=== PATIENT | female | born 1980 | race Caucasian/White ===

== ENCOUNTER 2021-10-24 19:08 | Inpatient (IN) ==
--- NOTE | 2021-10-24 19:20 | Emergency Department Note ---
History of Present Illness General Chief complaint: Respiratory Distress Stated complaint: Stroke Time Seen by Provider: 10/24/21 19:08 Source: patient and EMS Mode of arrival: EMS History of Present Illness Provider complaint: Shortness of breath Onset (ago): day(s) Location: chest Pain Consistency: + constant Quality: + other (Short of breath) Relieved By: + none Exacerbated By: + none Associated symptoms: + cough and + shortness of breath; no chest pain, no fever/chills, no headaches or no nausea/vomiting This is a 41-year-old female brought in by EMS for evaluation of shortness of breath and cough. Patient has been short of breath for about 2 days. She denies any alleviating factors. She has had associated coughing with it for 10 days. She states she was exposed to COVID-19 13 days ago. She is vaccinated. She has had a nonproductive cough. She denies any fever. She has loss of taste but not smell. She denies any vomiting or diarrhea or abdominal pain. She has had no urinary symptoms. She denies any leg swelling or pain or any history of DVT or PE. She denies any chest discomfort or pain. 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 She cannot move her left arm but she is normally able to walk. She does not note any new numbness or weakness although she has not tried to stand up today. She states she has had some slurring of her speech which started yesterday. I did obtain further history from the patient's . She apparently had a Covid exposure at her son's psychologist office. She is unvaccinated for COVID- 19. She has been lethargic and confused since 11:00 this morning. She did not recognize her . She try to get up and fell. Nobody witnessed the fall but they found her on the floor. Home Medications Medication Instructions Recorded Confirmed Type amlodipine 10 mg tablet 10 mg PO DAILY 10/24/21 10/24/21 History baclofen 20 mg tablet 20 mg PO BID 10/24/21 10/24/21 History bupropion HCl 150 mg 24 hr tablet, 150 mg PO DAILY 10/24/21 10/24/21 History extended release bupropion HCl 150 mg 24 hr tablet, 300 mg PO DAILY 10/24/21 10/24/21 History extended release docusate sodium 100 mg capsule 100 mg PO TID 10/24/21 10/24/21 History (Colace) doxepin 75 mg capsule 300 mg PO DAILY 10/24/21 10/24/21 History hydrochlorothiazide 25 mg tablet 25 mg PO DAILY 10/24/21 10/24/21 History hydroxyzine HCl 50 mg tablet 50 mg PO BID 10/24/21 10/24/21 History losartan 50 mg tablet 50 mg PO DAILY 10/24/21 10/24/21 History meclizine 25 mg tablet 25 mg PO TID PRN 10/24/21 10/24/21 History multivitamin 1 tab PO DAILY 10/24/21 10/24/21 History oxybutynin chloride 15 mg 15 mg PO DAILY 10/24/21 10/24/21 History tablet,extended release 24 hr potassium chloride 10 mEq 10 meq PO DAILY 10/24/21 10/24/21 History tablet,extended release potassium chloride 20 mEq 80 meq PO DAILY 10/24/21 10/24/21 History tablet,extended release(part/cryst) (Klor-Con M) risperidone 0.5 mg tablet 0.5 mg PO QAM 10/24/21 10/24/21 History risperidone 3 mg tablet 3 mg PO HS 10/24/21 10/24/21 History spironolactone 50 mg tablet 50 mg PO DAILY 10/24/21 10/24/21 History Allergies Allergy/AdvReac Type Severity Reaction Status Date / Time No Known Allergies Allergy Unverified 10/24/21 21:07 Past Med/Surg History Medical History CVA, old, hemiparesis Social History Preferred Language: Croatian marital status: Current Living Situation: Family Feels Safe at Home: Yes Review of Systems See HPI for pertinent positives & negatives. and A total of 10 systems reviewed and were otherwise negative Physical Exam Vital Signs Vital Signs - 24 hr 10/24/21 19:09 10/24/21 19:15 10/24/21 19:26 Temperature 36.7 C Temperature Source Oral Pulse Rate 120 H 114 H Pulse Rate [Apical] Pulse Rate from SpO2 Sensor 114 H Respiratory Rate 26 H 22 Respiratory Effort / Characteristics Short of Breath SOB on Exertion Respiratory Depth Deep Respiratory Pattern Tachypnea Blood Pressure 136/89 Blood Pressure [Right Arm] Blood Pressure Mean 104 Blood Pressure Mean [Right Arm] Pulse Oximetry 83 L 85 L 97 Oxygen Delivery Method Non-rebreather Non-rebreather BiPAP Oxygen Flow Rate 15 18 Fraction of Inspired Oxygen Sepsis Recent Fever Within 48 Hours No Sepsis New/Unexplained Change in Mental Status Yes Sepsis Action Taken by Nursing No Action Required 10/24/21 19:30 10/24/21 19:45 10/24/21 20:00 Temperature Temperature Source Pulse Rate 111 H 109 H 111 H Pulse Rate [Apical] Pulse Rate from SpO2 Sensor 111 H 109 H 111 H Respiratory Rate 23 21 27 H Respiratory Effort / Characteristics Respiratory Depth Respiratory Pattern Blood Pressure 143/86 H 168/98 H Blood Pressure [Right Arm] Blood Pressure Mean 105 121 Blood Pressure Mean [Right Arm] Pulse Oximetry 92 98 91 Oxygen Delivery Method Nasal Cannula High Flow Nasal Cannula High Flow Nasal Cannula Oxygen Flow Rate Fraction of Inspired Oxygen Sepsis Recent Fever Within 48 Hours Sepsis New/Unexplained Change in Mental Status Sepsis Action Taken by Nursing 10/24/21 20:09 10/24/21 20:16 10/24/21 20:20 Temperature Temperature Source Pulse Rate Pulse Rate [Apical] 109 H Pulse Rate from SpO2 Sensor Respiratory Rate 31 H Respiratory Effort / Characteristics Spontaneous Respiratory Depth Respiratory Pattern Blood Pressure Blood Pressure [Right Arm] 181/100 H Blood Pressure Mean Blood Pressure Mean [Right Arm] 127 Pulse Oximetry 89 L 89 L 98 Oxygen Delivery Method High Flow Nasal Cannula Oxygen Flow Rate Fraction of Inspired Oxygen 100 Sepsis Recent Fever Within 48 Hours Sepsis New/Unexplained Change in Mental Status Sepsis Action Taken by Nursing 10/24/21 20:33 10/24/21 20:45 10/24/21 21:00 Temperature Temperature Source Pulse Rate 107 H 113 H 104 H Pulse Rate [Apical] Pulse Rate from SpO2 Sensor 113 H 104 H Respiratory Rate 22 30 H 34 H Respiratory Effort / Characteristics Respiratory Depth Respiratory Pattern Blood Pressure 140/87 130/80 Blood Pressure [Right Arm] Blood Pressure Mean 104 96 Blood Pressure Mean [Right Arm] Pulse Oximetry 96 97 97 Oxygen Delivery Method BiPAP BiPAP BiPAP Oxygen Flow Rate Fraction of Inspired Oxygen Sepsis Recent Fever Within 48 Hours Sepsis New/Unexplained Change in Mental Status Sepsis Action Taken by Nursing 10/24/21 21:15 10/24/21 21:30 10/24/21 21:45 Temperature Temperature Source Pulse Rate 104 H 104 H 101 H Pulse Rate [Apical] Pulse Rate from SpO2 Sensor 104 H 104 H 101 H Respiratory Rate 31 H 28 H 25 H Respiratory Effort / Characteristics Respiratory Depth Respiratory Pattern Blood Pressure 142/86 H 133/85 Blood Pressure [Right Arm] Blood Pressure Mean 104 101 Blood Pressure Mean [Right Arm] Pulse Oximetry 99 99 98 Oxygen Delivery Method BiPAP BiPAP BiPAP Oxygen Flow Rate Fraction of Inspired Oxygen Sepsis Recent Fever Within 48 Hours Sepsis New/Unexplained Change in Mental Status Sepsis Action Taken by Nursing 10/24/21 22:00 10/24/21 22:15 10/24/21 22:30 Temperature Temperature Source Pulse Rate 103 H 102 H 103 H Pulse Rate [Apical] Pulse Rate from SpO2 Sensor 103 H Respiratory Rate 30 H 24 23 Respiratory Effort / Characteristics Respiratory Depth Respiratory Pattern Blood Pressure Blood Pressure [Right Arm] Blood Pressure Mean Blood Pressure Mean [Right Arm] Pulse Oximetry 99 98 96 Oxygen Delivery Method BiPAP BiPAP BiPAP Oxygen Flow Rate Fraction of Inspired Oxygen Sepsis Recent Fever Within 48 Hours Sepsis New/Unexplained Change in Mental Status Sepsis Action Taken by Nursing 10/24/21 22:45 10/24/21 23:06 10/24/21 23:07 Temperature Temperature Source Pulse Rate 100 H 104 H Pulse Rate [Apical] 104 H Pulse Rate from SpO2 Sensor Respiratory Rate 23 24 24 Respiratory Effort / Characteristics Short of Breath Respiratory Depth Respiratory Pattern Blood Pressure 131/91 Blood Pressure [Right Arm] Blood Pressure Mean 104 Blood Pressure Mean [Right Arm] Pulse Oximetry 97 97 97 Oxygen Delivery Method BiPAP BiPAP Oxygen Flow Rate Fraction of Inspired Oxygen 100 100 Sepsis Recent Fever Within 48 Hours Sepsis New/Unexplained Change in Mental Status Sepsis Action Taken by Nursing Constitutional: Vital signs reviewed. Eyes: Pupils are equal round reactive to light. Conjunctiva are noninjected. ENT: Pharynx is clear without erythema or exudate. Mucous membranes are moist. Neck supple without meningeal signs. Respiratory: Scattered rhonchi bilaterally. Breath sounds are equal bilaterally. Cardiovascular: Tachycardic. Regular rhythm. GI: Soft, nondistended and nontender. Bowel sounds are present. Musculoskeletal: No peripheral edema. No lower extremity tenderness. Integumentary: No cyanosis. or jaundice. Neurologic: The patient is somnolent. Cranial nerves II-XII are intact. Motor is 5 out of 5 right upper and lower extremities. Left upper extremity she has some movement of the hand but is unable to raise the arm. The left lower extremity she has 5-5 distal strength but having difficulty with lifting the leg off the bed. Sensation is intact to light touch all extremities. Psychiatric: Unable to assess. Course Administered Medications Potassium Chloride (K Jacoby / Wtr) 10 meq in 100 mls @ 100 mls/hr IV Q1H TRAVIS Stop: 10/25/21 03:17 Last Admin: 10/24/21 22:42 Dose: 100 mls/hr Documented by: [id number] Discontinued Medications Dexamethasone Sodium Phosphate (DexamethasonePf 10 Mg/Ml Vial) 6 mg IV NOW ONE Stop: 10/24/21 20:52 Last Admin: 10/24/21 21:06 Dose: 6 mg Documented by: [id number] Potassium Chloride (K Jacoby / Wtr) 10 meq in 100 mls @ 100 mls/hr IV ONE ONE Stop: 10/24/21 22:14 Last Infusion: 10/24/21 22:28 Dose: 0 mls/hr Documented by: [id number] Admin: 10/24/21 21:25 Dose: 100 mls/hr Documented by: [id number] Ipratropium [place] (Ipratropium [place] Neb Soln 0.02% 2.5 Ml Vial) 0.5 mg INH NOW STA Stop: 10/24/21 22:23 Last Admin: 10/24/21 23:05 Dose: 0.5 mg Documented by: [id number] Levalbuterol HCl (Levalbuterol 1.25mg/0.5ml Neb) 1.25 mg INH NOW STA Stop: 10/24/21 22:23 Last Admin: 10/24/21 23:05 Dose: 1.25 mg Documented by: [id number] Critical Care Time Critical Care Time: Yes Total Critical Care Time: 45 I have personally spent approximately 45 minutes of critical care time in the direct management of this patient. This includes bedside care, interpretation of diagnostic studies, and testing, discussion with consultants, patient, and family members, and other required patient management activities. These minutes are in excess of all separately billable procedures. Medical Decision Making Differential Diagnosis Hypoxia, ARDS, COVID-19, pneumonia, respiratory failure, hypercapnia, CVA Medical Records Attestation: I reviewed the patient's medical records. I did perform a limited focused review of portions of the patient's old chart on the electronic medical record. The patient has had no recent pertinent visits to this hospital. Home Medications Current Medication List: was personally reviewed by me Laboratory Data Attestation: I reviewed the patient's lab results. Result diagrams: 10/24/21 19:59 10/24/21 19:59 Lab Results 10/24/21 10/24/21 10/24/21 Range/Units 19:25 19:25 19:33 WBC (4.8-10.8) K/uL RBC (4.2-5.4) M/uL Hgb (12.0-16.0) g/dL POC Hgb 11.9 L (12.0-16.0) g/dl Hct (37-47) % POC Hct 35 L (37-47) % MCV (80-100) fL MCH (25-34) pg MCHC (32-36) g/dL RDW Std Deviation (36.4-46.3) fL RDW Coeff of Diana (11.5-14.5) % Plt Count (130-400) K/uL MPV (7.4-10.4) fL Immature Gran % (Auto) % Neut % (Auto) % Lymph % (Auto) % Sterling % (Auto) % Eos % (Auto) % Baso % (Auto) % Neut # (Auto) (1.4-6.5) K/uL Lymph # (Auto) (1.2-3.4) K/uL Sterling # (Auto) (0.11-0.59) K/uL Eos # (Auto) (0-0.5) K/uL Baso # (Auto) (0-0.2) K/uL Immature Gran # (Auto) (0.00-0.02) K/uL Absolute Nucleated RBC (0-0) K/uL Nucleated RBC % (auto) % POC pH 7.49 H (7.35-7.45) POC pCO2 39 (35-46) mmHg POC pO2 50 L (80-95) mmHg POC HCO3 30 H (19-24) laurie/L POC Total CO2 31 (24-31) mmol/L POC Base Excess 6.0 H (-9-1.8) laurie/L POC ABG O2 Sat 88.0 L (90-95) % POC Sodium 140 (135-144) mmol/L Sodium (136-145) mmol/L POC Potassium 2.6 L (3.3-5.0) mmol/L Potassium (3.5-5.1) mmol/L POC Chloride (101-112) mmol/L Chloride (98-107) mmol/L Carbon Dioxide (21-32) mmol/L Anion Gap (3-11) POC Anion Gap (16-25) mmol/L POC BUN (7-18) mg/dl BUN (7-18) mg/dl Creatinine (0.6-1.2) mg/dl POC Creatinine (0.6-1.3) mg/dl Est Cr Clr Drug Dosing ml/min Est GFR ( Amer) ml/min Est GFR (Non-Af Amer) ml/min BUN/Creatinine Ratio (10-20) Glucose (70-99) mg/dl POC Glucose (other) (70-99) mg/dl Lactate (0.4-2.0) mmol/L Calcium (8.5-10.1) mg/dl POC Ioniz Calcium Olga (1.12-1.32) mmol/l Magnesium (1.8-2.4) mg/dl Total Bilirubin (0.2-1) mg/dl AST (15-37) U/L ALT (12-78) U/L Alkaline Phosphatase (45-117) U/L Troponin I (0-0.045) ng/ml C-Reactive Protein (0-0.29) mg/dl Total Protein (6.4-8.2) gm/dl Albumin (3.4-5.0) gm/dl Globulin (2.5-4.0) gm/dl Albumin/Globulin Ratio (0.9-2) Urine Color Urine Appearance (Clear) Urine pH (4.5-7.5) Ur Specific [place] (1.000-1.030) Urine Protein (Negative) Urine Glucose (UA) (Negative) Urine Ketones (Negative) Urine Blood (Negative) Urine Nitrite (Negative) Urine Bilirubin (Negative) Urine Urobilinogen (Negative) Ur Leukocyte Esterase (Negative) Urine WBC (Auto) (0-5) /hpf Urine RBC (Auto) (0-4) /hpf U Hyaline Cast (Auto) (0-5) /lpf U Epithel Cells (Auto) (0-5) /lpf Urine Bacteria (Auto) (Negative) SARS-CoV-2 (PCR) POSITIVE A* (Negative) Influ A Molecular Assay Negative (Negative) Influ B Molecular Assay Negative (Negative) 10/24/21 10/24/21 10/24/21 Range/Units 19:54 19:59 19:59 WBC 8.63 (4.8-10.8) K/uL RBC 4.52 (4.2-5.4) M/uL Hgb 12.8 (12.0-16.0) g/dL POC Hgb 12.9 (12.0-16.0) g/dl Hct 37.3 (37-47) % POC Hct 38 (37-47) % MCV 82.5 (80-100) fL MCH 28.3 (25-34) pg MCHC 34.3 (32-36) g/dL RDW Std Deviation 45.1 (36.4-46.3) fL RDW Coeff of Diana 14.8 H (11.5-14.5) % Plt Count 324 (130-400) K/uL MPV 9.9 (7.4-10.4) fL Immature Gran % (Auto) 1.3 % Neut % (Auto) 83.4 % Lymph % (Auto) 10.2 % Sterling % (Auto) 4.9 % Eos % (Auto) 0.0 % Baso % (Auto) 0.2 % Neut # (Auto) 7.20 H (1.4-6.5) K/uL Lymph # (Auto) 0.88 L (1.2-3.4) K/uL Sterling # (Auto) 0.42 (0.11-0.59) K/uL Eos # (Auto) 0.00 (0-0.5) K/uL Baso # (Auto) 0.02 (0-0.2) K/uL Immature Gran # (Auto) 0.11 H (0.00-0.02) K/uL Absolute Nucleated RBC 0.07 H (0-0) K/uL Nucleated RBC % (auto) 0.8 % POC pH (7.35-7.45) POC pCO2 (35-46) mmHg POC pO2 (80-95) mmHg POC HCO3 (19-24) laurie/L POC Total CO2 28 (24-31) mmol/L POC Base Excess (-9-1.8) laurie/L POC ABG O2 Sat (90-95) % POC Sodium 142 (135-144) mmol/L Sodium 141 (136-145) mmol/L POC Potassium 2.8 L (3.3-5.0) mmol/L Potassium 2.9 L (3.5-5.1) mmol/L POC Chloride 97 L (101-112) mmol/L Chloride 103 (98-107) mmol/L Carbon Dioxide 28 (21-32) mmol/L Anion Gap 10.0 (3-11) POC Anion Gap 20.0 (16-25) mmol/L POC BUN 13 (7-18) mg/dl BUN 13 (7-18) mg/dl Creatinine 0.83 (0.6-1.2) mg/dl POC Creatinine 0.8 (0.6-1.3) mg/dl Est Cr Clr Drug Dosing 115.8 ml/min Est GFR ( Amer) 100.8 ml/min Est GFR (Non-Af Amer) 87.0 ml/min BUN/Creatinine Ratio 15.9 (10-20) Glucose 139 H (70-99) mg/dl POC Glucose (other) 147 H (70-99) mg/dl Lactate (0.4-2.0) mmol/L Calcium 8.5 (8.5-10.1) mg/dl POC Ioniz Calcium Olga 1.07 L (1.12-1.32) mmol/l Magnesium 2.2 (1.8-2.4) mg/dl Total Bilirubin 0.5 (0.2-1) mg/dl AST 129 H (15-37) U/L ALT 78 (12-78) U/L Alkaline Phosphatase 110 (45-117) U/L Troponin I < 0.015 (0-0.045) ng/ml C-Reactive Protein 24.30 H (0-0.29) mg/dl Total Protein 7.1 (6.4-8.2) gm/dl Albumin 2.5 L (3.4-5.0) gm/dl Globulin 4.6 H (2.5-4.0) gm/dl Albumin/Globulin Ratio 0.5 L (0.9-2) Urine Color Urine Appearance (Clear) Urine pH (4.5-7.5) Ur Specific [place] (1.000-1.030) Urine Protein (Negative) Urine Glucose (UA) (Negative) Urine Ketones (Negative) Urine Blood (Negative) Urine Nitrite (Negative) Urine Bilirubin (Negative) Urine Urobilinogen (Negative) Ur Leukocyte Esterase (Negative) Urine WBC (Auto) (0-5) /hpf Urine RBC (Auto) (0-4) /hpf U Hyaline Cast (Auto) (0-5) /lpf U Epithel Cells (Auto) (0-5) /lpf Urine Bacteria (Auto) (Negative) SARS-CoV-2 (PCR) (Negative) Influ A Molecular Assay (Negative) Influ B Molecular Assay (Negative) 10/24/21 10/24/21 10/24/21 Range/Units 19:59 20:00 21:50 WBC (4.8-10.8) K/uL RBC (4.2-5.4) M/uL Hgb (12.0-16.0) g/dL POC Hgb 11.2 L (12.0-16.0) g/dl Hct (37-47) % POC Hct 33 L (37-47) % MCV (80-100) fL MCH (25-34) pg MCHC (32-36) g/dL RDW Std Deviation (36.4-46.3) fL RDW Coeff of Diana (11.5-14.5) % Plt Count (130-400) K/uL MPV (7.4-10.4) fL Immature Gran % (Auto) % Neut % (Auto) % Lymph % (Auto) % Sterling % (Auto) % Eos % (Auto) % Baso % (Auto) % Neut # (Auto) (1.4-6.5) K/uL Lymph # (Auto) (1.2-3.4) K/uL Sterling # (Auto) (0.11-0.59) K/uL Eos # (Auto) (0-0.5) K/uL Baso # (Auto) (0-0.2) K/uL Immature Gran # (Auto) (0.00-0.02) K/uL Absolute Nucleated RBC (0-0) K/uL Nucleated RBC % (auto) % POC pH 7.48 H (7.35-7.45) POC pCO2 45 (35-46) mmHg POC pO2 62 L (80-95) mmHg POC HCO3 33 H (19-24) laurie/L POC Total CO2 35 H (24-31) mmol/L POC Base Excess 10.0 H (-9-1.8) laurie/L POC ABG O2 Sat 93.0 (90-95) % POC Sodium 142 (135-144) mmol/L Sodium (136-145) mmol/L POC Potassium 3.0 L (3.3-5.0) mmol/L Potassium (3.5-5.1) mmol/L POC Chloride (101-112) mmol/L Chloride (98-107) mmol/L Carbon Dioxide (21-32) mmol/L Anion Gap (3-11) POC Anion Gap (16-25) mmol/L POC BUN (7-18) mg/dl BUN (7-18) mg/dl Creatinine (0.6-1.2) mg/dl POC Creatinine (0.6-1.3) mg/dl Est Cr Clr Drug Dosing ml/min Est GFR ( Amer) ml/min Est GFR (Non-Af Amer) ml/min BUN/Creatinine Ratio (10-20) Glucose (70-99) mg/dl POC Glucose (other) (70-99) mg/dl Lactate 1.6 (0.4-2.0) mmol/L Calcium (8.5-10.1) mg/dl POC Ioniz Calcium Olga (1.12-1.32) mmol/l Magnesium (1.8-2.4) mg/dl Total Bilirubin (0.2-1) mg/dl AST (15-37) U/L ALT (12-78) U/L Alkaline Phosphatase (45-117) U/L Troponin I (0-0.045) ng/ml C-Reactive Protein (0-0.29) mg/dl Total Protein (6.4-8.2) gm/dl Albumin (3.4-5.0) gm/dl Globulin (2.5-4.0) gm/dl Albumin/Globulin Ratio (0.9-2) Urine Color Dark Yellow Urine Appearance Clear (Clear) Urine pH 6.0 (4.5-7.5) Ur Specific [place] 1.020 (1.000-1.030) Urine Protein Trace H (Negative) Urine Glucose (UA) Negative (Negative) Urine Ketones Trace H (Negative) Urine Blood Negative (Negative) Urine Nitrite Negative (Negative) Urine Bilirubin 1+ H (Negative) Urine Urobilinogen Negative (Negative) Ur Leukocyte Esterase Negative (Negative) Urine WBC (Auto) 1-5 (0-5) /hpf Urine RBC (Auto) 0-4 (0-4) /hpf U Hyaline Cast (Auto) 5-10 H (0-5) /lpf U Epithel Cells (Auto) 10-20 H (0-5) /lpf Urine Bacteria (Auto) Negative (Negative) SARS-CoV-2 (PCR) (Negative) Influ A Molecular Assay (Negative) Influ B Molecular Assay (Negative) Imaging Data Radiologist's Impression: Chest X-Ray 10/24/21 19:09 XR chest 1V portable HISTORY: 41 years-old Female Dyspnea acute shortness of breath COMPARISON: None TECHNIQUE: Portable AP view of the chest FINDINGS: Cardiac silhouette is enlarged. Interstitial coarsening is noted with extensive bilateral airspace opacities. No pneumothorax or large pleural effusion. Degenerative changes of the shoulders and spine. IMPRESSION: Extensive bilateral airspace opacities are suggestive of multifocal pneumonia. ACT 112: Negative or not required by law. The above report was generated using voice recognition software. It may contain grammatical, syntax or spelling errors. Electronically signed by: Du Kilpatrick M.D. 10/24/2021 8:[address] 10/24/21 19:18 CT head/brain wo con CLINICAL HISTORY: 41 years-old Female with slurred speech eval for cva. Acute strokelike symptoms TECHNIQUE: Multiple axial CT images of the head were obtained without contrast. A dose lowering technique was utilized adhering to the principles of ALARA. CT DOSE: 1171.27 mGy.cm COMPARISON: None. FINDINGS: No acute intracranial hemorrhage, midline shift, intracranial mass, hydrocephalus, territorial ischemia or abnormal extra-axial collection. The calvarium is intact. Mild mucosal thickening of the paranasal sinuses. Mastoid air cells are clear. IMPRESSION: No acute intracranial abnormality. ACT 112: Negative or not required by law. The above report was generated using voice recognition software. It may contain grammatical, syntax or spelling errors. Electronically signed by: Du Kilpatrick M.D. 10/24/2021 8:36 PM ECG Data Attestation: I personally reviewed and interpreted this ECG as follows: Indication: + SOB/dyspnea Rate (beats per minute): 111 Rhythm: + sinus tachycardia ECG Chase: + Normal ECG ST segments: no ST elevation ECG Findings: no PVCs Comparison ECG Date: no prior available MDM Narrative I did provide prehospital medical command for the patient. I did evaluate the patient as noted above. Her symptoms are concerning for COVID-19 pneumonia and respiratory failure. She was placed in isolation. IV access was established. I did place an order for continuous cardiac monitoring. The monitor showed sinus tachycardia at a rate of 112 bpm. She is hypoxemic and was placed on high flow oxygen with an O2 sat going up into the low 90s. I did order and personally review the patient's 12-lead EKG as described above. She has no acute ischemic changes. I did order and personally reviewed the images of the patient's chest x-ray as described above. She appears to have a multifocal pneumonia. I did order a urine analysis. She does not have an infection. Blood cultures were ordered. I did order and review the patient's blood work as noted in the electronic medical record. CBC demonstrates no leukocytosis but she does have a left shift and some lymphopenia. Platelet count and hemoglobin are within normal limits. Arterial blood gas on a nonrebreather demonstrates a pH of 7.49, PaCO2 of 39 and PaO2 of 50. Chemistries demonstrate a potassium of 2.9. Electrolytes are otherwise unremarkable. Her C-reactive protein is 24. Lactate is 1.6. Blood cultures were obtained. There was some concern for her having a stroke. She has been slurring her speech slightly since yesterday and had significant confusion today. I believe this is likely from hypoxemia. I did order a CT of the head. I did review the images myself as well as the radiology report as described above. There is no evidence of acute CVA. I did reassess the patient multiple times. She improved significantly with high flow oxygen and then was subsequently placed on BiPAP and showed greater improvement. She is no longer lethargic. She is awake and alert. She answers questions appropriately. She does not require intubation at this time. I did order a second ABG. I did treat her with IV Decadron and IV KCl. She will be hospitalized for further care and evaluation. I did discuss case with the hospitalist and geriatric case manager. Repeat ABG shows improvement of PaO2 but she is still hypoxic. Clinically she is improving progressively and mentating and awake and alert. At this time I do not see an emergent indication for intubation. As she has COVID-19 we will try proning her and pulmonary toilet. Impression & Plan Acute respiratory failure with hypoxia, Multifocal pneumonia, Pneumonia due to 2019-nCoV, Acute hypokalemia Discharge Plan Visit Data Chief Complaint: Respiratory Distress Stated Complaint: Stroke ED Provider: Micheal Baer Discharge Problem: Acute respiratory failure with hypoxia, Multifocal pneumonia, Pneumonia due to 2019-nCoV, Acute hypokalemia Patient Disposition: Being Evaluated by Hospitalist Forms Stand Alone Forms: My [facility] Prescriptions Prescriptions: No Action multivitamin Tablet 1 tab PO DAILY RF: 0 losartan 50 mg Tablet 50 mg PO DAILY RF: 0 oxybutynin chloride 15 mg Tablet Extended Release 24 Hr 15 mg PO DAILY RF: 0 doxepin 75 mg Capsule 300 mg PO DAILY RF: 0 potassium chloride 10 mEq Tablet Extended Release 10 meq PO DAILY RF: 0 hydroxyzine HCl 50 mg Tablet 50 mg PO BID RF: 0 risperidone 3 mg Tablet 3 mg PO HS RF: 0 baclofen 20 mg Tablet 20 mg PO BID RF: 0 potassium chloride [Klor-Con M20] 20 mEq Tablet,Er Particles/Crystals 80 meq PO DAILY RF: 0 meclizine 25 mg Tablet 25 mg PO TID PRN (Reason: Dizziness) RF: 0 amlodipine 10 mg Tablet 10 mg PO DAILY RF: 0 docusate sodium [Colace] 100 mg Capsule 100 mg PO TID RF: 0 hydrochlorothiazide 25 mg Tablet 25 mg PO DAILY RF: 0 risperidone 0.5 mg Tablet 0.5 mg PO QAM RF: 0 spironolactone 50 mg Tablet 50 mg PO DAILY RF: 0 bupropion HCl 150 mg Tablet Extended Release 24 Hr 300 mg PO DAILY RF: 0 bupropion HCl 150 mg Tablet Extended Release 24 Hr 150 mg PO DAILY RF: 0 Referrals Referrals: PCP,NO [Physician] -
[2021-10-24 19:50] LABS: iSTAT Arterial Blood Gas HCO3 30 meg/L (19-24); iSTAT Arterial Blood Gas pCO2 39 mmHg (35-46); iSTAT Arterial Blood Gas pH 7.49 (7.35-7.45); iSTAT Arterial Blood Gas pO2 50 mmHg (80-95); iSTAT Carbon Dioxide 31 mmol/L (24-31); iSTAT Hematocrit 35 % (37-47); iSTAT Hemoglobin 11.9 g/dl (12.0-16.0); iSTAT Potassium 2.6 mmol/L (3.3-5.0); iSTAT Sodium 140 mmol/L (135-144)
[2021-10-24 20:07] LABS: iSTAT Creatinine 0.8 mg/dl (0.6-1.3); iSTAT Hemoglobin 12.9 g/dl (12.0-16.0); iSTAT Ionized Calcium 1.07 mmol/l (1.12-1.32); iSTAT Potassium 2.8 mmol/L (3.3-5.0)
[2021-10-24 20:09] LABS: Influenza A virus by PCR Negative (Negative); Influenza B virus by PCR Negative (Negative)
[2021-10-24 20:12] LABS: Basophils # (auto) 0.02 K/uL (0-0.2); Basophils % (auto) 0.2 %; Hematocrit (blood only) 37.3 % (37-47); Hemoglobin 12.8 g/dL (12.0-16.0); Immature Granulocytes # (auto) 0.11 K/uL (0.00-0.02); Immature Granulocytes % (auto) 1.3 %; Lymphocytes # (auto) 0.88 K/uL (1.2-3.4); Lymphocytes % (auto) 10.2 %; Mean Corpuscular Hemoglobin 28.3 pg (25-34); Mean Corpuscular Hgb Conc 34.3 g/dL (32-36); Mean Corpuscular Volume 82.5 fL (80-100); Mean Platelet Volume 9.9 fL (7.4-10.4); Monocytes # (auto) 0.42 K/uL (0.11-0.59); Monocytes % (auto) 4.9 %; Neutrophils % (auto) 83.4 %; Nucleated RBC # (auto) 0.07 K/uL (0-0); Nucleated RBC % (auto) 0.8 %; Platelet Count 324 K/uL (130-400); RDW Coefficient of Variation 14.8 % (11.5-14.5); RDW Standard Deviation 45.1 fL (36.4-46.3); Red Blood Count 4.52 M/uL (4.2-5.4); White Blood Count 8.63 K/uL (4.8-10.8)
--- NOTE | 2021-10-24 20:15 | XRay Report ---
XR chest 1V portable HISTORY: 41 years-old Female Dyspnea acute shortness of breath COMPARISON: None TECHNIQUE: Portable AP view of the chest FINDINGS: Cardiac silhouette is enlarged. Interstitial coarsening is noted with extensive bilateral airspace op acities. No pneumothorax or large pleural effusion. Degenerative changes of the shoulders and spine. IMPRESSION: Extensive bilateral airspace opacities are suggestive of multifocal pneumonia. ACT 112: Negative or not required by law. The above report was generated using voice recognition software. It may contain grammatical, syntax o r spelling errors. Electronically signed by: Du Kilpatrick M.D. 10/24/2021 8:14 PM
[2021-10-24 20:18] LABS: Appearance Urine Clear (Clear); Bacteria Urine Automated Negative (Negative); Bilirubin Urine 1+ (Negative); Blood Urine Negative (Negative); Color Urine Dark Yellow; Glucose Urine UA Negative (Negative); Ketones Urine Trace (Negative); Leukocyte Esterase Urine Negative (Negative); Nitrite Urine Negative (Negative); Protein Urine Trace (Negative); RBC Urine Automated 0-4 /hpf (0-4); Urobilinogen Urine Negative (Negative)
--- NOTE | 2021-10-24 20:37 | CT Scan Report ---
CT head/brain wo con CLINICAL HISTORY: 41 years-old Female with slurred speech eval for cva. Acute strokelike symptoms TECHNIQUE: Multiple axial CT images of the head were obtained without contrast. A dose lowering tech nique was utilized adhering to the principles of ALARA. CT DOSE: 1171.27 mGy.cm COMPARISON: None. FINDINGS: No acute intracranial hemorrhage, midline shift, intracranial mass, hydrocephalus, territorial ischem ia or abnormal extra-axial collection. The calvarium is intact. Mild mucosal thickening of the paranasal sinuses. Mastoid air cells are tacos ar. IMPRESSION: No acute intracranial abnormality. ACT 112: Negative or not required by law. The above report was generated using voice recognition software. It may contain grammatical, syntax o r spelling errors. Electronically signed by: Du Kilpatrick M.D. 10/24/2021 8:36 PM
[2021-10-24 20:41] LABS: Alanine Aminotransferase 78 U/L (12-78); Albumin Level 2.5 gm/dl (3.4-5.0); Aspartate Aminotransferase 129 U/L (15-37); BUN Creatinine Ratio 15.9 (10-20); Blood Urea Nitrogen 13 mg/dl (7-18); Calcium 8.5 mg/dl (8.5-10.1); Carbon Dioxide 28 mmol/L (21-32); Chloride 103 mmol/L (98-107); Creatinine Clr Calc Pharmacy 115.8 ml/min; Est GFR (African American) 100.8 ml/min; Glucose 139 mg/dl (70-99); Potassium 2.9 mmol/L (3.5-5.1); Sodium 141 mmol/L (136-145)
[2021-10-24 20:48] LABS: Albumin Globulin Ratio 0.5 (0.9-2); Alkaline Phosphatase 110 U/L (45-117); Bilirubin,Total 0.5 mg/dl (0.2-1); Globulin 4.6 gm/dl (2.5-4.0); Total Protein 7.1 gm/dl (6.4-8.2); Troponin I < 0.015 ng/ml (0-0.045)
[2021-10-24] MEDS ORDERED: dexAMETHasone**PF** 10 MG/ML VIAL IV ONE (20:51)
[2021-10-24] MEDS ORDERED: POTASSIUM CHLORIDE / WTR 10 MEQ/100 ML PLCT IV ONE (21:15)
[2021-10-24 22:04] LABS: iSTAT Arterial Blood Gas HCO3 33 meg/L (19-24); iSTAT Arterial Blood Gas pCO2 45 mmHg (35-46); iSTAT Arterial Blood Gas pH 7.48 (7.35-7.45); iSTAT Arterial Blood Gas pO2 62 mmHg (80-95); iSTAT Carbon Dioxide 35 mmol/L (24-31); iSTAT Hematocrit 33 % (37-47); iSTAT Hemoglobin 11.2 g/dl (12.0-16.0); iSTAT Sodium 142 mmol/L (135-144)
[2021-10-24] MEDS ORDERED: IPRATROPIUM BROMIDE NEB SOLN 0.02% 2.5 ML VIAL INH STA (22:22)
[2021-10-24] MEDS ORDERED: LEVALBUTEROL 1.25MG/0.5ML NEB INH STA (22:22)
[2021-10-24] MEDS ORDERED: XOPENEX/ATROVENT 1.25mg/0.5MG NEB COMBO NEB STA (22:22)
[2021-10-24 22:26] LABS: Magnesium 2.2 mg/dl (1.8-2.4)
[2021-10-24] MEDS: POTASSIUM CHLORIDE / WTR 10 MEQ/100 ML PLCT IV SCH ×2 (22:42→23:47)
[2021-10-25] MEDS: POTASSIUM CHLORIDE / WTR 10 MEQ/100 ML PLCT IV SCH ×3 (01:10→05:14)
[2021-10-25] MEDS ORDERED: SODIUM CHLORIDE 0.9% 10ML FLUSH IV SCH (01:15)
[2021-10-25] MEDS ORDERED: REMDESIVIR 200 MG in SODIUM CHLORIDE 0.9% 210 ML IV STA (01:21)
--- NOTE | 2021-10-25 01:58 | History & Physical Report ---
Date of Service October 25, 2021 Assessment & Plan (1) Acute respiratory failure with hypoxia: Plan: Secondary to severe COVID-19 pneumonia HTN, slightly elevated Hypokalemia secondary to poor p.o. 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 (Patient was counseled regarding potential adverse effects from Remdesivir therapy.) Pulmonary consult Re: Respiratory failure, severe COVID-19 pneumonia Replace potassium, hold home diuretic for now Check hemoglobin A1c DVT prophylaxis per Lovenox subcu Full code Total critical care time was 40 minutes. Text document was generated using Hooked voice recognition software. It may contain grammatical or spelling errors. Kindly contact undersigned for clarification of any documentation item in question. History of Present Illness Chief Complaint: Shortness of breath, cough Primary Care Provider: Sonny Lagos MD History obtained from patient and records. History somewhat difficult to obtain from patient secondary to BiPAP mask. Medical history significant for HTN, mood disorder, potassium wasting nephropathy as per records, cerebral palsy. 10 days history dry cough symptoms with worsening shortness of breath and flulike symptoms. Patient denies chest pain. Possible COVID-19 contacts. Patient has not received COVID-19 vaccination. Poor appetite. Some lethargy noted at home leading to fall. Patient brought to ER for evaluation. BiPAP initiated for respiratory distress. Decadron given for COVID-19 pneumonia. Medical History as above Surgical History : Achilles tendon surgery Family History : ADD, DM, schizophrenia, mood disorder, autism Personal/Social history : Non-smoker, occasional EtOH intake, disabled Allergies Allergy/AdvReac Type Severity Reaction Status Date / Time No Known Allergies Allergy Unverified 10/24/21 21:07 Home Medications Medication Instructions Recorded Confirmed Type amlodipine 10 mg tablet 10 mg PO DAILY 10/24/21 10/24/21 History baclofen 20 mg tablet 20 mg PO BID 10/24/21 10/24/21 History bupropion HCl 150 mg 24 hr tablet, 150 mg PO DAILY 10/24/21 10/24/21 History extended release bupropion HCl 150 mg 24 hr tablet, 300 mg PO DAILY 10/24/21 10/24/21 History extended release docusate sodium 100 mg capsule 100 mg PO TID 10/24/21 10/24/21 History (Colace) doxepin 75 mg capsule 300 mg PO DAILY 10/24/21 10/24/21 History hydrochlorothiazide 25 mg tablet 25 mg PO DAILY 10/24/21 10/24/21 History hydroxyzine HCl 50 mg tablet 50 mg PO BID 10/24/21 10/24/21 History losartan 50 mg tablet 50 mg PO DAILY 10/24/21 10/24/21 History meclizine 25 mg tablet 25 mg PO TID PRN 10/24/21 10/24/21 History multivitamin 1 tab PO DAILY 10/24/21 10/24/21 History oxybutynin chloride 15 mg 15 mg PO DAILY 10/24/21 10/24/21 History tablet,extended release 24 hr potassium chloride 10 mEq 10 meq PO DAILY 10/24/21 10/24/21 History tablet,extended release potassium chloride 20 mEq 80 meq PO DAILY 10/24/21 10/24/21 History tablet,extended release(part/cryst) (Klor-Con M) risperidone 0.5 mg tablet 0.5 mg PO QAM 10/24/21 10/24/21 History risperidone 3 mg tablet 3 mg PO HS 10/24/21 10/24/21 History spironolactone 50 mg tablet 50 mg PO DAILY 10/24/21 10/24/21 History Past Med/Surg History Medical History CVA, old, hemiparesis Social History Smoking Status: Never smoker Hx Alcohol Use: No Hx Substance Use: No Preferred Language: Hebrew Communication Ability: Effective Health Record Technician Required: No Beliefs That Will Affect Care: None marital status: Current Living Situation: Spouse Feels Safe at Home: Yes Safety Concerns: Feels Safe At This Time Assistive Devices: Glasses Assistive Devices Comment: Upper and Lower Partials Review of Systems Review of Systems: Could not be reliably obtained Physical Exam Physical Exam: GENERAL: uncomfortable, anxious, morbidly obese, minimal respiratory distress SKIN: Normal color, warm HEENT: [place] palpebral conjunctivae, no ptosis, dry buccal mucosa, BiPAP in place NECK : Supple, short neck, no tenderness CHEST : Decreased breath sounds, occasional expiratory wheezes, no tenderness HEART : Tachycardic, no obvious murmurs ABDOMEN: Some distention, nontender EXTREMITIES : Minimal LE swelling, no LE tenderness, no other conspicuous deformities noted NEUROLOGIC : Coherent, no facial asymmetry, episodic involuntary jerking of the left upper extremity, gait and stance not assessed Results & Data Results & Data ([facility]) Vital Signs (Past 12 Hours) Vital Signs Temp Pulse Pulse Resp BP BP Pulse Ox 10/25/21 00:00 105 H 25 H 98 10/24/21 23:45 102 H 21 98 10/24/21 23:30 101 H 33 H 97 10/24/21 23:15 102 H 25 H 96 10/24/21 23:07 104 H 24 97 10/24/21 23:06 104 H 24 97 10/24/21 23:00 101 H 32 H 96 10/24/21 22:45 100 H 23 131/91 97 10/24/21 22:30 103 H 23 96 10/24/21 22:15 102 H 24 98 10/24/21 22:00 103 H 30 H 99 10/24/21 21:45 101 H 25 H 98 10/24/21 21:30 104 H 28 H 133/85 99 10/24/21 21:15 104 H 31 H 142/86 H 99 10/24/21 21:00 104 H 34 H 130/80 97 10/24/21 20:45 113 H 30 H 140/87 97 10/24/21 20:33 107 H 22 96 10/24/21 20:20 31 H 98 10/24/21 20:16 89 L 10/24/21 20:09 109 H 181/100 H 89 L 10/24/21 20:00 111 H 27 H 168/98 H 91 10/24/21 19:45 109 H 21 98 10/24/21 19:30 111 H 23 143/86 H 92 10/24/21 19:26 97 10/24/21 19:15 114 H 22 85 L 10/24/21 19:09 36.7 C 120 H 26 H 136/89 83 L Laboratory Results Laboratory Results WBC 8.63 K/uL (4.8-10.8) 10/24/21 19:59 RBC 4.52 M/uL (4.2-5.4) 10/24/21 19:59 Hgb 12.8 g/dL (12.0-16.0) 10/24/21 19:59 POC Hgb 11.2 g/dl (12.0-16.0) L 10/24/21 21:50 Hct 37.3 % (37-47) 10/24/21 19:59 POC Hct 33 % (37-47) L 10/24/21 21:50 MCV 82.5 fL (80-100) 10/24/21 19:59 MCH 28.3 pg (25-34) 10/24/21 19:59 MCHC 34.3 g/dL (32-36) 10/24/21 19:59 RDW Std Deviation 45.1 fL (36.4-46.3) 10/24/21 19:59 RDW Coeff of Diana 14.8 % (11.5-14.5) H 10/24/21 19:59 Plt Count 324 K/uL (130-400) 10/24/21 19:59 MPV 9.9 fL (7.4-10.4) 10/24/21 19:59 Immature Gran % (Auto) 1.3 % 10/24/21 19:59 Neut % (Auto) 83.4 % 10/24/21 19:59 Lymph % (Auto) 10.2 % 10/24/21 19:59 [place] % (Auto) 4.9 % 10/24/21 19:59 Eos % (Auto) 0.0 % 10/24/21 19:59 Baso % (Auto) 0.2 % 10/24/21 19:59 Neut # (Auto) 7.20 K/uL (1.4-6.5) H 10/24/21 19:59 Lymph # (Auto) 0.88 K/uL (1.2-3.4) L 10/24/21 19:59 [place] # (Auto) 0.42 K/uL (0.11-0.59) 10/24/21 19:59 Eos # (Auto) 0.00 K/uL (0-0.5) 10/24/21 19:59 Baso # (Auto) 0.02 K/uL (0-0.2) 10/24/21 19:59 Immature Gran # (Auto) 0.11 K/uL (0.00-0.02) H 10/24/21 19:59 Absolute Nucleated RBC 0.07 K/uL (0-0) H 10/24/21 19:59 Nucleated RBC % (auto) 0.8 % 10/24/21 19:59 POC pH 7.48 (7.35-7.45) H 10/24/21 21:50 POC pCO2 45 mmHg (35-46) 10/24/21 21:50 POC pO2 62 mmHg (80-95) L 10/24/21 21:50 POC HCO3 33 laurie/L (19-24) H 10/24/21 21:50 POC Total CO2 35 mmol/L (24-31) H 10/24/21 21:50 POC Base Excess 10.0 laurie/L (-9-1.8) H 10/24/21 21:50 POC ABG O2 Sat 93.0 % (90-95) 10/24/21 21:50 POC Sodium 142 mmol/L (135-144) 10/24/21 21:50 Sodium 141 mmol/L (136-145) 10/24/21 19:59 POC Potassium 3.0 mmol/L (3.3-5.0) L 10/24/21 21:50 Potassium 2.9 mmol/L (3.5-5.1) L 10/24/21 19:59 POC Chloride 97 mmol/L (101-112) L 10/24/21 19:54 Chloride 103 mmol/L (98-107) 10/24/21 19:59 Carbon Dioxide 28 mmol/L (21-32) 10/24/21 19:59 POC Total CO2 28 mmol/L (24-31) 10/24/21 19:54 Anion Gap 10.0 (3-11) 10/24/21 19:59 POC Anion Gap 20.0 mmol/L (16-25) 10/24/21 19:54 POC BUN 13 mg/dl (7-18) 10/24/21 19:54 BUN 13 mg/dl (7-18) 10/24/21 19:59 Creatinine 0.83 mg/dl (0.6-1.2) 10/24/21 19:59 POC Creatinine 0.8 mg/dl (0.6-1.3) 10/24/21 19:54 Est Cr Clr Drug Dosing 115.8 ml/min 10/24/21 19:59 Est GFR ( Amer) 100.8 ml/min 10/24/21 19:59 Est GFR (Non-Af Amer) 87.0 ml/min 10/24/21 19:59 BUN/Creatinine Ratio 15.9 (10-20) 10/24/21 19:59 Glucose 139 mg/dl (70-99) H 10/24/21 19:59 POC Glucose (other) 147 mg/dl (70-99) H 10/24/21 19:54 Lactate 1.6 mmol/L (0.4-2.0) 10/24/21 19:59 Calcium 8.5 mg/dl (8.5-10.1) 10/24/21 19:59 POC Ioniz Calcium Olga 1.07 mmol/l (1.12-1.32) L 10/24/21 19:54 Magnesium 2.2 mg/dl (1.8-2.4) 10/24/21 19:59 Total Bilirubin 0.5 mg/dl (0.2-1) 10/24/21 19:59 AST 129 U/L (15-37) H 10/24/21 19:59 ALT 78 U/L (12-78) 10/24/21 19:59 Alkaline Phosphatase 110 U/L (45-117) 10/24/21 19:59 Troponin I < 0.015 ng/ml (0-0.045) 10/24/21 19:59 C-Reactive Protein 24.30 mg/dl (0-0.29) H 10/24/21 19:59 Total Protein 7.1 gm/dl (6.4-8.2) 10/24/21 19:59 Albumin 2.5 gm/dl (3.4-5.0) L 10/24/21 19:59 Globulin 4.6 gm/dl (2.5-4.0) H 10/24/21 19:59 Albumin/Globulin Ratio 0.5 (0.9-2) L 10/24/21 19:59 Urine Color Dark Yellow 10/24/21 20:00 Urine Appearance Clear (Clear) 10/24/21 20:00 Urine pH 6.0 (4.5-7.5) 10/24/21 20:00 Ur Specific [place] 1.020 (1.000-1.030) 10/24/21 20:00 Urine Protein Trace (Negative) H 10/24/21 20:00 Urine Glucose (UA) Negative (Negative) 10/24/21 20:00 Urine Ketones Trace (Negative) H 10/24/21 20:00 Urine Blood Negative (Negative) 10/24/21 20:00 Urine Nitrite Negative (Negative) 10/24/21 20:00 Urine Bilirubin 1+ (Negative) H 10/24/21 20:00 Urine Urobilinogen Negative (Negative) 10/24/21 20:00 Ur Leukocyte Esterase Negative (Negative) 10/24/21 20:00 Urine WBC (Auto) 1-5 /hpf (0-5) 10/24/21 20:00 Urine RBC (Auto) 0-4 /hpf (0-4) 10/24/21 20:00 U Hyaline Cast (Auto) 5-10 /lpf (0-5) H 10/24/21 20:00 U Epithel Cells (Auto) 10-20 /lpf (0-5) H 10/24/21 20:00 Urine Bacteria (Auto) Negative (Negative) 10/24/21 20:00 SARS-CoV-2 (PCR) POSITIVE (Negative) A* 10/24/21 19:25 Influ A Molecular Assay Negative (Negative) 10/24/21 19:25 Influ B Molecular Assay Negative (Negative) 10/24/21 19:25 Impressions Chest X-Ray 10/24/21 19:09 XR chest 1V portable HISTORY: 41 years-old Female Dyspnea acute shortness of breath COMPARISON: None TECHNIQUE: Portable AP view of the chest FINDINGS: Cardiac silhouette is enlarged. Interstitial coarsening is noted with extensive bilateral airspace opacities. No pneumothorax or large pleural effusion. Degenerative changes of the shoulders and spine. IMPRESSION: Extensive bilateral airspace opacities are suggestive of multifocal pneumonia. ACT 112: Negative or not required by law. The above report was generated using voice recognition software. It may contain grammatical, syntax or spelling errors. Electronically signed by: Du Kilpatrick M.D. 10/24/2021 8:[address] 10/24/21 19:18 CT head/brain wo con CLINICAL HISTORY: 41 years-old Female with slurred speech eval for cva. Acute strokelike symptoms TECHNIQUE: Multiple axial CT images of the head were obtained without contrast. A dose lowering technique was utilized adhering to the principles of ALARA. CT DOSE: 1171.27 mGy.cm COMPARISON: None. FINDINGS: No acute intracranial hemorrhage, midline shift, intracranial mass, hydrocephalus, territorial ischemia or abnormal extra-axial collection. The calvarium is intact. Mild mucosal thickening of the paranasal sinuses. Mastoid air cells are clear. IMPRESSION: No acute intracranial abnormality. ACT 112: Negative or not required by law. The above report was generated using voice recognition software. It may contain grammatical, syntax or spelling errors. Electronically signed by: Du Kilpatrick M.D. 10/24/2021 8:36 PM Diagnostic Findings EKG is from interpretation rate 110, sinus tachycardia, normal axis, T wave flattening inferior leads Code Status & VTE Plan VTE Prophylaxis Plan VTE Prophylaxis will be ordered: Yes
[2021-10-25] MEDS ORDERED: XOPENEX/ATROVENT 1.25mg/0.5MG NEB COMBO NEB PRN (04:19)
[2021-10-25] MEDS ORDERED: PROMETHAZINE HCL 12.5 MG in SODIUM CHLORIDE 0.9% 50 ML IV PRN (04:19)
[2021-10-25] MEDS ORDERED: MECLIZINE HCL 25 MG TAB PO PRN (04:19)
[2021-10-25] MEDS ORDERED: POTASSIUM CHLORIDE 40 MEQ in SODIUM CHLORIDE 0.9% 1000ML 1,000 ML IV ONE (05:00)
[2021-10-25 06:38] LABS: Basophils # (auto) 0.01 K/uL (0-0.2); Basophils % (auto) 0.1 %; Hematocrit (blood only) 36.3 % (37-47); Hemoglobin 12.2 g/dL (12.0-16.0); Immature Granulocytes # (auto) 0.06 K/uL (0.00-0.02); Immature Granulocytes % (auto) 0.7 %; Lymphocytes # (auto) 0.66 K/uL (1.2-3.4); Lymphocytes % (auto) 8.1 %; Mean Corpuscular Hgb Conc 33.6 g/dL (32-36); Mean Corpuscular Volume 83.4 fL (80-100); Mean Platelet Volume 9.7 fL (7.4-10.4); Monocytes # (auto) 0.45 K/uL (0.11-0.59); Monocytes % (auto) 5.5 %; Neutrophils # (auto) 6.95 K/uL (1.4-6.5); Neutrophils % (auto) 85.6 %; Nucleated RBC # (auto) 0.09 K/uL (0-0); Nucleated RBC % (auto) 1.1 %; Platelet Count 273 K/uL (130-400); RDW Standard Deviation 46.4 fL (36.4-46.3); Red Blood Count 4.35 M/uL (4.2-5.4); White Blood Count 8.13 K/uL (4.8-10.8)
[2021-10-25 07:16] LABS: Albumin Globulin Ratio 0.5 (0.9-2); Albumin Level 2.3 gm/dl (3.4-5.0); BUN Creatinine Ratio 20.4 (10-20); Bilirubin,Total 0.3 mg/dl (0.2-1); C Reactive Protein 18.7 mg/dl (0-0.29); Calcium 8.1 mg/dl (8.5-10.1); Creatinine Clr Calc Pharmacy 150.5 ml/min; Est GFR (African American) 128.2 ml/min; Est GFR (Non-African American) 110.6 ml/min; Globulin 4.4 gm/dl (2.5-4.0); Potassium 3.4 mmol/L (3.5-5.1); Total Protein 6.7 gm/dl (6.4-8.2)
[2021-10-25] MEDS: SODIUM CHLORIDE 0.9% 10ML FLUSH IV SCH (08:05)
[2021-10-25] MEDS ORDERED: buPROPion XL 150 MG TABCR PO SCH (09:00)
[2021-10-25] MEDS ORDERED: risperiDONE 0.5 MG TABLET PO SCH (09:00)
[2021-10-25] MEDS ORDERED: OXYBUTYNIN CHLORIDE XL 5 MG TABCR PO SCH (09:00)
[2021-10-25] MEDS ORDERED: ENOXAPARIN INJ 40 MG/0.4 ML SYR SQ SCH (09:00)
[2021-10-25] MEDS ORDERED: amLODIPine BESYLATE 5 MG TAB PO SCH (09:00)
[2021-10-25] MEDS ORDERED: buPROPion XL 300 MG TABCR PO SCH (09:00)
[2021-10-25] MEDS ORDERED: LOSARTAN POTASSIUM 50 MG TAB PO SCH (09:00)
--- NOTE | 2021-10-25 09:09 | Pulmonary Consultation ---
Date of Consultation October 25, 2021 Assessment & Plan (1) Multifocal pneumonia: (2) Pneumonia due to 2019-nCoV: (3) Acute respiratory failure with hypoxia: (4) Acute hypokalemia: Impression: 41-year-old unvaccinated female now with severe Covid. She has increased work of breathing despite noninvasive positive pressure ventilation and high flow and I am concerned that she may develop respiratory fatigue and need to be intubated. This was discussed with the patient and her . They are agreeable to proceed if needed but would like to see how she does on current interventions. Recommendations: 1. Hypoxemic respiratory failure secondary to Covid pneumonitis: Continue dexam ethasone. The patient meets criteria for additional immune suppression. Discussed with pharmacy. Will administer Tocilizumab given the high likelihood that the patient may develop respiratory failure needing intubation mechanical ventilation. Patient and spouse understand potential risk of increased infectious complications associated with this medication and agreed to proceed. Patient should prone if possible although given her altered mental status and spasms of the left upper extremity I am not sure that proning is can to be an option for her. We did discuss potential need for intubation mechanical ventilation as well as potential tracheostomy should the patient develop respiratory muscle fatigue and progressive hypoxemia refractory to the above interventions. They are agreeable to proceed but again would like to hold off for now. Given her elevated BNP, trial of diuretics may be beneficial. Procalcitonin is pending. Hold antibiotics for now 2. Covid pneumonitis: Continue dexamethasone at 6 mg daily. The patient is outside the window for remdesivir as her symptoms have been more than 10 days. 3. Management of the patient's other medical issues per primary admitting service. The patient's overall prognosis is guarded. I did advise the patient and that there is a significant possibility the patient would deteriorate to the point of needing intubation mechanical ventilation. We also discussed tracheostomy. They are agreeable to proceed. We will see how she responds. 45 min CC time including discussion with patient, spouse, pharmacist, critical care ROBIN, and bedside nurse History of Present Illness Attending Physician: Rach Álvarez MD History of Present Illness Asked by hospitalist to evaluate this patient with ARDS hypoxemic respiratory failure secondary to Covid pneumonitis. History is obtained from review electronic medical record as well as discussion with patient. Patient is a 41-year-old unvaccinated female who was exposed to Covid 2 weeks ago and has had symptoms for over 10days. She presented to the emergency room yesterday after a syncopal event with altered mental status and was found to be profoundly hypoxemic. Chest x-ray demonstrated diffuse pulmonary infiltrates. Covid testing was positive. She was initiated on dexamethasone and admitted to the hospitalist. She was transitioned to high flow and then to noninvasive positive pressure ventilation over the night. This morning the patient is on BiPAP. She remains tachypneic with increased work of breathing. She is not reporting any chest pain. She is coughing but not producing any phlegm. Allergies Allergy/AdvReac Type Severity Reaction Status Date / Time No Known Allergies Allergy Unverified 10/24/21 21:07 Home Medications Medication Instructions Recorded Confirmed Type amlodipine 10 mg tablet 10 mg PO DAILY 10/24/21 10/24/21 History baclofen 20 mg tablet 20 mg PO BID 10/24/21 10/24/21 History bupropion HCl 150 mg 24 hr tablet, 150 mg PO DAILY 10/24/21 10/24/21 History extended release bupropion HCl 150 mg 24 hr tablet, 300 mg PO DAILY 10/24/21 10/24/21 History extended release docusate sodium 100 mg capsule 100 mg PO TID 10/24/21 10/24/21 History (Colace) doxepin 75 mg capsule 300 mg PO DAILY 10/24/21 10/24/21 History hydrochlorothiazide 25 mg tablet 25 mg PO DAILY 10/24/21 10/24/21 History hydroxyzine HCl 50 mg tablet 50 mg PO BID 10/24/21 10/24/21 History losartan 50 mg tablet 50 mg PO DAILY 10/24/21 10/24/21 History meclizine 25 mg tablet 25 mg PO TID PRN 10/24/21 10/24/21 History multivitamin 1 tab PO DAILY 10/24/21 10/24/21 History oxybutynin chloride 15 mg 15 mg PO DAILY 10/24/21 10/24/21 History tablet,extended release 24 hr potassium chloride 10 mEq 10 meq PO DAILY 10/24/21 10/24/21 History tablet,extended release potassium chloride 20 mEq 80 meq PO DAILY 10/24/21 10/24/21 History tablet,extended release(part/cryst) (Klor-Con M) risperidone 0.5 mg tablet 0.5 mg PO QAM 10/24/21 10/24/21 History risperidone 3 mg tablet 3 mg PO HS 10/24/21 10/24/21 History spironolactone 50 mg tablet 50 mg PO DAILY 10/24/21 10/24/21 History Patient History Medical History CVA, old, hemiparesis Social History Smoking Status: Never smoker Hx Alcohol Use: No Hx Substance Use: No Preferred Language: Chinese Communication Ability: Effective Hosiery Looper Required: No Beliefs That Will Affect Care: None marital status: Current Living Situation: Spouse Feels Safe at Home: Yes Safety Concerns: Feels Safe At This Time Assistive Devices: Glasses Assistive Devices Comment: Upper and Lower Partials Review of Systems Review of Systems: Please refer to admission H&P. No additions or deletions Physical Exam Constitutional: + acute distress, + ill appearing and + obese Neck: trachea midline, no thyromegaly Respiratory: + respiratory distress, + labored breathing and + tachypneic Auscultation: + rales and + wheezes Cardiovascular: RRR, no murmur, no edema Gastrointestinal (Abdomen): normal bowel sounds, soft, nontender, no hepatosplenomegaly Musculoskeletal: Extremities: extremities normal to inspection Skin: no rashes, warm and dry Neurologic: Slightly confused with spastic movements of the left upper extremity. There are contractures in the left hand consistent with her prior stroke Lymphatic: no cervical lymphadenopathy Results & Data Results & Data ([facility]) Vital Signs (Past 12 Hours) Vital Signs Temp Pulse Pulse Resp BP BP Pulse Ox 10/25/21 08:25 106 H 22 90 10/25/21 07:28 37.2 C 96 H 24 141/65 H 98 10/25/21 04:19 37.1 C 103 H 30 H 139/79 100 10/25/21 03:21 95 H 24 149/97 H 93 10/25/21 03:20 28 H 95 10/25/21 00:00 105 H 25 H 98 10/24/21 23:45 102 H 21 98 10/24/21 23:30 101 H 33 H 97 10/24/21 23:15 102 H 25 H 96 10/24/21 23:07 104 H 24 97 10/24/21 23:06 104 H 24 97 10/24/21 23:00 101 H 32 H 96 10/24/21 22:45 100 H 23 131/91 97 10/24/21 22:30 103 H 23 96 10/24/21 22:15 102 H 24 98 10/24/21 22:00 103 H 30 H 99 10/24/21 21:45 101 H 25 H 98 10/24/21 21:30 104 H 28 H 133/85 99 10/24/21 21:15 104 H 31 H 142/86 H 99 Critical Care Results & Data Vital Signs (Past 12 Hours) Vital Signs Temp Pulse Pulse Resp BP BP Pulse Ox 10/25/21 08:25 106 H 22 90 10/25/21 07:28 37.2 C 96 H 24 141/65 H 98 10/25/21 04:19 37.1 C 103 H 30 H 139/79 100 10/25/21 03:21 95 H 24 149/97 H 93 10/25/21 03:20 28 H 95 10/25/21 00:00 105 H 25 H 98 10/24/21 23:45 102 H 21 98 10/24/21 23:30 101 H 33 H 97 10/24/21 23:15 102 H 25 H 96 10/24/21 23:07 104 H 24 97 10/24/21 23:06 104 H 24 97 10/24/21 23:00 101 H 32 H 96 10/24/21 22:45 100 H 23 131/91 97 10/24/21 22:30 103 H 23 96 10/24/21 22:15 102 H 24 98 10/24/21 22:00 103 H 30 H 99 10/24/21 21:45 101 H 25 H 98 10/24/21 21:30 104 H 28 H 133/85 99 10/24/21 21:15 104 H 31 H 142/86 H 99 Lab & Micro Results (Past 24 Hours) RBC 4.35 M/uL (4.2-5.4) 10/25/21 WBC 8.13 K/uL (4.8-10.8) 10/25/21 Hgb 12.2 g/dL (12.0-16.0) 10/25/21 Hct 36.3 % (37-47) L 10/25/21 MCV 83.4 fL (80-100) 10/25/21 MCH 28.0 pg (25-34) 10/25/21 MCHC 33.6 g/dL (32-36) 10/25/21 RDW Standard Deviation 46.4 fL (36.4-46.3) H 10/25/21 RDW Coefficient of Variation 15.0 % (11.5-14.5) H 10/25/21 Plt Count 273 K/uL (130-400) 10/25/21 MPV 9.7 fL (7.4-10.4) 10/25/21 Nucleated Red Blood Cells % (auto) 1.1 % 10/25/21 Nucleated RBC Absolute Count (auto) 0.09 K/uL (0-0) H 10/25/21 Neutrophils (%) (Auto) 85.6 % 10/25/21 Lymphocytes (%) (Auto) 8.1 % 10/25/21 Monocytes # (Auto) 0.45 K/uL (0.11-0.59) 10/25/21 Eosinophils # (Auto) 0.00 K/uL (0-0.5) 10/25/21 Immature Granulocyte % (Auto) 0.7 % 10/25/21 Neutrophils # (Auto) 6.95 K/uL (1.4-6.5) H 10/25/21 Lymphocytes # (Auto) 0.66 K/uL (1.2-3.4) L 10/25/21 Monocytes # (Auto) 0.45 K/uL (0.11-0.59) 10/25/21 Eosinophils # (Auto) 0.00 K/uL (0-0.5) 10/25/21 Basophils # (Auto) 0.01 K/uL (0-0.2) 10/25/21 Immature Granulocyte # (Auto) 0.06 K/uL (0.00-0.02) H 10/25/21 Na 144 mmol/L (136-145) 10/25/21 K 3.4 mmol/L (3.5-5.1) L 10/25/21 Cl 106 mmol/L (98-107) 10/25/21 CO2 28 mmol/L (21-32) 10/25/21 Anion Gap 10.0 (3-11) 10/25/21 BUN 13 mg/dl (7-18) 10/25/21 Creatinine 0.63 mg/dl (0.6-1.2) 10/25/21 Estimated GFR ( Amer) 128.2 ml/min 10/25/21 Estimated GFR (Non-Af Amer) 110.6 ml/min 10/25/21 BUN/Creatinine Ratio 20.4 (10-20) H 10/25/21 Glu 138 mg/dl (70-99) H 10/25/21 Ca 8.1 mg/dl (8.5-10.1) L 10/25/21 Total Bilirubin 0.3 mg/dl (0.2-1) 10/25/21 AST 117 U/L (15-37) H 10/25/21 ALT 68 U/L (12-78) 10/25/21 Alkaline Phosphatase 108 U/L (45-117) 10/25/21 TP 6.7 gm/dl (6.4-8.2) 10/25/21 Albumin 2.3 gm/dl (3.4-5.0) L 10/25/21 Globulin 4.4 gm/dl (2.5-4.0) H 10/25/21 Albumin/Globulin Ratio 0.5 (0.9-2) L 10/25/21 Mg 2.2 mg/dl (1.8-2.4) 10/24/21 19:59 10/24/21 Calcium Level 8.1 mg/dl (8.5-10.1) L 10/25/21 05:35 10/25/21 Diagnostic Findings (Past 24 Hours) Chest X-Ray 10/24/21 19:09 XR chest 1V portable HISTORY: 41 years-old Female Dyspnea acute shortness of breath COMPARISON: None TECHNIQUE: Portable AP view of the chest FINDINGS: Cardiac silhouette is enlarged. Interstitial coarsening is noted with extensive bilateral airspace opacities. No pneumothorax or large pleural effusion. Degenerative changes of the shoulders and spine. IMPRESSION: Extensive bilateral airspace opacities are suggestive of multifocal pneumonia. ACT 112: Negative or not required by law. The above report was generated using voice recognition software. It may contain grammatical, syntax or spelling errors. Electronically signed by: Du Kilpatrick M.D. 10/24/2021 8:[address] 10/24/21 19:18 CT head/brain wo con CLINICAL HISTORY: 41 years-old Female with slurred speech eval for cva. Acute strokelike symptoms TECHNIQUE: Multiple axial CT images of the head were obtained without contrast. A dose lowering technique was utilized adhering to the principles of ALARA. CT DOSE: 1171.27 mGy.cm COMPARISON: None. FINDINGS: No acute intracranial hemorrhage, midline shift, intracranial mass, hydrocephalus, territorial ischemia or abnormal extra-axial collection. The calvarium is intact. Mild mucosal thickening of the paranasal sinuses. Mastoid air cells are clear. IMPRESSION: No acute intracranial abnormality. ACT 112: Negative or not required by law. The above report was generated using voice recognition software. It may contain grammatical, syntax or spelling errors. Electronically signed by: Du Kilpatrick M.D. 10/24/2021 8:36 PM I & O Totals 24 Hours 10/24/21 10/25/21 10/26/21 06:59 06:59 06:59 Intake Total 423.333 / 773.333 350 / 350 Output Total 0 / 0 Balance 423.333 / 773.333 350 / 350 Cumulative 10/24/21 18:55 thru 10/25/21 07:00 Intake Total 773.333 Output Total 0 Balance 773.333 RT Ventilator Mngmt (Last Documented) Ventilator Ordered Settings Respiratory Rate 22 10/25/21 08:25 Fraction of Inspired Oxygen 90 10/25/21 08:25 Ventilator - PT Measurements Respiratory Rate 22 PG Care Time/CCT Total # of Minutes Spent Total Time Spent with Patient: Total time spent is greater than 50% in coordination of care (as documented) at patient's floor/unit and/or counseling patient: Coding Level of Care Code Critical Care 1st 30-74 mins Diagnoses Multifocal pneumonia J18.9 Pneumonia due to 2019-nCoV U07.1; J12.82 Acute respiratory failure with hypoxia J96.01 Acute hypokalemia E87.6 Time Spent (min) 45
[2021-10-25] MEDS ORDERED: TOCILIZUMAB 800 MG in 0.9 % SODIUM CHLORIDE 60 ML IV ONE (09:15)
[2021-10-25] MEDS: MULTIVITAMIN TAB PO SCH (10:30)
[2021-10-25] MEDS: dexAMETHasone 6 MG in SYRINGE 0 ML IV SCH (10:30)
[2021-10-25] MEDS: DOCUSATE SODIUM 100 MG CAP PO SCH ×3 (10:30→23:48)
--- NOTE | 2021-10-25 13:27 | Hospitalist Progress Note ---
Date of Service October 25, 2021 Assessment & Plan (1) Acute respiratory failure with hypoxia: Plan: Secondary to severe COVID-19 pneumonia Currently on HFNC Mental status appear improved compared to when evaluated by [facility] earlier CRP elevated Got Tocilizumab Continue dexamethasone Continue oxygen supplementation Incentive spirometry/flutter Discussed self proning with patient. Will need reeducation and assistance with this [facility] recommendations noted Monitor inflammatory markers High risk for progression BIPAP prn Give lasix 20mg. Hypertension Continue losartan, amlodipine Hypokalemia Likely due to poor p.o. intake/diuretic Rx Hx of potassium wasting nephropathy as per records Monitor electrolytes. Was hypokalemic on admission. Repleted. K improved to 3.4. 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 Was initially on BiPAP on admission earlier today. Currently on high flow nasal cannula. Reports dry cough, shortness of breath Denies any headache, dizziness Denies any chest pain Denies any nausea, vomiting, abdominal pain, diarrhea Denies any dysuria, frequency, urgency Physical Exam Constitutional: + acute distress, + well hydrated and + obese Eyes: PERRL, conjunctivae normal, anicteric sclerae ENMT: external ear and nose normal, oropharynx normal Respiratory: Tachpneic, Diminished breath sounds, on high flow nasal cannula Cardiovascular: Rate/Rhythm: + tachycardic S1 s2 Gastrointestinal (Abdomen): normal bowel sounds, soft, nontender, no hepatosplenomegaly Musculoskeletal: LUE spasms, intermittent Left hand contracture Neurologic: Patient is currently alert and oriented to person and place and m onth Follows commands Results & Data Results & Data ([facility]) Vital Signs (Past 12 Hours) Vital Signs Temp Pulse Pulse Resp BP BP BP 10/25/21 11:22 36.8 C 102 H 22 146/68 H 10/25/21 11:05 101 H 22 10/25/21 08:25 106 H 22 10/25/21 07:28 37.2 C 96 H 24 141/65 H 10/25/21 04:19 37.1 C 103 H 30 H 139/79 10/25/21 03:21 95 H 24 149/97 H 10/25/21 03:20 28 H Pulse Ox 10/25/21 11:22 93 10/25/21 11:05 92 10/25/21 08:25 90 10/25/21 07:28 98 10/25/21 04:19 100 10/25/21 03:21 93 10/25/21 03:20 95 Laboratory Results Abnormal lab results 10/24/21 10/24/21 10/24/21 Range/Units 19:25 19:33 19:54 POC Hgb 11.9 L (12.0-16.0) g/dl Hct (37-47) % POC Hct 35 L (37-47) % RDW Std Deviation (36.4-46.3) fL RDW Coeff of Diana (11.5-14.5) % Neut # (Auto) (1.4-6.5) K/uL Lymph # (Auto) (1.2-3.4) K/uL Immature Gran # (Auto) (0.00-0.02) K/uL Absolute Nucleated RBC (0-0) K/uL POC pH 7.49 H (7.35-7.45) POC pO2 50 L (80-95) mmHg POC HCO3 30 H (19-24) laurie/L POC Total CO2 (24-31) mmol/L POC Base Excess 6.0 H (-9-1.8) laurie/L POC ABG O2 Sat 88.0 L (90-95) % POC Potassium 2.6 L 2.8 L (3.3-5.0) mmol/L Potassium (3.5-5.1) mmol/L POC Chloride 97 L (101-112) mmol/L BUN/Creatinine Ratio (10-20) Glucose (70-99) mg/dl POC Glucose (70-99) mg/dl POC Glucose (other) 147 H (70-99) mg/dl Calcium (8.5-10.1) mg/dl POC Ioniz Calcium Olga 1.07 L (1.12-1.32) mmol/l AST (15-37) U/L C-Reactive Protein (0-0.29) mg/dl NT-Pro-B Natriuret Pep (0-450) pg/ml Albumin (3.4-5.0) gm/dl Globulin (2.5-4.0) gm/dl Albumin/Globulin Ratio (0.9-2) Urine Protein (Negative) Urine Ketones (Negative) Urine Bilirubin (Negative) U Hyaline Cast (Auto) (0-5) /lpf U Epithel Cells (Auto) (0-5) /lpf SARS-CoV-2 (PCR) POSITIVE A* (Negative) 10/24/21 10/24/21 10/24/21 Range/Units 19:59 19:59 20:00 POC Hgb (12.0-16.0) g/dl Hct (37-47) % POC Hct (37-47) % RDW Std Deviation (36.4-46.3) fL RDW Coeff of Diana 14.8 H (11.5-14.5) % Neut # (Auto) 7.20 H (1.4-6.5) K/uL Lymph # (Auto) 0.88 L (1.2-3.4) K/uL Immature Gran # (Auto) 0.11 H (0.00-0.02) K/uL Absolute Nucleated RBC 0.07 H (0-0) K/uL POC pH (7.35-7.45) POC pO2 (80-95) mmHg POC HCO3 (19-24) laurie/L POC Total CO2 (24-31) mmol/L POC Base Excess (-9-1.8) laurie/L POC ABG O2 Sat (90-95) % POC Potassium (3.3-5.0) mmol/L Potassium 2.9 L (3.5-5.1) mmol/L POC Chloride (101-112) mmol/L BUN/Creatinine Ratio (10-20) Glucose 139 H (70-99) mg/dl POC Glucose (70-99) mg/dl POC Glucose (other) (70-99) mg/dl Calcium (8.5-10.1) mg/dl POC Ioniz Calcium Olga (1.12-1.32) mmol/l AST 129 H (15-37) U/L C-Reactive Protein 24.30 H (0-0.29) mg/dl NT-Pro-B Natriuret Pep (0-450) pg/ml Albumin 2.5 L (3.4-5.0) gm/dl Globulin 4.6 H (2.5-4.0) gm/dl Albumin/Globulin Ratio 0.5 L (0.9-2) Urine Protein Trace H (Negative) Urine Ketones Trace H (Negative) Urine Bilirubin 1+ H (Negative) U Hyaline Cast (Auto) 5-10 H (0-5) /lpf U Epithel Cells (Auto) 10-20 H (0-5) /lpf SARS-CoV-2 (PCR) (Negative) 10/24/21 10/25/21 10/25/21 Range/Units 21:50 05:35 05:35 POC Hgb 11.2 L (12.0-16.0) g/dl Hct 36.3 L (37-47) % POC Hct 33 L (37-47) % RDW Std Deviation 46.4 H (36.4-46.3) fL RDW Coeff of Diana 15.0 H (11.5-14.5) % Neut # (Auto) 6.95 H (1.4-6.5) K/uL Lymph # (Auto) 0.66 L (1.2-3.4) K/uL Immature Gran # (Auto) 0.06 H (0.00-0.02) K/uL Absolute Nucleated RBC 0.09 H (0-0) K/uL POC pH 7.48 H (7.35-7.45) POC pO2 62 L (80-95) mmHg POC HCO3 33 H (19-24) laurie/L POC Total CO2 35 H (24-31) mmol/L POC Base Excess 10.0 H (-9-1.8) laurie/L POC ABG O2 Sat (90-95) % POC Potassium 3.0 L (3.3-5.0) mmol/L Potassium 3.4 L D (3.5-5.1) mmol/L POC Chloride (101-112) mmol/L BUN/Creatinine Ratio 20.4 H (10-20) Glucose 138 H (70-99) mg/dl POC Glucose (70-99) mg/dl POC Glucose (other) (70-99) mg/dl Calcium 8.1 L (8.5-10.1) mg/dl POC Ioniz Calcium Olga (1.12-1.32) mmol/l AST 117 H (15-37) U/L C-Reactive Protein 18.70 H (0-0.29) mg/dl NT-Pro-B Natriuret Pep (0-450) pg/ml Albumin 2.3 L (3.4-5.0) gm/dl Globulin 4.4 H (2.5-4.0) gm/dl Albumin/Globulin Ratio 0.5 L (0.9-2) Urine Protein (Negative) Urine Ketones (Negative) Urine Bilirubin (Negative) U Hyaline Cast (Auto) (0-5) /lpf U Epithel Cells (Auto) (0-5) /lpf SARS-CoV-2 (PCR) (Negative) 10/25/21 10/25/21 10/25/21 Range/Units 05:35 07:31 11:24 POC Hgb (12.0-16.0) g/dl Hct (37-47) % POC Hct (37-47) % RDW Std Deviation (36.4-46.3) fL RDW Coeff of Diana (11.5-14.5) % Neut # (Auto) (1.4-6.5) K/uL Lymph # (Auto) (1.2-3.4) K/uL Immature Gran # (Auto) (0.00-0.02) K/uL Absolute Nucleated RBC (0-0) K/uL POC pH (7.35-7.45) POC pO2 (80-95) mmHg POC HCO3 (19-24) laurie/L POC Total CO2 (24-31) mmol/L POC Base Excess (-9-1.8) laurie/L POC ABG O2 Sat (90-95) % POC Potassium (3.3-5.0) mmol/L Potassium (3.5-5.1) mmol/L POC Chloride (101-112) mmol/L BUN/Creatinine Ratio (10-20) Glucose (70-99) mg/dl POC Glucose 151 H 118 H (70-99) mg/dl POC Glucose (other) (70-99) mg/dl Calcium (8.5-10.1) mg/dl POC Ioniz Calcium Olga (1.12-1.32) mmol/l AST (15-37) U/L C-Reactive Protein (0-0.29) mg/dl NT-Pro-B Natriuret Pep 452 H (0-450) pg/ml Albumin (3.4-5.0) gm/dl Globulin (2.5-4.0) gm/dl Albumin/Globulin Ratio (0.9-2) Urine Protein (Negative) Urine Ketones (Negative) Urine Bilirubin (Negative) U Hyaline Cast (Auto) (0-5) /lpf U Epithel Cells (Auto) (0-5) /lpf SARS-CoV-2 (PCR) (Negative)
[2021-10-25] MEDS ORDERED: POTASSIUM CHLORIDE CRTAB 20 MEQ TABCR PO STA (13:54)
[2021-10-25] MEDS ORDERED: POTASSIUM CHLORIDE CRTAB 20 MEQ TABCR PO ONE (14:00)
[2021-10-25] MEDS ORDERED: FUROSEMIDE INJ 20 MG/2 ML VIAL IV ONE (14:00)
[2021-10-25] MEDS ORDERED: fentaNYL citrate 100 MCG/2 ML VIAL IV ONE (15:48)
[2021-10-25] MEDS ORDERED: ROCURONIUM BROMIDE 10 MG/ML 5 ML VIAL IV ONE (15:48)
[2021-10-25] MEDS ORDERED: ETOMIDATE 2 MG/ML 20 ML VIAL IV ONE (15:48)
[2021-10-25] MEDS ORDERED: SUCCINYLCHOLINE CHLORIDE 20 MG/ML 10 ML VIAL IV ONE (15:48)
[2021-10-25] MEDS ORDERED: RAPID SEQUENCE INDUCTION BAG ONE (19:36)
[2021-10-25] MEDS ORDERED: PROPOFOL IV EMULSION 10 MG/ML 100 ML VIAL IV ONE (19:55)
[2021-10-25] MEDS: propofoL 1,000 MG/100 ML VIAL IV SCH ×2 (20:00→22:30)
[2021-10-25] MEDS: PROPOFOL BOLUS FROM BAG IV PRN (20:01)
--- NOTE | 2021-10-25 20:05 | Communication Note ---
Date of Service: October 25, 2021 called to intubate patient w/ resp. failure 2ndary to covid pneumonia.At 1950 ,Pt was administered 100 mcgs fentanyl, then rendered unconscious w/ 12 mg etomidate, and administered 160 mg succinylcholine to facilitate endotracheal intubation. Using a #3 glidescope, vocal cords were visualized and Pt. was intubated w/ 7.5 ETT. + ETCO2 w/ easy cap; ETT was taped @ 22 cm olga; + B/L BS.
[2021-10-25] MEDS: fentaNYL DRIP 1,250 MCG/250 ML BAG IV SCH (20:10)
--- NOTE | 2021-10-25 20:32 | XRay Report ---
XR chest 1V portable HISTORY: Pneumonia. Intubation and Central Line Placement COMPARISON: Chest 10/24/2021. FINDINGS: Redemonstration of extensive bilateral airspace opacities consistent with a multifocal pneu monia. No pneumothorax. No pleural effusions. The heart is top normal in size. Endotracheal tube term inates 5 cm from the baldemar. A right jugular central venous catheter terminates in the expected locat ion of the SVC. Nasogastric tube terminates below the diaphragm. The tip is not included on this stud y. IMPRESSION: 1. Satisfactory support line placement. 2. Extensive bilateral airspace opacities consistent with a pneumonia. ACT 112: Negative or not required by law. Electronically signed by: Michele Larkin M.D. 10/25/2021 8:30 PM
--- NOTE | 2021-10-25 20:47 | Procedure Note ---
Procedure Note Date of Service October 25, 2021 Note ARTERIAL LINE PROCEDURE NOTE: Procedure: Arterial Line Placement Attending: Dr. Mario Ray Provider: MIRACLE Ziegler Indication: Continuous hemodynamic monitoring, frequent ABGs Anesthesia: Lidocaine 1% Line placed emergently following rapid intubation for acute hypoxic respiratory failure with COVID-19 pneumonia and plan to prone. A time-out was completed verifying correct patient, procedure, site, positioning, and implant(s) or special equipment if applicable. Allens test was performed to ensure adequate perfusion. Patients right wrist was prepped and draped in the usual sterile fashion. Ultrasound guidance was used to aid needle placement. A 20g Arrow arterial line was introduced into the right radial artery. Catheter was threaded, and the needle was removed with appropriate blood return. Good waveform was observed. The patient tolerated the procedure well. Confirmation of placement with ultrasound. Blood Loss: Minimal Complications: None Procedural Ultrasound Guidance: Procedure Date: 10/25/2021 Indication: Arterial line insertion Attending: Dr. Mario Ray Provider: MIRACLE Ziegler Artery Identified: YES Line confirmed in Artery with ultrasound: Yes Complications: NONE Patient tolerated procedure: WELL Coding CPT Codes Tubes, Drains, and Vasc Access - Tubes, Drains, and Vasc Access: [id number] Place Catheter In Artery ([id number]) Tubes, Drains, and Vasc Access - Tubes, Drains, and Vasc Access: [id number] Ultrasound Guidance For Vascular ([id number]) [facility] [place] Procedure Codes (Charges) Tubes, Drains, and Vasc Access Procedure 3: Tubes, Drains, and Vasc Access: [id number] Place Catheter In Artery Procedure 4: Tubes, Drains, and Vasc Access: [id number] Ultrasound Guidance For Vascular
--- NOTE | 2021-10-25 20:47 | Critical Care Progress Note ---
Date of Service October 25, 2021 Assessment & Plan (1) Acute respiratory failure with hypoxia: (2) Multifocal pneumonia: (3) Pneumonia due to 2019-nCoV: (4) Acute hypokalemia: (5) CVA, old, hemiparesis: Plan: Reason Critically Ill: 41-year-old morbidly obese unvaccinated female with acute hypoxic respiratory failure secondary to COVID-19 pneumonia, requiring emergent intubation and mechanical ventilation. Neuro - Sedation: Fentanyl, propofol drips Depressionhold antidepressants for now Cardiac - HTNhold antihypertensives for now -A-line for continuous hemodynamic monitoring Continuous monitoring on telemetry Respiratory - Acute hypoxemic respiratory failure secondary to Covid pneumonitispatient with worsening hypoxia and respiratory distress this evening and required emergent intubation -We will proceed with lung protective ventilation and proning with paralytics and sedation. -CTA chest pending - dexamethasone, Tocilizumab administered today. -Follow-up chest x-ray in a.m. and ABG -BNP elevated, administered 40 IV Lasix. We will try to maintain negative volume status -We will wean vent as tolerated. Consider consult to tertiary center for possible ECMO although patient likely poor candidate due to BMI 46. We will see if her oxygenation improves following proning. -Continuous pulse ox and end-tidal CO2 monitoring GI - N.p.o. Famotidine twice daily RENAL/LYTES - Creatinine stable, monitor routine BMPs and replete electrolytes as indicated - Foleystrict I's and O's ENDO - ICU hyperglycemic protocol HEME - H&H stable, monitor routine CBC ID - COVID-19continue dexamethasone, receive Tocilizumab today -Procalcitonin negative, hold on antibiotics LINES/IV ACCESS - Right IJ CVL, right radial A-line, ET tube, OG tube DVT PROPHYLAXIS - SCDs, Lovenox I have personally spent 55 minutes of critical care time in the direct management of this patient. This is a life/limb threatening event. This includes time spent evaluating patient, direct bedside care, chart review, placing orders, interpretation of diagnostic studies, discussion with consultants, patient, and family members, as well as other required patient management activities. This time is exclusive of all separately billable procedures, and teaching time and separate from and in addition to any other critical care service time. Thank you for allowing us to participate in the care of this patient. Please refer to my attending physician's documentation for any further recommendations. Admission and Anticipated Discharge Date Admission Date: October 25, 2021 Subjective Patient with worsening hypoxia and developed respiratory distress on BiPAP 100% this evening. She was increasingly tachypneic, labored breathing, unable to complete sentences. Decision was made to proceed with emergent intubation and anesthesiologist reported to the bedside and successfully intubated the patient. A-line and central line inserted following intubation. She will undergo CTA chest for PE protocol. Plan to prone once she returns. I did update the patient's on her clinical status and plan. She received Tocilizumab earlier today and is currently undergoing treatment with Decadron. Hopefully proning will improve her oxygenation but may attempt to consult tertiary center for ECMO given her age, although she would likely be poor candidate due to BMI. Review of Systems Review of Systems: Unobtainable due to endotracheal tube Physical Exam Constitutional: + morbidly obese and + mechanically ventilated Eyes: PERRL, conjunctivae normal, anicteric sclerae ENMT: external ear and nose normal, oropharynx normal Neck: trachea midline, no thyromegaly Respiratory: Symmetrical chest wall movement. Rhonchi auscultated bilaterally in all lung de anda, bases diminished. Cardiovascular: Regular rate and rhythm on desk monitor, S1-S2 auscultated, no murmur, no edema, no JVD. Gastrointestinal (Abdomen): normal bowel sounds, soft, nontender, no hepatosplenomegaly Musculoskeletal: Unable to assess due to sedation/paralytics Skin: no rashes, warm and dry Neurologic: Unable to assess due to sedation/paralytics Psychiatric: Unable to assess due to sedation/paralytics Genitourinary: Indwelling Edward catheter present Results & Data Results & Data ([facility]) Vital Signs (Past 12 Hours) Vital Signs Temp Pulse Pulse Resp BP Pulse Ox 10/25/21 20:00 125 H 28 H 91 10/25/21 19:01 37.2 C 105 H 22 122/62 96 10/25/21 15:56 37.3 C 109 H 32 H 127/66 94 10/25/21 15:36 114 H 10/25/21 15:13 103 H 32 H 94 10/25/21 14:25 111 H 20 93 10/25/21 11:22 36.8 C 102 H 22 146/68 H 93 10/25/21 11:05 101 H 22 92 Coding Level of Care Code Critical Care ea addt'l 30 min Diagnoses Multifocal pneumonia J18.9 Pneumonia due to 2019-nCoV U07.1; J12.82 Acute respiratory failure with hypoxia J96.01 Acute hypokalemia E87.6 CVA, old, hemiparesis I69.359
--- NOTE | 2021-10-25 20:48 | Procedure Note ---
Procedure Note Date of Service October 25, 2021 Note INTERNAL JUGULAR CENTRAL LINE PROCEDURE NOTE: Procedure: Internal Jugular Central Line Placement Attending: Dr. Mario Ray Provider: MIRACLE Ziegler Indication: Central Drug Administration, Poor Venous Access Anesthesia: Lidocaine 1% Line placed emergently following emergent intubation for worsening acute hypoxic respiratory failure secondary to COVID-19 pneumonia. A time-out was completed verifying correct patient, procedure, site, positioning, and implants(s) or special equipment if applicable. Patients right neck was cleansed and draped in the typical sterile fashion using Chloraprep. The Internal Jugular Vein and Carotid Artery were identified using ultrasound. The superficial tissue was anesthetized using 3 mL of 1% lidocaine without epinephrine under direct visualization with the ultrasound. After adequate ane sthetization was achieved, the Internal Jugular vein was cannulated under direct ultrasound guidance using an introducer needle on a syringe. Good venous blood return was maintained prior to removal of syringe from introducer needle. Using Seldinger Technique, a guide wire was advanced through the introducer needle without resistance. The introducer needle was removed and ultrasound images were obtained of the guide wire within the Internal Jugular Vein and saved to the patients medical record. A small incision was made in penetrating fashion at the guide wire insertion site utilizing an 11 blade scalpel. The dilator was advanced to the vessel without resistance. The dilator was exchanged for the triple lumen catheter which was advanced into the vessel without resistance. The guide wire was removed intact from the catheter without issue. Claves were placed on each catheter tip with confirmation of good blood flow from each lumen. Each port was easily flushed with sterile saline. The catheter was placed at 16 cm and sut[address] in place. BioPatch was applied to the catheter and a sterile Tegaderm dressing was applied over the catheter with careful attention to sterility. Patient tolerated procedure well. No immediate complications were met. Post procedure x-ray was completed, placement was appropriate and no pneumothorax was noted. Images obtained are saved for permanent record Procedural Ultrasound Guidance: Procedure Date: 10/25/2021 Indication: Central venous catheter insertion Attending: Dr. Mario Ray Provider: MIRCALE Ziegler Artery AND Vein visualized: Yes Compressible Vein: Yes Guidewire or Short Catheter seen in vein prior to dilation: Yes Line confirmed in Vein with ultrasound: Yes Images obtained are saved for permanent record. Coding CPT Codes Tubes, Drains, and Vasc Access - Tubes, Drains, and Vasc Access: [id number] Place catheter in vein superior or inferior vena cava ([id number]) Tubes, Drains, and Vasc Access - Tubes, Drains, and Vasc Access: [id number] Ultrasound Guidance For Vascular ([id number]) [facility] [place]odes (Charges) Tubes, Drains, and Vasc Access Procedure 1: Tubes, Drains, and Vasc Access: [id number] Place catheter in vein superior or inferior vena cava Procedure 2: Tubes, Drains, and Vasc Access: [id number] Ultrasound Guidance For Vascular
--- NOTE | 2021-10-25 20:48 | Procedure Note ---
Procedure Note Date of Service October 25, 2021 Coding
[2021-10-25] MEDS ORDERED: STAT IV Infusion **Titration per Protocol STA ×2 (20:49)
[2021-10-25] MEDS ORDERED: risperiDONE 3 MG TABLET PO SCH (21:00)
[2021-10-25 21:23] LABS: iSTAT Art Bld Gas pCO2 Correct 72 mmHg (35-46); iSTAT Art Bld Gas pH Corrected 7.275 (7.35-7.45); iSTAT Arterial Blood Gas HCO3 33 meg/L (19-24); iSTAT Arterial Blood Gas pCO2 71 mmHg (35-46); iSTAT Arterial Blood Gas pH 7.28 (7.35-7.45); iSTAT Arterial Blood Gas pO2 102 mmHg (80-95); iSTAT Arterial Blood Gas pO2 C 102; iSTAT Carbon Dioxide 35 mmol/L (24-31); iSTAT FiO2 100 %; iSTAT Hematocrit 39 % (37-47); iSTAT Hemoglobin 13.3 g/dl (12.0-16.0); iSTAT Potassium 3.8 mmol/L (3.3-5.0); iSTAT Site Art Line; iSTAT Sodium 146 mmol/L (135-144)
[2021-10-25] MEDS: CISATRACURIUM BESYLATE 40 MG in 0.9 % SODIUM CHLORIDE 80 ML IV SCH (21:31)
[2021-10-25] MEDS ORDERED: OPTIRAY 320 125ml IV ONE (22:14)
[2021-10-25] MEDS ORDERED: FUROSEMIDE 40 MG/4 ML VIAL IV ONE (22:41)
[2021-10-25] MEDS ORDERED: Heparin IV Adult Wt-Based Standard WITH Bolus Protocol IV SCH (23:29)
[2021-10-26] MEDS ORDERED: HEPARIN SOD (PORCINE) 1000 UNIT/ML IV ONE (00:05)
[2021-10-26 00:10] LABS: iSTAT Art Bld Gas pCO2 Correct 60 mmHg (35-46); iSTAT Art Bld Gas pH Corrected 7.333 (7.35-7.45); iSTAT Arterial Blood Gas HCO3 32 meg/L (19-24); iSTAT Arterial Blood Gas pCO2 60 mmHg (35-46); iSTAT Arterial Blood Gas pH 7.33 (7.35-7.45); iSTAT Arterial Blood Gas pO2 70 mmHg (80-95); iSTAT Arterial Blood Gas pO2 C 70; iSTAT Carbon Dioxide 34 mmol/L (24-31); iSTAT FiO2 75 %; iSTAT Hematocrit 33 % (37-47); iSTAT Hemoglobin 11.2 g/dl (12.0-16.0); iSTAT Potassium 3.6 mmol/L (3.3-5.0); iSTAT Site Art Line; iSTAT Sodium 144 mmol/L (135-144)
[2021-10-26 00:32] LABS: INR 1.1 (0.9-1.1); Prothrombin Time 10.9 Seconds (9.0-12.0)
[2021-10-26] MEDS: HEPARIN SODIUM/DEXTROSE 25,000 UNITS/500 ML BAG IV SCH ×2 (00:36→17:05)
[2021-10-26] MEDS: propofoL 1,000 MG/100 ML VIAL IV SCH ×9 (01:15→22:59)
[2021-10-26] MEDS: ARTIFICIAL TEARS OP OINT 3.5 GM TUBE OP SCH ×7 (02:15→20:54)
[2021-10-26 04:03] LABS: iSTAT Art Bld Gas pCO2 Correct 53 mmHg (35-46); iSTAT Art Bld Gas pH Corrected 7.389 (7.35-7.45); iSTAT Arterial Blood Gas HCO3 32 meg/L (19-24); iSTAT Arterial Blood Gas pCO2 53 mmHg (35-46); iSTAT Arterial Blood Gas pH 7.39 (7.35-7.45); iSTAT Arterial Blood Gas pO2 62 mmHg (80-95); iSTAT Arterial Blood Gas pO2 C 64; iSTAT Carbon Dioxide 34 mmol/L (24-31); iSTAT FiO2 70 %; iSTAT Hematocrit 32 % (37-47); iSTAT Hemoglobin 10.9 g/dl (12.0-16.0); iSTAT Potassium 3.4 mmol/L (3.3-5.0); iSTAT Site Art Line; iSTAT Sodium 145 mmol/L (135-144)
[2021-10-26] MEDS: CISATRACURIUM BESYLATE 40 MG in 0.9 % SODIUM CHLORIDE 80 ML IV SCH ×2 (05:05→18:10)
--- NOTE | 2021-10-26 06:16 | Electrocardiogram Report ---
Test Reason : Blood Pressure : / mmHG Vent. Rate : 111 BPM Atrial Rate : 111 BPM P-R Int : 000 ms QRS Dur : 090 ms QT Int : 344 ms P-R-T Axes : 000 076 050 degrees QTc Int : 468 ms Poor data quality, interpretation may be adversely affected Sinus tachycardia Nonspecific T wave abnormality Abnormal ECG No previous ECGs available Reconfirmed by Chemo Barone ([id number]) on 10/26/2021 6:17:03 AM Referred By: REFERRED SELF Confirmed By:Chemo Barone
[2021-10-26 06:56] LABS: Basophils # (auto) 0.02 K/uL (0-0.2); Basophils % (auto) 0.3 %; Hematocrit (blood only) 34.7 % (37-47); Hemoglobin 11.3 g/dL (12.0-16.0); Immature Granulocytes # (auto) 0.04 K/uL (0.00-0.02); Immature Granulocytes % (auto) 0.5 %; Lymphocytes # (auto) 0.91 K/uL (1.2-3.4); Lymphocytes % (auto) 11.8 %; Mean Corpuscular Hemoglobin 27.8 pg (25-34); Mean Corpuscular Hgb Conc 32.6 g/dL (32-36); Mean Corpuscular Volume 85.5 fL (80-100); Mean Platelet Volume 9.7 fL (7.4-10.4); Monocytes # (auto) 0.54 K/uL (0.11-0.59); Neutrophils # (auto) 6.21 K/uL (1.4-6.5); Neutrophils % (auto) 80.4 %; Nucleated RBC # (auto) 0.13 K/uL (0-0); Nucleated RBC % (auto) 1.7 %; Platelet Count 239 K/uL (130-400); RDW Coefficient of Variation 15.6 % (11.5-14.5); RDW Standard Deviation 49.5 fL (36.4-46.3); Red Blood Count 4.06 M/uL (4.2-5.4); White Blood Count 7.72 K/uL (4.8-10.8)
[2021-10-26 07:05] LABS: Partial Thromboplastin Ratio 1.6
[2021-10-26 07:34] LABS: Albumin Globulin Ratio 0.5 (0.9-2); Albumin Level 2.1 gm/dl (3.4-5.0); Bilirubin,Total 0.4 mg/dl (0.2-1); C Reactive Protein 10.7 mg/dl (0-0.29); Est GFR (African American) 119.7 ml/min; Est GFR (Non-African American) 103.3 ml/min; Magnesium 2.4 mg/dl (1.8-2.4); Potassium 3.4 mmol/L (3.5-5.1); Total Protein 6.1 gm/dl (6.4-8.2)
[2021-10-26] MEDS: MULTIVITAMIN TAB PO SCH (08:31)
[2021-10-26] MEDS: DOCUSATE SODIUM SYRUP 100 MG/10 ML UDC PO SCH ×2 (08:31→22:11)
[2021-10-26] MEDS: SODIUM CHLORIDE 0.9% 10ML FLUSH IV SCH (08:31)
[2021-10-26] MEDS: FAMOTIDINE 20 MG in SYRINGE 3 ML IV SCH ×2 (08:38→22:11)
[2021-10-26] MEDS: dexAMETHasone 6 MG in SYRINGE 0 ML IV SCH (08:38)
--- NOTE | 2021-10-26 09:00 | CT Scan Report ---
CHEST CTA for PULMONARY ARTERIES CT DOSE: 999.95 mGy.cm HISTORY: Shortness of breath. Covid. TECHNIQUE: Multiaxial CT images of the chest were performed following the intravenous administration of contrast to evaluate the pulmonary arteries. Maximal intensity projection images were also obtaine d. A dose lowering technique was utilized adhering to the principles of ALARA. COMPARISON STUDY: Chest 10/25/2021. FINDINGS: Scattered pulmonary emboli seen within the distal right main pulmonary artery, majority of the right upper lobe pulmonary arteries, and multiple segmental/subsegmental branches of the right lo wer lobe. There is a 2.1 cm left thyroid nodule. The endotracheal tube terminates 3.5 cm from the car ruchi. Nasogastric tube terminates in the stomach. There is a right jugular central venous catheter whi ch terminates in the distal SVC. Hepatic steatosis. The visualized spleen is unremarkable. There is a partially visualized left renal cyst. No mediastinal or hilar lymphadenopathy. There are trace pleur al effusions and a trace pericardial effusion. The heart is borderline enlarged. Normal caliber thora cic aorta with no evidence for dissection. No pneumothorax. Extensive groundglass and consolidative a irspace opacities seen throughout the lungs consistent with the patient's known viral pneumonia. Cons olidation most pronounced within the lower lobes. IMPRESSION: 1. Extensive right-sided pulmonary emboli as described above. 2. Extensive bilateral airspace opacities consistent with the patient's history of a viral pneumonia. 3. Trace bilateral pleural effusions and a trace pericardial effusion. 4. A 2.1 cm left thyroid nodule. This could be followed up with an outpatient thyroid ultrasound. 5. Satisfactory support line placement. ACT 112: Negative or not required by law. Electronically signed by: Michele Larkin M.D. 10/26/2021 8:59 AM
--- NOTE | 2021-10-26 11:02 | Critical Care Progress Note ---
Date of Service October 26, 2021 Assessment & Plan (1) Multifocal pneumonia: (2) Pneumonia due to 2019-nCoV: (3) Acute respiratory failure with hypoxia: (4) Acute hypokalemia: Plan: Impression: 41-year-old unvaccinated female now with severe Covid. She has increased work of breathing despite noninvasive positive pressure ventilation and high flow and I am concerned that she may develop respiratory fatigue and need to be intubated. This was discussed with the patient and her . They are agreeable to proceed if needed but would like to see how she does on current interventions. 24-hour events: The patient's condition deteriorated overnight requiring intubation central line placement arterial line placement. A CT angiogram was performed which revealed filling defects consistent with thromboembolic disease. She was initiated on heparin. She was proned. This resulted in improvement in her oxygenation. Her hemodynamics remained stable. Patient did receive 800 mg of Tocilizumab and is maintained on dexamethasone. Recommendations: 1. Neurologic: Continue sedation with propofol, fentanyl, and Versed as well as neuromuscular blockade. 2. Cardiovascular: Acute PE: Hemodynamically stable. Continue anticoagulation. 3. Pulmonary: Severe ARDS secondary to Covid pneumonitis. She appears to be responding favorably to prone positioning. She was prolonged around 10 PM. We will try and keep her prone until about 8:00 tonight and then revert her back to the supine position and see how she does. Current vent settings assist- control/30/350/16/0.55 with a plateau pressure of 26. P to F ratio: 112. Last ABG 7.39/53/62. Compliance consistent with ARDS and stiff lungs. C-reactive protein has decreased from 18->10. 4. Renal: Kidney function and urine output remained adequate. Slightly hypernatremic today as well as hypokalemic. We will institute ICU electrolyte replacement protocol. Will change IV fluids to hypotonic fluids to allow some free water and follow sodium levels but ideally would like to keep on the dry side. 5. GI: N.p.o. while proned and neuromuscular blockade. PPI in place 6. ID: Check respiratory cultures for surveillance. Afebrile with normal white count. She is at risk for secondary infections but will continue to follow currently off antimicrobial therapy 7. Heme-onc: Mild anemia without evidence of acute active ongoing bleeding. Continue to follow for now. Continue heparin drip. Should the patient clinically deteriorate with escalating oxygen requirement or demonstrating hemodynamic instability, would have low threshold for proceeding with half dose TPA (50 mg IV over 2 hours), could likely run this in conjunction with the heparin although bleeding risk would be somewhat increased 8. Endocrine: Glycemic control per protocol Patient is critically ill with significant possibility of clinical dysfunction and . This was communicated to the patient as well as her prior to intubation. We will continue to follow clinically. A total of 40 minutes critical care time was spent evaluation management stabilization of this patient. This includes discussion with the clinical coordinator and bedside ICU nurses Admission and Anticipated Discharge Date Admission Date: October 25, 2021 Subjective Patient intubated and sedated paralyzed in prone Review of Systems Review of Systems: Unobtainable due to endotracheal tube Physical Exam Constitutional: + obese; no acute distress Proned paralyzed Neck: trachea midline, no thyromegaly Respiratory: symmetric chest movement Auscultation: + rales and + wheezes Cardiovascular: RRR, no murmur, no edema Gastrointestinal (Abdomen): normal bowel sounds, soft, nontender, no hepatosplenomegaly Musculoskeletal: Extremities: extremities normal to inspection Skin: no rashes, warm and dry Lymphatic: no cervical lymphadenopathy Results & Data Results & Data ([facility]) Vital Signs (Past 12 Hours) Vital Signs Temp Pulse Resp BP Pulse Ox 10/26/21 10:45 37.2 C 80 30 H 89 L 10/26/21 10:30 37.2 C 78 30 H 89 L 10/26/21 10:15 37.2 C 80 30 H 89 L 10/26/21 10:00 37.2 C 78 30 H 88 L 10/26/21 09:45 37.2 C 81 30 H 87 L 10/26/21 09:30 37.2 C 87 30 H 86 L 10/26/21 09:15 0 L 10/26/21 09:00 37.3 C 77 30 H 93 10/26/21 08:45 37.3 C 77 30 H 93 10/26/21 08:30 37.3 C 76 30 H 93 10/26/21 08:15 37.3 C 78 30 H 92 10/26/21 08:00 37.3 C 79 30 H 92 10/26/21 07:45 37.3 C 80 30 H 92 10/26/21 07:30 37.3 C 79 30 H 92 10/26/21 07:15 37.3 C 77 30 H 92 10/26/21 07:08 78 30 H 92 10/26/21 07:00 37.3 C 76 30 H 93 10/26/21 06:45 37.3 C 76 30 H 92 10/26/21 06:30 37.3 C 77 30 H 92 10/26/21 06:15 37.3 C 82 30 H 92 10/26/21 06:00 37.4 C 84 30 H 93 10/26/21 05:45 37.4 C 81 30 H 94 10/26/21 05:30 37.4 C 78 30 H 96 10/26/21 05:15 37.3 C 79 30 H 95 10/26/21 05:00 37.4 C 79 30 H 95 10/26/21 04:45 37.4 C 85 30 H 95 10/26/21 04:30 37.4 C 84 30 H 95 10/26/21 04:15 37.4 C 83 30 H 94 10/26/21 04:00 37.3 C 81 30 H 93 10/26/21 03:45 37.3 C 85 30 H 91 10/26/21 03:30 37.3 C 88 30 H 94 10/26/21 03:15 37.3 C 86 30 H 93 10/26/21 03:00 37.3 C 87 30 H 92 10/26/21 02:58 86 30 H 92 10/26/21 02:45 37.2 C 90 30 H 92 10/26/21 02:30 37.2 C 94 H 30 H 92 10/26/21 02:15 37.2 C 94 H 30 H 92 10/26/21 02:00 37.2 C 94 H 30 H 91 10/26/21 01:45 37.2 C 95 H 30 H 91 10/26/21 01:30 37.1 C 99 H 30 H 92 10/26/21 01:15 37.2 C 99 H 30 H 92 10/26/21 01:00 37.1 C 99 H 30 H 91 10/26/21 00:45 37.2 C 100 H 30 H 91 10/26/21 00:30 37.1 C 100 H 30 H 90 10/26/21 00:15 37.1 C 102 H 30 H 90 11/25/21 00:00 102 H 30 H 90 10/25/21 23:45 103 H 30 H 90 10/25/21 23:35 103 H 30 H 107/57 L 91 10/25/21 23:30 104 H 30 H 91 10/25/21 23:20 105 H 30 H 103/56 L 90 10/25/21 23:15 105 H 30 H 90 10/25/21 23:05 107 H 30 H 104/58 L 89 L 10/25/21 23:00 107 H 30 H 88 L Critical Care Results & Data Vital Signs (Past 12 Hours) Vital Signs Temp Pulse Resp BP Pulse Ox 10/26/21 10:45 37.2 C 80 30 H 89 L 10/26/21 10:30 37.2 C 78 30 H 89 L 10/26/21 10:15 37.2 C 80 30 H 89 L 10/26/21 10:00 37.2 C 78 30 H 88 L 10/26/21 09:45 37.2 C 81 30 H 87 L 10/26/21 09:30 37.2 C 87 30 H 86 L 10/26/21 09:15 0 L 10/26/21 09:00 37.3 C 77 30 H 93 10/26/21 08:45 37.3 C 77 30 H 93 10/26/21 08:30 37.3 C 76 30 H 93 10/26/21 08:15 37.3 C 78 30 H 92 10/26/21 08:00 37.3 C 79 30 H 92 10/26/21 07:45 37.3 C 80 30 H 92 10/26/21 07:30 37.3 C 79 30 H 92 10/26/21 07:15 37.3 C 77 30 H 92 10/26/21 07:08 78 30 H 92 10/26/21 07:00 37.3 C 76 30 H 93 10/26/21 06:45 37.3 C 76 30 H 92 10/26/21 06:30 37.3 C 77 30 H 92 10/26/21 06:15 37.3 C 82 30 H 92 10/26/21 06:00 37.4 C 84 30 H 93 10/26/21 05:45 37.4 C 81 30 H 94 10/26/21 05:30 37.4 C 78 30 H 96 10/26/21 05:15 37.3 C 79 30 H 95 10/26/21 05:00 37.4 C 79 30 H 95 10/26/21 04:45 37.4 C 85 30 H 95 10/26/21 04:30 37.4 C 84 30 H 95 10/26/21 04:15 37.4 C 83 30 H 94 10/26/21 04:00 37.3 C 81 30 H 93 10/26/21 03:45 37.3 C 85 30 H 91 10/26/21 03:30 37.3 C 88 30 H 94 10/26/21 03:15 37.3 C 86 30 H 93 10/26/21 03:00 37.3 C 87 30 H 92 10/26/21 02:58 86 30 H 92 10/26/21 02:45 37.2 C 90 30 H 92 10/26/21 02:30 37.2 C 94 H 30 H 92 10/26/21 02:15 37.2 C 94 H 30 H 92 10/26/21 02:00 37.2 C 94 H 30 H 91 10/26/21 01:45 37.2 C 95 H 30 H 91 10/26/21 01:30 37.1 C 99 H 30 H 92 10/26/21 01:15 37.2 C 99 H 30 H 92 10/26/21 01:00 37.1 C 99 H 30 H 91 10/26/21 00:45 37.2 C 100 H 30 H 91 10/26/21 00:30 37.1 C 100 H 30 H 90 10/26/21 00:15 37.1 C 102 H 30 H 90 10/26/21 00:00 102 H 30 H 90 10/25/21 23:45 103 H 30 H 90 10/25/21 23:35 103 H 30 H 107/57 L 91 10/25/21 23:30 104 H 30 H 91 10/25/21 23:20 105 H 30 H 103/56 L 90 10/25/21 23:15 105 H 30 H 90 10/25/21 23:05 107 H 30 H 104/58 L 89 L 10/25/21 23:00 107 H 30 H 88 L Lab & Micro Results (Past 24 Hours) RBC 4.06 M/uL (4.2-5.4) L 10/26/21 WBC 7.72 K/uL (4.8-10.8) 10/26/21 Hgb 11.3 g/dL (12.0-16.0) L 10/26/21 Hct 34.7 % (37-47) L 10/26/21 MCV 85.5 fL (80-100) 10/26/21 MCH 27.8 pg (25-34) 10/26/21 MCHC 32.6 g/dL (32-36) 10/26/21 RDW Standard Deviation 49.5 fL (36.4-46.3) H 10/26/21 RDW Coefficient of Variation 15.6 % (11.5-14.5) H 10/26/21 Plt Count 239 K/uL (130-400) 10/26/21 MPV 9.7 fL (7.4-10.4) 10/26/21 Nucleated Red Blood Cells % (auto) 1.7 % 10/26/21 Nucleated RBC Absolute Count (auto) 0.13 K/uL (0-0) H 10/26/21 Neutrophils (%) (Auto) 80.4 % 10/26/21 Lymphocytes (%) (Auto) 11.8 % 10/26/21 Monocytes # (Auto) 0.54 K/uL (0.11-0.59) 10/26/21 Eosinophils # (Auto) 0.00 K/uL (0-0.5) 10/26/21 Immature Granulocyte % (Auto) 0.5 % 10/26/21 Neutrophils # (Auto) 6.21 K/uL (1.4-6.5) 10/26/21 Lymphocytes # (Auto) 0.91 K/uL (1.2-3.4) L 10/26/21 Monocytes # (Auto) 0.54 K/uL (0.11-0.59) 10/26/21 Eosinophils # (Auto) 0.00 K/uL (0-0.5) 10/26/21 Basophils # (Auto) 0.02 K/uL (0-0.2) 10/26/21 Immature Granulocyte # (Auto) 0.04 K/uL (0.00-0.02) H 10/26/21 Na 144 mmol/L (136-145) 10/26/21 K 3.4 mmol/L (3.5-5.1) L 10/26/21 Cl 107 mmol/L (98-107) 10/26/21 CO2 31 mmol/L (21-32) 10/26/21 Anion Gap 6.0 (3-11) 10/26/21 BUN 24 mg/dl (7-18) H 10/26/21 Creatinine 0.72 mg/dl (0.6-1.2) 10/26/21 Estimated GFR ( Amer) 119.7 ml/min 10/26/21 Estimated GFR (Non-Af Amer) 103.3 ml/min 10/26/21 BUN/Creatinine Ratio 33.0 (10-20) H 10/26/21 Glu 124 mg/dl (70-99) H 10/26/21 Ca 8.0 mg/dl (8.5-10.1) L 10/26/21 Phosphorus Level 3.0 mg/dl (2.5-4.9) 10/26/21 Total Bilirubin 0.4 mg/dl (0.2-1) 10/26/21 AST 79 U/L (15-37) H 10/26/21 ALT 54 U/L (12-78) 10/26/21 Alkaline Phosphatase 104 U/L (45-117) 10/26/21 TP 6.1 gm/dl (6.4-8.2) L 10/26/21 Albumin 2.1 gm/dl (3.4-5.0) L 10/26/21 Globulin 4.0 gm/dl (2.5-4.0) 10/26/21 Albumin/Globulin Ratio 0.5 (0.9-2) L 10/26/21 Mg 2.4 mg/dl (1.8-2.4) 10/26/21 06:37 10/26/21 Calcium Level 8.0 mg/dl (8.5-10.1) L 10/26/21 06:37 10/26/21 Prothromb Time International Ratio 1.1 (0.9-1.1) 10/26/21 00:03 10/26/21 Skip Test NA 10/26/21 03:51 10/26/21 Microbiology 10/26/21 03:05 Gram Stain - Final Sputum,Vent Suction Sputum Culture - Preliminary 10/24/21 20:00 Aerobic Blood Culture - Preliminary Blood No growth in Aerobic bottle after 24 hours. Anaerobic Blood Culture - Final 10/24/21 19:59 Aerobic Blood Culture - Preliminary Blood No growth in Aerobic bottle after 24 hours. Anaerobic Blood Culture - Preliminary No growth in Anaerobic bottle after 24 hours. Diagnostic Findings (Past 24 Hours) Chest X-Ray 10/25/21 20:20 XR chest 1V portable HISTORY: Pneumonia. Intubation and Central Line Placement COMPARISON: Chest 10/24/2021. FINDINGS: Redemonstration of extensive bilateral airspace opacities consistent with a multifocal pneumonia. No pneumothorax. No pleural effusions. The heart is top normal in size. Endotracheal tube terminates 5 cm from the badlemar. A right jugular central venous catheter terminates in the expected location of the SVC. Nasogastric tube terminates below the diaphragm. The tip is not included on this study. IMPRESSION: 1. Satisfactory support line placement. 2. Extensive bilateral airspace opacities consistent with a pneumonia. ACT 112: Negative or not required by law. Electronically signed by: Michele Larkin M.D. 10/25/2021 8:30 PM Chest CTA 10/25/21 20:50 CHEST CTA for PULMONARY ARTERIES CT DOSE: 999.95 mGy.cm HISTORY: Shortness of breath. Covid. TECHNIQUE: Multiaxial CT images of the chest were performed following the intravenous administration of contrast to evaluate the pulmonary arteries. Maximal intensity projection images were also obtained. A dose lowering technique was utilized adhering to the principles of ALARA. COMPARISON STUDY: Chest 10/25/2021. FINDINGS: Scattered pulmonary emboli seen within the distal right main pulmonary artery, majority of the right upper lobe pulmonary arteries, and multiple segmental/subsegmental branches of the right lower lobe. There is a 2.1 cm left thyroid nodule. The endotracheal tube terminates 3.5 cm from the baldemar. Nasogastric tube terminates in the stomach. There is a right jugular central venous catheter which terminates in the distal SVC. Hepatic steatosis. The visualized spleen is unremarkable. There is a partially visualized left renal cyst. No mediastinal or hilar lymphadenopathy. There are trace pleural effusions and a trace pericardial effusion. The heart is borderline enlarged. Normal caliber thoracic aorta with no evidence for dissection. No pneumothorax. Extensive groundglass and consolidative airspace opacities seen throughout the lungs consistent with the patient's known viral pneumonia. Consolidation most pronounced within the lower lobes. IMPRESSION: 1. Extensive right-sided pulmonary emboli as described above. 2. Extensive bilateral airspace opacities consistent with the patient's history of a viral pneumonia. 3. Trace bilateral pleural effusions and a trace pericardial effusion. 4. A 2.1 cm left thyroid nodule. This could be followed up with an outpatient thyroid ultrasound. 5. Satisfactory support line placement. ACT 112: Negative or not required by law. Electronically signed by: Michele Larkin M.D. 10/26/2021 8:59 AM I & O Totals 24 Hours 10/25/21 10/26/21 10/27/21 06:59 06:59 06:59 Intake Total 423.333 / 062.406 8127.035 / 2146.115 7.733 / 7.733 Output Total 0 / 0 1000 / 1000 Balance 423.333 / 758.783 3056.035 / 1146.115 7.733 / 7.733 Cumulative 10/24/21 18:55 thru 10/26/21 07:06 Intake Total 2577.101 Output Total 1000 Balance 1577.101 RT Ventilator Mngmt (Last Documented) Ventilator Ordered Settings Ventilator Support Mode Assist Control 10/26/21 07:08 Respiratory Rate 30 10/26/21 10:45 Ventilator Tidal Volume 350 10/26/21 07:08 Setting Minute Ventilation 10.7 10/26/21 07:08 Positive End Expiratory 16 10/26/21 07:08 Pressure Fraction of Inspired Oxygen 55 10/26/21 08:00 Machine Comment decreased to 55% fio2 10/26/21 07:08 Ventilator - PT Measurements Respiratory Rate 30 Exhaled Tidal Volume 350 Minute Ventilation 10.7 Peak Inspiratory Airway 29 Pressure Plateau Pressure 26 Respiratory Cycle Inspiratory: 1:1.9 Expiratory Ratio Inspiratory Phase Time 0.7 End-Tidal CO2 32 Static Lung Compliance 35.00 Dynamic Lung Compliance 26.92 Normal Static Lung Compliance 47.00 Patient Measurements Comment pt in prone position Coding Level of Care Code Critical Care 1st 30-74 mins Diagnoses Multifocal pneumonia J18.9 Pneumonia due to 2019-nCoV U07.1; J12.82 Acute respiratory failure with hypoxia J96.01 Acute hypokalemia E87.6 Time Spent (min) 48
[2021-10-26] MEDS ORDERED: REMDESIVIR 100 MG in SODIUM CHLORIDE 0.9% 230 ML IV SCH (12:00)
[2021-10-26] MEDS: D5W AND 1/4NSS + 20MEQ KCL 20 MEQ/1,000 ML BAG IV SCH (12:26)
[2021-10-26] MEDS: fentaNYL DRIP 1,250 MCG/250 ML BAG IV SCH (12:29)
[2021-10-26 13:30] LABS: Partial Thromboplastin Ratio 1.6; Partial Thromboplastin Time 41.2 Seconds (21.0-31.0)
--- NOTE | 2021-10-26 14:24 | Hospitalist Progress Note ---
Date of Service October 26, 2021 Assessment & Plan (1) Acute respiratory failure with hypoxia: Plan: Secondary to severe COVID-19 pneumonia Right-sided pulmonary emboli Currently intubated and sedated. Got Tocilizumab Continue dexamethasone Currently hemodynamically stable. Continue heparin drip family protection specialist on board K is 3.4 today. 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 Was initially on BiPAP on admission Respiratory status worsened yesterday night. CT PE revealed acute PE as well Patient was intubated and proned Patient seen and examined Currently proned Review of Systems Review of Systems: Unobtainable due to endotracheal tube Physical Exam Constitutional: + acute distress, + well hydrated and + obese ENMT: ETT in situ Respiratory: Patient currently proned and on ventilator Cardiovascular: Limited exam due to prone position Rhythm appears sinus on monitor Gastrointestinal (Abdomen): Limited exam due to prone position Musculoskeletal: No pedal edema Neurologic: Intubated and sedated Genitourinary: Edward in situ Results & Data Results & Data ([facility]) Vital Signs (Past 12 Hours) Vital Signs Temp Pulse Resp Pulse Ox 10/26/21 13:30 37.1 C 68 30 H 91 10/26/21 13:15 37.1 C 69 30 H 98 10/26/21 13:00 37.1 C 68 30 H 91 10/26/21 12:45 37.2 C 75 26 H 90 10/26/21 12:30 37.2 C 71 30 H 89 L 10/26/21 12:15 37.2 C 70 30 H 89 L 10/26/21 12:00 37.2 C 70 30 H 88 L 10/26/21 11:45 37.2 C 68 30 H 98 10/26/21 11:40 69 30 H 90 10/26/21 11:30 37.2 C 70 30 H 90 10/26/21 11:15 37.2 C 70 30 H 89 L 10/26/21 11:00 37.2 C 74 30 H 89 L 10/26/21 10:45 37.2 C 80 30 H 89 L 10/26/21 10:30 37.2 C 78 30 H 89 L 10/26/21 10:15 37.2 C 80 30 H 89 L 10/26/21 10:00 37.2 C 78 30 H 88 L 10/26/21 09:45 37.2 C 81 30 H 87 L 10/26/21 09:30 37.2 C 87 30 H 86 L 10/26/21 09:15 0 L 10/26/21 09:00 37.3 C 77 30 H 93 10/26/21 08:45 37.3 C 77 30 H 93 10/26/21 08:30 37.3 C 76 30 H 93 10/26/21 08:15 37.3 C 78 30 H 92 10/26/21 08:00 37.3 C 79 30 H 92 10/26/21 07:45 37.3 C 80 30 H 92 10/26/21 07:30 37.3 C 79 30 H 92 10/26/21 07:15 37.3 C 77 30 H 92 10/26/21 07:08 78 30 H 92 10/26/21 07:00 37.3 C 76 30 H 93 10/26/21 06:45 37.3 C 76 30 H 92 10/26/21 06:30 37.3 C 77 30 H 92 10/26/21 06:15 37.3 C 82 30 H 92 10/26/21 06:00 37.4 C 84 30 H 93 10/26/21 05:45 37.4 C 81 30 H 94 10/26/21 05:30 37.4 C 78 30 H 96 10/26/21 05:15 37.3 C 79 30 H 95 10/26/21 05:00 37.4 C 79 30 H 95 10/26/21 04:45 37.4 C 85 30 H 95 10/26/21 04:30 37.4 C 84 30 H 95 10/26/21 04:15 37.4 C 83 30 H 94 10/26/21 04:00 37.3 C 81 30 H 93 10/26/21 03:45 37.3 C 85 30 H 91 10/26/21 03:30 37.3 C 88 30 H 94 10/26/21 03:15 37.3 C 86 30 H 93 10/26/21 03:00 37.3 C 87 30 H 92 10/26/21 02:58 86 30 H 92 10/26/21 02:45 37.2 C 90 30 H 92 10/26/21 02:30 37.2 C 94 H 30 H 92 10/26/21 02:15 37.2 C 94 H 30 H 92 Laboratory Results Abnormal lab results 10/25/21 10/25/21 10/25/21 Range/Units 16:50 21:00 23:55 RBC (4.2-5.4) M/uL Hgb (12.0-16.0) g/dL POC Hgb 11.2 L (12.0-16.0) g/dl Hct (37-47) % POC Hct 33 L (37-47) % RDW Std Deviation (36.4-46.3) fL RDW Coeff of Diana (11.5-14.5) % Lymph # (Auto) (1.2-3.4) K/uL Immature Gran # (Auto) (0.00-0.02) K/uL Absolute Nucleated RBC (0-0) K/uL APTT (21.0-31.0) Seconds POC pH 7.28 L 7.33 L (7.35-7.45) POC pCO2 71 H 60 H (35-46) mmHg POC pO2 102 H 70 L (80-95) mmHg POC HCO3 33 H 32 H (19-24) laurie/L POC Total CO2 35 H 34 H (24-31) mmol/L POC Base Excess 6.0 H 6.0 H (-9-1.8) laurie/L ABG pH (Temp Correct) 7.275 L 7.333 L (7.35-7.45) ABG pCO2 (Temp Corrct 72 H 60 H (35-46) mmHg POC ABG O2 Sat 97.0 H (90-95) % POC Sodium 146 H (135-144) mmol/L Potassium (3.5-5.1) mmol/L BUN (7-18) mg/dl BUN/Creatinine Ratio (10-20) Glucose (70-99) mg/dl POC Glucose 135 H (70-99) mg/dl Calcium (8.5-10.1) mg/dl AST (15-37) U/L C-Reactive Protein (0-0.29) mg/dl Total Protein (6.4-8.2) gm/dl Albumin (3.4-5.0) gm/dl Albumin/Globulin Ratio (0.9-2) 10/26/21 10/26/21 10/26/21 Range/Units 03:09 03:51 06:37 RBC (4.2-5.4) M/uL Hgb (12.0-16.0) g/dL POC Hgb 10.9 L (12.0-16.0) g/dl Hct (37-47) % POC Hct 32 L (37-47) % RDW Std Deviation (36.4-46.3) fL RDW Coeff of Diana (11.5-14.5) % Lymph # (Auto) (1.2-3.4) K/uL Immature Gran # (Auto) (0.00-0.02) K/uL Absolute Nucleated RBC (0-0) K/uL APTT (21.0-31.0) Seconds POC pH (7.35-7.45) POC pCO2 53 H (35-46) mmHg POC pO2 62 L (80-95) mmHg POC HCO3 32 H (19-24) laurie/L POC Total CO2 34 H (24-31) mmol/L POC Base Excess 7.0 H (-9-1.8) laurie/L ABG pH (Temp Correct) (7.35-7.45) ABG pCO2 (Temp Corrct 53 H (35-46) mmHg POC ABG O2 Sat (90-95) % POC Sodium 145 H (135-144) mmol/L Potassium 3.4 L (3.5-5.1) mmol/L BUN 24 H D (7-18) mg/dl BUN/Creatinine Ratio 33.0 H (10-20) Glucose 124 H (70-99) mg/dl POC Glucose 143 H (70-99) mg/dl Calcium 8.0 L (8.5-10.1) mg/dl AST 79 H (15-37) U/L C-Reactive Protein 10.70 H (0-0.29) mg/dl Total Protein 6.1 L (6.4-8.2) gm/dl Albumin 2.1 L (3.4-5.0) gm/dl Albumin/Globulin Ratio 0.5 L (0.9-2) 10/26/21 10/26/21 10/26/21 Range/Units 06:37 06:37 12:40 RBC 4.06 L (4.2-5.4) M/uL Hgb 11.3 L (12.0-16.0) g/dL POC Hgb (12.0-16.0) g/dl Hct 34.7 L (37-47) % POC Hct (37-47) % RDW Std Deviation 49.5 H (36.4-46.3) fL RDW Coeff of Diana 15.6 H (11.5-14.5) % Lymph # (Auto) 0.91 L (1.2-3.4) K/uL Immature Gran # (Auto) 0.04 H (0.00-0.02) K/uL Absolute Nucleated RBC 0.13 H (0-0) K/uL APTT 43.0 H (21.0-31.0) Seconds POC pH (7.35-7.45) POC pCO2 (35-46) mmHg POC pO2 (80-95) mmHg POC HCO3 (19-24) laurie/L POC Total CO2 (24-31) mmol/L POC Base Excess (-9-1.8) laurie/L ABG pH (Temp Correct) (7.35-7.45) ABG pCO2 (Temp Corrct (35-46) mmHg POC ABG O2 Sat (90-95) % POC Sodium (135-144) mmol/L Potassium (3.5-5.1) mmol/L BUN (7-18) mg/dl BUN/Creatinine Ratio (10-20) Glucose (70-99) mg/dl POC Glucose 138 H (70-99) mg/dl Calcium (8.5-10.1) mg/dl AST (15-37) U/L C-Reactive Protein (0-0.29) mg/dl Total Protein (6.4-8.2) gm/dl Albumin (3.4-5.0) gm/dl Albumin/Globulin Ratio (0.9-2) 10/26/21 Range/Units 13:11 RBC (4.2-5.4) M/uL Hgb (12.0-16.0) g/dL POC Hgb (12.0-16.0) g/dl Hct (37-47) % POC Hct (37-47) % RDW Std Deviation (36.4-46.3) fL RDW Coeff of Diana (11.5-14.5) % Lymph # (Auto) (1.2-3.4) K/uL Immature Gran # (Auto) (0.00-0.02) K/uL Absolute Nucleated RBC (0-0) K/uL APTT 41.2 H (21.0-31.0) Seconds POC pH (7.35-7.45) POC pCO2 (35-46) mmHg POC pO2 (80-95) mmHg POC HCO3 (19-24) laurie/L POC Total CO2 (24-31) mmol/L POC Base Excess (-9-1.8) laurie/L ABG pH (Temp Correct) (7.35-7.45) ABG pCO2 (Temp Corrct (35-46) mmHg POC ABG O2 Sat (90-95) % POC Sodium (135-144) mmol/L Potassium (3.5-5.1) mmol/L BUN (7-18) mg/dl BUN/Creatinine Ratio (10-20) Glucose (70-99) mg/dl POC Glucose (70-99) mg/dl Calcium (8.5-10.1) mg/dl AST (15-37) U/L C-Reactive Protein (0-0.29) mg/dl Total Protein (6.4-8.2) gm/dl Albumin (3.4-5.0) gm/dl Albumin/Globulin Ratio (0.9-2)
[2021-10-26] MEDS: POTASSIUM CHLORIDE / WTR 10 MEQ/100 ML PLCT IV SCH ×3 (16:05→18:04)
[2021-10-26] MEDS: ICU ELECTROLYTE REPLACEMENT PROTOCOL SCH (16:59)
[2021-10-26] MEDS: PROPOFOL BOLUS FROM BAG IV PRN ×2 (20:35→20:40)
[2021-10-26 20:38] LABS: Partial Thromboplastin Ratio 1.8
[2021-10-26 20:39] LABS: Partial Thromboplastin Time 46.1 Seconds (21.0-31.0)
--- NOTE | 2021-10-26 21:03 | Communication Note ---
Date of Service: October 26, 2021 Procedure: Supination Maneuver Attending: Dr. Ray APC: Giancarlo Castro PA-C Indication: Requiring lung recruitment intervention in the setting of advanced ARDS with poor lung compliance and oxygenation on standard ventilator settings. Patient requiring supination in the setting of advanced ARDS per imaging, ventilator requirements, and calculated P:F ratio. Appropriate staff was assembled including myself, Respiratory Therapy, and Nursing Staff. A time-out was completed verifying correct patient, time from recent pronation/supination, current ventilator settings, review of any prior issues during pronation/supination maneuvers. Patient was fully undressed as to be able to view all current IV sites, central venous access sites, arterial lines, endotracheal tube, Edward catheter, etc. After properly identifying/securing all lines, tubes, etc., the patient was ``papoosed using flat sheets. On my count, the patient was slid to the edge of the bed. After reevaluating all lines, tubes, etc., the patient was then placed on their side allowing for RT to maintain control of ET tube and ready for completion of Supination maneuver. Final check of all lines, tubes, etc. was completed by myself and nursing staff. Blood pressure, heart rhythm, and oxygen saturations were monitored for several minutes s/p maneuver. Discussion was held with patients RN and RT regarding ongoing management. Patient tolerated maneuver well. No immediate complications were noted. TIME SUPINE: 2030 I have personally spent 20 minutes of critical care time in the direct management of this patient. This is a life/limb threatening event. This includes time spent evaluating patient, direct bedside care, chart review, placing orders, interpretation of diagnostic studies, discussion with consultants, patient, and family members, as well as other required patient management activities. This time is exclusive of all separately billable procedures, and teaching time and separate from and in addition to any other critical care service time. Coding Level of Care Code Critical Care ea addt'l 30 min Time Spent (min) 20
[2021-10-27] MEDS: CISATRACURIUM BESYLATE 40 MG in 0.9 % SODIUM CHLORIDE 80 ML IV SCH ×7 (01:17→23:21)
[2021-10-27] MEDS: ARTIFICIAL TEARS OP OINT 3.5 GM TUBE OP SCH ×6 (01:17→19:43)
[2021-10-27] MEDS: propofoL 1,000 MG/100 ML VIAL IV SCH ×12 (01:49→23:20)
[2021-10-27] MEDS: PROPOFOL BOLUS FROM BAG IV PRN ×6 (04:00→05:52)
[2021-10-27] MEDS ORDERED: fentaNYL citrate 100 MCG/2 ML VIAL IV STA (04:26)
[2021-10-27] MEDS ORDERED: MIDAZOLAM HCL 1 MG/ML 2ML VIAL IV STA (04:26)
[2021-10-27] MEDS ORDERED: MIDAZOLAM HCL 1 MG/ML 2ML VIAL ONE (04:32)
[2021-10-27 04:52] LABS: iSTAT Art Bld Gas pCO2 Correct 52 mmHg (35-46); iSTAT Art Bld Gas pH Corrected 7.393 (7.35-7.45); iSTAT Arterial Blood Gas HCO3 31 meg/L (19-24); iSTAT Arterial Blood Gas pCO2 51 mmHg (35-46); iSTAT Arterial Blood Gas pO2 56 mmHg (80-95); iSTAT Arterial Blood Gas pO2 C 56; iSTAT Carbon Dioxide 33 mmol/L (24-31); iSTAT FiO2 55 %; iSTAT Hematocrit 34 % (37-47); iSTAT Hemoglobin 11.6 g/dl (12.0-16.0); iSTAT Potassium 3.2 mmol/L (3.3-5.0); iSTAT Site Art Line; iSTAT Sodium 142 mmol/L (135-144)
[2021-10-27 05:18] LABS: Basophils # (auto) 0.02 K/uL (0-0.2); Basophils % (auto) 0.2 %; Eosinophils # (auto) 0.09 K/uL (0-0.5); Eosinophils % (auto) 1.1 %; Hematocrit (blood only) 36.9 % (37-47); Immature Granulocytes # (auto) 0.14 K/uL (0.00-0.02); Immature Granulocytes % (auto) 1.7 %; Lymphocytes # (auto) 0.99 K/uL (1.2-3.4); Lymphocytes % (auto) 11.8 %; Mean Corpuscular Hemoglobin 28.1 pg (25-34); Mean Corpuscular Hgb Conc 32.5 g/dL (32-36); Mean Corpuscular Volume 86.4 fL (80-100); Mean Platelet Volume 10.2 fL (7.4-10.4); Neutrophils # (auto) 6.62 K/uL (1.4-6.5); Neutrophils % (auto) 79.2 %; Nucleated RBC # (auto) 0.16 K/uL (0-0); Platelet Count 244 K/uL (130-400); RDW Coefficient of Variation 15.3 % (11.5-14.5); RDW Standard Deviation 48.2 fL (36.4-46.3); Red Blood Count 4.27 M/uL (4.2-5.4); White Blood Count 8.36 K/uL (4.8-10.8)
[2021-10-27 05:30] LABS: Partial Thromboplastin Ratio 1.6; Partial Thromboplastin Time 42.4 Seconds (21.0-31.0)
[2021-10-27] MEDS: fentaNYL DRIP 1,250 MCG/250 ML BAG IV SCH ×5 (05:31→20:46)
[2021-10-27] MEDS ORDERED: STAT IV Infusion **Titration per Protocol STA ×3 (05:33→09:07)
[2021-10-27] MEDS ORDERED: FUROSEMIDE INJ 20 MG/2 ML VIAL IV ONE (05:33)
[2021-10-27] MEDS ORDERED: DEXMEDETOMIDINE HCL 200 MCG in SODIUM CHLORIDE 0.9% 48 ML IV SCH (05:45)
[2021-10-27 05:49] LABS: Albumin Level 2.1 gm/dl (3.4-5.0); BUN Creatinine Ratio 39.7 (10-20); Calcium 7.8 mg/dl (8.5-10.1); Creatinine Clr Calc Pharmacy 157.5 ml/min; Est GFR (Non-African American) 113.1 ml/min; Magnesium 2.4 mg/dl (1.8-2.4); Potassium 3.3 mmol/L (3.5-5.1)
[2021-10-27 05:55] LABS: Albumin Globulin Ratio 0.5 (0.9-2); Bilirubin,Total 0.4 mg/dl (0.2-1); C Reactive Protein 5.85 mg/dl (0-0.29); Globulin 3.9 gm/dl (2.5-4.0); Phosphorus 3.1 mg/dl (2.5-4.9)
[2021-10-27 06:12] LABS: RBC Morphology Unremarkable
[2021-10-27] MEDS: D5W AND 1/4NSS + 20MEQ KCL 20 MEQ/1,000 ML BAG IV SCH (06:33)
[2021-10-27] MEDS: ICU ELECTROLYTE REPLACEMENT PROTOCOL SCH ×2 (06:38→16:18)
[2021-10-27] MEDS: POTASSIUM CHLORIDE / WTR 20 MEQ/100 ML PLCT IV SCH ×3 (06:50→10:45)
[2021-10-27 07:00] LABS: Estimated Average Glucose 126 mg/dl
[2021-10-27] MEDS: HEPARIN SODIUM/DEXTROSE 25,000 UNITS/500 ML BAG IV SCH ×4 (08:11→21:14)
[2021-10-27] MEDS: dexAMETHasone 6 MG in SYRINGE 0 ML IV SCH (08:17)
[2021-10-27] MEDS: DOCUSATE SODIUM SYRUP 100 MG/10 ML UDC PO SCH ×2 (08:17→19:44)
[2021-10-27] MEDS: FAMOTIDINE 20 MG in SYRINGE 3 ML IV SCH ×2 (08:18→19:47)
[2021-10-27] MEDS: NOREPINEPHRINE/D5W 8 MG/508 ML BAG IV SCH (08:26)
--- NOTE | 2021-10-27 08:54 | Critical Care Progress Note ---
Date of Service October 27, 2021 Assessment & Plan (1) Multifocal pneumonia: (2) Pneumonia due to 2019-nCoV: (3) Acute respiratory failure with hypoxia: (4) Acute hypokalemia: Plan: Impression: 41-year-old unvaccinated female now with severe Covid. She failed high flow and noninvasive positive pressure ventilation and was intubated 10/25/2021. CT angiogram at that time also demonstrated small subsegmental PEs and the patient was initiated on anticoagulation. 24-hour events: Patient was prone for about 20 hours yesterday. She did respond favorably with decrease in her oxygen requirement. She has been supine most of the night but unfortunately has had escalation of her oxygen requirement and worsening PF ratio. Sedation was problematic and she was initiated on Precedex however this has resulted in low blood pressure and requirement of initiation of norepinephrine. Recommendations: 1. Neurologic: Continue sedation with propofol, fentanyl, and Versed as well as neuromuscular blockade. Given her hemodynamic issues, will discontinue Precedex. We will continue fairly deep sedation pending improvement in her respiratory mechanics 2. Cardiovascular: Acute PE: Continue anticoagulation. She was hypotensive with initiation of Precedex so this will be discontinued and we will pursue alternative sedative agents. Check lactate 3. Pulmonary: Severe ARDS secondary to Covid pneumonitis. She responded favorably to prone positioning. She was flipped supine around 8 PM last night but has had increasing oxygen requirement since then. We will repeat proning this morning and try and target 18 to 20 hours of proning to see if we can improve her VQ mismatch Current vent settings assist-control/30/350/14/0.7 with a plateau pressure of 28. P to F ratio: 80, decreased from yesterday Last ABG 7.40/51/56. Compliance consistent with ARDS and stiff lungs. C-reactive protein has decreased from 18->10. Her body mass index excludes her from consideration of ECMO. Given her favorable response to proning, will hold off on inhaled epoprostenol which may also improve VQ mismatch. Continue heparin infusion for PE. 4. Renal: Kidney function and urine output remained adequate. Hypokalemia, continue ICU electrolyte replacement protocol. Continue judicious hypotonic fluids to keep sodium under control. We will hold diuretics today given her hemodynamic instability. 5. GI: N.p.o. while proned and neuromuscular blockade. PPI in place 6. ID: Patient is now febrile. Line sites look okay. White count remains normal. Blood cultures from the showed no growth to date and respiratory culture from the with pinpoint growth currently awaiting reintubation. We will repeat cultures and procalcitonin and initiate antimicrobial therapy in the form of cefepime and vancomycin. Check MRSA of the nares and consider discontinuation of vancomycin if swab negative 7. Heme-onc: Mild anemia without evidence of acute active ongoing bleeding. Continue to follow for now. Continue heparin drip. Should the patient clinically deteriorate with escalating oxygen requirement or demonstrating hemodynamic instability, would have low threshold for proceeding with half dose TPA (50 mg IV over 2 hours), could likely run this in conjunction with the heparin although bleeding risk would be somewhat increased. Recheck troponin and BNP for right heart strain. 8. Endocrine: Glycemic control per protocol Patient is critically ill with significant possibility of clinical dysfunction and . Attempted to update by phone today however no answer. We will continue to follow clinically. A total of 55 minutes critical care time was spent evaluation management stabilization of this patient. This includes discussion with the admitting hospitalist and bedside ICU nurses Admission and Anticipated Discharge Date Admission Date: October 25, 2021 Subjective Patient is intubated sedated and paralyzed Review of Systems Review of Systems: Unobtainable due to endotracheal tube Physical Exam Constitutional: + obese; no acute distress Neck: trachea midline, no thyromegaly Respiratory: symmetric chest movement Auscultation: + rales and + wheezes Cardiovascular: RRR, no murmur, no edema Gastrointestinal (Abdomen): normal bowel sounds, soft, nontender, no hepatosplenomegaly Musculoskeletal: Extremities: extremities normal to inspection Skin: no rashes, warm and dry Lymphatic: no cervical lymphadenopathy Results & Data Results & Data ([facility] [place]) Vital Signs (Past 12 Hours) Vital Signs Temp Pulse Resp Pulse Ox 10/27/21 08:00 38.0 C H 66 30 H 94 10/27/21 07:45 37.9 C H 66 30 H 93 10/27/21 07:30 37.9 C H 66 30 H 92 10/27/21 07:15 37.8 C H 66 30 H 90 10/27/21 07:00 37.8 C H 75 30 H 90 10/27/21 06:00 37.7 C H 102 H 30 H 88 L 10/27/21 05:45 37.7 C H 115 H 30 H 90 10/27/21 05:30 37.6 C H 126 H 30 H 91 10/27/21 05:15 37.5 C 107 H 30 H 88 L 10/27/21 05:00 37.5 C 119 H 30 H 90 10/27/21 04:47 109 H 30 H 87 L 10/27/21 04:45 37.3 C 103 H 30 H 87 L 10/27/21 04:30 37.2 C 120 H 30 H 86 L 10/27/21 04:15 37.0 C 115 H 30 H 88 L 10/27/21 04:00 36.9 C 110 H 30 H 90 10/27/21 03:45 36.8 C 101 H 30 H 91 10/27/21 03:30 36.6 C 96 H 30 H 92 10/27/21 03:15 36.5 C 69 30 H 89 L 10/27/21 03:00 36.3 C L 68 30 H 91 10/27/21 02:45 36.2 C L 61 30 H 89 L 10/27/21 02:30 36.1 C L 61 30 H 90 10/27/21 02:15 36.0 C L 61 30 H 90 10/27/21 02:00 35.9 C L 58 L 30 H 91 10/27/21 01:45 35.8 C L 56 L 30 H 90 10/27/21 01:35 35.7 C L 56 L 30 H 91 10/27/21 01:30 35.7 C L 56 L 30 H 91 10/27/21 01:15 35.7 C L 56 L 30 H 90 10/27/21 01:00 35.6 C L 57 L 30 H 91 10/27/21 00:45 35.6 C L 55 L 30 H 91 10/27/21 00:30 35.5 C L 58 L 30 H 93 10/27/21 00:15 35.5 C L 59 L 30 H 93 10/27/21 00:00 35.5 C L 55 L 30 H 92 10/26/21 23:45 35.5 C L 54 L 30 H 93 10/26/21 23:30 35.5 C L 55 L 30 H 94 10/26/21 23:15 35.5 C L 58 L 30 H 94 10/26/21 23:00 35.6 C L 55 L 30 H 97 10/26/21 22:45 35.6 C L 55 L 30 H 97 10/26/21 22:30 35.6 C L 56 L 30 H 97 10/26/21 22:15 35.7 C L 59 L 30 H 96 10/26/21 22:00 35.7 C L 58 L 30 H 96 10/26/21 21:45 35.8 C L 57 L 30 H 95 10/26/21 21:30 35.9 C L 56 L 26 H 94 10/26/21 21:15 35.9 C L 57 L 26 H 94 10/26/21 21:00 36.0 C L 58 L 26 H 94 Critical Care Results & Data Vital Signs (Past 12 Hours) Vital Signs Temp Pulse Resp Pulse Ox 10/27/21 08:00 38.0 C H 66 30 H 94 10/27/21 07:45 37.9 C H 66 30 H 93 10/27/21 07:30 37.9 C H 66 30 H 92 10/27/21 07:15 37.8 C H 66 30 H 90 10/27/21 07:00 37.8 C H 75 30 H 90 10/27/21 06:00 37.7 C H 102 H 30 H 88 L 10/27/21 05:45 37.7 C H 115 H 30 H 90 10/27/21 05:30 37.6 C H 126 H 30 H 91 10/27/21 05:15 37.5 C 107 H 30 H 88 L 10/27/21 05:00 37.5 C 119 H 30 H 90 10/27/21 04:47 109 H 30 H 87 L 10/27/21 04:45 37.3 C 103 H 30 H 87 L 10/27/21 04:30 37.2 C 120 H 30 H 86 L 10/27/21 04:15 37.0 C 115 H 30 H 88 L 10/27/21 04:00 36.9 C 110 H 30 H 90 10/27/21 03:45 36.8 C 101 H 30 H 91 10/27/21 03:30 36.6 C 96 H 30 H 92 10/27/21 03:15 36.5 C 69 30 H 89 L 10/27/21 03:00 36.3 C L 68 30 H 91 10/27/21 02:45 36.2 C L 61 30 H 89 L 10/27/21 02:30 36.1 C L 61 30 H 90 10/27/21 02:15 36.0 C L 61 30 H 90 10/27/21 02:00 35.9 C L 58 L 30 H 91 10/27/21 01:45 35.8 C L 56 L 30 H 90 10/27/21 01:35 35.7 C L 56 L 30 H 91 10/27/21 01:30 35.7 C L 56 L 30 H 91 10/27/21 01:15 35.7 C L 56 L 30 H 90 10/27/21 01:00 35.6 C L 57 L 30 H 91 10/27/21 00:45 35.6 C L 55 L 30 H 91 10/27/21 00:30 35.5 C L 58 L 30 H 93 10/27/21 00:15 35.5 C L 59 L 30 H 93 10/27/21 00:00 35.5 C L 55 L 30 H 92 10/26/21 23:45 35.5 C L 54 L 30 H 93 10/26/21 23:30 35.5 C L 55 L 30 H 94 10/26/21 23:15 35.5 C L 58 L 30 H 94 10/26/21 23:00 35.6 C L 55 L 30 H 97 10/26/21 22:45 35.6 C L 55 L 30 H 97 10/26/21 22:30 35.6 C L 56 L 30 H 97 10/26/21 22:15 35.7 C L 59 L 30 H 96 10/26/21 22:00 35.7 C L 58 L 30 H 96 10/26/21 21:45 35.8 C L 57 L 30 H 95 10/26/21 21:30 35.9 C L 56 L 26 H 94 10/26/21 21:15 35.9 C L 57 L 26 H 94 10/26/21 21:00 36.0 C L 58 L 26 H 94 Lab & Micro Results (Past 24 Hours) RBC 4.27 M/uL (4.2-5.4) 10/27/21 WBC 8.36 K/uL (4.8-10.8) 10/27/21 Hgb 12.0 g/dL (12.0-16.0) 10/27/21 Hct 36.9 % (37-47) L 10/27/21 MCV 86.4 fL (80-100) 10/27/21 MCH 28.1 pg (25-34) 10/27/21 MCHC 32.5 g/dL (32-36) 10/27/21 RDW Standard Deviation 48.2 fL (36.4-46.3) H 10/27/21 RDW Coefficient of Variation 15.3 % (11.5-14.5) H 10/27/21 Plt Count 244 K/uL (130-400) 10/27/21 MPV 10.2 fL (7.4-10.4) 10/27/21 Nucleated Red Blood Cells % (auto) 2.0 % 10/27/21 Nucleated RBC Absolute Count (auto) 0.16 K/uL (0-0) H 10/27/21 Neutrophils (%) (Auto) 79.2 % 10/27/21 Lymphocytes (%) (Auto) 11.8 % 10/27/21 Monocytes # (Auto) 0.50 K/uL (0.11-0.59) 10/27/21 Eosinophils # (Auto) 0.09 K/uL (0-0.5) 10/27/21 Immature Granulocyte % (Auto) 1.7 % 10/27/21 Neutrophils # (Auto) 6.62 K/uL (1.4-6.5) H 10/27/21 Lymphocytes # (Auto) 0.99 K/uL (1.2-3.4) L 10/27/21 Monocytes # (Auto) 0.50 K/uL (0.11-0.59) 10/27/21 Eosinophils # (Auto) 0.09 K/uL (0-0.5) 10/27/21 Basophils # (Auto) 0.02 K/uL (0-0.2) 10/27/21 Immature Granulocyte # (Auto) 0.14 K/uL (0.00-0.02) H 10/27/21 Red Blood Cell Morphology Unremarkable 10/27/21 Na 140 mmol/L (136-145) 10/27/21 K 3.3 mmol/L (3.5-5.1) L 10/27/21 Cl 105 mmol/L (98-107) 10/27/21 CO2 31 mmol/L (21-32) 10/27/21 Anion Gap 4.0 (3-11) 10/27/21 BUN 23 mg/dl (7-18) H 10/27/21 Creatinine 0.59 mg/dl (0.6-1.2) L 10/27/21 Estimated GFR ( Amer) 131.0 ml/min 10/27/21 Estimated GFR (Non-Af Amer) 113.1 ml/min 10/27/21 BUN/Creatinine Ratio 39.7 (10-20) H 10/27/21 Glu 137 mg/dl (70-99) H 10/27/21 Ca 7.8 mg/dl (8.5-10.1) L 10/27/21 Phosphorus Level 3.1 mg/dl (2.5-4.9) 10/27/21 Total Bilirubin 0.4 mg/dl (0.2-1) 10/27/21 AST 59 U/L (15-37) H 10/27/21 ALT 45 U/L (12-78) 10/27/21 Alkaline Phosphatase 96 U/L (45-117) 10/27/21 TP 6.0 gm/dl (6.4-8.2) L 10/27/21 Albumin 2.1 gm/dl (3.4-5.0) L 10/27/21 Globulin 3.9 gm/dl (2.5-4.0) 10/27/21 Albumin/Globulin Ratio 0.5 (0.9-2) L 10/27/21 Mg 2.4 mg/dl (1.8-2.4) 10/27/21 04:55 10/27/21 Calcium Level 7.8 mg/dl (8.5-10.1) L 10/27/21 04:55 10/27/21 Skip Test NA 10/27/21 04:33 10/27/21 Microbiology 10/26/21 03:05 Gram Stain - Final Sputum,Vent Suction Sputum Culture - Preliminary Pin-point growth present, reincubating. 10/24/21 20:00 Aerobic Blood Culture - Preliminary Blood No growth in Aerobic bottle after 48 hours. Anaerobic Blood Culture - Final 10/24/21 19:59 Aerobic Blood Culture - Preliminary Blood No growth in Aerobic bottle after 48 hours. Anaerobic Blood Culture - Preliminary No growth in Anaerobic bottle after 48 hours. Diagnostic Findings (Past 24 Hours) Chest CTA 10/25/21 20:50 CHEST CTA for PULMONARY ARTERIES CT DOSE: 999.95 mGy.cm HISTORY: Shortness of breath. Covid. TECHNIQUE: Multiaxial CT images of the chest were performed following the intravenous administration of contrast to evaluate the pulmonary arteries. Maximal intensity projection images were also obtained. A dose lowering technique was utilized adhering to the principles of ALARA. COMPARISON STUDY: Chest 10/25/2021. FINDINGS: Scattered pulmonary emboli seen within the distal right main pulmonary artery, majority of the right upper lobe pulmonary arteries, and multiple segmental/subsegmental branches of the right lower lobe. There is a 2.1 cm left thyroid nodule. The endotracheal tube terminates 3.5 cm from the baldemar. Nasogastric tube terminates in the stomach. There is a right jugular central venous catheter which terminates in the distal SVC. Hepatic steatosis. The visualized spleen is unremarkable. There is a partially visualized left renal cyst. No mediastinal or hilar lymphadenopathy. There are trace pleural effusions and a trace pericardial effusion. The heart is borderline enlarged. Normal caliber thoracic aorta with no evidence for dissection. No pneumothorax. Exte nsive groundglass and consolidative airspace opacities seen throughout the lungs consistent with the patient's known viral pneumonia. Consolidation most pronounced within the lower lobes. IMPRESSION: 1. Extensive right-sided pulmonary emboli as described above. 2. Extensive bilateral airspace opacities consistent with the patient's history of a viral pneumonia. 3. Trace bilateral pleural effusions and a trace pericardial effusion. 4. A 2.1 cm left thyroid nodule. This could be followed up with an outpatient thyroid ultrasound. 5. Satisfactory support line placement. ACT 112: Negative or not required by law. Electronically signed by: Michele Larkin M.D. 10/26/2021 8:59 AM I & O Totals 24 Hours 10/26/21 10/27/21 10/28/21 06:59 06:59 06:59 Intake Total 2146.035 / 2146.115 2953.549 / 2953.549 638.561 / 638.561 Output Total 1000 / 1000 725 / 725 Balance 1146.035 / 3780.345 3058.549 / 2228.549 638.561 / 638.561 Cumulative 10/24/21 18:55 thru 10/27/21 08:30 Intake Total 6161.478 Output Total 1725 Balance 4436.478 RT Ventilator Mngmt (Last Documented) Ventilator Ordered Settings Ventilator Support Mode Assist Control 10/27/21 08:00 Respiratory Rate 30 10/27/21 08:00 Ventilator Tidal Volume 350 10/27/21 08:00 Setting Minute Ventilation 10.9 10/27/21 07:45 Positive End Expiratory 14 10/27/21 08:00 Pressure Fraction of Inspired Oxygen 70 10/27/21 08:00 Machine Comment increased to 60% by RN at 1245 10/26/21 15:30 Ventilator - PT Measurements Respiratory Rate 30 Exhaled Tidal Volume 367 Minute Ventilation 10.9 Peak Inspiratory Airway 32 Pressure Plateau Pressure 28 Respiratory Cycle Inspiratory: 1:1.9 Expiratory Ratio Inspiratory Phase Time 0.7 End-Tidal CO2 28 Static Lung Compliance 25.07 Dynamic Lung Compliance 20.39 Normal Static Lung Compliance 46.00 Patient Measurements Comment patient desat to 85% and tachycardic in 120s- increased settings post abg Coding Level of Care Code Critical Care 1st 30-74 mins Diagnoses Multifocal pneumonia J18.9 Pneumonia due to 2019-nCoV U07.1; J12.82 Acute respiratory failure with hypoxia J96.01 Acute hypokalemia E87.6 Time Spent (min) 55
[2021-10-27] MEDS ORDERED: VANCOMYCIN CONSULT ACTIVE PRN (09:03)
[2021-10-27] MEDS ORDERED: MIDAZOLAM HCL 1 MG/ML 2ML VIAL IV PRN (09:07)
--- NOTE | 2021-10-27 09:08 | XRay Report ---
XR chest 1V portable HISTORY: Respiratory failure. Covid pneumonia. COMPARISON: Chest 10/25/2021. FINDINGS: Extensive bilateral airspace opacities consistent with a viral pneumonia. This is similar t o the prior study. The heart is stable in size. No pleural effusions. No pneumothorax. Lines and tube s remain unchanged in position. IMPRESSION: 1. Satisfactory support line placement. 2. Extensive bilateral airspace opacities persist consistent with a viral pneumonia. ACT 112: Negative or not required by law. Electronically signed by: Michele Larkin M.D. 10/27/2021 9:07 AM
[2021-10-27] MEDS ORDERED: VANCOMYCIN HCL 2,250 MG in SODIUM CHLORIDE 0.9% 500 ML IV ONE (10:00)
[2021-10-27 10:10] LABS: NT Pro B Type Natriuretic Pept 90 pg/ml (0-450); Troponin I < 0.015 ng/ml (0-0.045)
[2021-10-27] MEDS: CEFEPIME 2,000 MG in SYRINGE 0 ML IV SCH ×2 (10:51→17:24)
[2021-10-27] MEDS: MIDAZOLAM HCL 125 MG/250 ML BAG IV SCH (13:04)
[2021-10-27 13:45] LABS: Partial Thromboplastin Ratio 1.6; Partial Thromboplastin Time 42.8 Seconds (21.0-31.0)
--- NOTE | 2021-10-27 13:47 | Hospitalist Progress Note ---
Date of Service October 27, 2021 Assessment & Plan (1) Acute respiratory failure with hypoxia: Plan: Secondary to severe COVID-19 pneumonia ARDS Right-sided pulmonary emboli Was on BIPAP and then HFNC on admission Was started on dexamethasone Got tocilizumab Respiratory status worsened Was found to have Right PE on CT PE Was intubated on 10/25/21 Having fevers this morning. 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 Was initially on BiPAP on admission Respiratory status worsened yesterday night. CT PE revealed acute PE as well Patient was intubated and proned Patient seen and examined Currently supine, intubated and sedated On propofol, fentanyl, versed and cisatracurium Also on levophed and heparin drips Review of Systems Review of Systems: Unobtainable due to endotracheal tube Physical Exam Constitutional: + acute distress, + well hydrated and + obese ENMT: ETT in situ Respiratory: On mechanical ventilation Cardiovascular: Rate/Rhythm: regular rate and regular rhythm S1 S2 Gastrointestinal (Abdomen): normal bowel sounds, soft, nontender, no hep atosplenomegaly Neurologic: Intubated and sedated Genitourinary: Edward in situ Results & Data Results & Data ([facility]) Vital Signs (Past 12 Hours) Vital Signs Temp Pulse Resp Pulse Ox 10/27/21 13:22 99 H 30 H 98 10/27/21 11:00 37.4 C 85 30 H 96 10/27/21 10:45 37.5 C 88 30 H 98 10/27/21 10:30 37.5 C 91 H 30 H 96 10/27/21 10:20 88 30 H 96 10/27/21 10:15 37.6 C H 94 H 30 H 98 10/27/21 10:00 37.6 C H 85 30 H 10/27/21 09:45 37.6 C H 91 H 30 H 84 L 10/27/21 09:30 37.7 C H 86 30 H 98 10/27/21 09:15 37.9 C H 72 30 H 94 10/27/21 09:00 38.0 C H 71 30 H 94 10/27/21 08:45 38.1 C H 72 30 H 96 10/27/21 08:30 38.1 C H 65 30 H 95 10/27/21 08:15 38.0 C H 65 30 H 95 10/27/21 08:00 38.0 C H 66 30 H 94 10/27/21 07:45 37.9 C H 66 30 H 93 10/27/21 07:30 37.9 C H 66 30 H 92 10/27/21 07:15 37.8 C H 66 30 H 90 10/27/21 07:00 37.8 C H 75 30 H 90 10/27/21 06:00 37.7 C H 102 H 30 H 88 L 10/27/21 05:45 37.7 C H 115 H 30 H 90 10/27/21 05:30 37.6 C H 126 H 30 H 91 10/27/21 05:15 37.5 C 107 H 30 H 88 L 10/27/21 05:00 37.5 C 119 H 30 H 90 10/27/21 04:47 109 H 30 H 87 L 10/27/21 04:45 37.3 C 103 H 30 H 87 L 10/27/21 04:30 37.2 C 120 H 30 H 86 L 10/27/21 04:15 37.0 C 115 H 30 H 88 L 10/27/21 04:00 36.9 C 110 H 30 H 90 10/27/21 03:45 36.8 C 101 H 30 H 91 10/27/21 03:30 36.6 C 96 H 30 H 92 10/27/21 03:15 36.5 C 69 30 H 89 L 10/27/21 03:00 36.3 C L 68 30 H 91 10/27/21 02:45 36.2 C L 61 30 H 89 L 10/27/21 02:30 36.1 C L 61 30 H 90 10/27/21 02:15 36.0 C L 61 30 H 90 10/27/21 02:00 35.9 C L 58 L 30 H 91 Laboratory Results Abnormal lab results 10/25/21 10/26/21 10/26/21 Range/Units 05:35 18:08 20:10 POC Hgb (12.0-16.0) g/dl Hct (37-47) % POC Hct (37-47) % RDW Std Deviation (36.4-46.3) fL RDW Coeff of Diana (11.5-14.5) % Neut # (Auto) (1.4-6.5) K/uL Lymph # (Auto) (1.2-3.4) K/uL Immature Gran # (Auto) (0.00-0.02) K/uL Absolute Nucleated RBC (0-0) K/uL APTT 46.1 H* (21.0-31.0) Seconds POC pCO2 (35-46) mmHg POC pO2 (80-95) mmHg POC HCO3 (19-24) laurie/L POC Total CO2 (24-31) mmol/L POC Base Excess (-9-1.8) laurie/L ABG pCO2 (Temp Corrct (35-46) mmHg POC ABG O2 Sat (90-95) % POC Potassium (3.3-5.0) mmol/L Potassium (3.5-5.1) mmol/L BUN (7-18) mg/dl Creatinine (0.6-1.2) mg/dl BUN/Creatinine Ratio (10-20) Glucose (70-99) mg/dl POC Glucose 152 H (70-99) mg/dl Hemoglobin A1c 6.0 H (4.5-5.6) % Calcium (8.5-10.1) mg/dl AST (15-37) U/L C-Reactive Protein (0-0.29) mg/dl Total Protein (6.4-8.2) gm/dl Albumin (3.4-5.0) gm/dl Albumin/Globulin Ratio (0.9-2) 10/27/21 10/27/21 10/27/21 Range/Units 00:06 04:33 04:55 POC Hgb 11.6 L (12.0-16.0) g/dl Hct 36.9 L (37-47) % POC Hct 34 L (37-47) % RDW Std Deviation 48.2 H (36.4-46.3) fL RDW Coeff of Diana 15.3 H (11.5-14.5) % Neut # (Auto) 6.62 H (1.4-6.5) K/uL Lymph # (Auto) 0.99 L (1.2-3.4) K/uL Immature Gran # (Auto) 0.14 H (0.00-0.02) K/uL Absolute Nucleated RBC 0.16 H (0-0) K/uL APTT (21.0-31.0) Seconds POC pCO2 51 H (35-46) mmHg POC pO2 56 L (80-95) mmHg POC HCO3 31 H (19-24) laurie/L POC Total CO2 33 H (24-31) mmol/L POC Base Excess 6.0 H (-9-1.8) laurie/L ABG pCO2 (Temp Corrct 52 H (35-46) mmHg POC ABG O2 Sat 88.0 L (90-95) % POC Potassium 3.2 L (3.3-5.0) mmol/L Potassium (3.5-5.1) mmol/L BUN (7-18) mg/dl Creatinine (0.6-1.2) mg/dl BUN/Creatinine Ratio (10-20) Glucose (70-99) mg/dl POC Glucose 149 H (70-99) mg/dl Hemoglobin A1c (4.5-5.6) % Calcium (8.5-10.1) mg/dl AST (15-37) U/L C-Reactive Protein (0-0.29) mg/dl Total Protein (6.4-8.2) gm/dl Albumin (3.4-5.0) gm/dl Albumin/Globulin Ratio (0.9-2) 10/27/21 10/27/21 10/27/21 Range/Units 04:55 04:55 11:00 POC Hgb (12.0-16.0) g/dl Hct (37-47) % POC Hct (37-47) % RDW Std Deviation (36.4-46.3) fL RDW Coeff of Diana (11.5-14.5) % Neut # (Auto) (1.4-6.5) K/uL Lymph # (Auto) (1.2-3.4) K/uL Immature Gran # (Auto) (0.00-0.02) K/uL Absolute Nucleated RBC (0-0) K/uL APTT 42.4 H (21.0-31.0) Seconds POC pCO2 (35-46) mmHg POC pO2 (80-95) mmHg POC HCO3 (19-24) laurie/L POC Total CO2 (24-31) mmol/L POC Base Excess (-9-1.8) laurie/L ABG pCO2 (Temp Corrct (35-46) mmHg POC ABG O2 Sat (90-95) % POC Potassium (3.3-5.0) mmol/L Potassium 3.3 L (3.5-5.1) mmol/L BUN 23 H (7-18) mg/dl Creatinine 0.59 L (0.6-1.2) mg/dl BUN/Creatinine Ratio 39.7 H (10-20) Glucose 137 H (70-99) mg/dl POC Glucose 151 H (70-99) mg/dl Hemoglobin A1c (4.5-5.6) % Calcium 7.8 L (8.5-10.1) mg/dl AST 59 H (15-37) U/L C-Reactive Protein 5.85 H (0-0.29) mg/dl Total Protein 6.0 L (6.4-8.2) gm/dl Albumin 2.1 L (3.4-5.0) gm/dl Albumin/Globulin Ratio 0.5 L (0.9-2) 10/27/21 Range/Units 13:20 POC Hgb (12.0-16.0) g/dl Hct (37-47) % POC Hct (37-47) % RDW Std Deviation (36.4-46.3) fL RDW Coeff of Diana (11.5-14.5) % Neut # (Auto) (1.4-6.5) K/uL Lymph # (Auto) (1.2-3.4) K/uL Immature Gran # (Auto) (0.00-0.02) K/uL Absolute Nucleated RBC (0-0) K/uL APTT 42.8 H (21.0-31.0) Seconds POC pCO2 (35-46) mmHg POC pO2 (80-95) mmHg POC HCO3 (19-24) laurie/L POC Total CO2 (24-31) mmol/L POC Base Excess (-9-1.8) laurie/L ABG pCO2 (Temp Corrct (35-46) mmHg POC ABG O2 Sat (90-95) % POC Potassium (3.3-5.0) mmol/L Potassium (3.5-5.1) mmol/L BUN (7-18) mg/dl Creatinine (0.6-1.2) mg/dl BUN/Creatinine Ratio (10-20) Glucose (70-99) mg/dl POC Glucose (70-99) mg/dl Hemoglobin A1c (4.5-5.6) % Calcium (8.5-10.1) mg/dl AST (15-37) U/L C-Reactive Protein (0-0.29) mg/dl Total Protein (6.4-8.2) gm/dl Albumin (3.4-5.0) gm/dl Albumin/Globulin Ratio (0.9-2)
[2021-10-27 21:36] LABS: Partial Thromboplastin Ratio 1.8
[2021-10-27 21:52] LABS: Partial Thromboplastin Time 48.6 Seconds (21.0-31.0)
[2021-10-28] MEDS: propofoL 1,000 MG/100 ML VIAL IV SCH ×5 (01:15→21:45)
[2021-10-28] MEDS: ARTIFICIAL TEARS OP OINT 3.5 GM TUBE OP SCH ×6 (01:36→20:05)
[2021-10-28] MEDS: CISATRACURIUM BESYLATE 40 MG in 0.9 % SODIUM CHLORIDE 80 ML IV SCH ×7 (02:22→21:24)
[2021-10-28] MEDS: CEFEPIME 2,000 MG in SYRINGE 0 ML IV SCH ×3 (02:24→17:19)
[2021-10-28 03:38] LABS: iSTAT Art Bld Gas pCO2 Correct 48 mmHg (35-46); iSTAT Art Bld Gas pH Corrected 7.392 (7.35-7.45); iSTAT Arterial Blood Gas HCO3 29 meg/L (19-24); iSTAT Arterial Blood Gas pCO2 48 mmHg (35-46); iSTAT Arterial Blood Gas pH 7.39 (7.35-7.45); iSTAT Arterial Blood Gas pO2 44 mmHg (80-95); iSTAT Arterial Blood Gas pO2 C 45; iSTAT Carbon Dioxide 30 mmol/L (24-31); iSTAT FiO2 50 %; iSTAT Hematocrit 32 % (37-47); iSTAT Hemoglobin 10.9 g/dl (12.0-16.0); iSTAT Potassium 3.6 mmol/L (3.3-5.0); iSTAT Site Art Line; iSTAT Sodium 139 mmol/L (135-144)
[2021-10-28] MEDS: fentaNYL DRIP 1,250 MCG/250 ML BAG IV SCH ×3 (05:45→21:24)
[2021-10-28 06:01] LABS: Basophils # (auto) 0.03 K/uL (0-0.2); Basophils % (auto) 0.2 %; Eosinophils # (auto) 0.29 K/uL (0-0.5); Eosinophils % (auto) 2.3 %; Hematocrit (blood only) 35.2 % (37-47); Hemoglobin 11.4 g/dL (12.0-16.0); Immature Granulocytes # (auto) 0.23 K/uL (0.00-0.02); Immature Granulocytes % (auto) 1.8 %; Lymphocytes # (auto) 1.78 K/uL (1.2-3.4); Lymphocytes % (auto) 13.8 %; Mean Corpuscular Hemoglobin 28.1 pg (25-34); Mean Corpuscular Hgb Conc 32.4 g/dL (32-36); Mean Corpuscular Volume 86.7 fL (80-100); Mean Platelet Volume 10.1 fL (7.4-10.4); Monocytes # (auto) 0.57 K/uL (0.11-0.59); Monocytes % (auto) 4.4 %; Neutrophils # (auto) 9.96 K/uL (1.4-6.5); Neutrophils % (auto) 77.5 %; Nucleated RBC # (auto) 0.22 K/uL (0-0); Nucleated RBC % (auto) 1.7 %; Platelet Count 272 K/uL (130-400); RDW Coefficient of Variation 15.2 % (11.5-14.5); RDW Standard Deviation 48.1 fL (36.4-46.3); Red Blood Count 4.06 M/uL (4.2-5.4); White Blood Count 12.86 K/uL (4.8-10.8)
[2021-10-28 06:49] LABS: Albumin Globulin Ratio 0.6 (0.9-2); BUN Creatinine Ratio 33.1 (10-20); Bilirubin,Total 0.4 mg/dl (0.2-1); Calcium 7.8 mg/dl (8.5-10.1); Creatinine Clr Calc Pharmacy 185.8 ml/min; Est GFR (African American) 138.4 ml/min; Est GFR (Non-African American) 119.4 ml/min; Globulin 3.3 gm/dl (2.5-4.0); Magnesium 2.3 mg/dl (1.8-2.4); Potassium 3.5 mmol/L (3.5-5.1); Total Protein 5.3 gm/dl (6.4-8.2)
[2021-10-28 06:50] LABS: Phosphorus 3.3 mg/dl (2.5-4.9)
[2021-10-28 06:55] LABS: Partial Thromboplastin Time 52.4 Seconds (21.0-31.0)
--- NOTE | 2021-10-28 07:38 | XRay Report ---
XR chest 1V portable CLINICAL HISTORY: resp failure. Follow-up bilateral airspace opacities COMPARISON STUDY: 10/27/2021 TECHNIQUE: 1 view of the chest FINDINGS: Single frontal view of the chest demonstrates the cardiomediastinal silhouette to be within normal li mits. Tubes and catheters are unchanged. Compared to the previous examination, extensive lung opaciti es are again seen bilaterally which are not significantly changed. There are more confluent in the ri ght lower lobe. Findings are again most characteristic of a viral type pneumonitis and Covid 19 pneum onia. There is no evidence for pleural effusion. There is no evidence for vascular congestion. There is no acute osseous pathology. IMPRESSION: Compared to the previous examination, persistent lung space opacities are again seen bila terally, right greater than left. The findings are again characteristic of a viral type pneumonitis a nd probable Covid 19 pneumonia. ACT 112: Negative or not required by law. Electronically signed by: Vineet Latham M.D. 10/28/2021 7:37 AM
[2021-10-28] MEDS: DOCUSATE SODIUM SYRUP 100 MG/10 ML UDC PO SCH ×2 (07:55→20:05)
[2021-10-28] MEDS: FAMOTIDINE 20 MG in SYRINGE 3 ML IV SCH ×2 (07:56→20:06)
[2021-10-28] MEDS: dexAMETHasone 6 MG in SYRINGE 0 ML IV SCH (07:59)
--- NOTE | 2021-10-28 08:20 | Critical Care Progress Note ---
Date of Service October 28, 2021 Assessment & Plan (1) Multifocal pneumonia: (2) Pneumonia due to 2019-nCoV: (3) Acute respiratory failure with hypoxia: (4) Acute hypokalemia: Plan: Impression: 41-year-old unvaccinated female now with severe Covid. She failed high flow and noninvasive positive pressure ventilation and was intubated 10/25/2021. CT angiogram at that time also demonstrated small subsegmental PEs and the patient was initiated on anticoagulation. 24-hour events: Patient did reasonably well until earlier this morning when she had progressive increasing oxygen requirement. Chest x-ray demonstrates progre ssion of airspace opacities in the bases. She was initiated on antibiotics due to fever. She was proned Recommendations: 1. Neurologic: Continue sedation with propofol, fentanyl, and Versed as well as neuromuscular blockade. Developed hypotension associated with Precedex so we will avoid this medication in the future. We will continue fairly deep sedation pending improvement in her respiratory mechanics 2. Cardiovascular: Acute PE: Continue anticoagulation. Lactate normal. 3. Pulmonary: Severe ARDS secondary to Covid pneumonitis. She has deteriorated clinically with decreased P/F ratios and worsening compliance. CXr with progressive ASO. We will repeat proning this morning and try and target 18 to 20 hours of proning to see if we can improve her VQ mismatch Current vent settings assist-control/30/350/14/0.8 with a plateau pressure of 31. P to F ratio: 55, decreased from yesterday. Last ABG 7.39/48/44. Compliance consistent with ARDS and stiff lungs. C-reactive protein has decreased from 18- >10. Her body mass index excludes her from consideration of ECMO. if she fails to respond to proning, may consider inhaled epoprostenol which may also improve VQ mismatch. Continue heparin infusion for PE. 4. Renal: Kidney function and urine output remained adequate. Hypokalemia, continue ICU electrolyte replacement protocol. Continue judicious hypotonic fluids to keep sodium under control. We will hold diuretics today given her hemodynamic instability. 5. GI: N.p.o. while proned and neuromuscular blockade. PPI in place 6. ID: Patient is now afebrile. Line sites look okay. White count increasing today. Blood cultures from the showed no growth to date and respiratory culture from the with staph aureus and corynebacterium. Interestingly, these are the same respiratory pathogens isolated from the patient across the ruiz from her. They are unusual pathogens especially from a respiratory standpoint and may represent contaminant. Given her improvement in fever curve, will continue cefepime for now. Holding on vancomycin. 7. Heme-onc: Mild anemia without evidence of acute active ongoing bleeding. Continue to follow for now. Continue heparin drip. Should the patient clinically deteriorate with escalating oxygen requirement or demonstrating hemodynamic instability, would have low threshold for proceeding with half dose TPA (50 mg IV over 2 hours), could likely run this in conjunction with the heparin although bleeding risk would be somewhat increased. Recheck troponin and BNP for right heart strain. 8. Endocrine: Glycemic control per protocol Patient is critically ill with significant possibility of clinical dysfunction and . updated by phone yesterday and will attempt to update him again today. We will continue to follow clinically. A total of 45 minutes critical care time was spent evaluation management stabilization of this patient. This includes discussion with bedside ICU nurses and respiratory therapy Admission and Anticipated Discharge Date Admission Date: October 25, 2021 Subjective intubated, sedated and paralyzed Review of Systems Review of Systems: Unobtainable due to endotracheal tube Physical Exam Constitutional: + obese; no acute distress Neck: trachea midline, no thyromegaly Respiratory: symmetric chest movement Auscultation: + rales and + wheezes Cardiovascular: RRR, no murmur, no edema Gastrointestinal (Abdomen): normal bowel sounds, soft, nontender, no hepatosplenomegaly Musculoskeletal: Extremities: extremities normal to inspection Skin: no rashes, warm and dry Lymphatic: no cervical lymphadenopathy Results & Data Results & Data ([facility]) Vital Signs (Past 12 Hours) Vital Signs Temp Pulse Resp Pulse Ox 10/28/21 07:25 94 H 30 H 93 10/28/21 07:15 37.0 C 99 H 38 H 92 10/28/21 07:00 37.1 C 94 H 30 H 92 10/28/21 06:45 37.1 C 80 25 H 92 10/28/21 06:30 37.1 C 64 30 H 89 L 10/28/21 06:15 37.1 C 65 30 H 88 L 10/28/21 06:00 37.1 C 64 31 H 80 L 10/28/21 05:45 37.1 C 63 30 H 89 L 10/28/21 05:30 37.1 C 63 30 H 90 10/28/21 05:15 37.1 C 62 30 H 90 10/28/21 05:00 37.1 C 64 30 H 90 10/28/21 04:45 37.1 C 64 26 H 91 10/28/21 04:30 37.1 C 64 26 H 90 10/28/21 04:15 37.1 C 66 30 H 90 10/28/21 04:00 37.1 C 63 30 H 90 10/28/21 03:45 37.1 C 63 30 H 90 10/28/21 03:30 37.1 C 63 30 H 90 10/28/21 03:20 68 30 H 90 10/28/21 03:15 37.0 C 69 30 H 91 10/28/21 03:00 37.0 C 66 30 H 93 10/28/21 02:45 37.0 C 65 30 H 94 10/28/21 02:30 37.0 C 66 30 H 93 10/28/21 02:15 37.0 C 65 30 H 93 10/28/21 02:00 37.0 C 66 30 H 92 10/28/21 01:45 37.0 C 67 30 H 93 10/28/21 01:30 37.0 C 66 30 H 92 10/28/21 01:15 37.0 C 67 30 H 91 10/28/21 01:00 37.1 C 67 30 H 91 10/28/21 00:45 37.1 C 69 30 H 92 10/28/21 00:30 37.1 C 71 30 H 92 10/28/21 00:15 37.1 C 68 30 H 91 10/28/21 00:00 37.1 C 70 30 H 92 10/27/21 23:45 37.2 C 69 30 H 92 10/27/21 23:30 37.2 C 70 30 H 91 10/27/21 23:15 37.2 C 70 30 H 92 10/27/21 23:00 37.2 C 70 30 H 90 10/27/21 22:55 70 30 H 90 10/27/21 22:45 37.3 C 72 30 H 93 10/27/21 22:30 37.3 C 73 30 H 94 10/27/21 22:15 37.3 C 72 30 H 93 11/26/21 22:00 37.3 C 72 30 H 94 10/27/21 21:45 37.4 C 71 30 H 93 10/27/21 21:30 37.4 C 68 30 H 92 10/27/21 21:15 37.4 C 69 30 H 91 10/27/21 21:00 37.4 C 68 30 H 91 10/27/21 20:45 37.4 C 73 30 H 92 10/27/21 20:30 37.5 C 77 30 H 92 10/27/21 20:15 37.5 C 79 24 92 Critical Care Results & Data Vital Signs (Past 12 Hours) Vital Signs Temp Pulse Resp Pulse Ox 10/28/21 07:25 94 H 30 H 93 10/28/21 07:15 37.0 C 99 H 38 H 92 10/28/21 07:00 37.1 C 94 H 30 H 92 10/28/21 06:45 37.1 C 80 25 H 92 10/28/21 06:30 37.1 C 64 30 H 89 L 10/28/21 06:15 37.1 C 65 30 H 88 L 10/28/21 06:00 37.1 C 64 31 H 80 L 10/28/21 05:45 37.1 C 63 30 H 89 L 10/28/21 05:30 37.1 C 63 30 H 90 10/28/21 05:15 37.1 C 62 30 H 90 10/28/21 05:00 37.1 C 64 30 H 90 10/28/21 04:45 37.1 C 64 26 H 91 10/28/21 04:30 37.1 C 64 26 H 90 10/28/21 04:15 37.1 C 66 30 H 90 10/28/21 04:00 37.1 C 63 30 H 90 10/28/21 03:45 37.1 C 63 30 H 90 10/28/21 03:30 37.1 C 63 30 H 90 10/28/21 03:20 68 30 H 90 10/28/21 03:15 37.0 C 69 30 H 91 10/28/21 03:00 37.0 C 66 30 H 93 10/28/21 02:45 37.0 C 65 30 H 94 10/28/21 02:30 37.0 C 66 30 H 93 10/28/21 02:15 37.0 C 65 30 H 93 10/28/21 02:00 37.0 C 66 30 H 92 10/28/21 01:45 37.0 C 67 30 H 93 10/28/21 01:30 37.0 C 66 30 H 92 10/28/21 01:15 37.0 C 67 30 H 91 10/28/21 01:00 37.1 C 67 30 H 91 10/28/21 00:45 37.1 C 69 30 H 92 10/28/21 00:30 37.1 C 71 30 H 92 10/28/21 00:15 37.1 C 68 30 H 91 10/28/21 00:00 37.1 C 70 30 H 92 10/27/21 23:45 37.2 C 69 30 H 92 10/27/21 23:30 37.2 C 70 30 H 91 10/27/21 23:15 37.2 C 70 30 H 92 10/27/21 23:00 37.2 C 70 30 H 90 10/27/21 22:55 70 30 H 90 10/27/21 22:45 37.3 C 72 30 H 93 10/27/21 22:30 37.3 C 73 30 H 94 10/27/21 22:15 37.3 C 72 30 H 93 10/27/21 22:00 37.3 C 72 30 H 94 10/27/21 21:45 37.4 C 71 30 H 93 10/27/21 21:30 37.4 C 68 30 H 92 10/27/21 21:15 37.4 C 69 30 H 91 10/27/21 21:00 37.4 C 68 30 H 91 10/27/21 20:45 37.4 C 73 30 H 92 10/27/21 20:30 37.5 C 77 30 H 92 10/27/21 20:15 37.5 C 79 24 92 Lab & Micro Results (Past 24 Hours) RBC 4.06 M/uL (4.2-5.4) L 10/28/21 WBC 12.86 K/uL (4.8-10.8) H 10/28/21 Hgb 11.4 g/dL (12.0-16.0) L 10/28/21 Hct 35.2 % (37-47) L 10/28/21 MCV 86.7 fL (80-100) 10/28/21 MCH 28.1 pg (25-34) 10/28/21 MCHC 32.4 g/dL (32-36) 10/28/21 RDW Standard Deviation 48.1 fL (36.4-46.3) H 10/28/21 RDW Coefficient of Variation 15.2 % (11.5-14.5) H 10/28/21 Plt Count 272 K/uL (130-400) 10/28/21 MPV 10.1 fL (7.4-10.4) 10/28/21 Nucleated Red Blood Cells % (auto) 1.7 % 10/28/21 Nucleated RBC Absolute Count (auto) 0.22 K/uL (0-0) H 10/28/21 Neutrophils (%) (Auto) 77.5 % 10/28/21 Lymphocytes (%) (Auto) 13.8 % 10/28/21 Monocytes # (Auto) 0.57 K/uL (0.11-0.59) 10/28/21 Eosinophils # (Auto) 0.29 K/uL (0-0.5) 10/28/21 Immature Granulocyte % (Auto) 1.8 % 10/28/21 Neutrophils # (Auto) 9.96 K/uL (1.4-6.5) H 10/28/21 Lymphocytes # (Auto) 1.78 K/uL (1.2-3.4) 10/28/21 Monocytes # (Auto) 0.57 K/uL (0.11-0.59) 10/28/21 Eosinophils # (Auto) 0.29 K/uL (0-0.5) 10/28/21 Basophils # (Auto) 0.03 K/uL (0-0.2) 10/28/21 Immature Granulocyte # (Auto) 0.23 K/uL (0.00-0.02) H 10/28/21 Na 139 mmol/L (136-145) 10/28/21 K 3.5 mmol/L (3.5-5.1) 10/28/21 Cl 106 mmol/L (98-107) 10/28/21 CO2 30 mmol/L (21-32) 10/28/21 Anion Gap 3.0 (3-11) 10/28/21 BUN 16 mg/dl (7-18) 10/28/21 Creatinine 0.50 mg/dl (0.6-1.2) L 10/28/21 Estimated GFR ( Amer) 138.4 ml/min 10/28/21 Estimated GFR (Non-Af Amer) 119.4 ml/min 10/28/21 BUN/Creatinine Ratio 33.1 (10-20) H 10/28/21 Glu 101 mg/dl (70-99) H 10/28/21 Ca 7.8 mg/dl (8.5-10.1) L 10/28/21 Phosphorus Level 3.3 mg/dl (2.5-4.9) 10/28/21 Total Bilirubin 0.4 mg/dl (0.2-1) 10/28/21 AST 47 U/L (15-37) H 10/28/21 ALT 39 U/L (12-78) 10/28/21 Alkaline Phosphatase 85 U/L (45-117) 10/28/21 TP 5.3 gm/dl (6.4-8.2) L 10/28/21 Albumin 2.0 gm/dl (3.4-5.0) L 10/28/21 Globulin 3.3 gm/dl (2.5-4.0) 10/28/21 Albumin/Globulin Ratio 0.6 (0.9-2) L 10/28/21 Mg 2.3 mg/dl (1.8-2.4) 10/28/21 05:46 10/28/21 Calcium Level 7.8 mg/dl (8.5-10.1) L 10/28/21 05:46 10/28/21 Skip Test NA 10/28/21 03:03 10/28/21 Microbiology 10/26/21 03:05 Gram Stain - Final Sputum,Vent Suction Sputum Culture - Preliminary Staphylococcus species Corynebacterium species Diagnostic Findings (Past 24 Hours) Chest X-Ray 10/27/21 07:00 XR chest 1V portable HISTORY: Respiratory failure. Covid pneumonia. COMPARISON: Chest 10/25/2021. FINDINGS: Extensive bilateral airspace opacities consistent with a viral pneumonia. This is similar to the prior study. The heart is stable in size. No pleural effusions. No pneumothorax. Lines and tubes remain unchanged in position. IMPRESSION: 1. Satisfactory support line placement. 2. Extensive bilateral airspace opacities persist consistent with a viral pneumonia. ACT 112: Negative or not required by law. Electronically signed by: Michele Larkin M.D. 10/27/2021 9:07 AM Chest X-Ray 10/28/21 07:00 XR chest 1V portable CLINICAL HISTORY: resp failure. Follow-up bilateral airspace opacities COMPARISON STUDY: 10/27/2021 TECHNIQUE: 1 view of the chest FINDINGS: Single frontal view of the chest demonstrates the cardiomediastinal silhouette to be within normal limits. Tubes and catheters are unchanged. Compared to the previous examination, extensive lung opacities are again seen bilaterally which are not significantly changed. There are more confluent in the right lower lobe. Findings are again most characteristic of a viral type pneumonitis and Covid 19 pneumonia. There is no evidence for pleural effusion. There is no evidence for vascular congestion. There is no acute osseous pathology. IMPRESSION: Compared to the previous examination, persistent lung space opacities are again seen bilaterally, right greater than left. The findings are again characteristic of a viral type pneumonitis and probable Covid 19 pneumonia. ACT 112: Negative or not required by law. Electronically signed by: Vineet Latham M.D. 10/28/2021 7:37 AM I & O Totals 24 Hours 10/27/21 10/28/21 10/29/21 06:59 06:59 06:59 Intake Total 2953.549 / 2953.549 5043.216 / 5043.216 495.300 / 495.300 Output Total 725 / 725 1425 / 1425 Balance 2228.549 / 2228.549 3618.216 / 3618.216 495.300 / 495.300 Cumulative 10/24/21 18:55 thru 10/28/21 07:01 Intake Total 99882.433 Output Total 3150 Balance 7911.433 RT Ventilator Mngmt (Last Documented) Ventilator Ordered Settings Ventilator Support Mode Assist Control 10/28/21 07:25 Respiratory Rate 30 10/28/21 07:25 Ventilator Tidal Volume 350 10/28/21 07:25 Setting Minute Ventilation 10.7 10/28/21 07:25 Positive End Expiratory 14 10/28/21 07:25 Pressure Fraction of Inspired Oxygen 80 10/28/21 07:25 Machine Comment Settings increased after ABG 10/28/21 03:20 Ventilator - PT Measurements Respiratory Rate 30 Exhaled Tidal Volume 350 Minute Ventilation 10.7 Peak Inspiratory Airway 37 Pressure Plateau Pressure 32 Respiratory Cycle Inspiratory: 1:1.9 Expiratory Ratio Inspiratory Phase Time 0.7 End-Tidal CO2 27 Static Lung Compliance 19.44 Dynamic Lung Compliance 15.22 Normal Static Lung Compliance 44.00 Patient Measurements Comment patient desat to 85% and tachycardic in 120s- increased settings post abg Coding Level of Care Code Critical Care 1st 30-74 mins Diagnoses Multifocal pneumonia J18.9 Pneumonia due to 2019-nCoV U07.1; J12.82 Acute respiratory failure with hypoxia J96.01 Acute hypokalemia E87.6
[2021-10-28] MEDS: NOREPINEPHRINE/D5W 8 MG/508 ML BAG IV SCH (11:45)
[2021-10-28] MEDS: ICU ELECTROLYTE REPLACEMENT PROTOCOL SCH ×2 (11:45→17:16)
[2021-10-28] MEDS: HEPARIN SODIUM/DEXTROSE 25,000 UNITS/500 ML BAG IV SCH (12:08)
--- NOTE | 2021-10-28 14:50 | Hospitalist Progress Note ---
Date of Service October 28, 2021 Assessment & Plan (1) Acute respiratory failure with hypoxia: Plan: Secondary to severe COVID-19 pneumonia ARDS Right-sided pulmonary emboli Was on BIPAP and then HFNC on admission Was started on dexamethasone Got tocilizumab Respiratory status worsened Was found to have Right PE on CT PE Was intubated on 10/25/21 No fevers today. Blood cultures and urine cultures negative. Sputum culture growing staph and Corynebacterium thought to be likely contaminants by the solar sales specialist. Continue cefepime for now. 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 Was initially on BiPAP on admission Respiratory status worsened. CT PE revealed acute PE as well Patient was intubated and proned Patient's PF ratio and respiratory status worsened with increased FiO2 and PEEP requirement on the vent. Currently proned. Levophed was weaned off yesterday. Review of Systems Review of Systems: Unobtainable due to endotracheal tube Physical Exam Constitutional: + acute distress, + well hydrated and + obese ENMT: ETT in situ Cardiovascular: Rate/Rhythm: regular rate and regular rhythm Gastrointestinal (Abdomen): Limited exam due to prone position Musculoskeletal: No pedal edema Neurologic: Intubated and sedated Genitourinary: Edward in situ Results & Data Results & Data ([facility]) Vital Signs (Past 12 Hours) Vital Signs Temp Pulse Resp Pulse Ox 10/28/21 14:00 37.3 C 73 30 H 94 10/28/21 13:00 37.4 C 76 30 H 93 10/28/21 12:00 37.5 C 80 30 H 97 10/28/21 11:45 83 30 H 96 10/28/21 11:00 37.3 C 85 30 H 94 10/28/21 10:00 37.0 C 97 H 30 H 92 10/28/21 09:00 36.9 C 114 H 30 H 90 10/28/21 08:45 36.9 C 114 H 30 H 90 10/28/21 08:30 37.0 C 109 H 30 H 92 10/28/21 08:15 37.0 C 110 H 30 H 91 10/28/21 08:00 37.0 C 97 H 48 H 91 10/28/21 07:45 37.0 C 96 H 26 H 91 10/28/21 07:30 37.0 C 98 H 26 H 92 10/28/21 07:25 94 H 30 H 93 10/28/21 07:15 37.0 C 99 H 38 H 92 10/28/21 07:00 37.1 C 94 H 30 H 92 10/28/21 06:45 37.1 C 80 25 H 92 10/28/21 06:30 37.1 C 64 30 H 89 L 10/28/21 06:15 37.1 C 65 30 H 88 L 10/28/21 06:00 37.1 C 64 31 H 80 L 10/28/21 05:45 37.1 C 63 30 H 89 L 10/28/21 05:30 37.1 C 63 30 H 90 10/28/21 05:15 37.1 C 62 30 H 90 10/28/21 05:00 37.1 C 64 30 H 90 10/28/21 04:45 37.1 C 64 26 H 91 10/28/21 04:30 37.1 C 64 26 H 90 10/28/21 04:15 37.1 C 66 30 H 90 10/28/21 04:00 37.1 C 63 30 H 90 10/28/21 03:45 37.1 C 63 30 H 90 10/28/21 03:30 37.1 C 63 30 H 90 10/28/21 03:20 68 30 H 90 10/28/21 03:15 37.0 C 69 30 H 91 10/28/21 03:00 37.0 C 66 30 H 93 Laboratory Results Abnormal lab results 10/27/21 10/27/21 10/28/21 Range/Units 17:33 20:51 01:15 WBC (4.8-10.8) K/uL RBC (4.2-5.4) M/uL Hgb (12.0-16.0) g/dL POC Hgb (12.0-16.0) g/dl Hct (37-47) % POC Hct (37-47) % RDW Std Deviation (36.4-46.3) fL RDW Coeff of Diana (11.5-14.5) % Neut # (Auto) (1.4-6.5) K/uL Immature Gran # (Auto) (0.00-0.02) K/uL Absolute Nucleated RBC (0-0) K/uL APTT 48.6 H* (21.0-31.0) Seconds POC pCO2 (35-46) mmHg POC pO2 (80-95) mmHg POC HCO3 (19-24) laurie/L POC Base Excess (-9-1.8) laurie/L ABG pCO2 (Temp Corrct (35-46) mmHg POC ABG O2 Sat (90-95) % Creatinine (0.6-1.2) mg/dl BUN/Creatinine Ratio (10-20) Glucose (70-99) mg/dl POC Glucose 141 H (70-99) mg/dl POC Glucose (other) 122 H (70-99) mg/dl Calcium (8.5-10.1) mg/dl AST (15-37) U/L Total Protein (6.4-8.2) gm/dl Albumin (3.4-5.0) gm/dl Albumin/Globulin Ratio (0.9-2) 10/28/21 10/28/21 10/28/21 Range/Units 03:03 05:46 05:46 WBC 12.86 H (4.8-10.8) K/uL RBC 4.06 L (4.2-5.4) M/uL Hgb 11.4 L (12.0-16.0) g/dL POC Hgb 10.9 L (12.0-16.0) g/dl Hct 35.2 L (37-47) % POC Hct 32 L (37-47) % RDW Std Deviation 48.1 H (36.4-46.3) fL RDW Coeff of Diana 15.2 H (11.5-14.5) % Neut # (Auto) 9.96 H (1.4-6.5) K/uL Immature Gran # (Auto) 0.23 H (0.00-0.02) K/uL Absolute Nucleated RBC 0.22 H (0-0) K/uL APTT (21.0-31.0) Seconds POC pCO2 48 H (35-46) mmHg POC pO2 44 L (80-95) mmHg POC HCO3 29 H (19-24) laurie/L POC Base Excess 4.0 H (-9-1.8) laurie/L ABG pCO2 (Temp Corrct 48 H (35-46) mmHg POC ABG O2 Sat 79.0 L (90-95) % Creatinine 0.50 L (0.6-1.2) mg/dl BUN/Creatinine Ratio 33.1 H (10-20) Glucose 101 H (70-99) mg/dl POC Glucose (70-99) mg/dl POC Glucose (other) (70-99) mg/dl Calcium 7.8 L (8.5-10.1) mg/dl AST 47 H (15-37) U/L Total Protein 5.3 L (6.4-8.2) gm/dl Albumin 2.0 L (3.4-5.0) gm/dl Albumin/Globulin Ratio 0.6 L (0.9-2) 10/28/21 10/28/21 Range/Units 05:46 12:11 WBC (4.8-10.8) K/uL RBC (4.2-5.4) M/uL Hgb (12.0-16.0) g/dL POC Hgb (12.0-16.0) g/dl Hct (37-47) % POC Hct (37-47) % RDW Std Deviation (36.4-46.3) fL RDW Coeff of Diana (11.5-14.5) % Neut # (Auto) (1.4-6.5) K/uL Immature Gran # (Auto) (0.00-0.02) K/uL Absolute Nucleated RBC (0-0) K/uL APTT 52.4 H* (21.0-31.0) Seconds POC pCO2 (35-46) mmHg POC pO2 (80-95) mmHg POC HCO3 (19-24) laurie/L POC Base Excess (-9-1.8) laurie/L ABG pCO2 (Temp Corrct (35-46) mmHg POC ABG O2 Sat (90-95) % Creatinine (0.6-1.2) mg/dl BUN/Creatinine Ratio (10-20) Glucose (70-99) mg/dl POC Glucose 138 H (70-99) mg/dl POC Glucose (other) (70-99) mg/dl Calcium (8.5-10.1) mg/dl AST (15-37) U/L Total Protein (6.4-8.2) gm/dl Albumin (3.4-5.0) gm/dl Albumin/Globulin Ratio (0.9-2)
[2021-10-29] MEDS ORDERED: PROPOFOL BOLUS FROM BAG IV PRN (00:40)
[2021-10-29] MEDS ORDERED: STAT IV Infusion **Titration per Protocol STA (00:40)
[2021-10-29] MEDS ORDERED: PROPOFOL IV EMULSION 10 MG/ML 100 ML VIAL IV ONE (00:54)
[2021-10-29] MEDS: CISATRACURIUM BESYLATE 40 MG in 0.9 % SODIUM CHLORIDE 80 ML IV SCH ×6 (00:56→21:32)
[2021-10-29] MEDS: propofoL 1,000 MG/100 ML VIAL IV SCH ×14 (01:07→23:06)
[2021-10-29] MEDS: HEPARIN SODIUM/DEXTROSE 25,000 UNITS/500 ML BAG IV SCH ×2 (01:08→14:52)
[2021-10-29] MEDS: ARTIFICIAL TEARS OP OINT 3.5 GM TUBE OP SCH ×6 (01:08→20:25)
[2021-10-29] MEDS: CEFEPIME 2,000 MG in SYRINGE 0 ML IV SCH ×2 (01:09→09:40)
[2021-10-29] MEDS: fentaNYL DRIP 1,250 MCG/250 ML BAG IV SCH ×3 (03:40→23:06)
[2021-10-29] MEDS: MIDAZOLAM HCL 125 MG/250 ML BAG IV SCH (03:40)
[2021-10-29 04:01] LABS: iSTAT Arterial Blood Gas HCO3 27 meg/L (19-24); iSTAT Arterial Blood Gas pCO2 40 mmHg (35-46); iSTAT Arterial Blood Gas pH 7.44 (7.35-7.45); iSTAT Arterial Blood Gas pO2 80 mmHg (80-95); iSTAT Carbon Dioxide 28 mmol/L (24-31); iSTAT FiO2 70 %; iSTAT Site Art Line
--- NOTE | 2021-10-29 04:18 | Communication Note ---
Date of Service: October 29, 2021 Procedure: Supination Maneuver Attending: Dr. Ray APC: Giancarlo Castro PA-C Indication: Requiring lung recruitment intervention in the setting of advanced ARDS with poor lung compliance and oxygenation on standard ventilator settings. Patient requiring supination in the setting of advanced ARDS per imaging, ventilator requirements, and calculated P:F ratio. Appropriate staff was assembled including myself, Respiratory Therapy, and Nursing Staff. A time-out was completed verifying correct patient, time from recent pronation/supination, current ventilator settings, review of any prior issues during pronation/supination maneuvers. Patient was fully undressed as to be able to view all current IV sites, central venous access sites, arterial lines, endotracheal tube, Edward catheter, etc. After properly identifying/securing all lines, tubes, etc., the patient was ``papoosed using flat sheets. On my count, the patient was slid to the edge of the bed. After reevaluating all lines, tubes, etc., the patient was then placed on their side allowing for RT to maintain control of ET tube and ready for completion of Supination maneuver. Final check of all lines, tubes, etc. was completed by myself and nursing staff. Blood pressure, heart rhythm, and oxygen saturations were monitored for several minutes s/p maneuver. Discussion was held with patients RN and RT regarding ongoing management. Patient tolerated maneuver well. No immediate complications were noted. TIME SUPINE: 0410 I have personally spent 20 minutes of critical care time in the direct management of this patient. This is a life/limb threatening event. This includes time spent evaluating patient, direct bedside care, chart review, placing orders, interpretation of diagnostic studies, discussion with consultants, patient, and family members, as well as other required patient management activities. This time is exclusive of all separately billable procedures, and teaching time and separate from and in addition to any other critical care service time. Coding Level of Care Code Critical Care 1st 30-74 mins Time Spent (min) 20
[2021-10-29 06:50] LABS: Albumin Level 1.9 gm/dl (3.4-5.0); BUN Creatinine Ratio 33.3 (10-20); Calcium 7.9 mg/dl (8.5-10.1); Creatinine Clr Calc Pharmacy 198.4 ml/min; Est GFR (African American) 141.2 ml/min; Est GFR (Non-African American) 121.8 ml/min; Magnesium 2.6 mg/dl (1.8-2.4); Potassium 3.2 mmol/L (3.5-5.1)
[2021-10-29] MEDS: ICU ELECTROLYTE REPLACEMENT PROTOCOL SCH ×3 (06:50→17:13)
[2021-10-29] MEDS ORDERED: POTASSIUM CHLORIDE CRTAB 20 MEQ TABCR PO STA (06:56)
[2021-10-29 06:58] LABS: Albumin Globulin Ratio 0.6 (0.9-2); Bilirubin,Total 0.7 mg/dl (0.2-1); Globulin 3.2 gm/dl (2.5-4.0); Total Protein 5.1 gm/dl (6.4-8.2)
[2021-10-29] MEDS: POTASSIUM CHLORIDE / WTR 20 MEQ/100 ML PLCT IV SCH ×2 (07:26→09:17)
[2021-10-29] MEDS: DOCUSATE SODIUM SYRUP 100 MG/10 ML UDC PO SCH ×2 (07:33→20:26)
[2021-10-29] MEDS: NOREPINEPHRINE/D5W 8 MG/508 ML BAG IV SCH (08:49)
[2021-10-29 09:08] LABS: Partial Thromboplastin Ratio 1.9
[2021-10-29 09:16] LABS: Partial Thromboplastin Time 49.7 Seconds (21.0-31.0)
[2021-10-29] MEDS: dexAMETHasone 6 MG in SYRINGE 0 ML IV SCH (09:39)
[2021-10-29] MEDS: FAMOTIDINE 20 MG in SYRINGE 3 ML IV SCH ×2 (09:40→21:33)
--- NOTE | 2021-10-29 11:00 | Critical Care Progress Note ---
Date of Service October 29, 2021 Assessment & Plan (1) Multifocal pneumonia: (2) Pneumonia due to 2019-nCoV: (3) Acute respiratory failure with hypoxia: (4) Acute hypokalemia: Plan: Impression: 41-year-old unvaccinated female now with severe Covid. She failed high flow and noninvasive positive pressure ventilation and was intubated 10/25/2021. CT angiogram at that time also demonstrated small subsegmental PEs and the patient was initiated on anticoagulation. 24-hour events: Patient is remained supine since being flipped at about 8PM last evening. She has had escalation in her oxygen requirement is now up to about 90% FiO2. She previously was on about 60% while being prone. She is remained intubated paralyzed and sedated. She is hemodynamically stable Recommendations: 1. Neurologic: Continue sedation with propofol, fentanyl, and Versed as well as neuromuscular blockade. Developed hypotension associated with Precedex so we will avoid this medication in the future. We will continue fairly deep sedation pending improvement in her respiratory mechanics 2. Cardiovascular: Acute PE: Continue anticoagulation. Lactate normal. 3. Pulmonary: Severe ARDS secondary to Covid pneumonitis. She had transient improvement with prone positioning yesterday but since she has been supine, her oxygen requirement has increased. We will pursue a trial of repeat proning for an additional 20 hours and see how she does. Current vent settings assist- control/30/350/14/0.9 with a plateau pressure of 36. P to F ratio: 88, slightly improved from yesterday. Last ABG 7.44/40/80. Compliance consistent with ARDS and stiff lungs, slightly worse from yesterday C-reactive protein has decreased from 18->10. Her body mass index excludes her from consideration of ECMO. if she fails to respond to proning, may consider inhaled epoprostenol which may also improve VQ mismatch. Continue heparin infusion for PE. 4. Renal: Kidney function and urine output remained adequate. Hypokalemia, continue ICU electrolyte replacement protocol. Continue judicious hypotonic fluids to keep sodium under control. We will hold diuretics today given her hemodynamic instability. 5. GI: N.p.o. while proned and neuromuscular blockade. PPI in place 6. ID: Patient is now afebrile. Line sites look okay. White count pending today. Blood cultures from the 23rd showed no growth to date and respiratory culture from the with staph aureus and corynebacterium. Interestingly, these are the same respiratory pathogens isolated from the patient across the ruiz from her. They are unusual pathogens especially from a respiratory standpoint and may represent contaminant. Given her improvement in fever curve, will continue antibiotics but de-escalate to Rocephin. 7. Heme-onc: Mild anemia without evidence of acute active ongoing bleeding. Continue to follow for now. Continue heparin drip. Should the patient clinically deteriorate with escalating oxygen requirement or demonstrating he modynamic instability, would have low threshold for proceeding with half dose TPA (50 mg IV over 2 hours), could likely run this in conjunction with the heparin although bleeding risk would be somewhat increased. Recheck troponin and BNP for right heart strain. 8. Endocrine: Glycemic control per protocol Patient is critically ill with significant possibility of clinical dysfunction and . updated by phone yesterday and again today. We will continue to follow clinically. A total of 45 minutes critical care time was spent evaluation management stabilization of this patient. This includes discussion with bedside ICU nurses and respiratory therapy Admission and Anticipated Discharge Date Admission Date: October 25, 2021 Subjective Intubated sedated and paralyzed Review of Systems Review of Systems: Unobtainable due to endotracheal tube Physical Exam Constitutional: + obese; no acute distress Neck: trachea midline, no thyromegaly Respiratory: symmetric chest movement Auscultation: + rales and + wheezes Cardiovascular: RRR, no murmur, no edema Gastrointestinal (Abdomen): normal bowel sounds, soft, nontender, no hepatosplenomegaly Musculoskeletal: Extremities: extremities normal to inspection Skin: no rashes, warm and dry Lymphatic: no cervical lymphadenopathy Results & Data Results & Data ([facility]) Vital Signs (Past 12 Hours) Vital Signs Temp Pulse Resp Pulse Ox 10/29/21 08:15 36.6 C 60 30 H 94 10/29/21 08:00 36.6 C 60 30 H 95 10/29/21 07:45 36.6 C 58 L 30 H 94 10/29/21 07:30 36.5 C 58 L 30 H 91 10/29/21 07:15 36.5 C 59 L 30 H 91 10/29/21 07:00 36.5 C 61 30 H 90 10/29/21 06:45 36.5 C 60 30 H 89 L 10/29/21 06:30 36.4 C L 57 L 30 H 90 10/29/21 06:15 36.4 C L 55 L 30 H 91 10/29/21 06:00 36.5 C 56 L 30 H 91 10/29/21 05:00 57 L 30 H 93 10/29/21 04:00 36.7 C 58 L 30 H 90 10/29/21 03:35 59 L 30 H 92 10/29/21 03:00 36.7 C 63 30 H 97 10/29/21 02:00 36.7 C 63 30 H 98 10/29/21 01:00 36.8 C 66 30 H 99 10/29/21 00:00 36.8 C 64 30 H 97 10/28/21 23:00 36.8 C 67 30 H 96 10/28/21 22:57 79 30 H 96 Critical Care Results & Data Vital Signs (Past 12 Hours) Vital Signs Temp Pulse Resp Pulse Ox 10/29/21 08:15 36.6 C 60 30 H 94 10/29/21 08:00 36.6 C 60 30 H 95 10/29/21 07:45 36.6 C 58 L 30 H 94 10/29/21 07:30 36.5 C 58 L 30 H 91 10/29/21 07:15 36.5 C 59 L 30 H 91 10/29/21 07:00 36.5 C 61 30 H 90 10/29/21 06:45 36.5 C 60 30 H 89 L 10/29/21 06:30 36.4 C L 57 L 30 H 90 10/29/21 06:15 36.4 C L 55 L 30 H 91 10/29/21 06:00 36.5 C 56 L 30 H 91 10/29/21 05:00 57 L 30 H 93 10/29/21 04:00 36.7 C 58 L 30 H 90 10/29/21 03:35 59 L 30 H 92 10/29/21 03:00 36.7 C 63 30 H 97 10/29/21 02:00 36.7 C 63 30 H 98 10/29/21 01:00 36.8 C 66 30 H 99 10/29/21 00:00 36.8 C 64 30 H 97 10/28/21 23:00 36.8 C 67 30 H 96 10/28/21 22:57 79 30 H 96 Lab & Micro Results (Past 24 Hours) No Data to Display Na 140 mmol/L (136-145) 10/29/21 K 3.2 mmol/L (3.5-5.1) L 10/29/21 Cl 108 mmol/L (98-107) H 10/29/21 CO2 26 mmol/L (21-32) 10/29/21 Anion Gap 6.0 (3-11) 10/29/21 BUN 16 mg/dl (7-18) 10/29/21 Creatinine 0.47 mg/dl (0.6-1.2) L 10/29/21 Estimated GFR ( Amer) 141.2 ml/min 10/29/21 Estimated GFR (Non-Af Amer) 121.8 ml/min 10/29/21 BUN/Creatinine Ratio 33.3 (10-20) H 10/29/21 Glu 106 mg/dl (70-99) H 10/29/21 Ca 7.9 mg/dl (8.5-10.1) L 10/29/21 Phosphorus Level 3.0 mg/dl (2.5-4.9) 10/29/21 Total Bilirubin 0.7 mg/dl (0.2-1) 10/29/21 AST 84 U/L (15-37) H 10/29/21 ALT 53 U/L (12-78) 10/29/21 Alkaline Phosphatase 85 U/L (45-117) 10/29/21 TP 5.1 gm/dl (6.4-8.2) L 10/29/21 Albumin 1.9 gm/dl (3.4-5.0) L 10/29/21 Globulin 3.2 gm/dl (2.5-4.0) 10/29/21 Albumin/Globulin Ratio 0.6 (0.9-2) L 10/29/21 Mg 2.6 mg/dl (1.8-2.4) H 10/29/21 05:43 10/29/21 Calcium Level 7.9 mg/dl (8.5-10.1) L 10/29/21 05:43 10/29/21 Skip Test NA 10/29/21 03:47 10/29/21 Microbiology 10/27/21 12:30 Urine Culture - Final Urine,Indwelling Cath No growth - less than 1,000 colonies/mL. 10/27/21 09:35 Aerobic Blood Culture - Preliminary Blood No growth in Aerobic bottle after 24 hours. Anaerobic Blood Culture - Preliminary No growth in Anaerobic bottle after 24 hours. 10/27/21 10:07 Aerobic Blood Culture - Preliminary Blood No growth in Aerobic bottle after 24 hours. Anaerobic Blood Culture - Preliminary No growth in Anaerobic bottle after 24 hours. 10/26/21 03:05 Gram Stain - Final Sputum,Vent Suction Sputum Culture - Preliminary Staphylococcus species Corynebacterium species I & O Totals 24 Hours 10/28/21 10/29/21 10/30/21 06:59 06:59 06:59 Intake Total 5043.216 / 5043.216 3376.574 / 3716.354 444.170 / 444.170 Output Total 1425 / 1425 2900 / 2900 Balance 3618.216 / 3618.216 476.574 / 816.354 444.170 / 444.170 Cumulative 10/24/21 18:55 thru 10/29/21 10:22 Intake Total 68162.877 Output Total 6050 Balance 8336.877 RT Ventilator Mngmt (Last Documented) Ventilator Ordered Settings Ventilator Support Mode Assist Control 10/29/21 08:00 Respiratory Rate 30 10/29/21 08:15 Ventilator Tidal Volume 350 10/29/21 08:00 Setting Minute Ventilation 10.6 10/29/21 07:45 Positive End Expiratory 14 10/29/21 0 8:00 Pressure Fraction of Inspired Oxygen 0.9 10/29/21 08:00 Machine Comment Settings increased at this time 10/29/21 04:10 after pt was supinated Ventilator - PT Measurements Respiratory Rate 30 Exhaled Tidal Volume 350 Minute Ventilation 10.6 Peak Inspiratory Airway 38 Pressure Plateau Pressure 36 Respiratory Cycle Inspiratory: 1:1.9 Expiratory Ratio Inspiratory Phase Time 0.7 End-Tidal CO2 25 Static Lung Compliance 15.91 Dynamic Lung Compliance 14.58 Normal Static Lung Compliance 44.00 Patient Measurements Comment patient desat to 85% and tachycardic in 120s- increased settings post abg Coding Level of Care Code Critical Care 1st 30-74 mins Diagnoses Multifocal pneumonia J18.9 Pneumonia due to 2019-nCoV U07.1; J12.82 Acute respiratory failure with hypoxia J96.01 Acute hypokalemia E87.6 Time Spent (min) 45
--- NOTE | 2021-10-29 11:17 | XRay Report ---
XR chest 1V portable CLINICAL HISTORY: resp failure. Follow-up alveolar opacities COMPARISON STUDY: 10/28/2021 TECHNIQUE: 1 view of the chest FINDINGS: Single frontal view of the chest demonstrates the cardiomediastinal silhouette to be within normal li mits. Tubes and catheters are unchanged. Compared to previous examination, bilateral interstitial and alveolar opacities are again seen and unchanged. There is no evidence for pleural effusion. There is no evidence for vascular congestion. There is no acute osseous pathology. IMPRESSION: Compared to the previous examination, bilateral interstitial and alveolar opacities are a gain seen bilaterally and essentially unchanged. The findings are again most characteristic of Covid pneumonia. ACT 112: Negative or not required by law. Electronically signed by: Vineet Latham M.D. 10/29/2021 11:15 AM
--- NOTE | 2021-10-29 14:43 | Hospitalist Progress Note ---
Date of Service October 29, 2021 Assessment & Plan (1) Acute respiratory failure with hypoxia: Plan: Secondary to severe COVID-19 pneumonia ARDS Right-sided pulmonary emboli Was on BIPAP and then HFNC on admission Was started on dexamethasone Got tocilizumab Respiratory status worsened Was found to have Right PE on CT PE Was intubated on 10/25/21 Worsening respiratory status. child protection specialist on board Plan to prone No more fevers. Abx deescalated to ceftriaxone Continue ventilatory management per ICU protocol Continue dexamethasone Continue heparin drip Hypokalemia. Monitor electrolytes and replete per ICU protocol Hx of cerebral palsy Morbid obesity HbA1c 6 NPO Continue PPI Full code Called and updated him Admission and Anticipated Discharge Date Admission Date: October 25, 2021 Subjective 41-year-old woman with history of hypertension, mood disorder, cerebral palsy worsening nephropathy per records who presented with 10-day history of dry cough, shortness of breath and flulike symptoms Being managed for acute hypoxic respiratory failure due to COVID-19 pneumonia. Was initially on BiPAP on admission Respiratory status worsened. CT PE revealed acute PE as well Patient remains on the ventilator Worsening PF ratio with increasing oxygen requirement Review of Systems Review of Systems: Unobtainable due to endotracheal tube Physical Exam Constitutional: + obese ENMT: ETT in situ Respiratory: On mechanical ventilator, diminished breath sounds Cardiovascular: Rate/Rhythm: regular rate and regular rhythm S1 S2 Gastrointestinal (Abdomen): normal bowel sounds, soft, nontender, no hepatosplenomegaly Musculoskeletal: No pedal edema Neurologic: Intubated and sedated Genitourinary: Edward in situ Results & Data Results & Data ([facility]) Vital Signs (Past 12 Hours) Vital Signs Temp Pulse Resp Pulse Ox 10/29/21 14:30 37.3 C 87 32 H 94 10/29/21 14:15 37.3 C 82 29 H 10/29/21 14:00 37.3 C 83 30 H 91 10/29/21 13:45 37.3 C 90 30 H 90 10/29/21 13:30 37.2 C 95 H 30 H 90 10/29/21 13:15 37.1 C 120 H 30 H 92 10/29/21 13:00 37.1 C 121 H 26 H 92 10/29/21 12:45 37.0 C 111 H 26 H 90 10/29/21 12:30 37.0 C 122 H 26 H 92 10/29/21 12:00 36.8 C 113 H 26 H 90 10/29/21 11:49 106 H 30 H 90 10/29/21 11:30 36.8 C 124 H 26 H 90 10/29/21 11:00 36.7 C 105 H 32 H 89 L 10/29/21 10:30 36.9 C 115 H 30 H 92 10/29/21 10:00 36.9 C 69 30 H 88 L 10/29/21 09:30 36.8 C 68 30 H 91 10/29/21 09:00 36.7 C 68 30 H 93 10/29/21 08:30 36.7 C 62 30 H 94 10/29/21 08:15 36.6 C 60 30 H 94 10/29/21 08:00 36.6 C 60 30 H 95 10/29/21 07:45 36.6 C 58 L 30 H 94 10/29/21 07:30 36.5 C 58 L 30 H 91 10/29/21 07:15 36.5 C 59 L 30 H 91 10/29/21 07:00 36.5 C 61 30 H 90 10/29/21 06:45 36.5 C 60 30 H 89 L 10/29/21 06:30 36.4 C L 57 L 30 H 90 10/29/21 06:15 36.4 C L 55 L 30 H 91 10/29/21 06:00 36.5 C 56 L 30 H 91 10/29/21 05:00 57 L 30 H 93 10/29/21 04:00 36.7 C 58 L 30 H 90 10/29/21 03:35 59 L 30 H 92 10/29/21 03:00 36.7 C 63 30 H 97 Laboratory Results Abnormal lab results 10/29/21 10/29/21 10/29/21 Range/Units 03:47 05:43 08:41 APTT 49.7 H* (21.0-31.0) Seconds POC HCO3 27 H (19-24) laurie/L POC Base Excess 3.0 H (-9-1.8) laurie/L POC ABG O2 Sat 96.0 H (90-95) % Potassium 3.2 L (3.5-5.1) mmol/L Chloride 108 H (98-107) mmol/L Creatinine 0.47 L (0.6-1.2) mg/dl BUN/Creatinine Ratio 33.3 H (10-20) Glucose 106 H (70-99) mg/dl POC Glucose (70-99) mg/dl Calcium 7.9 L (8.5-10.1) mg/dl Magnesium 2.6 H (1.8-2.4) mg/dl AST 84 H (15-37) U/L Total Protein 5.1 L (6.4-8.2) gm/dl Albumin 1.9 L (3.4-5.0) gm/dl Albumin/Globulin Ratio 0.6 L (0.9-2) 10/29/ Range/Units 17:22 APTT (21.0-31.0) Seconds POC HCO3 (19-24) laurie/L POC Base Excess (-9-1.8) laurie/L POC ABG O2 Sat (90-95) % Potassium (3.5-5.1) mmol/L Chloride (98-107) mmol/L Creatinine (0.6-1.2) mg/dl BUN/Creatinine Ratio (10-20) Glucose (70-99) mg/dl POC Glucose 114 H (70-99) mg/dl Calcium (8.5-10.1) mg/dl Magnesium (1.8-2.4) mg/dl AST (15-37) U/L Total Protein (6.4-8.2) gm/dl Albumin (3.4-5.0) gm/dl Albumin/Globulin Ratio (0.9-2)
[2021-10-29] MEDS: cefTRIAXone SODIUM 2,000 MG in DEXTROSE 5% 50 ML IV SCH (14:49)
[2021-10-30 01:12] LABS: iSTAT Arterial Blood Gas HCO3 28 meg/L (19-24); iSTAT Arterial Blood Gas pCO2 43 mmHg (35-46); iSTAT Arterial Blood Gas pH 7.42 (7.35-7.45); iSTAT Arterial Blood Gas pO2 118 mmHg (80-95); iSTAT Carbon Dioxide 29 mmol/L (24-31); iSTAT FiO2 100 %; iSTAT Site Art Line
[2021-10-30] MEDS: ARTIFICIAL TEARS OP OINT 3.5 GM TUBE OP SCH ×6 (01:32→20:21)
[2021-10-30] MEDS: CISATRACURIUM BESYLATE 40 MG in 0.9 % SODIUM CHLORIDE 80 ML IV SCH ×3 (01:41→10:41)
[2021-10-30] MEDS: propofoL 1,000 MG/100 ML VIAL IV SCH ×5 (02:34→20:22)
[2021-10-30] MEDS: HEPARIN SODIUM/DEXTROSE 25,000 UNITS/500 ML BAG IV SCH ×2 (04:29→16:02)
[2021-10-30 04:36] LABS: iSTAT Arterial Blood Gas HCO3 27 meg/L (19-24); iSTAT Arterial Blood Gas pCO2 39 mmHg (35-46); iSTAT Arterial Blood Gas pH 7.45 (7.35-7.45); iSTAT Arterial Blood Gas pO2 75 mmHg (80-95); iSTAT Carbon Dioxide 28 mmol/L (24-31); iSTAT FiO2 70 %; iSTAT Site Art Line
[2021-10-30 05:23] LABS: Basophils # (auto) 0.04 K/uL (0-0.2); Basophils % (auto) 0.3 %; Eosinophils # (auto) 0.37 K/uL (0-0.5); Eosinophils % (auto) 2.5 %; Hematocrit (blood only) 34.4 % (37-47); Hemoglobin 10.9 g/dL (12.0-16.0); Immature Granulocytes # (auto) 0.38 K/uL (0.00-0.02); Immature Granulocytes % (auto) 2.6 %; Lymphocytes # (auto) 1.93 K/uL (1.2-3.4); Lymphocytes % (auto) 13.2 %; Mean Corpuscular Hgb Conc 31.7 g/dL (32-36); Mean Corpuscular Volume 88.4 fL (80-100); Mean Platelet Volume 10.2 fL (7.4-10.4); Monocytes # (auto) 0.82 K/uL (0.11-0.59); Monocytes % (auto) 5.6 %; Neutrophils # (auto) 11.09 K/uL (1.4-6.5); Neutrophils % (auto) 75.8 %; Nucleated RBC # (auto) 0.16 K/uL (0-0); Nucleated RBC % (auto) 1.1 %; Platelet Count 285 K/uL (130-400); RDW Coefficient of Variation 15.8 % (11.5-14.5); RDW Standard Deviation 49.4 fL (36.4-46.3); Red Blood Count 3.89 M/uL (4.2-5.4); White Blood Count 14.63 K/uL (4.8-10.8)
[2021-10-30 05:47] LABS: Partial Thromboplastin Ratio 1.5; Partial Thromboplastin Time 40.3 Seconds (21.0-31.0)
[2021-10-30 05:51] LABS: Albumin Globulin Ratio 0.7 (0.9-2); Albumin Level 2.1 gm/dl (3.4-5.0); BUN Creatinine Ratio 37.9 (10-20); Bilirubin,Total 0.7 mg/dl (0.2-1); Calcium 8.2 mg/dl (8.5-10.1); Est GFR (African American) 146.5 ml/min; Est GFR (Non-African American) 126.4 ml/min; Globulin 3.2 gm/dl (2.5-4.0); Magnesium 2.3 mg/dl (1.8-2.4); Phosphorus 2.5 mg/dl (2.5-4.9); Total Protein 5.3 gm/dl (6.4-8.2)
[2021-10-30] MEDS: ICU ELECTROLYTE REPLACEMENT PROTOCOL SCH ×2 (06:49→21:13)
[2021-10-30] MEDS: fentaNYL DRIP 1,250 MCG/250 ML BAG IV SCH ×3 (08:00→21:44)
[2021-10-30 08:11] LABS: Potassium 3.7 mmol/L (3.5-5.1)
[2021-10-30] MEDS ORDERED: SODIUM PHOSPHATE 3 MMOL/1 ML INFUSION IV STA (08:17)
[2021-10-30] MEDS ORDERED: SODIUM PHOSPHATE 15 MMOL in SODIUM CHLORIDE 0.9% 250 ML IV ONE (08:30)
[2021-10-30] MEDS: dexAMETHasone 6 MG in SYRINGE 0 ML IV SCH (09:16)
[2021-10-30] MEDS: FAMOTIDINE 20 MG in SYRINGE 3 ML IV SCH ×2 (09:18→20:25)
[2021-10-30] MEDS: POTASSIUM CHLORIDE / WTR 10 MEQ/100 ML PLCT IV SCH ×4 (10:36→13:35)
[2021-10-30] MEDS ORDERED: PEPTAMEN INTENSE VHP 1.0 CAL 1,000 ML BAG GT SCH (11:00)
--- NOTE | 2021-10-30 11:41 | Critical Care Progress Note ---
Date of Service October 30, 2021 Assessment & Plan (1) Multifocal pneumonia: (2) Pneumonia due to 2019-nCoV: (3) Acute respiratory failure with hypoxia: (4) Acute hypokalemia: (5) ARDS (adult respiratory distress syndrome): Plan: Impression: 41-year-old unvaccinated female now with severe Covid. She failed high flow and noninvasive positive pressure ventilation and was intubated 10/25/2021. CT angiogram at that time also demonstrated small subsegmental PEs and the patient was initiated on anticoagulation. Recommendations: 1. Neurologic: Weaning down propofol due to elevated triglyceride levels. Continue Versed and fentanyl. Oxycodone 15 mg every 6 hours ordered to help offset continuous infusions Continue neuromuscular blockade and will attempt to wean later today while supine. Goal RASS of -2. 2. Cardiovascular: Acute PE: Continue heparin infusion. Lactate normal. proBNP was low, but likely falsely low due to obesity. Will initiate diuretic therapy as noted elsewhere. 3. Pulmonary: Severe ARDS secondary to Covid pneumonitis. We will place the patient in the supine position today. Continue lung protective ventilation strategy. Continue Decadron for a total of 10 days. Currently on 6 mg daily. Suspect that fluid overload is playing a significant role as she has 9.3 L positive. Will initiate Lasix 40 mg twice daily. 4. Renal: Renal function stable. We will start diuretic therapy 40 mg daily with Lasix. Replacing potassium. 5. GI: Start tube feeds while supine. H2 primo ordered. 6. ID: Coag negative staph growing from the sputum culture on 10/26/2021. Continue Rocephin for total of 7 days. Procalcitonin from 10/30/2021is pending. 7. Heme-onc: Mild anemia without evidence of acute active ongoing bleeding. Continue to follow for now. Continue heparin drip. Should the patient clinically deteriorate with escalating oxygen requirement or demonstrating hemodynamic instability, would have low threshold for proceeding with half dose TPA (50 mg IV over 2 hours), could likely run this in conjunction with the heparin although bleeding risk would be somewhat increased. 8. Endocrine: Glycemic control per protocol CRITICAL CARE TIME - I have personally spent 42 minutes of critical care time in the direct management of this patient. This is a life/limb threatening event. This includes time spent evaluating patient, direct bedside care, chart review, placing o rders, interpretation of diagnostic studies, discussion with consultants, patient, and family members, as well as other required patient management activities. This time is exclusive of all separately billable procedures, and teaching time and separate from and in addition to any other critical care service time. Admission and Anticipated Discharge Date Admission Date: October 25, 2021 Subjective Patient seen and examined this morning. She was in the prone position. She is on numerous sedatives and neuromuscular blockade. Unable to participate in review of systems. Review of Systems Review of Systems: Unobtainable due to cognitive status and Unobtainable due to endotracheal tube Physical Exam Constitutional: + obese; no acute distress Neck: trachea midline, no thyromegaly Respiratory: symmetric chest movement; no labored breathing Cardiovascular: RRR, no murmur, no edema Gastrointestinal (Abdomen): normal bowel sounds, soft, nontender, no hepatosplenomegaly Musculoskeletal: Extremities: extremities normal to inspection Skin: no rashes, warm and dry Neurologic: Unable to assess due to neuromuscular blockade Psychiatric: Unable to assess due to neuromuscular blockade Lymphatic: + cervical lymphadenopathy Results & Data Results & Data ([facility]) Vital Signs (Past 12 Hours) Vital Signs Temp Pulse Resp Pulse Ox 10/30/21 10:39 77 30 H 94 10/30/21 08:05 66 30 H 90 10/30/21 06:00 37.3 C 65 30 H 96 10/30/21 05:00 37.3 C 68 30 H 96 10/30/21 04:00 37.3 C 65 30 H 89 L 10/30/21 03:40 74 30 H 92 10/30/21 03:00 37.3 C 67 30 H 90 10/30/21 02:00 37.4 C 69 24 94 10/30/21 01:00 37.4 C 67 26 H 89 L 10/30/21 00:00 37.4 C 65 26 H 89 L Vital signs, labs and imaging personally reviewed Coding Level of Care Code Critical Care 1st 30-74 mins Diagnoses Multifocal pneumonia J18.9 Pneumonia due to 2019-nCoV U07.1; J12.82 Acute respiratory failure with hypoxia J96.01 Acute hypokalemia E87.6 ARDS (adult respiratory distress syndrome) J80 Time Spent (min) 42
[2021-10-30] MEDS ORDERED: POLYETHYLENE (MIRALAX) 17 GM PACK PO SCH (12:00)
[2021-10-30] MEDS: cefTRIAXone SODIUM 2,000 MG in DEXTROSE 5% 50 ML IV SCH (12:09)
[2021-10-30 12:23] LABS: Partial Thromboplastin Ratio 1.6; Partial Thromboplastin Time 41.4 Seconds (21.0-31.0)
[2021-10-30] MEDS: DOCUSATE SODIUM SYRUP 100 MG/10 ML UDC PO SCH ×2 (13:20→20:21)
[2021-10-30] MEDS: oxyCODONE HCL IR 5 MG TAB (IMMEDIATE RELEASE) PO SCH ×3 (13:21→23:47)
[2021-10-30] MEDS: TUBE FEEDING WATER FLUSH GT SCH ×3 (13:21→20:20)
[2021-10-30] MEDS: PEPTAMEN INTENSE VHP 1.0 CAL 1,000 ML BAG GT SCH (13:22)
--- NOTE | 2021-10-30 13:59 | Hospitalist Progress Note ---
Date of Service October 30, 2021 Assessment & Plan (1) Acute respiratory failure with hypoxia: Plan: Secondary to severe COVID-19 pneumonia ARDS Right-sided pulmonary emboli Was on BIPAP and then HFNC on admission Was started on dexamethasone Got tocilizumab Respiratory status worsened Was found to have Right PE on CT PE Was intubated on 10/25/21 Continue ventilatory management per ICU protocol Continue dexamethasone Continue heparin drip Continue ceftriaxone Morbid obesity HbA1c 6 Glycemic management per protocol Tubefeeding Full code Admission and Anticipated Discharge Date Admission Date: October 25, 2021 Subjective 41-year-old woman with history of hypertension, mood disorder, cerebral palsy worsening nephropathy per records who presented with 10-day history of dry cough, shortness of breath and flulike symptoms Being managed for acute hypoxic respiratory failure due to COVID-19 pneumonia. Was initially on BiPAP on admission Respiratory status worsened. CT PE revealed acute PE as well Patient intubated on 10/25/21 Patient seen and examined Opened eye to touch. Currently supine, intubated and on sedation Review of Systems Review of Systems: Unobtainable due to endotracheal tube Physical Exam Constitutional: + obese ENMT: external ear and nose normal, oropharynx normal Respiratory: On mechanical ventilator Diminished breath sounds Cardiovascular: Rate/Rhythm: regular rate and regular rhythm S1 S2 Gastrointestinal (Abdomen): normal bowel sounds, soft, nontender, no hepatosplenomegaly Neurologic: On cisatracurium and sedation Opened eye briefly to touch Otherwise limited exam Genitourinary: Edward in situ Results & Data Results & Data ([facility]) Vital Signs (Past 12 Hours) Vital Signs Temp Pulse Resp Pulse Ox 10/30/21 10:39 77 30 H 94 10/30/21 08:05 66 30 H 90 10/30/21 06:00 37.3 C 65 30 H 96 10/30/21 05:00 37.3 C 68 30 H 96 10/30/21 04:00 37.3 C 65 30 H 89 L 10/30/21 03:40 74 30 H 92 10/30/21 03:00 37.3 C 67 30 H 90 10/30/21 02:00 37.4 C 69 24 94 Laboratory Results Abnormal lab results 10/29/21 10/30/21 10/30/21 Range/Units 17:22 00:59 04:21 WBC (4.8-10.8) K/uL RBC (4.2-5.4) M/uL Hgb (12.0-16.0) g/dL Hct (37-47) % MCHC (32-36) g/dL RDW Std Deviation (36.4-46.3) fL RDW Coeff of Diana (11.5-14.5) % Neut # (Auto) (1.4-6.5) K/uL Sutton # (Auto) (0.11-0.59) K/uL Immature Gran # (Auto) (0.00-0.02) K/uL Absolute Nucleated RBC (0-0) K/uL APTT (21.0-31.0) Seconds POC pO2 118 H 75 L (80-95) mmHg POC HCO3 28 H 27 H (19-24) laurie/L POC Base Excess 3.0 H 3.0 H (-9-1.8) laurie/L POC ABG O2 Sat 99.0 H 96.0 H (90-95) % Creatinine (0.6-1.2) mg/dl BUN/Creatinine Ratio (10-20) Glucose (70-99) mg/dl POC Glucose 114 H (70-99) mg/dl POC Glucose (other) (70-99) mg/dl Calcium (8.5-10.1) mg/dl AST (15-37) U/L Total Protein (6.4-8.2) gm/dl Albumin (3.4-5.0) gm/dl Albumin/Globulin Ratio (0.9-2) Triglycerides (0-150) mg/dl 10/30/21 10/30/21 10/30/21 Range/Units 04:59 04:59 04:59 WBC 14.63 H (4.8-10.8) K/uL RBC 3.89 L (4.2-5.4) M/uL Hgb 10.9 L (12.0-16.0) g/dL Hct 34.4 L (37-47) % MCHC 31.7 L (32-36) g/dL RDW Std Deviation 49.4 H (36.4-46.3) fL RDW Coeff of Diana 15.8 H (11.5-14.5) % Neut # (Auto) 11.09 H (1.4-6.5) K/uL Sutton # (Auto) 0.82 H (0.11-0.59) K/uL Immature Gran # (Auto) 0.38 H (0.00-0.02) K/uL Absolute Nucleated RBC 0.16 H (0-0) K/uL APTT 40.3 H (21.0-31.0) Seconds POC pO2 (80-95) mmHg POC HCO3 (19-24) laurie/L POC Base Excess (-9-1.8) laurie/L POC ABG O2 Sat (90-95) % Creatinine 0.42 L (0.6-1.2) mg/dl BUN/Creatinine Ratio 37.9 H (10-20) Glucose 103 H (70-99) mg/dl POC Glucose (70-99) mg/dl POC Glucose (other) (70-99) mg/dl Calcium 8.2 L (8.5-10.1) mg/dl AST 88 H (15-37) U/L Total Protein 5.3 L (6.4-8.2) gm/dl Albumin 2.1 L (3.4-5.0) gm/dl Albumin/Globulin Ratio 0.7 L (0.9-2) Triglycerides 688 H (0-150) mg/dl 10/30/21 10/30/21 Range/Units 11:55 12:08 WBC (4.8-10.8) K/uL RBC (4.2-5.4) M/uL Hgb (12.0-16.0) g/dL Hct (37-47) % MCHC (32-36) g/dL RDW Std Deviation (36.4-46.3) fL RDW Coeff of Diana (11.5-14.5) % Neut # (Auto) (1.4-6.5) K/uL Sutton # (Auto) (0.11-0.59) K/uL Immature Gran # (Auto) (0.00-0.02) K/uL Absolute Nucleated RBC (0-0) K/uL APTT 41.4 H (21.0-31.0) Seconds POC pO2 (80-95) mmHg POC HCO3 (19-24) laurie/L POC Base Excess (-9-1.8) laurie/L POC ABG O2 Sat (90-95) % Creatinine (0.6-1.2) mg/dl BUN/Creatinine Ratio (10-20) Glucose (70-99) mg/dl POC Glucose (70-99) mg/dl POC Glucose (other) 130 H (70-99) mg/dl Calcium (8.5-10.1) mg/dl AST (15-37) U/L Total Protein (6.4-8.2) gm/dl Albumin (3.4-5.0) gm/dl Albumin/Globulin Ratio (0.9-2) Triglycerides (0-150) mg/dl
--- NOTE | 2021-10-30 14:55 | XRay Report ---
XR chest 1V portable CLINICAL HISTORY: resp failure. Follow-up interstitial and alveolar opacities COMPARISON STUDY: 10/29/2021 TECHNIQUE: 1 view of the chest FINDINGS: Single frontal view of the chest demonstrates the cardiomediastinal silhouette to be within normal li mits. Tubes and catheters are unchanged. Compared to previous examination, there is interval worsenin g of interstitial and alveolar opacities particularly involving the right lower lobe. There is no mansoor dence for small right pleural effusion and right basilar atelectasis. There is no evidence for vascul ar congestion. There is no acute osseous pathology. IMPRESSION: Interval worsening of interstitial and alveolar opacities particularly involving the righ t lower lobe. Interval development of small right pleural effusion right basilar atelectasis is also present. ACT 112: Negative or not required by law. Electronically signed by: Vineet Latham M.D. 10/30/2021 2:53 PM
[2021-10-30] MEDS: MIDAZOLAM HCL 125 MG/250 ML BAG IV SCH (16:02)
[2021-10-30] MEDS: MIDAZOLAM BOLUS FROM BAG IV PRN (17:38)
[2021-10-30 19:00] LABS: Partial Thromboplastin Ratio 1.8
[2021-10-30 19:07] LABS: Partial Thromboplastin Time 46.7 Seconds (21.0-31.0)
[2021-10-30 19:22] LABS: BUN Creatinine Ratio 27.4 (10-20); Calcium 8.1 mg/dl (8.5-10.1); Creatinine Clr Calc Pharmacy 179.8 ml/min; Est GFR (African American) 136.6 ml/min; Est GFR (Non-African American) 117.8 ml/min
[2021-10-30 19:23] LABS: Potassium 4.3 mmol/L (3.5-5.1)
[2021-10-30] MEDS: SENNOSIDES 8.8 MG/5 ML UDC PO SCH (20:22)
[2021-10-30] MEDS: FUROSEMIDE 40 MG/4 ML VIAL IV SCH (20:22)
[2021-10-31] MEDS: fentaNYL DRIP 1,250 MCG/250 ML BAG IV SCH ×4 (02:37→19:42)
[2021-10-31 03:30] LABS: iSTAT Art Bld Gas pCO2 Correct 45 mmHg (35-46); iSTAT Art Bld Gas pH Corrected 7.416 (7.35-7.45); iSTAT Arterial Blood Gas HCO3 29 meg/L (19-24); iSTAT Arterial Blood Gas pCO2 44 mmHg (35-46); iSTAT Arterial Blood Gas pH 7.42 (7.35-7.45); iSTAT Arterial Blood Gas pO2 64 mmHg (80-95); iSTAT Arterial Blood Gas pO2 C 66; iSTAT Carbon Dioxide 30 mmol/L (24-31); iSTAT FiO2 60 %; iSTAT Hematocrit 31 % (37-47); iSTAT Hemoglobin 10.5 g/dl (12.0-16.0); iSTAT Potassium 3.2 mmol/L (3.3-5.0); iSTAT Site Art Line; iSTAT Sodium 133 mmol/L (135-144)
[2021-10-31] MEDS: TUBE FEEDING WATER FLUSH GT SCH ×7 (04:12→23:18)
[2021-10-31] MEDS: ARTIFICIAL TEARS OP OINT 3.5 GM TUBE OP SCH ×2 (04:13→04:14)
[2021-10-31] MEDS: propofoL 1,000 MG/100 ML VIAL IV SCH (05:20)
[2021-10-31] MEDS: HEPARIN SODIUM/DEXTROSE 25,000 UNITS/500 ML BAG IV SCH ×2 (05:20→19:42)
[2021-10-31] MEDS: oxyCODONE HCL IR 5 MG TAB (IMMEDIATE RELEASE) PO SCH ×3 (05:21→18:41)
[2021-10-31 06:14] LABS: Basophils # (auto) 0.02 K/uL (0-0.2); Basophils % (auto) 0.2 %; Eosinophils % (auto) 2.4 %; Hematocrit (blood only) 32.9 % (37-47); Hemoglobin 10.4 g/dL (12.0-16.0); Immature Granulocytes # (auto) 0.24 K/uL (0.00-0.02); Immature Granulocytes % (auto) 1.9 %; Lymphocytes # (auto) 1.73 K/uL (1.2-3.4); Lymphocytes % (auto) 13.8 %; Mean Corpuscular Hgb Conc 31.6 g/dL (32-36); Mean Corpuscular Volume 88.4 fL (80-100); Mean Platelet Volume 10.4 fL (7.4-10.4); Monocytes # (auto) 0.85 K/uL (0.11-0.59); Monocytes % (auto) 6.8 %; Neutrophils # (auto) 9.42 K/uL (1.4-6.5); Neutrophils % (auto) 74.9 %; Nucleated RBC # (auto) 0.09 K/uL (0-0); Nucleated RBC % (auto) 0.7 %; Platelet Count 250 K/uL (130-400); RDW Coefficient of Variation 16.3 % (11.5-14.5); RDW Standard Deviation 49.9 fL (36.4-46.3); Red Blood Count 3.72 M/uL (4.2-5.4); White Blood Count 12.56 K/uL (4.8-10.8)
[2021-10-31 06:29] LABS: Partial Thromboplastin Ratio 1.8
[2021-10-31 06:46] LABS: BUN Creatinine Ratio 37.3 (10-20); Calcium 8.4 mg/dl (8.5-10.1); Est GFR (African American) 140.2 ml/min; Magnesium 2.1 mg/dl (1.8-2.4); Phosphorus 3.3 mg/dl (2.5-4.9); Potassium 3.4 mmol/L (3.5-5.1)
[2021-10-31 06:52] LABS: Partial Thromboplastin Time 46.5 Seconds (21.0-31.0)
[2021-10-31] MEDS ORDERED: POTASSIUM CHLORIDE CRTAB 20 MEQ TABCR PO STA (07:01)
[2021-10-31] MEDS: ICU ELECTROLYTE REPLACEMENT PROTOCOL SCH ×2 (07:12→19:28)
[2021-10-31] MEDS ORDERED: POTASSIUM CHLORIDE / WTR 20 MEQ/100 ML PLCT IV SCH (07:15)
[2021-10-31] MEDS ORDERED: POTASSIUM CHLORIDE / WTR 20 MEQ/100 ML PLCT IV ONE ×2 (07:30→16:45)
[2021-10-31] MEDS ORDERED: POTASSIUM CHLORIDE 20 MEQ/15 ML UDC PO STA ×3 (07:38→16:44)
[2021-10-31] MEDS ORDERED: CHLOROTHIAZIDE SODIUM 500 MG in DEXTROSE 5% 50 ML IV STA (07:42)
[2021-10-31] MEDS: MIDAZOLAM HCL 125 MG/250 ML BAG IV SCH (08:31)
[2021-10-31] MEDS: FUROSEMIDE 100 MG in DEXTROSE 5% 90 ML IV SCH ×2 (08:36→20:15)
[2021-10-31] MEDS: MIDAZOLAM BOLUS FROM BAG IV PRN (09:00)
--- NOTE | 2021-10-31 09:00 | XRay Report ---
XR chest 1V portable CLINICAL HISTORY: resp failure. Follow-up interstitial and alveolar opacities COMPARISON STUDY: 10/30/2021 TECHNIQUE: 1 view of the chest FINDINGS: Single frontal view of the chest demonstrates the heart to again be enlarged. Tubes and catheters are unchanged. Compared to the previous examination, there continues to be interval worsening of interst itial and alveolar opacities involving the right hemithorax when compared to the left. Findings are s uspicious for pleural fluid layering along the posterior gutter on the right as well. Is also bluntin g of left costophrenic angle. There is no evidence for vascular congestion. There is no acute osseous pathology. IMPRESSION: Worsening interstitial and alveolar opacities involving the right hemithorax when compare d to the left. There is also probable pleural fluid layering along the posterior gutter on the right and small pleural effusion on the left. ACT 112: Negative or not required by law. Electronically signed by: Vineet Latham M.D. 10/31/2021 8:59 AM
[2021-10-31] MEDS ORDERED: NOREPINEPHRINE/D5W 8 MG/508 ML IV ONE (10:07)
[2021-10-31] MEDS ORDERED: STAT IV Infusion **Titration per Protocol STA (10:16)
[2021-10-31] MEDS: dexAMETHasone 6 MG in SYRINGE 0 ML IV SCH (10:21)
[2021-10-31] MEDS: DOCUSATE SODIUM SYRUP 100 MG/10 ML UDC PO SCH ×2 (10:22→19:41)
[2021-10-31] MEDS: SENNOSIDES 8.8 MG/5 ML UDC PO SCH ×2 (10:23→19:41)
[2021-10-31] MEDS: POLYETHYLENE (MIRALAX) 17 GM PACK PO SCH (10:23)
[2021-10-31] MEDS: FAMOTIDINE 20 MG in SYRINGE 3 ML IV SCH ×2 (10:25→19:43)
[2021-10-31] MEDS ORDERED: NOREPINEPHRINE/D5W 8 MG/508 ML BAG IV SCH (10:30)
--- NOTE | 2021-10-31 10:49 | Critical Care Progress Note ---
Date of Service October 31, 2021 Assessment & Plan (1) Multifocal pneumonia: (2) Pneumonia due to 2019-nCoV: (3) Acute respiratory failure with hypoxia: (4) Acute hypokalemia: (5) ARDS (adult respiratory distress syndrome): Plan: Impression: 41-year-old unvaccinated female now with severe Covid. She failed high flow and noninvasive positive pressure ventilation and was intubated 10/25/2021. CT angiogram at that time also demonstrated small subsegmental PEs and the patient was initiated on anticoagulation. Recommendations: 1. Neurologic: Propofol weaned off due to hypertriglyceridemia. Continue Versed and fentanyl and wean to lowest effective dose. Oxycodone 15 mg every 6 hours ordered to help offset continuous infusions. Neuromuscular blockade weaned off 10/30/2021. Goal RASS of -2. 2. Cardiovascular: Acute PE: Continue heparin infusion. Lactate normal. proBNP was low, but likely falsely low due to obesity. 3. Pulmonary: Severe ARDS secondary to Covid pneumonitis. Continue lung protective ventilation strategy. Continue Decadron for a total of 10 days. Currently on 6 mg daily. Suspect that fluid overload is playing a significant role as she has 9.3 L positive. Right sided infiltrates worsening. Bronch performed with mucous plug noted in right mainstem. BAL cultures obtained from [facility]. Will initiated metaneb with albuterol TID. 4. Renal: Renal function stable. Lasix drip initiated today at 10 mg/h. Diuril given today as well. She has put out 2.6 L since initiation of Lasix. Recheck BMP this afternoon. K replaced this morning. 5. GI: Continue tube feeds. H2 primo ordered. 6. ID: Coag negative staph growing from the sputum culture on 10/26/2021. Continue Rocephin for total of 7 days. Procalcitonin from 10/30/2021 negative. Bronch cultures obtained today from [facility]. 7. Heme-onc: Mild anemia without evidence of acute active ongoing bleeding. Continue to follow for now. Continue heparin drip. 8. Endocrine: Glycemic control per protocol updated over phone. Consent obtained for bronch from patient over the phone. CRITICAL CARE TIME - I have personally spent 38 minutes of critical care time in the direct management of this patient. This is a life/limb threatening event. This includes time spent evaluating patient, direct bedside care, chart review, placing orders, interpretation of diagnostic studies, discussion with consultants, patient, and family members, as well as other required patient management activities. This time is exclusive of all separately billable procedures, and teaching time and separate from and in addition to any other critical care service time. Admission and Anticipated Discharge Date Admission Date: October 25, 2021 Subjective Patient seen and examined bedside. She remains heavily sedated with propofol, Versed and fentanyl. She is currently on a PEEP of 14 and FiO2 of 60%. She is mostly unresponsive to commands. She does move her extremities slightly to painful stimuli. Review of Systems Review of Systems: Unobtainable due to cognitive status and Unobtainable due to endotracheal tube Physical Exam Constitutional: + obese; no acute distress Neck: trachea midline, no thyromegaly Respiratory: symmetric chest movement; no labored breathing Cardiovascular: RRR, no murmur, no edema Gastrointestinal (Abdomen): normal bowel sounds, soft, nontender, no hepatosplenomegaly Musculoskeletal: Extremities: extremities normal to inspection Skin: no rashes, warm and dry Neurologic: Unable to assess due to neuromuscular blockade Psychiatric: Unable to assess due to neuromuscular blockade Results & Data Results & Data ([facility]) Vital Signs (Past 12 Hours) Vital Signs Temp Pulse Resp Pulse Ox 10/31/21 10:15 70 30 H 94 10/31/21 07:56 63 30 H 89 L 10/31/21 06:00 37.5 C 61 24 91 10/31/21 05:00 37.5 C 64 30 H 92 10/31/21 04:00 37.6 C H 65 25 H 92 10/31/21 03:10 62 30 H 91 10/31/21 03:00 37.5 C 62 26 H 90 10/31/21 02:00 37.6 C H 64 30 H 86 L 10/31/21 01:00 26 H 10/31/21 00:00 37.8 C H 67 30 H 94 10/30/21 23:00 37.8 C H 61 30 H 93 vital signs, labs and imaging personally reviewed Coding Level of Care Code Critical Care 1st 30-74 mins Diagnoses Multifocal pneumonia J18.9 Pneumonia due to 2019-nCoV U07.1; J12.82 Acute respiratory failure with hypoxia J96.01 Acute hypokalemia E87.6 ARDS (adult respiratory distress syndrome) J80 Time Spent (min) 38
--- NOTE | 2021-10-31 11:00 | XRay Report ---
XR chest 1V portable at 10:29 AM CLINICAL HISTORY: post bronch. Evaluate for pneumothorax COMPARISON STUDY: 10/31/2021 at 6:30 AM TECHNIQUE: 1 view of the chest FINDINGS: Single frontal view of the chest demonstrates the heart to again be enlarged. Tubes and catheters allie ear unchanged. Extensive interstitial and alveolar opacities are again seen bilaterally, right greate r than left and unchanged. There is no evidence for pneumothorax. There is again suspicion of pleural fluid layering along the posterior gutter on the right and small pleural effusion on the left. Is al so mild central vascular congestion. There is no acute osseous pathology. IMPRESSION: No significant interval change post bronchoscopy with no evidence for pneumothorax. ACT 112: Negative or not required by law. Electronically signed by: Vineet Latham M.D. 10/31/2021 10:59 AM
--- NOTE | 2021-10-31 11:17 | Procedure Note ---
Procedure Note: Bronchoscopy Procedure PREOPERATIVE DIAGNOSIS: Evaluate for mucous plugging PROCEDURE PERFORMED: Flexible fiberoptic bronchoscopy with bronchoalveolar lavage from the right middle lobe COMPLICATIONS: Intermittent hypoxemia to 85% during the procedure. PROCEDURE: Informed consent was taken from the patient's over the phone due to the patient being intubated and sedated. The risk and benefits of the procedure were described to the patient's . The agreed to proceed with the procedure. Patient was on continuous Versed and fentanyl infusions prior to the procedure. Timeout was performed. Patient's FiO2 was increased from 60% to 90% during the procedure. A disposable glide scope bronchoscope was inserted via the endotracheal tube. Immediately noticeable was thick mucoid impaction in the right mainstem bronchus. This was suctioned and cleared. Bilateral tracheobronchial tree inspection was performed up to the segmental region. Mild suction trauma was noted in the lingula. No obvious lesions were described in the bilateral bronchial tree. I then wedged the scope into the right middle lobe and 60 mL of saline was instilled. Roughly 25 mL of fluid was aspirated back. The scope was then withdrawn to the baldemar. No bleeding was seen. The scope was then completely withdrawn. During the procedure, the patient's oxygen desaturated to 85%, quickly rebounded to the mid 90s. We were able to decrease the FiO2 from 100% to 60% after termination of the procedure. Patient did have some mild hypotension and has required low-dose of Levophed since the procedure. Notably, she did receive 1 mg Versed bolus and a 50 mcg fentanyl bolus during the procedure in addition to the continuous infusions. Summary: Follow cell count, cultures and cytology from [facility].
[2021-10-31 11:22] LABS: Lymphocyte Body Fluid Man 14 %; Neutrophil Body Fluid Man 71 %
[2021-10-31 11:23] LABS: Fluid Mono/Macrophage 15 %
[2021-10-31 11:28] LABS: Basophil Body Fluid Man 0 %; Eosinophil Body Fluid Man 0 %
[2021-10-31] MEDS: FUROSEMIDE 40 MG/4 ML VIAL IV SCH (11:34)
[2021-10-31] MEDS: cefTRIAXone SODIUM 2,000 MG in DEXTROSE 5% 50 ML IV SCH (11:42)
[2021-10-31] MEDS: PEPTAMEN INTENSE VHP 1.0 CAL 1,000 ML BAG GT SCH (12:44)
[2021-10-31] MEDS ORDERED: INSULIN HUMAN NPH SC ONE ×2 (13:00→16:00)
[2021-10-31 13:29] LABS: BUN Creatinine Ratio 23.2 (10-20); Creatinine Clr Calc Pharmacy 128.2 ml/min; Est GFR (African American) 117.7 ml/min; Est GFR (Non-African American) 101.6 ml/min; Potassium 3.6 mmol/L (3.5-5.1)
--- NOTE | 2021-10-31 13:59 | Hospitalist Progress Note ---
Date of Service October 31, 2021 Assessment & Plan (1) Acute respiratory failure with hypoxia: Plan: Secondary to severe COVID-19 pneumonia ARDS Right-sided pulmonary emboli Was on BIPAP and then HFNC on admission Was started on dexamethasone Got tocilizumab Respiratory status worsened Was found to have Right PE on CT PE Was intubated on 10/25/21 Continue ventilatory management per ICU protocol Off nimbex and propofol Continue dexamethasone Continue heparin drip Continue ceftriaxone to complete treatment Currently on Lasix drip as patient is net positive fluid since admission. Diuresing well. Monitor potassium with diuresis and replete per ICU protocol Morbid obesity HbA1c 6 Glycemic management per protocol Continue tubefeeding Full code Admission and Anticipated Discharge Date Admission Date: October 25, 2021 Subjective 41-year-old woman with history of hypertension, mood disorder, cerebral palsy worsening nephropathy per records who presented with 10-day history of dry cough, shortness of breath and flulike symptoms Being managed for acute hypoxic respiratory failure due to COVID-19 pneumonia. Was initially on BiPAP on admission Respiratory status worsened. CT PE revealed acute PE as well Patient intubated on 10/25/21 Patient seen and examined Opened eye to touch. Currently supine, intubated and on sedation Had bronchoscopy this morning after x-ray showed worsening interstitial nodular opacities in the right hemithorax. Physical Exam Constitutional: + obese Eyes: Open eye to touch ENMT: ET tube in situ Respiratory: On mechanical ventilation, diminished breath sounds bilaterally Cardiovascular: Rate/Rhythm: regular rate and regular rhythm S1-S2 Gastrointestinal (Abdomen): normal bowel sounds, soft, nontender, no hepatosplenomegaly Neurologic: Intubated and sedated Genitourinary: Edward in situ Results & Data Results & Data ([facility]) Vital Signs (Past 12 Hours) Vital Signs Temp Pulse Pulse Resp Pulse Ox 10/31/21 13:25 90 30 H 92 10/31/21 11:15 37.6 C H 82 30 H 90 10/31/21 11:00 37.5 C 79 30 H 92 10/31/21 10:45 37.5 C 91 H 28 H 89 L 10/31/21 10:30 37.6 C H 65 30 H 95 10/31/21 10:15 37.6 C H 68 30 H 91 10/31/21 10:00 37.6 C H 68 30 H 92 10/31/21 09:45 37.5 C 67 30 H 93 10/31/21 09:30 37.5 C 71 30 H 90 10/31/21 09:15 37.5 C 71 25 H 89 L 10/31/21 09:00 37.5 C 67 29 H 97 10/31/21 08:45 37.5 C 64 30 H 89 L 10/31/21 08:30 37.5 C 63 30 H 89 L 10/31/21 08:15 37.4 C 80 26 H 91 10/31/21 08:00 37.4 C 62 30 H 90 10/31/21 07:56 63 30 H 89 L 10/31/21 07:45 37.4 C 62 30 H 89 L 10/31/21 07:30 37.4 C 66 30 H 90 10/31/21 07:15 37.5 C 60 30 H 91 10/31/21 07:00 37.5 C 60 30 H 91 10/31/21 06:45 37.5 C 63 30 H 91 10/31/21 06:30 37.5 C 62 30 H 90 10/31/21 06:15 37.5 C 68 30 H 90 10/31/21 06:00 37.5 C 61 24 91 10/31/21 05:00 37.5 C 64 30 H 92 10/31/21 04:00 37.6 C H 65 25 H 92 10/31/21 03:10 62 30 H 91 10/31/21 03:00 37.5 C 62 26 H 90 10/31/21 02:00 37.6 C H 64 30 H 86 L Laboratory Results Abnormal lab results 10/30/21 10/30/21 10/31/21 Range/Units 18:30 18:30 03:16 WBC (4.8-10.8) K/uL RBC (4.2-5.4) M/uL Hgb (12.0-16.0) g/dL POC Hgb 10.5 L (12.0-16.0) g/dl Hct (37-47) % POC Hct 31 L (37-47) % MCHC (32-36) g/dL RDW Std Deviation (36.4-46.3) fL RDW Coeff of Diana (11.5-14.5) % Neut # (Auto) (1.4-6.5) K/uL [place] # (Auto) (0.11-0.59) K/uL Immature Gran # (Auto) (0.00-0.02) K/uL Absolute Nucleated RBC (0-0) K/uL APTT 46.7 H* (21.0-31.0) Seconds POC pO2 64 L (80-95) mmHg POC HCO3 29 H (19-24) laurie/L POC Base Excess 4.0 H (-9-1.8) laurie/L POC Sodium 133 L (135-144) mmol/L POC Potassium 3.2 L (3.3-5.0) mmol/L Potassium (3.5-5.1) mmol/L Chloride 109 H (98-107) mmol/L Creatinine 0.52 L (0.6-1.2) mg/dl BUN/Creatinine Ratio 27.4 H (10-20) Glucose 115 H (70-99) mg/dl POC Glucose (70-99) mg/dl Calcium 8.1 L (8.5-10.1) mg/dl 10/31/21 10/31/21 10/31/21 Range/Units 05:20 05:20 05:20 WBC 12.56 H (4.8-10.8) K/uL RBC 3.72 L (4.2-5.4) M/uL Hgb 10.4 L (12.0-16.0) g/dL POC Hgb (12.0-16.0) g/dl Hct 32.9 L (37-47) % POC Hct (37-47) % MCHC 31.6 L (32-36) g/dL RDW Std Deviation 49.9 H (36.4-46.3) fL RDW Coeff of Diana 16.3 H (11.5-14.5) % Neut # (Auto) 9.42 H (1.4-6.5) K/uL [place] # (Auto) 0.85 H (0.11-0.59) K/uL Immature Gran # (Auto) 0.24 H (0.00-0.02) K/uL Absolute Nucleated RBC 0.09 H (0-0) K/uL APTT 46.5 H* (21.0-31.0) Seconds POC pO2 (80-95) mmHg POC HCO3 (19-24) laurie/L POC Base Excess (-9-1.8) laurie/L POC Sodium (135-144) mmol/L POC Potassium (3.3-5.0) mmol/L Potassium 3.4 L D (3.5-5.1) mmol/L Chloride (98-107) mmol/L Creatinine 0.48 L (0.6-1.2) mg/dl BUN/Creatinine Ratio 37.3 H (10-20) Glucose 100 H (70-99) mg/dl POC Glucose (70-99) mg/dl Calcium 8.4 L (8.5-10.1) mg/dl 10/31/21 10/31/21 Range/Units 12:34 12:47 WBC (4.8-10.8) K/uL RBC (4.2-5.4) M/uL Hgb (12.0-16.0) g/dL POC Hgb (12.0-16.0) g/dl Hct (37-47) % POC Hct (37-47) % MCHC (32-36) g/dL RDW Std Deviation (36.4-46.3) fL RDW Coeff of Diana (11.5-14.5) % Neut # (Auto) (1.4-6.5) K/uL [place] # (Auto) (0.11-0.59) K/uL Immature Gran # (Auto) (0.00-0.02) K/uL Absolute Nucleated RBC (0-0) K/uL APTT (21.0-31.0) Seconds POC pO2 (80-95) mmHg POC HCO3 (19-24) laurie/L POC Base Excess (-9-1.8) laurie/L POC Sodium (135-144) mmol/L POC Potassium (3.3-5.0) mmol/L Potassium (3.5-5.1) mmol/L Chloride (98-107) mmol/L Creatinine (0.6-1.2) mg/dl BUN/Creatinine Ratio 23.2 H (10-20) Glucose 198 H (70-99) mg/dl POC Glucose 171 H (70-99) mg/dl Calcium (8.5-10.1) mg/dl
--- NOTE | 2021-10-31 14:11 | Pharmacy Report ---
Pharmacy Glycemic Short Note 2 - Date of Service October 31, 2021 - Glycemic Short BSG Results (Last 24 hours): 10/30/21 10/30/21 10/30/21 17:53 18:30 23:54 Glucose 115 H POC Glucose 93 88 10/31/21 10/31/21 10/31/21 05:20 08:01 12:34 Glucose 100 H POC Glucose 95 171 H 10/31/21 12:47 Glucose 198 H POC Glucose OUTPATIENT ANTIDIABETIC REGIMEN: * ASSESSMENT: * PLAN FOR INPATIENT GLYCEMIC CONTROL: * Hold outpatient oral diabetes medications * Basal insulin * Lantus [] units SQ BID * Bolus insulin * NovoLog per scale ACHS or Q6hrs while NPO * Goal Range: Low [] mg/dL - High [] mg/dL * Correction Factor: [] mg/dL/unit * Nutritional / Prandial insulin per carb ratio of 1 unit per [] grams CHO consumed PLAN FOR DISCHARGE: *
[2021-10-31] MEDS: INSULIN ASPART 100 UNITS/ML 3 ML PEN SC SCH ×3 (14:25→20:16)
[2021-10-31] MEDS: ACETAMINOPHEN 325 MG TAB PO PRN ×2 (15:50→19:41)
[2021-10-31 20:33] LABS: BUN Creatinine Ratio 23.1 (10-20); Calcium 8.7 mg/dl (8.5-10.1); Est GFR (African American) 105.4 ml/min; Est GFR (Non-African American) 90.9 ml/min; Magnesium 1.9 mg/dl (1.8-2.4); Phosphorus 3.7 mg/dl (2.5-4.9); Potassium 4.1 mmol/L (3.5-5.1)
[2021-11-01] MEDS: oxyCODONE HCL IR 5 MG TAB (IMMEDIATE RELEASE) PO SCH ×5 (00:26→23:34)
[2021-11-01] MEDS: INSULIN ASPART 100 UNITS/ML 3 ML PEN SC SCH ×7 (00:56→23:33)
[2021-11-01] MEDS: fentaNYL DRIP 1,250 MCG/250 ML BAG IV SCH ×12 (02:13→23:06)
[2021-11-01] MEDS: TUBE FEEDING WATER FLUSH GT SCH ×6 (03:16→23:08)
[2021-11-01 04:15] LABS: iSTAT Art Bld Gas pCO2 Correct 41 mmHg (35-46); iSTAT Art Bld Gas pH Corrected 7.549 (7.35-7.45); iSTAT Arterial Blood Gas HCO3 36 meg/L (19-24); iSTAT Arterial Blood Gas pCO2 41 mmHg (35-46); iSTAT Arterial Blood Gas pH 7.56 (7.35-7.45); iSTAT Arterial Blood Gas pO2 64 mmHg (80-95); iSTAT Arterial Blood Gas pO2 C 65; iSTAT Carbon Dioxide 37 mmol/L (24-31); iSTAT FiO2 50 %; iSTAT Hematocrit 33 % (37-47); iSTAT Hemoglobin 11.2 g/dl (12.0-16.0); iSTAT Potassium 3.3 mmol/L (3.3-5.0); iSTAT Site Art Line; iSTAT Sodium 138 mmol/L (135-144)
[2021-11-01] MEDS: MIDAZOLAM HCL 125 MG/250 ML BAG IV SCH ×3 (05:39→09:52)
[2021-11-01 05:58] LABS: Hematocrit (blood only) 32.7 % (37-47); Hemoglobin 10.2 g/dL (12.0-16.0); Mean Corpuscular Hemoglobin 27.4 pg (25-34); Mean Corpuscular Hgb Conc 31.2 g/dL (32-36); Mean Corpuscular Volume 87.9 fL (80-100); Mean Platelet Volume 10.5 fL (7.4-10.4); Nucleated RBC # (auto) 0.13 K/uL (0-0); Platelet Count 231 K/uL (130-400); RDW Coefficient of Variation 16.2 % (11.5-14.5); RDW Standard Deviation 48.6 fL (36.4-46.3); Red Blood Count 3.72 M/uL (4.2-5.4); White Blood Count 12.67 K/uL (4.8-10.8)
[2021-11-01] MEDS: FUROSEMIDE 100 MG in DEXTROSE 5% 90 ML IV SCH ×3 (06:03→23:06)
[2021-11-01 06:13] LABS: Partial Thromboplastin Ratio 1.5; Partial Thromboplastin Time 39.1 Seconds (21.0-31.0)
[2021-11-01] MEDS: HEPARIN SODIUM/DEXTROSE 25,000 UNITS/500 ML BAG IV SCH ×7 (06:30→17:48)
[2021-11-01 06:31] LABS: BUN Creatinine Ratio 38.9 (10-20); Calcium 7.6 mg/dl (8.5-10.1); Creatinine Clr Calc Pharmacy 194.7 ml/min; Est GFR (African American) 139.3 ml/min; Est GFR (Non-African American) 120.2 ml/min; Magnesium 1.7 mg/dl (1.8-2.4); Phosphorus 2.9 mg/dl (2.5-4.9); Potassium 2.6 mmol/L (3.5-5.1)
[2021-11-01] MEDS: ICU ELECTROLYTE REPLACEMENT PROTOCOL SCH ×2 (06:46→18:38)
[2021-11-01 06:48] LABS: ALC (manual) 1.42 K/uL (1.2-3.4); ANC (manual) 10.38 K/uL (1.4-6.5); Eosinophils # (manual) 0.33 K/uL (0-0.5); Eosinophils % (manual) 2.6 %; Lymphocytes # (manual) 1.42 K/uL (1.2-3.4); Lymphocytes % (manual) 11.2 %; Metamyelocytes # (manual) 0.11 K/uL (0-0); Metamyelocytes % (manual) 0.9 %; Monocytes # (manual) 0.43 K/uL (0.11-0.59); Monocytes % (manual) 3.4 %; Neutrophils # (manual) 10.38 K/uL (1.4-6.5); Neutrophils % (manual) 81.9 %; Polychromasia 1+
[2021-11-01] MEDS: dexAMETHasone 6 MG in SYRINGE 0 ML IV SCH (08:31)
[2021-11-01] MEDS: POTASSIUM CHLORIDE / WTR 20 MEQ/100 ML PLCT IV SCH ×4 (08:32→16:06)
[2021-11-01] MEDS: SENNOSIDES 8.8 MG/5 ML UDC PO SCH ×2 (08:32→20:11)
[2021-11-01] MEDS: POLYETHYLENE (MIRALAX) 17 GM PACK PO SCH (08:33)
[2021-11-01] MEDS: DOCUSATE SODIUM SYRUP 100 MG/10 ML UDC PO SCH ×2 (08:33→20:11)
[2021-11-01] MEDS: MAGNESIUM SULFATE / D5W 1 GM/100 ML BAG IV SCH ×4 (08:37→16:07)
[2021-11-01] MEDS: FAMOTIDINE 20 MG in SYRINGE 3 ML IV SCH ×2 (08:38→20:40)
--- NOTE | 2021-11-01 09:42 | XRay Report ---
XR chest 1V portable HISTORY: resp failure COMPARISON: Chest 10/31/2021. FINDINGS: Endotracheal tube terminates 4.1 cm from the baldemar. Nasogastric tube terminates below the diaphragm. A right jugular central venous catheter terminates at the distal SVC. No pneumothorax. No pleural effusions. The heart remains mildly enlarged. Bilateral patchy airspace opacities have slight ly improved in the interval. IMPRESSION: 1. Satisfactory support line placement. 2. Slight improved aeration within the bilateral airspace opacities. ACT 112: Negative or not required by law. Electronically signed by: Michele Larkin M.D. 11/01/2021 9:40 AM
[2021-11-01] MEDS ORDERED: METHYLNALTREXONE BROMIDE 12 MG/0.6 ML VIAL SQ SCH (10:00)
[2021-11-01] MEDS: ARTIFICIAL TEARS OP OINT 3.5 GM TUBE OP SCH (10:14)
[2021-11-01] MEDS: propofoL 1,000 MG/100 ML VIAL IV SCH ×2 (10:14→10:15)
[2021-11-01] MEDS: cefTRIAXone SODIUM 2,000 MG in DEXTROSE 5% 50 ML IV SCH (11:18)
[2021-11-01] MEDS: PEPTAMEN INTENSE VHP 1.0 CAL 1,000 ML BAG GT SCH (11:19)
[2021-11-01 12:52] LABS: Partial Thromboplastin Ratio 1.8
[2021-11-01 12:53] LABS: Partial Thromboplastin Time 46.1 Seconds (21.0-31.0)
--- NOTE | 2021-11-01 17:10 | Critical Care Progress Note ---
Date of Service November 01, 2021 Assessment & Plan (1) Multifocal pneumonia: (2) Pneumonia due to 2019-nCoV: (3) Acute respiratory failure with hypoxia: (4) Acute hypokalemia: (5) ARDS (adult respiratory distress syndrome): Plan: Impression: 41-year-old unvaccinated female now with severe Covid. She failed high flow and noninvasive positive pressure ventilation and was intubated 10/25/2021. CT angiogram at that time also demonstrated small subsegmental PEs and the patient was initiated on anticoagulation. Recommendations: 1. Neurologic: Propofol weaned off due to hypertriglyceridemia. Continues on Versed and fentanyl. Wean as tolerated to lowest effective dose to maintain RASS of -2. Oxycodone 15 mg every 6 hours ordered to help offset continuous infusions. Neuromuscular blockade weaned off 10/30/2021. 2. Cardiovascular: Acute PE: Continue heparin infusion. Lactate normal. proBNP was low, but likely falsely low due to obesity. 3. Pulmonary: Severe ARDS secondary to Covid pneumonitis. Continue lung protective ventilation strategy. High PEEP ARDs strategy as tolerated. Continue Decadron for a total of 10 days. Currently on 6 mg daily. Suspect that fluid overload is playing a significant role as she has 9.3 L positive. Continue strict I&Os. Catheter in place. Right sided infiltrates worsening. Bronch performed 10/31/2021 with mucous plug noted in right mainstem. BAL cultures obtained from [facility]. Will initiated metaneb with albuterol TID. 4. Renal/electrolytes: Renal function stable. Lasix drip initiated 10/31/2021 at 10 mg/h. Diuril given as well. Follow serial BMP. Potassium 2.6 this morning. Patient received 80 mEq replacement this morning. Magnesium 1.7 this morning. Patient received 4 g replacement this morning. Continue to replete via ICU electrolyte replacement protocol. Check repeat labs this afternoon. 5. GI: Continue tube feeds. Continue H2 primo. 6. ID: Coag negative staph growing from the sputum culture on 10/26/2021. Continue Rocephin for total of 7 days. Procalcitonin from 10/30/2021 negative. Bronch cultures obtained 10/31/2021 from [facility] with light normal claudette. 7. Heme-onc: Mild anemia without evidence of acute active ongoing bleeding. Continue to follow. Continue heparin drip. 8. Endocrine: Glycemic control per protocol CRITICAL CARE TIME - I have personally spent 35 minutes of critical care time in the direct management of this patient. This is a life/limb threatening event. This includes time spent evaluating patient, direct bedside care, chart review, placing orders, interpretation of diagnostic studies, discussion with consultants, patient, and family members, as well as other required patient management activities. This time is exclusive of all separately billable procedures, and teaching time and separate from and in addition to any other critical care service time. Discussed with Dr. Caldera. Patient continues to require critical care services as she is on mechanical ventilation and with significant electrolyte imbalance. Admission and Anticipated Discharge Date Admission Date: October 25, 2021 Subjective Attending: Dr. Caldera Patient continues on mechanical ventilation with a 7-1/2 Tunisian endotracheal tube. From settings currently AC 350, 20, 14, 50%. She is currently supine. Levophed has been weaned off as of 10/31/2021. She does have some crackles at bilateral bases. No bowel movement since 10/25/2021. She continues on fentanyl and midazolam for sedation. Review of Systems Review of Systems: Unobtainable due to endotracheal tube Physical Exam Physical Exam: GENERAL : No acute distress EYES: No icterus, gaze conjugate NOSE: No evidence of epistaxis MOUTH: No lesions or candidiasis. 7.5 [place]isian endotrache[address] tube in place and secure. Orogastric tube in place and secure. NECK: Supple LUNGS: Fine rales at the bases. No bronchospasm. Breathing appears to be synchronous with ventilator. HEART: Regular, rate controlled in the 70s ABDOMEN: Soft, NT, ND, BS Present EXTREMITIES: No LE edema, pedal pulses intact NEURO: Patient is no longer on neuromuscular blockade. Continue sedation was fentanyl and midazolam. Results & Data Results & Data ([facility]) Vital Signs (Past 12 Hours) Vital Signs Temp Pulse Resp BP Pulse Ox 11/01/21 15:10 72 29 H 93 11/01/21 13:00 37.1 C 11/01/21 11:30 84 29 H 93 11/01/21 10:28 71 11/01/21 10:00 73 28 H 113/57 L 93 11/01/21 09:00 87 25 H 122/66 93 11/01/21 08:00 37.7 C H 77 28 H 112/67 93 11/01/21 07:20 81 29 H 93 11/01/21 07:00 71 28 H 113/62 94 11/01/21 06:00 80 27 H 91 Laboratory Results 11/01/21 05:35 11/01/21 05:35 10/24/21 10/24/21 10/25/21 19:33 21:50 21:00 POC pCO2 39 45 71 H POC pO2 50 L 62 L 102 H 10/25/21 10/26/21 10/27/21 23:55 03:51 04:33 POC pCO2 60 H 53 H 51 H POC pO2 70 L 62 L 56 L 10/28/21 10/29/21 10/30/21 03:03 03:47 00:59 POC pCO2 48 H 40 43 POC pO2 44 L 80 118 H 10/30/21 10/31/21 11/01/21 04:21 03:16 03:43 POC pCO2 39 44 41 POC pO2 75 L 64 L 64 L Diagnostic Findings Chest X-Ray 11/01/21 07:00 XR chest 1V portable HISTORY: resp failure COMPARISON: Chest 10/31/2021. FINDINGS: Endotracheal tube terminates 4.1 cm from the baldemar. Nasogastric tube terminates below the diaphragm. A right jugular central venous catheter terminates at the distal SVC. No pneumothorax. No pleural effusions. The heart remains mildly enlarged. Bilateral patchy airspace opacities have slightly improved in the interval. IMPRESSION: 1. Satisfactory support line placement. 2. Slight improved aeration within the bilateral airspace opacities. ACT 112: Negative or not required by law. Electronically signed by: Michele Larkin M.D. 11/01/2021 9:40 AM Coding Level of Care Code 87290 Subseq Hosp Care Lvl 2 Diagnoses Multifocal pneumonia J18.9 Pneumonia due to 2019-nCoV U07.1; J12.82 Acute respiratory failure with hypoxia J96.01 Acute hypokalemia E87.6 ARDS (adult respiratory distress syndrome) J80 Time Spent (min) 35
[2021-11-01 18:19] LABS: BUN Creatinine Ratio 34.1 (10-20); Calcium 8.3 mg/dl (8.5-10.1); Est GFR (African American) 135.7 ml/min; Est GFR (Non-African American) 117.1 ml/min; Potassium 3.9 mmol/L (3.5-5.1)
[2021-11-01] MEDS: POTASSIUM CHLORIDE 20 MEQ/15 ML UDC NG SCH ×2 (19:19→23:08)
--- NOTE | 2021-11-01 20:12 | Hospitalist Progress Note ---
Date of Service November 01, 2021 Assessment & Plan (1) Acute respiratory failure with hypoxia: Plan: #. ARF Secondary to severe COVID-19 pneumonia #. ARDS #. Right-sided pulmonary emboli Was on BIPAP and then HFNC on admission Was started on dexamethasone Got tocilizumab Respiratory status worsened Was found to have Right PE on CT PE Was intubated on 10/25/21 --> continues to be intubated and mechanically ventilated Continue ventilatory management per ICU protocol On midazolam currently Continue dexamethasone On heparin drip and Lasix drip per ICU Continue ceftriaxone to complete treatment Currently on Lasix drip as patient is net positive fluid since admission. Diuresing well. Monitor potassium with diuresis and replete per ICU protocol Morbid obesity HbA1c 6 Glycemic management per protocol Continue tubefeeding Full code Admission and Anticipated Discharge Date Admission Date: October 25, 2021 Subjective Patient seen and examined at the bedside. Patient continues to be on mechanical ventilation, on tube feeding, on midazolam drip, on Lasix drip, on heparin drip. No bowel movement since 10/25/2021. ROS not obtainable. Physical Exam Physical Exam: GENERAL: Obese, sedated and mechanically ventilated. HEENT: No pallor, no icterus. Pupils equal, round and reactive to light. Oral mucosa moist. NECK: No JVD, no neck masses. HEART: S1 and S2 heard. Regular rate and rhythm. No murmur, no gallop. RESPIRATORY SYSTEM: Normal AP diameter. No accessory muscle use. No wheezing, bilateral diffuse crackles especially at bases. ABDOMEN: Soft, bowel sounds present, nontender, no distention. CENTRAL NERVOUS SYSTEM: N/A EXTREMITIES: Trace edema, no erythema seen. Urinary catheter in situ with yellow urine collection Results & Data Results & Data ([facility]) Vital Signs (Past 12 Hours) Vital Signs Temp Pulse Resp BP Pulse Ox 11/01/21 18:02 70 28 H 91 11/01/21 18:00 69 23 108/60 94 11/01/21 17:00 37.3 C 87 24 116/74 96 11/01/21 16:00 68 30 H 115/67 95 11/01/21 15:10 72 29 H 93 11/01/21 15:00 71 7 L 114/62 96 11/01/21 14:00 69 28 H 115/67 95 11/01/21 13:00 37.1 C 73 28 H 107/63 96 11/01/21 12:00 78 28 H 119/67 95 11/01/21 11:30 84 29 H 93 11/01/21 11:00 71 28 H 108/64 92 11/01/21 10:28 71 11/01/21 10:00 73 28 H 113/57 L 93 11/01/21 09:00 87 25 H 122/66 93
[2021-11-01] MEDS: NOREPINEPHRINE/D5W 8 MG/508 ML BAG IV SCH (21:41)
[2021-11-01] MEDS: CISATRACURIUM BESYLATE 40 MG in 0.9 % SODIUM CHLORIDE 80 ML IV SCH (21:41)
[2021-11-02] MEDS: CISATRACURIUM BESYLATE 40 MG in 0.9 % SODIUM CHLORIDE 80 ML IV SCH ×5 (00:27→00:40)
[2021-11-02] MEDS: TUBE FEEDING WATER FLUSH GT SCH ×6 (03:24→23:26)
[2021-11-02] MEDS: MIDAZOLAM HCL 125 MG/250 ML BAG IV SCH ×2 (03:35→10:40)
[2021-11-02] MEDS: PEPTAMEN INTENSE VHP 1.0 CAL 1,000 ML BAG GT SCH ×2 (03:43→20:24)
[2021-11-02] MEDS: INSULIN ASPART 100 UNITS/ML 3 ML PEN SC SCH ×6 (03:45→23:37)
[2021-11-02 03:59] LABS: iSTAT Art Bld Gas pCO2 Correct 40 mmHg (35-46); iSTAT Art Bld Gas pH Corrected 7.535 (7.35-7.45); iSTAT Arterial Blood Gas HCO3 33 meg/L (19-24); iSTAT Arterial Blood Gas pCO2 40 mmHg (35-46); iSTAT Arterial Blood Gas pH 7.54 (7.35-7.45); iSTAT Arterial Blood Gas pO2 73 mmHg (80-95); iSTAT Arterial Blood Gas pO2 C 73; iSTAT Carbon Dioxide 35 mmol/L (24-31); iSTAT FiO2 40 %; iSTAT Hematocrit 32 % (37-47); iSTAT Hemoglobin 10.9 g/dl (12.0-16.0); iSTAT Potassium 3.2 mmol/L (3.3-5.0); iSTAT Site Art Line; iSTAT Sodium 136 mmol/L (135-144)
[2021-11-02] MEDS: oxyCODONE HCL IR 5 MG TAB (IMMEDIATE RELEASE) PO SCH ×4 (05:31→23:37)
[2021-11-02] MEDS: HEPARIN SODIUM/DEXTROSE 25,000 UNITS/500 ML BAG IV SCH ×2 (05:31→17:52)
[2021-11-02] MEDS: fentaNYL DRIP 1,250 MCG/250 ML BAG IV SCH ×4 (05:48→20:20)
[2021-11-02 05:53] LABS: Basophils # (auto) 0.02 K/uL (0-0.2); Basophils % (auto) 0.2 %; Eosinophils # (auto) 0.14 K/uL (0-0.5); Eosinophils % (auto) 1.3 %; Hematocrit (blood only) 34.5 % (37-47); Hemoglobin 10.7 g/dL (12.0-16.0); Immature Granulocytes # (auto) 0.38 K/uL (0.00-0.02); Immature Granulocytes % (auto) 3.4 %; Lymphocytes # (auto) 1.87 K/uL (1.2-3.4); Lymphocytes % (auto) 16.9 %; Mean Corpuscular Hemoglobin 27.3 pg (25-34); Mean Platelet Volume 10.9 fL (7.4-10.4); Monocytes # (auto) 0.95 K/uL (0.11-0.59); Monocytes % (auto) 8.6 %; Neutrophils # (auto) 7.69 K/uL (1.4-6.5); Neutrophils % (auto) 69.6 %; Nucleated RBC % (auto) 0.9 %; Platelet Count 220 K/uL (130-400); RDW Coefficient of Variation 16.6 % (11.5-14.5); RDW Standard Deviation 50.4 fL (36.4-46.3); Red Blood Count 3.92 M/uL (4.2-5.4); White Blood Count 11.05 K/uL (4.8-10.8)
[2021-11-02 06:11] LABS: Partial Thromboplastin Ratio 1.8
[2021-11-02 06:14] LABS: Partial Thromboplastin Time 47.8 Seconds (21.0-31.0)
[2021-11-02 06:31] LABS: BUN Creatinine Ratio 38.8 (10-20); Calcium 8.9 mg/dl (8.5-10.1); Creatinine Clr Calc Pharmacy 172.4 ml/min; Est GFR (African American) 134.1 ml/min; Est GFR (Non-African American) 115.7 ml/min; Phosphorus 3.4 mg/dl (2.5-4.9); Potassium 2.9 mmol/L (3.5-5.1)
[2021-11-02] MEDS: ICU ELECTROLYTE REPLACEMENT PROTOCOL SCH (06:44)
[2021-11-02] MEDS: POTASSIUM CHLORIDE / WTR 20 MEQ/100 ML PLCT IV SCH ×4 (07:16→14:02)
[2021-11-02] MEDS: DOCUSATE SODIUM SYRUP 100 MG/10 ML UDC PO SCH ×2 (07:16→20:21)
[2021-11-02] MEDS: SENNOSIDES 8.8 MG/5 ML UDC PO SCH ×2 (07:17→20:21)
[2021-11-02] MEDS: POLYETHYLENE (MIRALAX) 17 GM PACK PO SCH (07:17)
[2021-11-02] MEDS: MAGNESIUM SULFATE / D5W 1 GM/100 ML BAG IV SCH ×2 (07:29→09:40)
[2021-11-02] MEDS: dexAMETHasone 6 MG in SYRINGE 0 ML IV SCH (07:30)
[2021-11-02] MEDS: FAMOTIDINE 20 MG in SYRINGE 3 ML IV SCH ×2 (07:31→20:21)
[2021-11-02] MEDS ORDERED: STAT IV Infusion **Titration per Protocol STA (07:56)
--- NOTE | 2021-11-02 08:03 | Critical Care Progress Note ---
Date of Service November 02, 2021 Assessment & Plan (1) Multifocal pneumonia: (2) Pneumonia due to 2019-nCoV: (3) Acute respiratory failure with hypoxia: (4) Acute hypokalemia: (5) ARDS (adult respiratory distress syndrome): Plan: Impression: 41-year-old unvaccinated female now with severe Covid. She failed high flow and noninvasive positive pressure ventilation and was intubated 10/25/2021. CT angiogram at that time also demonstrated small subsegmental PEs and the patient was initiated on anticoagulation. Recommendations: 1. Neurologic: Weaning off Versed and fentanyl this morning. Will initiate Precedex for agitation. 2. Cardiovascular: Acute PE: Continue heparin infusion. Lactate normal. proBNP was low, but likely falsely low due to obesity. 3. Pulmonary: Severe ARDS secondary to Covid pneumonitis. Continue lung protective ventilation strategy. Continue Decadron for a total of 10 days. Currently on 6 mg daily. Right sided infiltrates worsening. Bronch performed 10/31/2021 with mucous plug noted in right mainstem. BAL cultures obtained from L. Will initiated metaneb with albuterol TID. Will attempt SBT today. CXR with clearing of RLL today. 4. Renal/electrolytes: Lasix drip initiated 10/31/2021 at 10 mg/h. Continue potassium replacement while she is on a Lasix drip. She is responding well to Lasix. 5. GI: Continue tube feeds. Continue H2 primo. 6. ID: Coag negative staph growing from the sputum culture on 10/26/2021. Continue Rocephin for total of 7 days. Procalcitonin from 10/30/2021 negative. Bronch cultures obtained 10/31/2021 from [facility] with light normal claudette. 7. Heme-onc: Mild anemia without evidence of acute active ongoing bleeding. Continue to follow. Continue heparin drip. 8. Endocrine: Glycemic control per protocol CRITICAL CARE TIME - I have personally spent 38 minutes of critical care time in the direct management of this patient. This is a life/limb threatening event. This includes time spent evaluating patient, direct bedside care, chart review, placing orders, interpretation of diagnostic studies, discussion with consultants, patient, and family members, as well as other required patient management activities. This time is exclusive of all separately billable procedures, and teaching time and separate from and in addition to any other critical care service time. Admission and Anticipated Discharge Date Admission Date: October 25, 2021 Subjective Patient tolerating a PEEP of 6 and 40% FiO2. Weaning off sedation for sedation vacation. Currently respiratory rates in the low 30s while on spontaneous breathing trial with a pressure of 10/6. Review of Systems Review of Systems: Following simple commands and shakes her head no when asked if she is in pain. Is able to squeeze my hand with her left hand. Physical Exam Physical Exam: GENERAL : No acute distress EYES: No icterus, gaze conjugate NOSE: No evidence of epistaxis MOUTH: No lesions or candidiasis. 7.5 Armenian endotracheal tube in place and secure. Orogastric tube in place and secure. NECK: Supple LUNGS: Fine rales at the bases. No bronchospasm. Breathing appears to be synchronous with ventilator. HEART: Regular, rate and rhythm ABDOMEN: Soft, NT, ND, BS Present EXTREMITIES: No LE edema, pedal pulses intact NEURO: Following simple commands at this present time. Results & Data Results & Data ([facility]) Vital Signs (Past 12 Hours) Vital Signs Temp Pulse Resp BP Pulse Ox 11/02/21 06:00 62 28 H 98/59 L 98 11/02/21 05:00 63 28 H 102/64 97 11/02/21 04:00 36.9 C 66 28 H 120/70 97 11/02/21 03:55 73 28 H 95 11/02/21 03:00 66 28 H 102/59 L 97 11/02/21 02:00 36.9 C 84 28 H 112/60 100 11/02/21 01:00 67 28 H 108/67 97 11/02/21 00:00 68 24 96 11/01/21 23:49 83 30 H 94 11/01/21 23:45 72 25 H 127/82 97 11/01/21 23:30 70 24 96 11/01/21 23:15 78 25 H 117/62 95 11/01/21 23:00 82 23 99 11/01/21 22:53 76 11/01/21 22:45 76 28 H 123/73 92 11/01/21 22:30 70 28 H 93 11/01/21 22:15 70 28 H 127/74 94 11/01/21 22:00 37.0 C 73 25 H 127/74 94 11/01/21 21:00 70 28 H 119/79 93 11/01/21 20:30 80 17 85 L 11/01/21 20:00 68 27 H 122/70 91 Vital signs, labs and imaging reviewed Coding Level of Care Code Critical Care 1st 30-74 mins Diagnoses Multifocal pneumonia J18.9 Pneumonia due to 2019-nCoV U07.1; J12.82 Acute respiratory failure with hypoxia J96.01 Acute hypokalemia E87.6 ARDS (adult respiratory distress syndrome) J80 Time Spent (min) 38
--- NOTE | 2021-11-02 08:16 | XRay Report ---
SINGLE VIEW CHEST CLINICAL HISTORY: Respiratory failure. Covid. FINDINGS: An AP, portable, upright chest radiograph is compared to study dated 11/01/2021. Correlation is made with chest CT dated 10/25/2021. The examination is significantly degraded by portable techni que and patient rotation. An endotracheal tube, an enteric tube, and a right internal jugular central venous catheter are unchanged in position. The cardiomediastinal silhouette is unremarkable. Multifo elvis airspace consolidation is again seen throughout both lungs. No large pleural effusion is identifi ed. No pneumothorax is seen. The bony thorax is grossly intact. IMPRESSION: 1. Stable lines and tubes. 2. Multifocal airspace consolidation is unchanged from yesterday. ACT 112: Negative or not required by law. Electronically signed by: Marcellus Burgess M.D. 11/02/2021 8:14 AM
[2021-11-02] MEDS: DEXMEDETOMIDINE HCL 200 MCG in SODIUM CHLORIDE 0.9% 48 ML IV SCH ×9 (08:41→21:53)
[2021-11-02] MEDS: FUROSEMIDE 100 MG in DEXTROSE 5% 90 ML IV SCH (09:40)
[2021-11-02] MEDS ORDERED: LACTULOSE SYRUP 20 GM/30 ML UDC PO ONE (10:45)
[2021-11-02] MEDS: MIDAZOLAM BOLUS FROM BAG IV PRN ×2 (11:05→19:15)
[2021-11-02] MEDS: cefTRIAXone SODIUM 2,000 MG in DEXTROSE 5% 50 ML IV SCH (11:44)
[2021-11-02] MEDS: IPRATROPIUM BROMIDE NEB SOLN 0.02% 2.5 ML VIAL INH PRN ×2 (12:31→19:58)
[2021-11-02] MEDS: LEVALBUTEROL 1.25MG/0.5ML NEB INH PRN ×2 (12:31→19:59)
[2021-11-02] MEDS: DEXMEDETOMIDINE HCL 400 MCG in SODIUM CHLORIDE 0.9% 96 ML IV SCH ×2 (14:02→20:21)
--- NOTE | 2021-11-02 17:24 | Hospitalist Progress Note ---
Date of Service November 02, 2021 Assessment & Plan (1) Acute respiratory failure with hypoxia: Plan: #. ARF Secondary to severe COVID-19 pneumonia #. ARDS 2/2 COVID pneumonitis #. Right-sided pulmonary emboli Was on BIPAP and then HFNC on admission Was started on dexamethasone Got tocilizumab Respiratory status worsened Was found to have Right PE on CT PE Was intubated on 10/25/21 --> continues to be intubated and mechanically ventilated Continue ventilatory management per ICU protocol On midazolam and Precedex currently Continue dexamethasone On heparin drip per ICU Continue ceftriaxone to complete treatment Monitor electrolytes and replete per ICU protocol Morbid obesity HbA1c 6 Glycemic management per protocol Continue tubefeeding Full code Admission and Anticipated Discharge Date Admission Date: October 25, 2021 Subjective Patient was lying in bed, intubated and on mechanical ventilation, was able to nod to simple questions, denied any pain, rest of the ROS were not obtainable due to intubation status. Per RN, patient felt breathing trial today a.m., plan for CPAP trial tomorrow a.m. as well. Tube feeding has been resumed. Lasix drip has been stopped today. Patient on midazolam and Precedex for sedation. Physical Exam Physical Exam: GENERAL: Obese, intubated and mechanically ventilated. HEENT: No pallor, no icterus. Pupils equal, round and reactive to light. Oral mucosa moist. NECK: No JVD, no neck masses. HEART: S1 and S2 heard. Regular rate and rhythm. No murmur, no gallop. RESPIRATORY SYSTEM: Normal AP diameter. No accessory muscle use. No wheezing, bilateral diffuse crackles improving ABDOMEN: Soft, bowel sounds present, nontender, no distention. CENTRAL NERVOUS SYSTEM: N/A EXTREMITIES: Trace edema, no erythema seen. Urinary catheter in situ with yellow urine collection Results & Data Results & Data ([facility]) Vital Signs (Past 12 Hours) Vital Signs Temp Pulse Pulse Resp BP Pulse Ox 11/02/21 16:35 18 11/02/21 16:05 63 26 H 91 11/02/21 15:00 59 L 24 122/70 92 11/02/21 14:00 62 27 H 122/69 92 11/02/21 13:00 61 24 109/70 92 11/02/21 12:31 65 29 H 95 11/02/21 12:00 37.1 C 64 19 114/69 96 12/02/21 11:48 18 11/02/21 11:00 63 23 110/65 91 11/02/21 10:40 75 28 H 89 L 11/02/21 10:00 66 27 H 129/84 90 11/02/21 09:25 35 H 11/02/21 09:00 86 39 H 119/68 88 L 11/02/21 08:10 77 30 H 90 11/02/21 08:00 37.1 C 79 28 H 118/68 92 11/02/21 07:00 65 30 H 100/62 96 11/02/21 06:45 64 28 H 96 11/02/21 06:00 62 28 H 98/59 L 98
[2021-11-02 19:06] LABS: BUN Creatinine Ratio 36.1 (10-20); Calcium 9.2 mg/dl (8.5-10.1); Creatinine Clr Calc Pharmacy 166.3 ml/min; Est GFR (African American) 132.5 ml/min; Est GFR (Non-African American) 114.3 ml/min; Potassium 4.5 mmol/L (3.5-5.1)
[2021-11-02] MEDS: FUROSEMIDE 40 MG/4 ML VIAL IV SCH (20:21)
[2021-11-02] MEDS: LACTULOSE SYRUP 20 GM/30 ML UDC PO SCH (20:21)
[2021-11-03] MEDS: DEXMEDETOMIDINE HCL 400 MCG in SODIUM CHLORIDE 0.9% 96 ML IV SCH ×7 (00:31→22:11)
[2021-11-03] MEDS: TUBE FEEDING WATER FLUSH GT SCH ×6 (02:54→22:13)
[2021-11-03 03:33] LABS: iSTAT Art Bld Gas pCO2 Correct 45 mmHg (35-46); iSTAT Art Bld Gas pH Corrected 7.471 (7.35-7.45); iSTAT Arterial Blood Gas HCO3 33 meg/L (19-24); iSTAT Arterial Blood Gas pCO2 45 mmHg (35-46); iSTAT Arterial Blood Gas pH 7.47 (7.35-7.45); iSTAT Arterial Blood Gas pO2 73 mmHg (80-95); iSTAT Arterial Blood Gas pO2 C 72; iSTAT Carbon Dioxide 34 mmol/L (24-31); iSTAT FiO2 70 %; iSTAT Hematocrit 36 % (37-47); iSTAT Hemoglobin 12.2 g/dl (12.0-16.0); iSTAT Potassium 3.2 mmol/L (3.3-5.0); iSTAT Site Art Line; iSTAT Sodium 136 mmol/L (135-144)
[2021-11-03] MEDS: INSULIN ASPART 100 UNITS/ML 3 ML PEN SC SCH ×5 (04:03→20:07)
[2021-11-03] MEDS: HEPARIN SODIUM/DEXTROSE 25,000 UNITS/500 ML BAG IV SCH ×4 (04:05→17:42)
[2021-11-03 04:35] LABS: Partial Thromboplastin Time 51.3 Seconds (21.0-31.0)
[2021-11-03 04:57] LABS: Basophils # (auto) 0.03 K/uL (0-0.2); Basophils % (auto) 0.3 %; Eosinophils # (auto) 0.12 K/uL (0-0.5); Eosinophils % (auto) 1.1 %; Hematocrit (blood only) 37.7 % (37-47); Hemoglobin 11.7 g/dL (12.0-16.0); Immature Granulocytes # (auto) 0.22 K/uL (0.00-0.02); Immature Granulocytes % (auto) 1.9 %; Lymphocytes # (auto) 2.05 K/uL (1.2-3.4); Mean Corpuscular Hemoglobin 27.3 pg (25-34); Mean Corpuscular Volume 88.1 fL (80-100); Mean Platelet Volume 11.5 fL (7.4-10.4); Monocytes # (auto) 1.51 K/uL (0.11-0.59); Monocytes % (auto) 13.3 %; Neutrophils # (auto) 7.43 K/uL (1.4-6.5); Neutrophils % (auto) 65.4 %; Nucleated RBC # (auto) 0.08 K/uL (0-0); Nucleated RBC % (auto) 0.7 %; Platelet Count 260 K/uL (130-400); RDW Coefficient of Variation 16.2 % (11.5-14.5); RDW Standard Deviation 49.8 fL (36.4-46.3); Red Blood Count 4.28 M/uL (4.2-5.4); White Blood Count 11.36 K/uL (4.8-10.8)
[2021-11-03] MEDS: oxyCODONE HCL IR 5 MG TAB (IMMEDIATE RELEASE) PO SCH ×3 (05:06→17:42)
[2021-11-03 05:09] LABS: BUN Creatinine Ratio 39.5 (10-20); Calcium 9.6 mg/dl (8.5-10.1); Creatinine Clr Calc Pharmacy 160.7 ml/min; Est GFR (Non-African American) 113.1 ml/min; Magnesium 2.2 mg/dl (1.8-2.4); Phosphorus 3.9 mg/dl (2.5-4.9); Potassium 3.6 mmol/L (3.5-5.1)
[2021-11-03] MEDS: ICU ELECTROLYTE REPLACEMENT PROTOCOL SCH ×2 (06:36→18:35)
[2021-11-03] MEDS: POTASSIUM CHLORIDE 20 MEQ/15 ML UDC NG SCH ×2 (06:45→10:50)
--- NOTE | 2021-11-03 07:40 | XRay Report ---
XR chest 1V portable CLINICAL HISTORY: Resp failure. Follow-up airspace opacities COMPARISON STUDY: 11/02/2021 TECHNIQUE: 1 view of the chest FINDINGS: Single frontal view of the chest demonstrates the cardiomediastinal silhouette to be within normal li mits. Tubes and catheters are unchanged. Compared to previous examination, there has been interval in crease in alveolar opacities involving the right hemithorax when compared to the left. There is suspi cion of pleural fluid layering along the right posterior gutter. There is also minimal blunting of th e left costophrenic angle. There is no evidence for vascular congestion. There is no acute osseous pa thology. IMPRESSION: Interval worsening of alveolar opacities involving the right hemithorax. There is also padron spicion of bilateral pleural effusions, right greater than left. ACT 112: Negative or not required by law. Electronically signed by: Vineet Latham M.D. 11/03/2021 7:39 AM
[2021-11-03] MEDS: FAMOTIDINE 20 MG in SYRINGE 3 ML IV SCH ×2 (08:07→22:13)
[2021-11-03] MEDS: DOCUSATE SODIUM SYRUP 100 MG/10 ML UDC PO SCH ×2 (08:08→22:12)
[2021-11-03] MEDS: FUROSEMIDE 40 MG/4 ML VIAL IV SCH ×2 (08:09→22:11)
[2021-11-03] MEDS: LACTULOSE SYRUP 20 GM/30 ML UDC PO SCH (08:18)
[2021-11-03] MEDS: MIDAZOLAM BOLUS FROM BAG IV PRN ×3 (08:19→16:00)
[2021-11-03] MEDS: LEVALBUTEROL 1.25MG/0.5ML NEB INH PRN ×2 (08:29→12:06)
[2021-11-03] MEDS: IPRATROPIUM BROMIDE NEB SOLN 0.02% 2.5 ML VIAL INH PRN ×2 (08:30→12:07)
[2021-11-03] MEDS ORDERED: dexAMETHasone 4 MG in SYRINGE 0 ML IV ONE (09:00)
[2021-11-03] MEDS: MIDAZOLAM HCL 125 MG/250 ML BAG IV SCH ×2 (09:00→18:52)
[2021-11-03] MEDS: POLYETHYLENE (MIRALAX) 17 GM PACK PO SCH (09:04)
[2021-11-03] MEDS: SENNOSIDES 8.8 MG/5 ML UDC PO SCH ×2 (09:04→22:11)
[2021-11-03] MEDS ORDERED: POLYETHYLENE (MIRALAX) 17 GM PACK PO PRN (10:24)
[2021-11-03] MEDS: acetaZOLAMIDE 250 MG in SYRINGE 0 ML IV SCH ×2 (10:50→22:11)
[2021-11-03] MEDS: cefTRIAXone SODIUM 2,000 MG in DEXTROSE 5% 50 ML IV SCH (10:53)
--- NOTE | 2021-11-03 10:54 | Procedure Note ---
Procedure Note Date of Service November 03, 2021 Note Bronchoscopy performed this morning due to worsening infiltrates in the right lung and hypoxemia. Patient was preoxygenated with 100% oxygen. She was on continuous fentanyl and Versed infusions. She was given boluses of Versed and fentanyl during the procedure. Please see the records from the nurse. Timeout was performed prior to the procedure. Consent is signed and on the chart with the patient's family. The scope was inserted via the endotracheal tube. Bilateral tracheobronchial tree inspection was seen. Minimal secretions noted. Areas of bloody secretions noted in the right lower lobe. It should be noted that the patient is currently on heparin, but this was paused prior to the procedure. No mya active bleeding was seen. These areas of secretions were suctioned clear. The scope was removed and the patient was ventilated. Patient tolerated the procedure well. Coding CPT Codes Pulmonary/Thoracic - Pulmonary and Thoracic: 71023 Bronchoscopy, clear airways ([id number]) [facility] [place], [place] Procedure Codes (Charges) Pulmonary/Thoracic Procedure 1: Pulmonary and Thoracic: 91721 Bronchoscopy, clear airways
--- NOTE | 2021-11-03 11:00 | Critical Care Progress Note ---
Date of Service November 03, 2021 Assessment & Plan (1) Multifocal pneumonia: (2) Pneumonia due to 2019-nCoV: (3) Acute respiratory failure with hypoxia: (4) Acute hypokalemia: (5) ARDS (adult respiratory distress syndrome): Plan: Impression: 41-year-old unvaccinated female now with severe Covid. She failed high flow and noninvasive positive pressure ventilation and was intubated 10/25/2021. CT angiogram at that time also demonstrated small subsegmental PEs and the patient was initiated on anticoagulation. Recommendations: 1. Neurologic: Continue to wean sedation as able. Goal RASS of -1-2. 2. Cardiovascular: Acute PE: Continue heparin infusion. Lactate normal. proBNP was low, but likely falsely low due to obesity. 3. Pulmonary: Severe ARDS secondary to Covid pneumonitis. Continue lung protective ventilation strategy. Weaning Decadron off. Bronch performed 10/31/2021 and 11/03/2021. BAL cultures obtained from [facility] negative. Cytology negative for fungal elements. Continue daily spontaneous breathing trials if FiO2 is below 50% and PEEP below 8. Minimal bleeding noted on bronchoscopy. Possible scope trauma. Hemoglobin stable. Doubt diffuse alveolar hemorrhage. 4. Renal/electrolytes: Continue diuresis with Lasix 40 mg twice daily. Initiated Diamox due to contraction alkalosis. Significant diuresis has occurred over the past 3 days. Input and output has improved and she is now 2 L positive since admission. We will continue to aim for a negative balance. 5. GI: Continue tube feeds. Continue H2 primo. 6. ID: Coag negative staph growing from the sputum culture on 10/26/2021. C ontinue Rocephin for total of 7 days. Procalcitonin from 10/30/2021 negative. Bronch cultures obtained 10/31/2021 from [facility] with light normal claudette. 7. Heme-onc: Mild anemia without evidence of acute active ongoing bleeding. Continue to follow. Holding heparin drip due to old blood noted in the right lower lobe. Will restart the heparin drip at 4 PM. 8. Endocrine: Glycemic control per protocol CRITICAL CARE TIME - I have personally spent 35 minutes of critical care time in the direct management of this patient. This is a life/limb threatening event. This includes time spent evaluating patient, direct bedside care, chart review, placing orders, interpretation of diagnostic studies, discussion with consultants, patient, and family members, as well as other required patient management activities. This time is exclusive of all separately billable procedures, and teaching time and separate from and in addition to any other critical care service time. Admission and Anticipated Discharge Date Admission Date: October 25, 2021 Subjective Patient with increasing oxygen demands. She does follow simple commands on low doses of continuous sedation with fentanyl and Versed. Review of Systems Review of Systems: Unobtainable due to endotracheal tube Physical Exam Physical Exam: GENERAL : No acute distress EYES: No icterus, gaze conjugate NOSE: No evidence of epistaxis MOUTH: No lesions or candidiasis. 7.5 Liberian endotracheal tube in place and secure. Orogastric tube in place and secure. NECK: Supple LUNGS: Fine rales at the bases. No bronchospasm. Breathing appears to be synchronous with ventilator. HEART: Regular, rate and rhythm ABDOMEN: Soft, NT, ND, BS Present EXTREMITIES: No LE edema, pedal pulses intact NEURO: Following simple commands at this present time. Results & Data Results & Data ([facility]) Vital Signs (Past 12 Hours) Vital Signs Temp Pulse Pulse Resp BP Pulse Ox 11/03/21 10:01 107 H 37 H 119/77 91 11/03/21 09:01 64 21 101/69 97 11/03/21 08:00 36.9 C 56 L 61 H 110/80 96 11/03/21 07:45 77 77 38 H 89 L 11/03/21 07:00 96 H 28 H 122/89 89 L 11/03/21 06:30 55 L 26 H 90/61 L 87 L 11/03/21 06:00 54 L 30 H 97/62 L 86 L 11/03/21 05:30 56 L 18 101/64 91 11/03/21 05:01 63 28 H 114/72 96 11/03/21 04:31 84 26 H 149/99 H 95 11/03/21 04:01 58 L 24 91/70 L 100 11/03/21 04:00 36.9 C 11/03/21 03:00 59 L 23 123/74 95 11/03/21 02:30 61 22 114/78 92 11/03/21 02:01 60 23 109/72 94 11/03/21 02:00 60 28 H 93 11/03/21 01:31 73 37 H 90 11/03/21 01:00 55 L 25 H 108/65 93 11/03/21 00:31 57 L 20 117/65 94 11/03/21 00:15 61 18 92 11/03/21 00:01 64 28 H 113/64 91 11/03/21 00:00 36.9 C 68 11/02/21 23:45 95 H 30 H 91 11/02/21 23:31 78 33 H 91 11/02/21 23:15 86 37 H 150/94 H 91 11/02/21 23:09 67 28 H 92 11/02/21 23:00 73 29 H 94 Coding Level of Care Code Critical Care 1st 30-74 mins Diagnoses Multifocal pneumonia J18.9 Pneumonia due to 2019-nCoV U07.1; J12.82 Acute respiratory failure with hypoxia J96.01 Acute hypokalemia E87.6 ARDS (adult respiratory distress syndrome) J80 Time Spent (min) 35
[2021-11-03] MEDS: fentaNYL DRIP 1,250 MCG/250 ML BAG IV SCH ×2 (14:06→18:12)
--- NOTE | 2021-11-03 16:51 | Hospitalist Progress Note ---
Date of Service November 03, 2021 Assessment & Plan (1) Acute respiratory failure with hypoxia: Plan: #. ARF Secondary to severe COVID-19 pneumonia #. ARDS 2/2 COVID pneumonitis #. Right-sided pulmonary emboli Was on BIPAP and then HFNC on admission Was started on dexamethasone Got tocilizumab Respiratory status worsened Was found to have Right PE on CT PE Was intubated on 10/25/21 --> continues to be intubated and mechanically ventilated Status post bronchoscopy 10/31 and 11/03. BAL cultures obtained. Cytology negative for fungal elements. Continue ventilatory management/SBT per ICU protocol On fentanyl, Versed and Precedex currently Continue dexamethasone On heparin drip per ICU Continue ceftriaxone to complete treatment Monitor electrolytes and replete per ICU protocol Morbid obesity HbA1c 6 Glycemic management per protocol Continue tubefeeding Full code Admission and Anticipated Discharge Date Admission Date: October 25, 2021 Subjective Patient was lying in bed, sedated and intubated. Patient not able to open her eyes to her name, coughing at bedside over the vent. Patient requiring increasing oxygen. Heparin has been held for bronchoscopy today a.m. Patient on fentanyl, Versed and Precedex. Patient had 1 bowel movement per RN. Physical Exam Physical Exam: GENERAL: Obese, intubated and mechanically ventilated. HEENT: No pallor, no icterus. Pupils equal, round and reactive to light. Oral mucosa moist. NECK: No JVD, no neck masses. HEART: S1 and S2 heard. Regular rate and rhythm. No murmur, no gallop. RESPIRATORY SYSTEM: Normal AP diameter. No accessory muscle use. No wheezing, bilateral diffuse crackles, coughing over the vent. ABDOMEN: Soft, bowel sounds present, nontender, no distention. CENTRAL NERVOUS SYSTEM: N/A EXTREMITIES: Trace edema, no erythema seen. Urinary catheter in situ with yellow urine collection Results & Data Results & Data ([facility]) Vital Signs (Past 12 Hours) Vital Signs Temp Pulse Pulse Resp BP Pulse Ox 11/03/21 14:00 80 18 123/89 94 11/03/21 13:00 59 L 23 105/60 96 11/03/21 12:07 71 31 H 96 11/03/21 12:00 37.3 C 65 36 H 103/60 97 11/03/21 11:00 87 31 H 112/70 94 11/03/21 10:01 107 H 37 H 119/77 91 11/03/21 09:01 64 21 101/69 97 11/03/21 08:00 36.9 C 56 L 61 H 110/80 96 11/03/21 07:45 77 77 38 H 89 L 11/03/21 07:00 96 H 28 H 122/89 89 L 11/03/21 06:30 55 L 26 H 90/61 L 87 L 11/03/21 06:00 54 L 30 H 97/62 L 86 L 11/03/21 05:30 56 L 18 101/64 91 11/03/21 05:01 63 28 H 114/72 96
--- NOTE | 2021-11-03 17:53 | XRay Report ---
SINGLE VIEW CHEST CLINICAL HISTORY: Hypoxia. Respiratory failure. Covid. FINDINGS: An AP, portable, supine chest radiograph is compared to study performed earlier the same da y 11/03/2021. Correlation is made with chest CT dated 10/25/2021. The examination is significantly deg raded by portable technique and patient rotation. An endotracheal tube, an enteric tube, and a right internal jugular central venous catheter are unchanged in position. The cardiomediastinal silhouette is unremarkable. Multifocal airspace consolidation is again seen throughout both lungs. No large pleu ral effusion is identified. No pneumothorax is seen. The bony thorax is grossly intact. IMPRESSION: 1. Stable lines and tubes. 2. Multifocal airspace consolidation is unchanged from today's earlier examination. ACT 112: Negative or not required by law. Electronically signed by: Marcellus Burgess M.D. 11/03/2021 5:52 PM
[2021-11-03 19:53] LABS: iSTAT Art Bld Gas pCO2 Correct 45 mmHg (35-46); iSTAT Art Bld Gas pH Corrected 7.425 (7.35-7.45); iSTAT Arterial Blood Gas HCO3 30 meg/L (19-24); iSTAT Arterial Blood Gas pCO2 45 mmHg (35-46); iSTAT Arterial Blood Gas pH 7.43 (7.35-7.45); iSTAT Arterial Blood Gas pO2 84 mmHg (80-95); iSTAT Arterial Blood Gas pO2 C 84; iSTAT Carbon Dioxide 31 mmol/L (24-31); iSTAT FiO2 60 %; iSTAT Hematocrit 36 % (37-47); iSTAT Hemoglobin 12.2 g/dl (12.0-16.0); iSTAT Potassium 4.2 mmol/L (3.3-5.0); iSTAT Site Art Line; iSTAT Sodium 137 mmol/L (135-144)
[2021-11-04] MEDS: INSULIN ASPART 100 UNITS/ML 3 ML PEN SC SCH ×6 (00:54→20:31)
[2021-11-04] MEDS: oxyCODONE HCL IR 5 MG TAB (IMMEDIATE RELEASE) PO SCH ×4 (00:54→17:43)
[2021-11-04 03:42] LABS: iSTAT Art Bld Gas pCO2 Correct 45 mmHg (35-46); iSTAT Art Bld Gas pH Corrected 7.406 (7.35-7.45); iSTAT Arterial Blood Gas HCO3 28 meg/L (19-24); iSTAT Arterial Blood Gas pCO2 45 mmHg (35-46); iSTAT Arterial Blood Gas pH 7.41 (7.35-7.45); iSTAT Arterial Blood Gas pO2 80 mmHg (80-95); iSTAT Arterial Blood Gas pO2 C 80; iSTAT Carbon Dioxide 30 mmol/L (24-31); iSTAT FiO2 55 %; iSTAT Hematocrit 36 % (37-47); iSTAT Hemoglobin 12.2 g/dl (12.0-16.0); iSTAT Potassium 3.2 mmol/L (3.3-5.0); iSTAT Site Art Line; iSTAT Sodium 138 mmol/L (135-144)
[2021-11-04] MEDS: DEXMEDETOMIDINE HCL 400 MCG in SODIUM CHLORIDE 0.9% 96 ML IV SCH ×5 (03:57→19:52)
[2021-11-04] MEDS: fentaNYL DRIP 1,250 MCG/250 ML BAG IV SCH ×2 (03:57→15:39)
[2021-11-04] MEDS: TUBE FEEDING WATER FLUSH GT SCH ×5 (03:58→18:20)
[2021-11-04] MEDS: HEPARIN SODIUM/DEXTROSE 25,000 UNITS/500 ML BAG IV SCH ×2 (03:59→14:56)
[2021-11-04 05:55] LABS: Basophils # (auto) 0.03 K/uL (0-0.2); Basophils % (auto) 0.3 %; Eosinophils # (auto) 0.17 K/uL (0-0.5); Eosinophils % (auto) 1.5 %; Hemoglobin 10.4 g/dL (12.0-16.0); Immature Granulocytes # (auto) 0.11 K/uL (0.00-0.02); Lymphocytes # (auto) 1.96 K/uL (1.2-3.4); Lymphocytes % (auto) 17.6 %; Mean Corpuscular Hemoglobin 27.5 pg (25-34); Mean Corpuscular Hgb Conc 30.6 g/dL (32-36); Mean Corpuscular Volume 89.9 fL (80-100); Mean Platelet Volume 11.6 fL (7.4-10.4); Monocytes # (auto) 1.53 K/uL (0.11-0.59); Monocytes % (auto) 13.7 %; Neutrophils # (auto) 7.33 K/uL (1.4-6.5); Neutrophils % (auto) 65.9 %; Platelet Count 237 K/uL (130-400); RDW Coefficient of Variation 16.6 % (11.5-14.5); RDW Standard Deviation 52.5 fL (36.4-46.3); Red Blood Count 3.78 M/uL (4.2-5.4); White Blood Count 11.13 K/uL (4.8-10.8)
[2021-11-04 06:03] LABS: Partial Thromboplastin Ratio 1.5; Partial Thromboplastin Time 40.3 Seconds (21.0-31.0)
[2021-11-04 06:15] LABS: Calcium 9.6 mg/dl (8.5-10.1); Creatinine Clr Calc Pharmacy 146.6 ml/min; Est GFR (African American) 128.2 ml/min; Est GFR (Non-African American) 110.6 ml/min; Magnesium 2.3 mg/dl (1.8-2.4); Potassium 3.4 mmol/L (3.5-5.1)
[2021-11-04 06:40] LABS: Phosphorus 4.7 mg/dl (2.5-4.9)
[2021-11-04] MEDS: ICU ELECTROLYTE REPLACEMENT PROTOCOL SCH ×2 (07:13→17:29)
--- NOTE | 2021-11-04 07:51 | XRay Report ---
XR chest 1V portable CLINICAL HISTORY: Respiratory failure. COMPARISON STUDY: Chest radiograph November 03, 2021 at 5:[address] October 25, 2021. FINDINGS: Tip of endotracheal tube is 4.8 cm above the baldemar. Tip of nasogastric tube is below the l ower aspect of this image but at least within the proximal stomach. Right internal jugular central li ne is in place. There is no pneumothorax. No pleural effusion is noted. Extensive bilateral airspace opacities, greater within the right lung, are unchanged. Cardiomediastinal silhouette is stable. IMPRESSION: 1. Satisfactory positioning of lines and tubes. 2. No change in extensive bilateral airspace opacities. ACT 112: Negative or not required by law. Electronically signed by: Phani Mclain M.D. 11/04/2021 7:50 AM
[2021-11-04] MEDS: FAMOTIDINE 20 MG in SYRINGE 3 ML IV SCH ×2 (08:38→20:35)
[2021-11-04] MEDS: POTASSIUM CHLORIDE 20 MEQ/15 ML UDC NG SCH ×2 (08:38→11:54)
[2021-11-04] MEDS: acetaZOLAMIDE 250 MG in SYRINGE 0 ML IV SCH (08:39)
[2021-11-04] MEDS: SENNOSIDES 8.8 MG/5 ML UDC PO SCH ×2 (08:40→20:33)
[2021-11-04] MEDS: DOCUSATE SODIUM SYRUP 100 MG/10 ML UDC PO SCH ×2 (08:40→20:33)
[2021-11-04] MEDS: FUROSEMIDE 40 MG/4 ML VIAL IV SCH ×2 (08:41→20:33)
--- NOTE | 2021-11-04 08:43 | Critical Care Progress Note ---
Date of Service November 04, 2021 Assessment & Plan (1) Multifocal pneumonia: (2) Pneumonia due to 2019-nCoV: (3) Acute respiratory failure with hypoxia: (4) Acute hypokalemia: (5) ARDS (adult respiratory distress syndrome): Plan: Impression: 41-year-old unvaccinated female now with severe Covid. She failed high flow and noninvasive positive pressure ventilation and was intubated 10/25/2021. CT angiogram at that time also demonstrated small subsegmental PEs and the patient was initiated on anticoagulation. Recommendations: 1. Neurologic: Continue to wean sedation as able. Goal RASS of -1-2. 2. Cardiovascular: Acute PE: Continue heparin infusion. No significant hemodynamic issues. 3. Pulmonary: Severe ARDS secondary to Covid pneumonitis. Continue lung protective ventilation strategy. Weaning Decadron off. Bronch performed 10/31/2021 and 11/03/2021. BAL cultures obtained from [facility] negative. Cytology negative for fungal elements. Continue daily spontaneous breathing trials if FiO2 is below 50% and PEEP below 8. Minimal bleeding noted on bronchoscopy. Possible scope trauma. Hemoglobin stable. Doubt diffuse alveolar hemorrhage. Likely trach saturday or saturday. Right > left infiltrates. 4. Renal/electrolytes: Continue diuresis with Lasix 40 mg twice daily. D/C diamox. We will continue to aim for a negative balance. 5. GI: Continue tube feeds. Continue H2 primo. 6. ID: Coag negative staph growing from the sputum culture on 10/26/2021. Complete Rocephin for total of 7 days. Procalcitonin from 10/30/2021 negative. Bronch cultures obtained 10/31/2021 from [facility] with light normal claudette. 7. Heme-onc: Mild anemia without evidence of acute active ongoing bleeding. Continue to follow. On Heparin due to PEs 8. Endocrine: Glycemic control per protocol CRITICAL CARE TIME - I have personally spent 38 minutes of critical care time in the direct management of this patient. This is a life/limb threatening event. This includes time spent evaluating patient, direct bedside care, chart review, placing orders, interpretation of diagnostic studies, discussion with consultants, patient, and family members, as well as other required patient management activities. This time is exclusive of all separately billable procedures, and teaching time and separate from and in addition to any other critical care service time. Admission and Anticipated Discharge Date Admission Date: October 25, 2021 Subjective Remains sedated and intubated. Currently on SIMV. Review of Systems Review of Systems: Unobtainable due to endotracheal tube Physical Exam Physical Exam: GENERAL : No acute distress EYES: No icterus, gaze conjugate NOSE: No evidence of epistaxis MOUTH: No lesions or candidiasis. 7.5 Amharic endotracheal tube in place and secure. Orogastric tube in place and secure. NECK: Supple LUNGS: Fine rales at the bases. No bronchospasm. Breathing appears to be synchronous with ventilator. HEART: Regular, rate and rhythm ABDOMEN: Soft, NT, ND, BS Present EXTREMITIES: No LE edema, pedal pulses intact NEURO: Following simple commands at this present time. Results & Data Results & Data ([facility]) Vital Signs (Past 12 Hours) Vital Signs Temp Pulse Resp BP Pulse Ox 11/04/21 06:00 74 33 H 122/65 91 11/04/21 05:30 59 L 30 H 104/63 94 11/04/21 05:00 58 L 21 101/63 95 11/04/21 04:30 60 20 99/64 L 94 11/04/21 04:00 37.4 C 60 22 104/63 93 11/04/21 03:45 16 11/04/21 03:30 61 29 H 100/63 95 11/04/21 03:00 56 L 23 102/63 96 11/04/21 02:30 59 L 27 H 97/61 L 95 11/04/21 02:00 37.4 C 61 29 H 98/56 L 91 11/04/21 01:30 62 26 H 100/66 90 11/04/21 01:00 59 L 26 H 96/63 L 93 11/04/21 00:30 62 28 H 100/65 93 11/04/21 00:15 60 28 H 92 11/04/21 00:00 37.4 C 60 24 100/64 93 11/03/21 23:45 60 26 H 92 11/03/21 23:30 59 L 25 H 104/64 93 11/03/21 23:15 60 29 H 92 11/03/21 23:00 61 30 H 110/70 92 11/03/21 22:45 59 L 22 94 11/03/21 22:41 61 28 H 93 11/03/21 22:30 62 29 H 118/81 94 12/03/21 22:15 61 31 H 92 11/03/21 22:00 61 25 H 102/65 92 11/03/21 21:45 59 L 33 H 93 11/03/21 21:30 61 32 H 103/69 93 11/03/21 21:15 60 24 93 11/03/21 21:00 61 31 H 103/65 93 11/03/21 20:45 60 23 93 Coding Level of Care Code Critical Care 1st 30-74 mins Diagnoses Multifocal pneumonia J18.9 Pneumonia due to 2019-nCoV U07.1; J12.82 Acute respiratory failure with hypoxia J96.01 Acute hypokalemia E87.6 ARDS (adult respiratory distress syndrome) J80 Time Spent (min) 38
[2021-11-04] MEDS ORDERED: dexAMETHasone 2 MG in SYRINGE 0 ML IV ONE (09:00)
[2021-11-04] MEDS: cefTRIAXone SODIUM 2,000 MG in DEXTROSE 5% 50 ML IV SCH (11:50)
[2021-11-04 13:54] LABS: Partial Thromboplastin Time 53.2 Seconds (21.0-31.0)
[2021-11-04] MEDS: PEPTAMEN INTENSE VHP 1.0 CAL 1,000 ML BAG GT SCH (14:55)
[2021-11-04] MEDS: MIDAZOLAM HCL 125 MG/250 ML BAG IV SCH (19:52)
--- NOTE | 2021-11-04 19:53 | Hospitalist Progress Note ---
Date of Service November 04, 2021 Assessment & Plan (1) Acute respiratory failure with hypoxia: Plan: #. ARF Secondary to severe COVID-19 pneumonia #. ARDS 2/2 COVID pneumonitis #. Right-sided pulmonary emboli Was on BIPAP and then HFNC on admission Was started on dexamethasone Got tocilizumab Respiratory status worsened Was found to have Right PE on CT PE Was intubated on 10/25/21 --> continues to be intubated and mechanically ventilated Status post bronchoscopy 10/31 and 11/03. BAL cultures obtained. Cytology negative for fungal elements. Continue ventilatory management/SBT per ICU protocol On fentanyl, Versed and Precedex currently Continue dexamethasone On heparin drip per ICU Continue ceftriaxone to complete treatment Monitor electrolytes and replete per ICU protocol Morbid obesity HbA1c 6 Glycemic management per protocol Continue tubefeeding Full code Admission and Anticipated Discharge Date Admission Date: October 25, 2021 Subjective Patient lying in bed, sedated and intubated, ROS not accessible. Patient on tube feed. Physical Exam Physical Exam: GENERAL: Obese, intubated and mechanically ventilated. HEENT: No pallor, no icterus. Pupils equal, round and reactive to light. Oral mucosa dry. NECK: No JVD, no neck masses. HEART: S1 and S2 heard. Regular rate and rhythm. No murmur, no gallop. RESPIRATORY SYSTEM: Normal AP diameter. No accessory muscle use. No wheezing, bilateral diffuse crackles. ABDOMEN: Soft, bowel sounds present, nontender, no distention. CENTRAL NERVOUS SYSTEM: N/A EXTREMITIES: Trace edema, no erythema seen. Urinary catheter in situ with yellow urine collection Results & Data Results & Data ([facility]) Vital Signs (Past 12 Hours) Vital Signs Temp Pulse Resp BP Pulse Ox 11/04/21 17:00 67 30 H 106/69 93 11/04/21 16:30 67 30 H 116/73 93 11/04/21 16:00 37.2 C 68 34 H 114/74 94 11/04/21 15:30 63 31 H 111/69 92 11/04/21 15:00 61 29 H 116/74 93 11/04/21 14:30 64 33 H 111/73 92 11/04/21 14:00 60 28 H 113/69 93 11/04/21 13:30 60 30 H 113/72 91 11/04/21 13:00 60 32 H 116/71 94 12/04/21 12:30 60 29 H 109/69 94 11/04/21 12:00 36.9 C 61 28 H 94 11/04/21 11:30 70 29 H 90 11/04/21 11:00 63 27 H 104/68 90 11/04/21 10:30 70 25 H 90 11/04/21 10:00 60 31 H 112/78 94 11/04/21 09:30 57 L 26 H 95 11/04/21 09:00 57 L 31 H 111/72 96 11/04/21 08:45 57 L 27 H 93 11/04/21 08:30 57 L 28 H 92 11/04/21 08:00 37.4 C 66 29 H 119/75 96
[2021-11-05] MEDS: oxyCODONE HCL IR 5 MG TAB (IMMEDIATE RELEASE) PO SCH ×5 (00:01→23:52)
[2021-11-05] MEDS: HEPARIN SODIUM/DEXTROSE 25,000 UNITS/500 ML BAG IV SCH ×2 (02:25→13:48)
[2021-11-05] MEDS: fentaNYL DRIP 1,250 MCG/250 ML BAG IV SCH ×4 (02:25→23:21)
[2021-11-05] MEDS: DEXMEDETOMIDINE HCL 400 MCG in SODIUM CHLORIDE 0.9% 96 ML IV SCH ×6 (04:06→19:19)
[2021-11-05] MEDS: TUBE FEEDING WATER FLUSH GT SCH ×7 (04:07→23:21)
[2021-11-05] MEDS: PEPTAMEN INTENSE VHP 1.0 CAL 1,000 ML BAG GT SCH ×2 (04:08→23:22)
[2021-11-05] MEDS: INSULIN ASPART 100 UNITS/ML 3 ML PEN SC SCH ×6 (04:09→19:56)
[2021-11-05 05:54] LABS: iSTAT Art Bld Gas pCO2 Correct 43 mmHg (35-46); iSTAT Arterial Blood Gas HCO3 27 meg/L (19-24); iSTAT Arterial Blood Gas pCO2 42 mmHg (35-46); iSTAT Arterial Blood Gas pH 7.41 (7.35-7.45); iSTAT Arterial Blood Gas pO2 70 mmHg (80-95); iSTAT Arterial Blood Gas pO2 C 73; iSTAT Carbon Dioxide 28 mmol/L (24-31); iSTAT FiO2 40 %; iSTAT Hematocrit 37 % (37-47); iSTAT Hemoglobin 12.6 g/dl (12.0-16.0); iSTAT Potassium 3.7 mmol/L (3.3-5.0); iSTAT Site Art Line; iSTAT Sodium 140 mmol/L (135-144)
[2021-11-05 07:11] LABS: Basophils # (auto) 0.06 K/uL (0-0.2); Basophils % (auto) 0.5 %; Eosinophils # (auto) 0.14 K/uL (0-0.5); Eosinophils % (auto) 1.1 %; Hematocrit (blood only) 38.6 % (37-47); Hemoglobin 11.6 g/dL (12.0-16.0); Immature Granulocytes # (auto) 0.11 K/uL (0.00-0.02); Immature Granulocytes % (auto) 0.9 %; Lymphocytes # (auto) 2.54 K/uL (1.2-3.4); Lymphocytes % (auto) 19.9 %; Mean Corpuscular Hemoglobin 27.2 pg (25-34); Mean Corpuscular Hgb Conc 30.1 g/dL (32-36); Mean Corpuscular Volume 90.4 fL (80-100); Mean Platelet Volume 11.5 fL (7.4-10.4); Monocytes # (auto) 1.36 K/uL (0.11-0.59); Monocytes % (auto) 10.6 %; Neutrophils # (auto) 8.57 K/uL (1.4-6.5); Platelet Count 253 K/uL (130-400); RDW Coefficient of Variation 16.7 % (11.5-14.5); RDW Standard Deviation 53.8 fL (36.4-46.3); Red Blood Count 4.27 M/uL (4.2-5.4); White Blood Count 12.78 K/uL (4.8-10.8)
[2021-11-05 07:45] LABS: BUN Creatinine Ratio 43.2 (10-20); Calcium 9.3 mg/dl (8.5-10.1); Creatinine Clr Calc Pharmacy 135.3 ml/min; Est GFR (Non-African American) 107.9 ml/min; Magnesium 2.3 mg/dl (1.8-2.4); Potassium 3.7 mmol/L (3.5-5.1)
[2021-11-05 07:47] LABS: Phosphorus 4.1 mg/dl (2.5-4.9)
--- NOTE | 2021-11-05 09:00 | XRay Report ---
XR chest 1V portable CLINICAL HISTORY: Respiratory failure. COMPARISON STUDY: Chest radiograph November 04, 2021. FINDINGS: Tip of the endotracheal tube is 3.8 cm above the baldemar. Tip of nasogastric tube is below t he lower aspect of this image but at least within the body of the stomach. Right internal jugular jacquie tral line remains in place. There is no pneumothorax. No pleural effusion is identified. Cardiomegaly is unchanged. Extensive bilateral airspace opacities are similar to prior exam. IMPRESSION: 1. Satisfactory positioning of lines and tubes. 2. No significant change in extensive bilateral airspace opacities suggestive of viral pneumonia. ACT 112: Negative or not required by law. Electronically signed by: Phani Mclain M.D. 11/05/2021 8:58 AM
[2021-11-05] MEDS: FUROSEMIDE 40 MG/4 ML VIAL IV SCH ×2 (09:19→21:21)
[2021-11-05] MEDS: DOCUSATE SODIUM SYRUP 100 MG/10 ML UDC PO SCH ×2 (09:19→21:21)
[2021-11-05] MEDS: SENNOSIDES 8.8 MG/5 ML UDC PO SCH ×2 (09:20→21:21)
[2021-11-05] MEDS: FAMOTIDINE 20 MG in SYRINGE 3 ML IV SCH ×2 (09:22→21:26)
[2021-11-05] MEDS: ICU ELECTROLYTE REPLACEMENT PROTOCOL SCH ×2 (09:32→17:38)
--- NOTE | 2021-11-05 11:14 | Critical Care Progress Note ---
Date of Service November 05, 2021 Assessment & Plan (1) Multifocal pneumonia: (2) Pneumonia due to 2019-nCoV: (3) Acute respiratory failure with hypoxia: (4) Acute hypokalemia: (5) ARDS (adult respiratory distress syndrome): Plan: Impression: 41-year-old unvaccinated female now with severe Covid. She failed high flow and noninvasive positive pressure ventilation and was intubated 10/25/2021. CT angiogram at that time also demonstrated small subsegmental PEs and the patient was initiated on anticoagulation. Recommendations: 1. Neurologic: Continue to wean sedation as able. Goal RASS of -1-2. 2. Cardiovascular: Acute PE: Continue heparin infusion. No significant hemodynamic issues. 3. Pulmonary: Severe ARDS secondary to Covid pneumonitis. Continue lung protective ventilation strategy. Weaning Decadron off. Bronch performed 10/31/2021 and 11/03/2021. BAL cultures obtained from L negative. Cytology negative for fungal elements. Continue daily spontaneous breathing trials if FiO2 is below 50% and PEEP below 8. Minimal bleeding noted on bronchoscopy. Possible scope trauma. Hemoglobin stable. Doubt diffuse alveolar hemorrhage. Likely trach saturday or saturday. Right > left infiltrates. 4. Renal/electrolytes: Continue diuresis with Lasix 40 mg twice daily. Chemistries stable. 5. GI: Continue tube feeds. Continue H2 primo. 6. ID: Coag negative staph growing from the sputum culture on 10/26/2021. Completed Rocephin for total of 7 days. Procalcitonin from 10/30/2021 negative. Bronch cultures obtained 10/31/2021 from [facility] with light normal claudette. 7. Heme-onc: Hgb stable Continue to follow. On Heparin due to PEs 8. Endocrine: Glycemic control per protocol CRITICAL CARE TIME - I have personally spent 34 minutes of critical care time in the direct management of this patient. This is a life/limb threatening event. This includes time spent evaluating patient, direct bedside care, chart review, placing orders, interpretation of diagnostic studies, discussion with consultants, patient, and family members, as well as other required patient management activities. This time is exclusive of all separately billable procedures, and teaching time and separate from and in addition to any other critical care service time. Admission and Anticipated Discharge Date Admission Date: October 25, 2021 Subjective Patient continues on low dose sedation and follows commands intermittently. Tolerating pressure support ventilation at this time. No significant events overnight. Review of Systems Review of Systems: All systems reviewed & are unremarkable except as noted in HPI & below Physical Exam Physical Exam: GENERAL : No acute distress EYES: No icterus, gaze conjugate NOSE: No evidence of epistaxis MOUTH: No lesions or candidiasis. 7.5 [place] endotracheal tube in place and secure. Orogastric tube in place and secure. NECK: Supple LUNGS: Fine rales at the bases. No bronchospasm. Breathing appears to be synchronous with ventilator. HEART: Regular, rate and rhythm ABDOMEN: Soft, NT, ND, BS Present EXTREMITIES: No LE edema, pedal pulses intact NEURO: Following simple commands at this present time. Results & Data Results & Data ([facility]) Vital Signs (Past 12 Hours) Vital Signs Temp Pulse Resp BP Pulse Ox 11/05/21 07:30 57 L 26 H 92 11/05/21 06:00 61 26 H 101/59 L 90 11/05/21 05:42 60 30 H 90 11/05/21 05:30 58 L 22 104/64 91 11/05/21 05:00 65 30 H 115/69 11/05/21 04:30 62 32 H 106/65 89 L 11/05/21 04:00 37.7 C H 60 28 H 109/69 89 L 11/05/21 03:30 62 29 H 111/65 90 11/05/21 03:00 62 30 H 106/65 91 11/05/21 02:30 61 29 H 111/71 91 11/05/21 02:00 63 27 H 110/70 93 11/05/21 01:30 62 27 H 114/70 92 11/05/21 01:00 62 30 H 117/66 91 11/05/21 00:50 65 39 H 90 11/05/21 00:30 64 27 H 112/70 89 L 11/05/21 00:00 66 11/04/21 23:30 64 32 H 119/77 93 Coding Level of Care Code Critical Care 1st 30-74 mins Diagnoses Multifocal pneumonia J18.9 Pneumonia due to 2019-nCoV U07.1; J12.82 Acute respiratory failure with hypoxia J96.01 Acute hypokalemia E87.6 ARDS (adult respiratory distress syndrome) J80 Time Spent (min) 34
[2021-11-05] MEDS: MIDAZOLAM HCL 125 MG/250 ML BAG IV SCH (11:46)
[2021-11-05] MEDS ORDERED: POTASSIUM CHLORIDE 20 MEQ/15 ML UDC PO SCH (12:30)
[2021-11-05 14:57] LABS: Partial Thromboplastin Ratio 1.5; Partial Thromboplastin Time 38.4 Seconds (21.0-31.0)
--- NOTE | 2021-11-05 18:21 | Hospitalist Progress Note ---
Date of Service November 05, 2021 Assessment & Plan (1) Acute respiratory failure with hypoxia: Plan: #. ARF Secondary to severe COVID-19 pneumonia #. ARDS 2/2 COVID pneumonitis #. Right-sided pulmonary emboli Was on BIPAP and then HFNC on admission Was started on dexamethasone Got tocilizumab Respiratory status worsened Was found to have Right PE on CT PE Was intubated on 10/25/21 --> continues to be intubated and mechanically ventilated --> plan for track on Saturday or Saturday. Status post bronchoscopy 10/31 and 11/03. BAL cultures negative. Cytology negative for fungal elements. Continue ventilatory management/SBT per ICU protocol On fentanyl, Versed and Precedex currently Continue dexamethasone On heparin drip per ICU Status post 7 days of Rocephin for coagulase-negative staph growing from sputum culture on 10/26. Monitor electrolytes and replete per ICU protocol Morbid obesity HbA1c 6 Glycemic management per protocol Continue tubefeeding Full code Admission and Anticipated Discharge Date Admission Date: October 25, 2021 Subjective Patient on low-dose sedation with pressure support ventilation at bedside exam. Per RN, no acute events overnight. Patient follows very simple commands and can turn head to her name. Patient had a cough at bedside exam. ROS not assessable. Physical Exam Physical Exam: GENERAL: Obese, intubated and mechanically ventilated. HEENT: No pallor, no icterus. Pupils equal, round and reactive to light. Oral mucosa dry. NECK: No JVD, no neck masses. HEART: S1 and S2 heard. Regular rate and rhythm. No murmur, no gallop. RESPIRATORY SYSTEM: Normal AP diameter. No accessory muscle use. No wheezing, bilateral diffuse crackles. ABDOMEN: Soft, bowel sounds present, nontender, no distention. CENTRAL NERVOUS SYSTEM: N/A EXTREMITIES: Trace edema, no erythema seen. Urinary catheter in situ with yellow urine collection Results & Data Results & Data ([facility]) Vital Signs (Past 12 Hours) Vital Signs Pulse Resp BP Pulse Ox 11/05/21 18:00 58 L 26 H 107/69 94 11/05/21 17:30 55 L 25 H 112/70 92 11/05/21 17:00 73 26 H 108/61 95 11/05/21 16:30 55 L 28 H 100/63 94 11/05/21 16:00 58 L 30 H 97/59 L 93 12/05/21 15:00 67 43 H 100/67 88 L 11/05/21 14:00 55 L 33 H 108/60 95 11/05/21 13:00 57 L 21 103/58 L 97 11/05/21 12:00 64 32 H 101/60 89 L 11/05/21 11:00 60 23 108/64 96 11/05/21 10:30 71 32 H 92 11/05/21 10:00 63 27 H 110/68 93 11/05/21 09:00 56 L 23 102/60 90 11/05/21 08:00 56 L 23 101/58 L 94 11/05/21 07:30 57 L 26 H 92 11/05/21 07:00 62 23 91
[2021-11-05] MEDS: DEXMEDETOMIDINE HCL 400 MCG in 0.9 % SODIUM CHLORIDE 96 ML IV SCH ×2 (19:32→23:21)
[2021-11-05 20:53] LABS: Partial Thromboplastin Ratio 2.4
[2021-11-05 20:54] LABS: Partial Thromboplastin Time 62.3 Seconds (21.0-31.0)
[2021-11-06] MEDS: INSULIN ASPART 100 UNITS/ML 3 ML PEN SC SCH ×6 (00:40→20:00)
[2021-11-06] MEDS: HEPARIN SODIUM/DEXTROSE 25,000 UNITS/500 ML BAG IV SCH ×4 (00:41→21:48)
[2021-11-06] MEDS: DEXMEDETOMIDINE HCL 400 MCG in 0.9 % SODIUM CHLORIDE 96 ML IV SCH ×2 (04:38→07:38)
[2021-11-06] MEDS: TUBE FEEDING WATER FLUSH GT SCH ×3 (04:38→10:12)
[2021-11-06] MEDS: MIDAZOLAM HCL 125 MG/250 ML BAG IV SCH (04:43)
[2021-11-06] MEDS: oxyCODONE HCL IR 5 MG TAB (IMMEDIATE RELEASE) PO SCH ×4 (05:42→23:51)
[2021-11-06 06:09] LABS: iSTAT Allen Test Pass; iSTAT Art Bld Gas pCO2 Correct 45 mmHg (35-46); iSTAT Art Bld Gas pH Corrected 7.401 (7.35-7.45); iSTAT Arterial Blood Gas HCO3 28 meg/L (19-24); iSTAT Arterial Blood Gas pCO2 45 mmHg (35-46); iSTAT Arterial Blood Gas pO2 74 mmHg (80-95); iSTAT Arterial Blood Gas pO2 C 74; iSTAT Carbon Dioxide 29 mmol/L (24-31); iSTAT FiO2 40 %; iSTAT Hematocrit 36 % (37-47); iSTAT Hemoglobin 12.2 g/dl (12.0-16.0); iSTAT Potassium 3.3 mmol/L (3.3-5.0); iSTAT Site R Radial; iSTAT Sodium 138 mmol/L (135-144)
[2021-11-06 06:09] LABS: Basophils # (auto) 0.04 K/uL (0-0.2); Basophils % (auto) 0.4 %; Eosinophils # (auto) 0.23 K/uL (0-0.5); Eosinophils % (auto) 2.2 %; Hematocrit (blood only) 37.5 % (37-47); Hemoglobin 11.6 g/dL (12.0-16.0); Immature Granulocytes # (auto) 0.04 K/uL (0.00-0.02); Immature Granulocytes % (auto) 0.4 %; Lymphocytes # (auto) 2.09 K/uL (1.2-3.4); Lymphocytes % (auto) 20.1 %; Mean Corpuscular Hemoglobin 27.9 pg (25-34); Mean Corpuscular Hgb Conc 30.9 g/dL (32-36); Mean Corpuscular Volume 90.1 fL (80-100); Mean Platelet Volume 11.7 fL (7.4-10.4); Monocytes # (auto) 1.05 K/uL (0.11-0.59); Monocytes % (auto) 10.1 %; Neutrophils # (auto) 6.96 K/uL (1.4-6.5); Neutrophils % (auto) 66.8 %; Nucleated RBC # (auto) 0.02 K/uL (0-0); Nucleated RBC % (auto) 0.2 %; Platelet Count 260 K/uL (130-400); RDW Coefficient of Variation 16.9 % (11.5-14.5); RDW Standard Deviation 54.8 fL (36.4-46.3); Red Blood Count 4.16 M/uL (4.2-5.4); White Blood Count 10.41 K/uL (4.8-10.8)
[2021-11-06 06:15] LABS: Partial Thromboplastin Ratio 2.1; Partial Thromboplastin Time 54.8 Seconds (21.0-31.0)
[2021-11-06 06:37] LABS: BUN Creatinine Ratio 52.5 (10-20); Calcium 9.4 mg/dl (8.5-10.1); Creatinine Clr Calc Pharmacy 157.9 ml/min; Est GFR (African American) 131.8 ml/min; Est GFR (Non-African American) 113.7 ml/min; Magnesium 2.3 mg/dl (1.8-2.4); Phosphorus 4.3 mg/dl (2.5-4.9); Potassium 3.5 mmol/L (3.5-5.1)
[2021-11-06] MEDS: ICU ELECTROLYTE REPLACEMENT PROTOCOL SCH ×2 (06:53→18:16)
[2021-11-06] MEDS: POTASSIUM CHLORIDE / WTR 20 MEQ/100 ML PLCT IV SCH ×2 (07:28→10:12)
--- NOTE | 2021-11-06 07:41 | Critical Care Progress Note ---
Date of Service November 06, 2021 Assessment & Plan (1) Multifocal pneumonia: (2) Pneumonia due to 2019-nCoV: (3) Acute respiratory failure with hypoxia: (4) Acute hypokalemia: (5) ARDS (adult respiratory distress syndrome): Plan: Impression: 41-year-old unvaccinated female now with severe Covid. She failed high flow and noninvasive positive pressure ventilation and was intubated 10/25/2021. CT angiogram at that time also demonstrated small subsegmental PEs and the patient was initiated on anticoagulation. 24 Hour events: Has been maintained on pressure support ventilation over the last 24 hours. This morning she is awake and following commands despite being on fentanyl Versed and Precedex. She appears comfortable. Her RSBI on 09/06 is about 50. She is hemodynamically stable has been afebrile Recommendations: 1. Neurologic: Currently maintained on fentanyl Versed and Precedex infusions. We will discontinue fentanyl and Versed and use pushes. Okay to leave on Precedex for now. May consider Seroquel or Zyprexa depending on level of agitation. Continue oral oxycodone. May need to supplement with oral clonazepam. 2. Cardiovascular: Acute PE: Continue heparin infusion. Will need to transition to oral anticoagulation at some point. Anticipate at least 3 months of anticoagulation. No significant hemodynamic issues. Continue attempts at diuresis. Will increase Lasix to 80 twice daily 3. Pulmonary: Severe ARDS secondary to Covid pneumonitis. Continue lung protective ventilation strategy. Weaning Decadron off. Bronch performed 10/31/2021 and 11/03/2021. BAL cultures obtained from RML negative with the exception of Erica which is unlikely to be pathogenic. Her x-ray continues to demonstrate significant right greater than left infiltrates however given her normal settings I would would like to proceed with a trial of extubation if her R SBI remains appropriate on 04/05 prior to proceeding directly to tracheostomy. 4. Renal/electrolytes: Continue diuresis with Lasix 40 mg twice daily. Chemistries stable. 5. GI: Hold tube feeds in anticipation of possible extubation today. Continue H2 primo. 6. ID: Coag negative staph growing from the sputum culture on 10/26/2021. Completed Rocephin for total of 7 days. Procalcitonin from 10/30/2021 negative. Afebrile and white count normal. Candidate from BAL not likely pathogenic 7. Heme-onc: Hgb stable Continue to follow. On Heparin due to PEs 8. Endocrine: Glycemic control per protocol Patient appears significantly improved compared to last week.. Will see if we can liberate her from the mechanical ventilator. CRITICAL CARE TIME - I have personally spent 35 minutes of critical care time in the direct management of this patient. This is a life/limb threatening event. This includes time spent evaluating patient, direct bedside care, chart review, placing orders, interpretation of diagnostic studies, discussion with consultants, patient, and family members, as well as other required patient management activities. This time is exclusive of all separately billable procedures, and teaching time and separate from and in addition to any other critical care service time. Admission and Anticipated Discharge Date Admission Date: October 25, 2021 Subjective intubated and sedated. Review of Systems Review of Systems: Unobtainable due to endotracheal tube Physical Exam Constitutional: + obese; no acute distress Neck: trachea midline, no thyromegaly Respiratory: symmetric chest movement Auscultation: + rales and + wheezes Cardiovascular: RRR, no murmur, no edema Gastrointestinal (Abdomen): normal bowel sounds, soft, nontender, no hepatosplenomegaly Musculoskeletal: Extremities: extremities normal to inspection Skin: no rashes, warm and dry Lymphatic: no cervical lymphadenopathy Results & Data Results & Data ([facility]) Vital Signs (Past 12 Hours) Vital Signs Temp Pulse Resp BP Pulse Ox 11/06/21 06:00 37 C 57 L 22 110/71 90 11/06/21 05:30 59 L 23 110/73 95 11/06/21 05:00 58 L 29 H 106/72 95 11/06/21 04:30 63 25 H 104/72 92 11/06/21 04:00 37 C 56 L 19 94 11/06/21 03:30 58 L 23 105/66 94 11/06/21 03:00 54 L 22 101/59 L 94 11/06/21 02:30 58 L 26 H 102/62 94 11/06/21 02:00 37 C 54 L 14 101/64 93 11/06/21 01:30 56 L 18 100/66 93 11/06/21 01:00 57 L 25 H 102/64 92 11/06/21 00:30 56 L 20 107/70 94 11/06/21 00:00 37 C 55 L 25 H 107/67 95 11/05/21 23:30 54 L 22 120/74 94 11/05/21 23:00 55 L 27 H 102/62 94 11/05/21 22:30 55 L 27 H 101/64 93 11/05/21 22:15 54 L 36 H 94 11/05/21 22:00 37 C 54 L 22 101/62 94 11/05/21 21:30 57 L 28 H 102/64 94 11/05/21 21:00 55 L 23 93 11/05/21 20:50 52 L 35 H 94 11/05/21 20:30 54 L 22 104/66 93 11/05/21 20:00 37 C 58 L 18 100/61 93 Critical Care Results & Data Vital Signs (Past 12 Hours) Vital Signs Temp Pulse Resp BP Pulse Ox 11/06/21 06:00 37 C 57 L 22 110/71 90 11/06/21 05:30 59 L 23 110/73 95 11/06/21 05:00 58 L 29 H 106/72 95 11/06/21 04:30 63 25 H 104/72 92 11/06/21 04:00 37 C 56 L 19 94 11/06/21 03:30 58 L 23 105/66 94 11/06/21 03:00 54 L 22 101/59 L 94 11/06/21 02:30 58 L 26 H 102/62 94 11/06/21 02:00 37 C 54 L 14 101/64 93 11/06/21 01:30 56 L 18 100/66 93 11/06/21 01:00 57 L 25 H 102/64 92 11/06/21 00:30 56 L 20 107/70 94 11/06/21 00:00 37 C 55 L 25 H 107/67 95 11/05/21 23:30 54 L 22 120/74 94 11/05/21 23:00 55 L 27 H 102/62 94 11/05/21 22:30 55 L 27 H 101/64 93 11/05/21 22:15 54 L 36 H 94 11/05/21 22:00 37 C 54 L 22 101/62 94 11/05/21 21:30 57 L 28 H 102/64 94 11/05/21 21:00 55 L 23 93 11/05/21 20:50 52 L 35 H 94 11/05/21 20:30 54 L 22 104/66 93 11/05/21 20:00 37 C 58 L 18 100/61 93 Lab & Micro Results (Past 24 Hours) RBC 4.16 M/uL (4.2-5.4) L 11/06/21 WBC 10.41 K/uL (4.8-10.8) 11/06/21 Hgb 11.6 g/dL (12.0-16.0) L 11/06/21 Hct 37.5 % (37-47) 11/06/21 MCV 90.1 fL (80-100) 11/06/21 MCH 27.9 pg (25-34) 11/06/21 MCHC 30.9 g/dL (32-36) L 11/06/21 RDW Standard Deviation 54.8 fL (36.4-46.3) H 11/06/21 RDW Coefficient of Variation 16.9 % (11.5-14.5) H 11/06/21 Plt Count 260 K/uL (130-400) 11/06/21 MPV 11.7 fL (7.4-10.4) H 11/06/21 Nucleated Red Blood Cells % (auto) 0.2 % 11/06/21 Nucleated RBC Absolute Count (auto) 0.02 K/uL (0-0) H 11/06/21 Neutrophils (%) (Auto) 66.8 % 11/06/21 Lymphocytes (%) (Auto) 20.1 % 11/06/21 Monocytes # (Auto) 1.05 K/uL (0.11-0.59) H 11/06/21 Eosinophils # (Auto) 0.23 K/uL (0-0.5) 11/06/21 Immature Granulocyte % (Auto) 0.4 % 11/06/21 Neutrophils # (Auto) 6.96 K/uL (1.4-6.5) H 11/06/21 Lymphocytes # (Auto) 2.09 K/uL (1.2-3.4) 11/06/21 Monocytes # (Auto) 1.05 K/uL (0.11-0.59) H 11/06/21 Eosinophils # (Auto) 0.23 K/uL (0-0.5) 11/06/21 Basophils # (Auto) 0.04 K/uL (0-0.2) 11/06/21 Immature Granulocyte # (Auto) 0.04 K/uL (0.00-0.02) H 11/06/21 Na 138 mmol/L (136-145) 11/06/21 K 3.5 mmol/L (3.5-5.1) 11/06/21 Cl 103 mmol/L (98-107) 11/06/21 CO2 29 mmol/L (21-32) 11/06/21 Anion Gap 6.0 (3-11) 11/06/21 BUN 30 mg/dl (7-18) H 11/06/21 Creatinine 0.58 mg/dl (0.6-1.2) L 11/06/21 Estimated GFR ( Amer) 131.8 ml/min 11/06/21 Estimated GFR (Non-Af Amer) 113.7 ml/min 11/06/21 BUN/Creatinine Ratio 52.5 (10-20) H 11/06/21 Glu 114 mg/dl (70-99) H 11/06/21 Ca 9.4 mg/dl (8.5-10.1) 11/06/21 Phosphorus Level 4.3 mg/dl (2.5-4.9) 11/06/21 Mg 2.3 mg/dl (1.8-2.4) 11/06/21 05:19 11/06/21 Calcium Level 9.4 mg/dl (8.5-10.1) 11/06/21 05:19 11/06/21 Skip Test Pass 11/06/21 05:53 11/06/21 Microbiology 10/31/21 09:30 Fungal Smear - Final Bronch Wash,Right Middle Lobe Fungal Culture - Preliminary Erica albicans/dubliniensis 10/31/21 09:30 Acid Fast Bacilli Smear - Final Bronch Wash,Right Middle Lobe Acid Fast Bacilli Culture - Preliminary No Acid-Fast Bacilli Isolated - Report 1, Additional Report to Follow. Diagnostic Findings (Past 24 Hours) Chest X-Ray 11/05/21 07:00 XR chest 1V portable CLINICAL HISTORY: Respiratory failure. COMPARISON STUDY: Chest radiograph November 04, 2021. FINDINGS: Tip of the endotracheal tube is 3.8 cm above the baldemar. Tip of nasogastric tube is below the lower aspect of this image but at least within the body of the stomach. Right internal jugular central line remains in place. There is no pneumothorax. No pleural effusion is identified. Cardiomegaly is unchanged. Extensive bilateral airspace opacities are similar to prior exam. IMPRESSION: 1. Satisfactory positioning of lines and tubes. 2. No significant change in extensive bilateral airspace opacities suggestive of viral pneumonia. ACT 112: Negative or not required by law. Electronically signed by: Phani Mclain M.D. 11/05/2021 8:58 AM I & O Totals 24 Hours 11/05/21 11/06/21 11/07/21 06:59 06:59 06:59 Intake Total 4369.516 / 4369.516 4886.774 / 4886.774 Output Total 4751 / 4751 5200 / 5200 Balance -381.484 / -381.484 -313.226 / -313.226 Cumulative 10/24/21 18:55 thru 11/06/21 06:00 Intake Total 21851.184 Output Total 68277 Balance 1640.184 RT Ventilator Mngmt (Last Documented) Ventilator Ordered Settings Ventilator Support Mode CPAP 11/06/21 05:00 Respiratory Rate 22 11/06/21 06:00 Ventilator Tidal Volume 350 11/05/21 07:30 Setting Minute Ventilation 9 11/06/21 05:00 Ventilator Positive Pressure 10 11/06/21 05:00 Support Setting Positive End Expiratory 6 11/06/21 05:00 Pressure Fraction of Inspired Oxygen 30 11/06/21 06:07 Machine Comment HOMERO Haley increased PEEP and FiO2 11/02/21 16:35 to maintain SPO2 > 88% Ventilator - PT Measurements Respiratory Rate 22 Exhaled Tidal Volume 495 Minute Ventilation 9 Peak Inspiratory Airway 18 Pressure Plateau Pressure 20.7 Respiratory Cycle Inspiratory: 1:2.6 Expiratory Ratio Inspiratory Phase Time 0.8 End-Tidal CO2 38 Static Lung Compliance 23.54 Dynamic Lung Compliance 30.75 Normal Static Lung Compliance 47.00 Patient Measurements Comment FiO2 decreased tp 30% per ABG results, patient remains on SBT plan to extubate later this morning Coding Level of Care Code Critical Care 1st 30-74 mins Diagnoses Multifocal pneumonia J18.9 Pneumonia due to 2019-nCoV U07.1; J12.82 Acute respiratory failure with hypoxia J96.01 Acute hypokalemia E87.6 ARDS (adult respiratory distress syndrome) J80
--- NOTE | 2021-11-06 08:47 | XRay Report ---
XR chest 1V portable CLINICAL HISTORY: Resp failure. Follow-up bilateral airspace opacities COMPARISON STUDY: 11/05/2021 TECHNIQUE: 1 view of the chest FINDINGS: Single frontal view of the chest demonstrates the cardiomediastinal silhouette to be within normal li mits. Tubes and catheters are unchanged. Extensive interstitial and alveolar opacities are again seen bilaterally, right greater than left and essentially unchanged. There is no evidence for pleural eff usion. There is no evidence for vascular congestion. There is no acute osseous pathology. IMPRESSION: Extensive interstitial and alveolar opacities are again seen bilaterally, right greater t corrigan left and essentially unchanged. ACT 112: Negative or not required by law. Electronically signed by: Vineet Latham M.D. 11/06/2021 8:45 AM
[2021-11-06] MEDS: DOCUSATE SODIUM SYRUP 100 MG/10 ML UDC PO SCH ×2 (08:50→19:12)
[2021-11-06] MEDS: SENNOSIDES 8.8 MG/5 ML UDC PO SCH ×2 (08:51→19:12)
[2021-11-06] MEDS: FAMOTIDINE 20 MG in SYRINGE 3 ML IV SCH ×2 (10:11→19:33)
[2021-11-06] MEDS: FUROSEMIDE 40 MG/4 ML VIAL IV SCH ×2 (10:12→19:32)
[2021-11-06] MEDS ORDERED: METOPROLOL TARTRATE 1 MG/ML VIAL IV ONE (14:55)
[2021-11-06] MEDS: METOPROLOL TARTRATE 1 MG/ML VIAL IV SCH ×3 (15:26→23:52)
[2021-11-06 15:51] LABS: Source BRONCHIAL WASH
--- NOTE | 2021-11-06 18:47 | Hospitalist Progress Note ---
Date of Service November 06, 2021 Assessment & Plan (1) Acute respiratory failure with hypoxia: Plan: #. ARF Secondary to severe COVID-19 pneumonia #. ARDS 2/2 COVID pneumonitis #. Right-sided pulmonary emboli Was on BIPAP and then HFNC on admission Was started on dexamethasone Got tocilizumab Respiratory status worsened Was found to have Right PE on CT PE Was intubated on 10/25/21 --> extubated 11/06 on high flow nasal cannula. Status post bronchoscopy 10/31 and 11/03. BAL cultures negative. Cytology negative for fungal elements. Continue management per ICU protocol Off fentanyl, Versed and Precedex currently Status post dexamethasone On heparin drip per ICU Status post 7 days of Rocephin for coagulase-negative staph growing from sputum culture on 10/26. Monitor electrolytes and replete per ICU protocol Morbid obesity HbA1c 6 Glycemic management per protocol Currently n.p.o., resume diet after swallow screen. Full code Admission and Anticipated Discharge Date Admission Date: October 25, 2021 Subjective Patient was lying in bed, on high flow nasal cannula, in mild distress, was extubated today to high flow, patient not able to communicate effectively and hence ROS not assessable. Patient reports negative to pain. Patient is minimally verbal. Physical Exam Physical Exam: GENERAL: Obese, on high flow nasal cannula at 30 L at 40% HEENT: No pallor, no icterus. Pupils equal, round and reactive to light. Oral mucosa dry. NECK: No JVD, no neck masses. HEART: S1 and S2 heard. Regular rate and rhythm. No murmur, no gallop. RESPIRATORY SYSTEM: Normal AP diameter. No accessory muscle use. No wheezing, bilateral diffuse cracklesimproving ABDOMEN: Soft, bowel sounds present, nontender, no distention. CENTRAL NERVOUS SYSTEM: N/A EXTREMITIES: Trace edema, no erythema seen. Left side paresis noted but sensation intact. Right-sided strength moderate. Urinary catheter in situ with yellow urine collection Results & Data Results & Data ([facility]) Vital Signs (Past 12 Hours) Vital Signs Pulse Pulse Resp BP Pulse Ox 11/06/21 18:05 90 20 92 11/06/21 16:00 85 11/06/21 15:25 154/101 H 11/06/21 14:40 104 H 20 95 11/06/21 10:30 75 25 H 92 11/06/21 08:25 72 24 91 11/06/21 08:00 65 11/06/21 07:50 64 34 H 88 L
[2021-11-06] MEDS ORDERED: STAT IV Infusion **Titration per Protocol STA (22:42)
[2021-11-06] MEDS ORDERED: NOREPINEPHRINE/D5W 8 MG/508 ML BAG IV SCH (22:45)
[2021-11-07] MEDS: INSULIN ASPART 100 UNITS/ML 3 ML PEN SC SCH ×5 (00:05→17:09)
[2021-11-07] MEDS: METOPROLOL TARTRATE 1 MG/ML VIAL IV SCH ×5 (04:28→20:30)
[2021-11-07 04:31] LABS: Basophils # (auto) 0.08 K/uL (0-0.2); Basophils % (auto) 0.7 %; Eosinophils # (auto) 0.28 K/uL (0-0.5); Eosinophils % (auto) 2.3 %; Hematocrit (blood only) 41.8 % (37-47); Immature Granulocytes # (auto) 0.05 K/uL (0.00-0.02); Immature Granulocytes % (auto) 0.4 %; Lymphocytes # (auto) 1.76 K/uL (1.2-3.4); Lymphocytes % (auto) 14.5 %; Mean Corpuscular Hgb Conc 31.1 g/dL (32-36); Mean Corpuscular Volume 89.9 fL (80-100); Mean Platelet Volume 11.4 fL (7.4-10.4); Monocytes # (auto) 1.14 K/uL (0.11-0.59); Monocytes % (auto) 9.4 %; Neutrophils # (auto) 8.79 K/uL (1.4-6.5); Neutrophils % (auto) 72.7 %; Platelet Count 318 K/uL (130-400); RDW Coefficient of Variation 17.1 % (11.5-14.5); RDW Standard Deviation 54.5 fL (36.4-46.3); Red Blood Count 4.65 M/uL (4.2-5.4)
[2021-11-07 04:52] LABS: Partial Thromboplastin Ratio 2.6
[2021-11-07 05:02] LABS: BUN Creatinine Ratio 27.6 (10-20); Calcium 9.8 mg/dl (8.5-10.1); Est GFR (African American) 121.8 ml/min; Est GFR (Non-African American) 105.1 ml/min; Magnesium 2.2 mg/dl (1.8-2.4); Phosphorus 4.1 mg/dl (2.5-4.9); Potassium 3.5 mmol/L (3.5-5.1)
[2021-11-07 05:36] LABS: Partial Thromboplastin Time 68.6 Seconds (21.0-31.0)
[2021-11-07] MEDS: HEPARIN SODIUM/DEXTROSE 25,000 UNITS/500 ML BAG IV SCH ×4 (05:49→16:55)
[2021-11-07] MEDS: ICU ELECTROLYTE REPLACEMENT PROTOCOL SCH (05:50)
[2021-11-07] MEDS: POTASSIUM CHLORIDE / WTR 20 MEQ/100 ML PLCT IV SCH ×2 (06:16→07:42)
--- NOTE | 2021-11-07 07:40 | XRay Report ---
XR chest 1V portable CLINICAL HISTORY: Resp failure TECHNIQUE: Single frontal radiograph of the chest was obtained. Comparison: Comparison is made to chest one view 11/06/2021 FINDINGS: Interval removal of endotracheal and enteric tubes. Right IJ catheter is unchanged in position. The c ardiomediastinal silhouette is obscured. Slight interval improvement in multifocal airspace opacities . No evidence of pleural effusion or pneumothorax. IMPRESSION: Multifocal airspace opacities, slightly improved from prior exam. ACT 112: Negative or not required by law. Electronically signed by: Valente Arguelles M.D. 11/07/2021 7:39 AM
[2021-11-07] MEDS: DOCUSATE SODIUM SYRUP 100 MG/10 ML UDC PO SCH ×3 (07:43→20:33)
[2021-11-07] MEDS: SENNOSIDES 8.8 MG/5 ML UDC PO SCH ×3 (07:43→20:33)
[2021-11-07] MEDS: FUROSEMIDE 40 MG/4 ML VIAL IV SCH ×2 (07:44→20:31)
[2021-11-07] MEDS: FAMOTIDINE 20 MG in SYRINGE 3 ML IV SCH (07:44)
--- NOTE | 2021-11-07 07:55 | Critical Care Progress Note ---
Date of Service November 07, 2021 Assessment & Plan (1) Multifocal pneumonia: (2) Pneumonia due to 2019-nCoV: (3) Acute respiratory failure with hypoxia: (4) Acute hypokalemia: (5) ARDS (adult respiratory distress syndrome): Plan: Impression: 41-year-old unvaccinated female now with severe Covid. She failed high flow and noninvasive positive pressure ventilation and was intubated 10/25/2021. CT angiogram at that time also demonstrated small subsegmental PEs and the patient was initiated on anticoagulation. 24 Hour events: Extubated. Transition from high flow down to rigid wall nasal cannula. Hemodynamically stable. No acute events overnight. Recommendations: 1. Neurologic: Off all sedatives now. Wean oxycodone and decrease to every 12 dosing. Will need to restart her home medications in the form of baclofen bupropion doxepin meclizine and risperidone once cleared to take p.o. patient needs aggressive therapy. Will consult PT OT and increase activity to out of bed as tolerated. 2. Cardiovascular: Acute PE: Continue heparin infusion. Will transition to oral anticoagulation once cleared by speech therapy for p.o. intake. Anticipate at least 3 months of anticoagulation. No significant hemodynamic issues. Continue Lasix 80 milligrams IV twice daily and follow electrolytes and kidney function. Would continue diuresis until BUN/creatinine elevate. 3. Pulmonary: Severe ARDS secondary to Covid pneumonitis. Completed course of Decadron. Bronch performed 10/31/2021 and 11/03/2021. BAL cultures obtained from RML negative with the exception of Erica which is unlikely to be pathogenic. Her x-ray today is improved. Unclear if this is related to diuresis versus spontaneous breathing. Continue to follow and wean oxygen as tolerated. 4. Renal/electrolytes: Continue diuresis. Chemistries stable. 5. GI: Speech therapy evaluation today and diet per speech. Continue H2 primo. 6. ID: Coag negative staph growing from the sputum culture on 10/26/2021. Completed Rocephin for total of 7 days. Procalcitonin from 10/30/2021 negative. Afebrile and white count normal. Erica from BAL not likely pathogenic and does not require treatment. 7. Heme-onc: Hgb stable Continue to follow. On Heparin due to PEs, anticoagulation as noted above 8. Endocrine: Glycemic control per protocol Patient appears significantly improved compared to last week. Edward catheter will be discontinued. Asked ICU nurse to see if we can get peripheral IVs. If so central line can be discontinued. She appears stable to downgrade from the ICU. We will contact the hospitalist to assume care of the patient and critical care services will sign off at this point time. Feel free to contact us if we can be of additional assistance Admission and Anticipated Discharge Date Admission Date: October 25, 2021 Subjective Patient seen and examined. EMR reviewed. Discussed with critical care nurse at bedside as well as with patient. Patient was extubated yesterday. She is doing well and is down to nasal cannula at 4 L/min. She was briefly on high flow overnight. She denies any pain. Her affect is slightly blunted. She does not report any shortness of breath coughing or sputum production. Review of Systems Review of Systems: All systems reviewed & are unremarkable except as noted in Subjective Physical Exam Constitutional: + obese; no acute distress Neck: trachea midline, no thyromegaly Respiratory: symmetric chest movement Cardiovascular: RRR, no murmur, no edema Gastrointestinal (Abdomen): normal bowel sounds, soft, nontender, no hepatosplenomegaly Musculoskeletal: Extremities: extremities normal to inspection Skin: no rashes, warm and dry Lymphatic: no cervical lymphadenopathy Results & Data Results & Data ([facility]) Vital Signs (Past 12 Hours) Vital Signs Temp Pulse Pulse Resp BP Pulse Ox 11/07/21 07:42 73 133/73 11/07/21 06:30 72 27 H 127/74 95 11/07/21 06:00 72 28 H 93 11/07/21 05:30 72 24 132/76 94 11/07/21 05:00 37 C 77 29 H 94 11/07/21 04:28 80 135/103 H 11/07/21 04:00 79 33 H 135/103 H 95 11/07/21 03:42 76 22 92 11/07/21 03:00 75 27 H 151/87 H 93 11/07/21 02:00 72 30 H 168/102 H 93 11/07/21 01:00 75 32 H 147/92 H 91 11/07/21 00:00 37.0 C 69 26 H 130/84 94 11/06/21 23:52 81 158/90 H 11/06/21 23:18 80 20 93 11/06/21 23:00 83 30 H 158/90 H 89 L 11/06/21 22:00 82 23 149/88 H 94 11/06/21 21:00 91 H 24 148/95 H 90 11/06/21 20:00 80 25 H 141/88 H 92 Critical Care Results & Data Vital Signs (Past 12 Hours) Vital Signs Temp Pulse Pulse Resp BP Pulse Ox 11/07/21 07:42 73 133/73 11/07/21 06:30 72 27 H 127/74 95 11/07/21 06:00 72 28 H 93 11/07/21 05:30 72 24 132/76 94 11/07/21 05:00 37 C 77 29 H 94 11/07/21 04:28 80 135/103 H 11/07/21 04:00 79 33 H 135/103 H 95 11/07/21 03:42 76 22 92 11/07/21 03:00 75 27 H 151/87 H 93 11/07/21 02:00 72 30 H 168/102 H 93 11/07/21 01:00 75 32 H 147/92 H 91 11/07/21 00:00 37.0 C 69 26 H 130/84 94 11/06/21 23:52 81 158/90 H 11/06/21 23:18 80 20 93 11/06/21 23:00 83 30 H 158/90 H 89 L 11/06/21 22:00 82 23 149/88 H 94 11/06/21 21:00 91 H 24 148/95 H 90 11/06/21 20:00 80 25 H 141/88 H 92 Lab & Micro Results (Past 24 Hours) RBC 4.65 M/uL (4.2-5.4) 11/07/21 WBC 12.10 K/uL (4.8-10.8) H 11/07/21 Hgb 13.0 g/dL (12.0-16.0) 11/07/21 Hct 41.8 % (37-47) 11/07/21 MCV 89.9 fL (80-100) 11/07/21 MCH 28.0 pg (25-34) 11/07/21 MCHC 31.1 g/dL (32-36) L 11/07/21 RDW Standard Deviation 54.5 fL (36.4-46.3) H 11/07/21 RDW Coefficient of Variation 17.1 % (11.5-14.5) H 11/07/21 Plt Count 318 K/uL (130-400) 11/07/21 MPV 11.4 fL (7.4-10.4) H 11/07/21 Neutrophils (%) (Auto) 72.7 % 11/07/21 Lymphocytes (%) (Auto) 14.5 % 11/07/21 Monocytes # (Auto) 1.14 K/uL (0.11-0.59) H 11/07/21 Eosinophils # (Auto) 0.28 K/uL (0-0.5) 11/07/21 Immature Granulocyte % (Auto) 0.4 % 11/07/21 Neutrophils # (Auto) 8.79 K/uL (1.4-6.5) H 11/07/21 Lymphocytes # (Auto) 1.76 K/uL (1.2-3.4) 11/07/21 Monocytes # (Auto) 1.14 K/uL (0.11-0.59) H 11/07/21 Eosinophils # (Auto) 0.28 K/uL (0-0.5) 11/07/21 Basophils # (Auto) 0.08 K/uL (0-0.2) 11/07/21 Immature Granulocyte # (Auto) 0.05 K/uL (0.00-0.02) H 11/07/21 Na 138 mmol/L (136-145) 11/07/21 K 3.5 mmol/L (3.5-5.1) 11/07/21 Cl 101 mmol/L (98-107) 11/07/21 CO2 31 mmol/L (21-32) 11/07/21 Anion Gap 6.0 (3-11) 11/07/21 BUN 20 mg/dl (7-18) H 11/07/21 Creatinine 0.71 mg/dl (0.6-1.2) 11/07/21 Estimated GFR ( Amer) 121.8 ml/min 11/07/21 Estimated GFR (Non-Af Amer) 105.1 ml/min 11/07/21 BUN/Creatinine Ratio 27.6 (10-20) H 11/07/21 Glu 115 mg/dl (70-99) H 11/07/21 Ca 9.8 mg/dl (8.5-10.1) 11/07/21 Phosphorus Level 4.1 mg/dl (2.5-4.9) 11/07/21 Mg 2.2 mg/dl (1.8-2.4) 11/07/21 04:14 11/07/21 Calcium Level 9.8 mg/dl (8.5-10.1) 11/07/21 04:14 11/07/21 Diagnostic Findings (Past 24 Hours) Chest X-Ray 11/06/21 07:00 XR chest 1V portable CLINICAL HISTORY: Resp failure. Follow-up bilateral airspace opacities COMPARISON STUDY: 11/05/2021 TECHNIQUE: 1 view of the chest FINDINGS: Single frontal view of the chest demonstrates the cardiomediastinal silhouette to be within normal limits. Tubes and catheters are unchanged. Extensive interstitial and alveolar opacities are again seen bilaterally, right greater than left and essentially unchanged. There is no evidence for pleural effusion. There is no evidence for vascular congestion. There is no acute osseous pathology. IMPRESSION: Extensive interstitial and alveolar opacities are again seen bilaterally, right greater than left and essentially unchanged. ACT 112: Negative or not required by law. Electronically signed by: Vineet Latham M.D. 11/06/2021 8:45 AM Chest X-Ray 11/07/21 07:00 XR chest 1V portable CLINICAL HISTORY: Resp failure TECHNIQUE: Single frontal radiograph of the chest was obtained. Comparison: Comparison is made to chest one view 11/06/2021 FINDINGS: Interval removal of endotracheal and enteric tubes. Right IJ catheter is unchanged in position. The cardiomediastinal silhouette is obscured. Slight interval improvement in multifocal airspace opacities. No evidence of pleural effusion or pneumothorax. IMPRESSION: Multifocal airspace opacities, slightly improved from prior exam. ACT 112: Negative or not required by law. Electronically signed by: Valente Arguelles M.D. 11/07/2021 7:39 AM I & O Totals 24 Hours 11/06/21 11/07/21 11/08/21 06:59 06:59 06:59 Intake Total 4886.774 / 4886.774 2031.900 / 2031.900 115.917 / 115.917 Output Total 5200 / 5200 5225 / 5225 Balance -313.226 / -313.226 -3193.100 / -3193.100 115.917 / 115.917 Cumulative 10/24/21 18:55 thru 11/07/21 07:43 Intake Total 96122.001 Output Total 89720 Balance -1436.999 RT Ventilator Mngmt (Last Documented) Ventilator Ordered Settings Ventilator Support Mode CPAP 11/06/21 08:00 Respiratory Rate 27 11/07/21 06:30 Ventilator Tidal Volume 350 11/05/21 07:30 Setting Minute Ventilation 11 11/06/21 07:50 Ventilator Positive Pressure 5 11/06/21 07:50 Support Setting Positive End Expiratory 5 11/06/21 07:50 Pressure Fraction of Inspired Oxygen 40 11/07/21 03:42 Machine Comment Changes per Dr. Ray 11/06/21 07:50 Ventilator - PT Measurements Respiratory Rate 27 Exhaled Tidal Volume 384 Minute Ventilation 11 Peak Inspiratory Airway 21 Pressure Plateau Pressure 20.7 Respiratory Cycle Inspiratory: 1:2.6 Expiratory Ratio Inspiratory Phase Time 0.8 End-Tidal CO2 63 Static Lung Compliance 23.54 Dynamic Lung Compliance 24.00 Normal Static Lung Compliance 46.00 Patient Measurements Comment FiO2 decreased tp 30% per ABG results, patient remains on SBT plan to extubate later this morning Coding Level of Care Code 88036 Subseq Hosp Care Lvl 3 Diagnoses Multifocal pneumonia J18.9 Pneumonia due to 2019-nCoV U07.1; J12.82 Acute respiratory failure with hypoxia J96.01 Acute hypokalemia E87.6 ARDS (adult respiratory distress syndrome) J80
[2021-11-07] MEDS: hydroCHLOROthiazide 25 MG TAB PO SCH (10:34)
[2021-11-07] MEDS: BACLOFEN 20 MG TAB PO SCH ×2 (10:34→20:34)
[2021-11-07] MEDS: DOXEPIN HCL 75 MG CAPSULE PO SCH (10:34)
[2021-11-07] MEDS: oxyCODONE HCL IR 5 MG TAB (IMMEDIATE RELEASE) PO SCH ×2 (10:34→20:31)
[2021-11-07 12:26] LABS: Partial Thromboplastin Ratio 2.5
[2021-11-07 12:27] LABS: Partial Thromboplastin Time 66.5 Seconds (21.0-31.0)
--- NOTE | 2021-11-07 16:52 | Hospitalist Progress Note ---
Date of Service November 07, 2021 Assessment & Plan (1) Acute respiratory failure with hypoxia: Plan: 41-year-old lady with PMH of cerebral palsy [left side paresis with episodic spasms at baseline], mood disorder, potassium wasting nephropathy as per records, HTN presented to our ED 10/25 with 10 days history of dry cough associated with worsening shortness of breath and flulike symptoms. Patient is not vaccinated against Covid. Patient was initiated on BiPAP for respiratory distress in the ER and received Decadron in the ED. Of note, per patient's patient is able to communicate at baseline and is alert and oriented x3 but at occasions it is difficult to understand what she is saying. She is managed for the following: #. ARF Secondary to severe COVID-19 pneumonia #. ARDS 2/2 COVID pneumonitis #. Right-sided pulmonary emboli Patient not vaccinated against Covid. Was on BIPAP and then HFNC on admission. Needed Intubation. Status post bronchoscopy 10/31 and 11/03. BAL cultures negative. Cytology negative for fungal elements. Status post Decadron and Tocilizumab. Status post 7 days of Rocephin for coagulase-negative staph growing from sputum culture on 10/26. Was intubated 10/25 due to respiratory distress worsening---> extubated 11/06 on high flow nasal cannula---> currently on 4 L nasal cannula oxygen c/w IS, flutter valve when able. speech evaluation: FEES showed major aspiration event and desaturation during scope, plan for VFSS tomorrow. She does have bilateral vocal fold movement with complete abduction and epiglottic inversion and did not aspirate applesauce, hence crushed meds in applesauce okay for now. Diet per speech recs Was found to have Right PE on CTA chest 10/25----> continue with heparin dri p----> plan to transition to oral when able (atleast 3 months of AC needed) C/w with diuresis 80 mg iv BID with close monitoring of renal fxn and lytes. Resume other BP/cardiac meds when able. #. Other chronic medical condition: Morbid obesity, DM Resume home meds when appropriate Morbid obesity HbA1c 6 Glycemic management per protocol Currently n.p.o., resume diet after speech recommendation. Okay for meds with applesauce. PT/OT, expect discharge in next 1-2 days. Heparin drip. Full code Downgrade to PCU. 11/07 patient's Justin given phone call, updated on the current status of the patient, discussed her plan of care going forward, patient voiced understanding and was agreeable. Admission and Anticipated Discharge Date Admission Date: October 25, 2021 Subjective Patient seen and examined at the bedside. Patient on 4 L nasal cannula oxygen, NAD, no new acute events overnight per RN. Patient AO x3, minimal communicative, denies any pain/increased shortness of breath/cough/chest pain/palpitations/belly pain. Per RN, patient is doing better and there is a plan to take out the central venous catheter as she has got two US guided IV lines. Patient will be downgraded to PCU for today. Physical Exam Physical Exam: GENERAL: Obese, on high flow nasal cannula at 4L HEENT: No pallor, no icterus. Pupils equal, round and reactive to light. Oral mucosa dry. NECK: No JVD, no neck masses. HEART: S1 and S2 heard. Regular rate and rhythm. No murmur, no gallop. RESPIRATORY SYSTEM: Normal AP diameter. No accessory muscle use. No wheezing, b/b crackles ABDOMEN: Soft, bowel sounds present, nontender, no distention. CENTRAL NERVOUS SYSTEM: N/A EXTREMITIES: Trace edema, no erythema seen. Left side paresis noted but sensation intact. Right-sided strength moderate. Urinary catheter in situ with yellow urine collection Results & Data Results & Data ([facility]) Vital Signs (Past 12 Hours) Vital Signs Temp Pulse Resp BP Pulse Ox 11/07/21 13:00 70 28 H 121/70 93 11/07/21 12:30 75 28 H 93 11/07/21 12:00 84 34 H 131/79 94 11/07/21 11:30 79 18 93 11/07/21 11:00 84 23 119/69 90 11/07/21 10:30 76 27 H 92 11/07/21 10:00 75 25 H 129/73 94 11/07/21 09:30 72 25 H 95 11/07/21 09:00 80 32 H 142/89 H 91 11/07/21 08:30 70 32 H 95 11/07/21 08:00 36.8 C 75 24 134/82 90 11/07/21 07:42 73 133/73 11/07/21 07:30 70 31 H 93 11/07/21 07:00 69 26 H 97 11/07/21 06:30 72 27 H 127/74 95 11/07/21 06:00 72 28 H 93 11/07/21 05:30 72 24 132/76 94 11/07/21 05:00 37 C 77 29 H 94
[2021-11-07 19:46] LABS: Partial Thromboplastin Ratio 5.1
[2021-11-07 19:56] LABS: Partial Thromboplastin Time 134.6 Seconds (21.0-31.0)
[2021-11-07] MEDS: risperiDONE 3 MG TABLET PO SCH (20:32)
[2021-11-07] MEDS: hydrOXYzine HCl 25 MG TAB PO SCH (20:32)
[2021-11-07 21:02] LABS: Partial Thromboplastin Ratio 1.9
[2021-11-07 21:04] LABS: Partial Thromboplastin Time 50.1 Seconds (21.0-31.0)
[2021-11-08] MEDS: METOPROLOL TARTRATE 1 MG/ML VIAL IV SCH ×6 (00:06→21:45)
[2021-11-08] MEDS: INSULIN ASPART 100 UNITS/ML 3 ML PEN SC SCH ×5 (00:07→21:51)
[2021-11-08 05:13] LABS: Basophils # (auto) 0.06 K/uL (0-0.2); Basophils % (auto) 0.5 %; Eosinophils % (auto) 2.4 %; Hemoglobin 14.2 g/dL (12.0-16.0); Immature Granulocytes # (auto) 0.05 K/uL (0.00-0.02); Immature Granulocytes % (auto) 0.4 %; Lymphocytes # (auto) 2.39 K/uL (1.2-3.4); Lymphocytes % (auto) 19.2 %; Mean Corpuscular Hgb Conc 30.2 g/dL (32-36); Mean Corpuscular Volume 92.5 fL (80-100); Mean Platelet Volume 11.3 fL (7.4-10.4); Monocytes # (auto) 0.94 K/uL (0.11-0.59); Monocytes % (auto) 7.6 %; Neutrophils # (auto) 8.69 K/uL (1.4-6.5); Neutrophils % (auto) 69.9 %; Platelet Count 340 K/uL (130-400); RDW Coefficient of Variation 17.6 % (11.5-14.5); RDW Standard Deviation 57.7 fL (36.4-46.3); Red Blood Count 5.08 M/uL (4.2-5.4); White Blood Count 12.43 K/uL (4.8-10.8)
[2021-11-08 05:40] LABS: BUN Creatinine Ratio 23.9 (10-20); Calcium 10.6 mg/dl (8.5-10.1); Creatinine Clr Calc Pharmacy 103.7 ml/min; Est GFR (African American) 96.6 ml/min; Est GFR (Non-African American) 83.3 ml/min; Magnesium 2.5 mg/dl (1.8-2.4); Potassium 3.5 mmol/L (3.5-5.1)
[2021-11-08 05:53] LABS: Partial Thromboplastin Time 52.3 Seconds (21.0-31.0)
[2021-11-08 06:06] LABS: Phosphorus 4.8 mg/dl (2.5-4.9)
[2021-11-08] MEDS: HEPARIN SODIUM/DEXTROSE 25,000 UNITS/500 ML BAG IV SCH ×2 (07:14→21:48)
[2021-11-08] MEDS: buPROPion XL 300 MG TABCR PO SCH (09:39)
[2021-11-08] MEDS: POTASSIUM CHLORIDE / WTR 10 MEQ/100 ML PLCT IV SCH ×2 (09:39→10:51)
[2021-11-08] MEDS: BACLOFEN 20 MG TAB PO SCH ×2 (09:39→21:47)
[2021-11-08] MEDS: buPROPion XL 150 MG TABCR PO SCH (09:40)
[2021-11-08] MEDS: DOCUSATE SODIUM SYRUP 100 MG/10 ML UDC PO SCH ×2 (09:40→21:48)
[2021-11-08] MEDS: DOXEPIN HCL 75 MG CAPSULE PO SCH (09:40)
[2021-11-08] MEDS: SENNOSIDES 8.8 MG/5 ML UDC PO SCH ×2 (09:41→21:48)
[2021-11-08] MEDS: hydroCHLOROthiazide 25 MG TAB PO SCH (09:41)
[2021-11-08] MEDS: risperiDONE 0.5 MG TABLET PO SCH (09:41)
[2021-11-08] MEDS: hydrOXYzine HCl 25 MG TAB PO SCH ×2 (09:41→21:47)
[2021-11-08] MEDS: oxyCODONE HCL IR 5 MG TAB (IMMEDIATE RELEASE) PO SCH ×2 (09:45→21:46)
[2021-11-08] MEDS: FUROSEMIDE 40 MG/4 ML VIAL IV SCH ×2 (09:45→21:51)
--- NOTE | 2021-11-08 14:03 | Fluoroscopy Report ---
FL video swallow CLINICAL HISTORY: 41 years-old Female with (+) aspiration during FEES; check UES function. Dysphasia with possible aspiration TECHNIQUE: Video fluoroscopic evaluation of swallowing was performed in the AP and lateral projection s by the speech pathology staff. The patient is fed nectar-thick and thin liquid barium, a barium coa jerry wafer, and barium pudding. FLUOROSCOPY TIME: 3.1 minutes. COMPARISON STUDY: Chest radiograph 11/07/2021 FINDINGS: Aspiration and cough noted with thin liquid barium. Prolonged oral pharyngeal transit with cracker consistency. There is decreased transit within the upper esophagus. The speech pathologist qu estioned a Zenker's type diverticulum which is not definitively appreciated on the images submitted. Mild vallecular retention throughout the study. IMPRESSION: 1. Aspiration with thin liquid barium. 2. Please see the speech pathologist report for detailed findings and recommendations. ACT 112: Negative or not required by law. Electronically signed by: Du Kilpatrick M.D. 11/08/2021 2:02 PM
[2021-11-08] MEDS ORDERED: GLUCAGON FOR INJ 1 MG VIAL IM PRN (15:15)
[2021-11-08] MEDS ORDERED: GLUCOSE 10 TABS/TUBE PO PRN (15:15)
[2021-11-08] MEDS ORDERED: GLUCOSE 40% GEL 15 GM TUBE PO PRN (15:15)
[2021-11-08] MEDS ORDERED: DEXTROSE 50% 50 ML SYRINGE IV PRN (15:15)
[2021-11-08] MEDS ORDERED: CARBOHYDRATES FOR HYPOGLYCEMIA PO PRN (15:15)
--- NOTE | 2021-11-08 17:31 | Hospitalist Progress Note ---
Date of Service November 08, 2021 Assessment & Plan (1) Acute respiratory failure with hypoxia: Plan: 41-year-old lady with PMH of cerebral palsy [left side paresis with episodic spasms at baseline], mood disorder, potassium wasting nephropathy as per records, HTN presented to our ED 10/25 with 10 days history of dry cough associated with worsening shortness of breath and flulike symptoms. Patient is not vaccinated against Covid. Patient was initiated on BiPAP for respiratory distress in the ER and received Decadron in the ED. Of note, per patient's patient is able to communicate at baseline and is alert and oriented x3 but at occasions it is difficult to understand what she is saying. She is managed for the following: #. ARF Secondary to severe COVID-19 pneumonia #. ARDS 2/2 COVID pneumonitis #. Right-sided pulmonary emboli Patient not vaccinated against Covid. Was on BIPAP and then HFNC on admission. Needed Intubation. Status post bronchoscopy 10/31 and 11/03. BAL cultures negative. Cytology negative for fungal elements. Status post Decadron and Tocilizumab. Status post 7 days of Rocephin for coagulase-negative staph growing from sputum culture on 10/26. Was intubated 10/25 due to respiratory distress worsening---> extubated 11/06 on high flow nasal cannula---> currently on 4 L nasal cannula oxygen c/w IS, flutter valve when able. 11/07 speech evaluation: FEES showed major aspiration event and desaturation during scope, plan for VFSS tomorrow. She does have bilateral vocal fold movement with complete abduction and epiglottic inversion and did not aspirate applesauce, hence crushed meds in applesauce okay for now. 11/08 VFSS per speech: Patient does have a small Zenker's diverticulum that refluxes material to the base of the PES. They recommended heart healthy diet, easy to chew. Was found to have Right PE on CTA chest 10/25----> continue with heparin dri p----> plan to transition to oral when able (atleast 3 months of AC needed). W ill discuss transition to oral tomorrow with her and herself. C/w with diuresis 80 mg iv BID with close monitoring of renal fxn and lytes. Resume other BP/cardiac meds when able. #. Other chronic medical condition: Morbid obesity, DM Resume home meds when appropriate Morbid obesity HbA1c 6 Glycemic management per protocol PT/OT, expect discharge in next 1-2 days. Heparin drip. Full code c/w PCU care, pt has increased RR most of the time. 11/07 patient's Justin given phone call, updated on the current status of the patient, discussed her plan of care going forward, patient voiced understanding and was agreeable. Admission and Anticipated Discharge Date Admission Date: October 25, 2021 Subjective Patient seen and examined at the bedside. Patient on 4 L nasal cannula oxygen, NAD, no new acute events overnight per RN. Patient AO x3, minimal communicative, denies any pain/increased shortness of breath/cough/chest pain/palpitations/belly pain. Physical Exam Physical Exam: GENERAL: Obese, on high flow nasal cannula at 4L HEENT: No pallor, no icterus. Pupils equal, round and reactive to light. Oral mucosa moist NECK: No JVD, no neck masses. HEART: S1 and S2 heard. Regular rate and rhythm. No murmur, no gallop. RESPIRATORY SYSTEM: Normal AP diameter. No accessory muscle use. No wheezing, b/b crackles improving ABDOMEN: Soft, bowel sounds present, nontender, no distention. CENTRAL NERVOUS SYSTEM: N/A EXTREMITIES: Trace edema, no erythema seen. Left side paresis noted but sensation intact. Right-sided strength moderate. Urinary catheter in situ with yellow urine collection Results & Data Results & Data ([facility]) Vital Signs (Past 12 Hours) Vital Signs Temp Pulse Pulse Resp BP BP BP 11/08/21 16:27 105 H 120/100 11/08/21 16:00 110 H 11/08/21 12:18 94 H 129/85 11/08/21 12:13 36.8 C 94 H 24 151/86 H 11/08/21 09:36 83 144/85 H 11/08/21 08:00 98 H 11/08/21 07:34 36.7 C 96 H 18 136/94 Pulse Ox 11/08/21 16:27 11/08/21 16:00 11/08/21 12:18 11/08/21 12:13 95 11/08/21 09:36 11/08/21 08:00 11/08/21 07:34 95
[2021-11-08] MEDS: risperiDONE 3 MG TABLET PO SCH (21:47)
[2021-11-09] MEDS: METOPROLOL TARTRATE 1 MG/ML VIAL IV SCH ×6 (00:23→21:40)
[2021-11-09 05:05] LABS: Hematocrit (blood only) 46.3 % (37-47); Hemoglobin 14.5 g/dL (12.0-16.0); Mean Corpuscular Hemoglobin 28.3 pg (25-34); Mean Corpuscular Hgb Conc 31.3 g/dL (32-36); Mean Corpuscular Volume 90.4 fL (80-100); Mean Platelet Volume 11.4 fL (7.4-10.4); Platelet Count 331 K/uL (130-400); RDW Coefficient of Variation 16.9 % (11.5-14.5); RDW Standard Deviation 54.6 fL (36.4-46.3); Red Blood Count 5.12 M/uL (4.2-5.4); White Blood Count 11.05 K/uL (4.8-10.8)
[2021-11-09 05:27] LABS: Partial Thromboplastin Ratio 4.6
[2021-11-09 05:35] LABS: BUN Creatinine Ratio 27.8 (10-20); Calcium 10.6 mg/dl (8.5-10.1); Creatinine Clr Calc Pharmacy 101.1 ml/min; Est GFR (African American) 93.9 ml/min; Magnesium 2.5 mg/dl (1.8-2.4)
[2021-11-09 05:45] LABS: Phosphorus 6.2 mg/dl (2.5-4.9)
[2021-11-09 06:31] LABS: Partial Thromboplastin Time 119.8 Seconds (21.0-31.0)
[2021-11-09] MEDS: HEPARIN SODIUM/DEXTROSE 25,000 UNITS/500 ML BAG IV SCH ×3 (07:58→11:03)
[2021-11-09] MEDS: risperiDONE 0.5 MG TABLET PO SCH (08:09)
[2021-11-09] MEDS: INSULIN ASPART 100 UNITS/ML 3 ML PEN SC SCH ×4 (08:09→21:39)
[2021-11-09] MEDS: DOXEPIN HCL 75 MG CAPSULE PO SCH (08:10)
[2021-11-09] MEDS: BACLOFEN 20 MG TAB PO SCH ×2 (08:10→21:39)
[2021-11-09] MEDS: buPROPion XL 150 MG TABCR PO SCH (08:10)
[2021-11-09] MEDS: hydroCHLOROthiazide 25 MG TAB PO SCH (08:10)
[2021-11-09] MEDS: buPROPion XL 300 MG TABCR PO SCH (08:10)
[2021-11-09] MEDS: hydrOXYzine HCl 25 MG TAB PO SCH ×2 (08:10→21:38)
[2021-11-09] MEDS: SENNOSIDES 8.8 MG/5 ML UDC PO SCH (08:11)
[2021-11-09] MEDS: DOCUSATE SODIUM SYRUP 100 MG/10 ML UDC PO SCH (08:11)
[2021-11-09] MEDS: FUROSEMIDE 40 MG/4 ML VIAL IV SCH (08:15)
[2021-11-09] MEDS: oxyCODONE HCL IR 5 MG TAB (IMMEDIATE RELEASE) PO SCH ×2 (08:16→21:38)
[2021-11-09] MEDS: POTASSIUM CHLORIDE CRTAB 20 MEQ TABCR PO SCH ×2 (08:32→11:04)
[2021-11-09] MEDS ORDERED: Nursing to Pharmacy Communication SCH (11:30)
[2021-11-09 13:21] LABS: Partial Thromboplastin Ratio 1.7
[2021-11-09] MEDS ORDERED: BACITRACIN OINT 15 GM TUBE ONE (13:47)
--- NOTE | 2021-11-09 13:58 | Hospitalist Progress Note ---
Date of Service November 09, 2021 Assessment & Plan (1) Acute respiratory failure with hypoxia: Plan: 41-year-old lady with PMH of cerebral palsy [left side paresis with episodic spasms at baseline], mood disorder, potassium wasting nephropathy as per records, HTN presented to our ED 10/25 with 10 days history of dry cough associated with worsening shortness of breath and flulike symptoms. Patient is not vaccinated against Covid. Patient was initiated on BiPAP for respiratory distress in the ER and received Decadron in the ED. Of note, per patient's patient is able to communicate at baseline and is alert and oriented x3 but at occasions it is difficult to understand what she is saying. She is managed for the following: #. ARF Secondary to severe COVID-19 pneumonia #. ARDS 2/2 COVID pneumonitis #. Right-sided pulmonary emboli Patient not vaccinated against Covid. Was on BIPAP and then HFNC on admission. Needed Intubation. Status post bronchoscopy 10/31 and 11/03. BAL cultures negative. Cytology negative for fungal elements. Status post Decadron and Tocilizumab. Status post 7 days of Rocephin for coagulase-negative staph growing from sputum culture on 10/26. Was intubated 10/25 due to respiratory distress worsening---> extubated 11/06 on high flow nasal cannula---> currently on RA c/w IS, flutter valve when able. 11/07 speech evaluation: FEES showed major aspiration event and desaturation during scope, plan for VFSS tomorrow. She does have bilateral vocal fold movement with complete abduction and epiglottic inversion and did not aspirate applesauce, hence crushed meds in applesauce okay for now. 11/08 VFSS per speech: Patient does have a small Zenker's diverticulum that refluxes material to the base of the PES. They recommended heart healthy diet, easy to chew. Was found to have Right PE on CTA chest 10/25----> heparin drip to be transitioned to eliquis 10 mg BID from 11/09 evening dose (atleast 3 months of AC needed)----> transition to 5 mg BID after 7 day course of 10 mg BID. Change iv diuresis to home meds 11/09 with close monitoring of renal fxn and lytes. Resume other BP/cardiac meds when able. 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 Other chronic medical condition: Morbid obesity, DM Resume home meds when appropriate Morbid obesity HbA1c 6 Glycemic management per protocol PT/OT, expect discharge in next 2 days. Heparin drip to be transitioned to eliquis from today evening. Full code Downgrade to med/tele, still requiring iv metoprolol, likely DC in 2 days. CM to assist with DC planning. 11/07 patient's Justin given phone call, updated on the current status of the patient, discussed her plan of care going forward, patient voiced understanding and was agreeable. Admission and Anticipated Discharge Date Admission Date: October 25, 2021 Subjective Patient seen and examined at the bedside. Patient on RA, sitting up in Bed, NAD, no new acute events overnight per RN. Patient AO x3, markedly improved today, communication improved, denies any pain/increased shortness of breath/cough/chest pain/palpitations/belly pain. Discussion about anticoagulation going forward at bedside---> patient chose to go with Eliquis if her insurance supports. Physical Exam Physical Exam: GENERAL: Obese, on RA, NAD HEENT: No pallor, no icterus. Pupils equal, round and reactive to light. Oral mucosa moist NECK: No JVD, no neck masses. HEART: S1 and S2 heard. Regular rate and rhythm. No murmur, no gallop. RESPIRATORY SYSTEM: Normal AP diameter. No accessory muscle use. No wheezing, improved crackles ABDOMEN: Soft, bowel sounds present, nontender, no distention. CENTRAL NERVOUS SYSTEM: N/A EXTREMITIES: Trace edema, no erythema seen. Left side paresis noted but sensation intact. Right-sided strength moderate. Urinary catheter in situ with yellow urine collection Results & Data Results & Data ([facility]) Vital Signs (Past 12 Hours) Vital Signs Temp Pulse Pulse Resp BP BP Pulse Ox 11/09/21 12:31 123 H 120/86 11/09/21 12:01 36.9 C 123 H 23 120/86 92 11/09/21 08:00 99 H 11/09/21 07:36 36.8 C 95 H 17 137/76 90 11/09/21 04:31 100 H 143/92 H 11/09/21 04:29 36.8 C 100 H 24 143/92 H 94
--- NOTE | 2021-11-09 14:22 | Surgery Consultation ---
Date of Consultation November 09, 2021 Assessment & Plan (1) Blister of foot, right: I got a call for consult blister on right foot, IMP: right foot blister Plan, I recommend to do drainage blister on right foot, possible remove necrotic skin, D/W benefits, risks and alternatives of the procedure, the risks- infection, bleeding, pt understood, she agrees with the plan, she signed informed consent, I answered all questions, apply betadine on right foot, remove necrotic blister skin, size about 3x4cm, some fluid and hematoma came out, wound culture sent, then apply bacitricin cover with 4x4 gouze, pt tolerated the procedure well, History of Present Illness Reason for Consultation: right foot blister Attending Physician: Duyen Ball MD History of Present Illness CC: right foot blister HPI: pt is a 41 year-old female who was admitted to SICU for Acute respiratory failure with hypoxia: Secondary to severe COVID-19 pneumonia, nurse found that pt had right foot blister which is dark color, with necrotic skin, size about 3x4cm, no redness, pt denies fever. no pain on right foot, I reviewed pt's H/P, labs, with pt, Allergies Allergy/AdvReac Type Severity Reaction Status Date / Time No Known Allergies Allergy Unverified 10/24/21 21:07 Home Medications Medication Instructions Recorded Confirmed Type amlodipine 10 mg tablet 10 mg PO DAILY 10/24/21 10/24/21 History baclofen 20 mg tablet 20 mg PO BID 10/24/21 10/24/21 History bupropion HCl 150 mg 24 hr tablet, 150 mg PO DAILY 10/24/21 10/24/21 History extended release bupropion HCl 150 mg 24 hr tablet, 300 mg PO DAILY 10/24/21 10/24/21 History extended release docusate sodium 100 mg capsule 100 mg PO TID 10/24/21 10/24/21 History (Colace) doxepin 75 mg capsule 300 mg PO DAILY 10/24/21 10/24/21 History hydrochlorothiazide 25 mg tablet 25 mg PO DAILY 10/24/21 10/24/21 History hydroxyzine HCl 50 mg tablet 50 mg PO BID 10/24/21 10/24/21 History losartan 50 mg tablet 50 mg PO DAILY 10/24/21 10/24/21 History meclizine 25 mg tablet 25 mg PO TID PRN 10/24/21 10/24/21 History multivitamin 1 tab PO DAILY 10/24/21 10/24/21 History oxybutynin chloride 15 mg 15 mg PO DAILY 10/24/21 10/24/21 History tablet,extended release 24 hr potassium chloride 10 mEq 10 meq PO DAILY 10/24/21 10/24/21 History tablet,extended release potassium chloride 20 mEq 80 meq PO DAILY 10/24/21 10/24/21 History tablet,extended release(part/cryst) (Klor-Con M) risperidone 0.5 mg tablet 0.5 mg PO QAM 10/24/21 10/24/21 History risperidone 3 mg tablet 3 mg PO HS 10/24/21 10/24/21 History spironolactone 50 mg tablet 50 mg PO DAILY 10/24/21 10/24/21 History apixaban 5 mg tablet (Eliquis) 5 mg PO BID #74 tab 11/09/21 Rx Patient History Medical History (Updated 11/09/21 @ 14:12 by Carleen Smith MD) ARDS (adult respiratory distress syndrome) CVA, old, hemiparesis Social History Smoking Status: Never smoker Hx Alcohol Use: No Hx Substance Use: No Preferred Language: Maori Communication Ability: Unable Vessel Master Required: No Beliefs That Will Affect Care: None marital status: Current Living Situation: Spouse How many Children do You have: 1 Feels Safe at Home: Yes Safety Concerns: Feels Safe At This Time Assistive Devices: Oxygen - Continuous Assistive Devices Comment: Upper and Lower Partials Physical Exam Constitutional: WD/WN, vitals as above Eyes: PERRL, conjunctivae normal, anicteric sclerae Neck: trachea midline, no thyromegaly Respiratory: normal respiratory effort Cardiovascular: RRR, no murmur, no edema Gastrointestinal (Abdomen): normal bowel sounds, soft, nontender, no hepatosplenomegaly Skin: right foot blister, size 3x4cm with dark color and necrotic skin , no redness, no tenderness, Neurologic: patellar DTR's 2+ bilat, sensation intact Psychiatric: A+Ox3, euthymic affect Results & Data ([facility]) Vital Signs (Past 12 Hours) Vital Signs Temp Pulse Pulse Resp BP BP Pulse Ox 11/09/21 12:31 123 H 120/86 11/09/21 12:01 36.9 C 123 H 23 120/86 92 11/09/21 08:00 99 H 11/09/21 07:36 36.8 C 95 H 17 137/76 90 11/09/21 04:31 100 H 143/92 H 11/09/21 04:29 36.8 C 100 H 24 143/92 H 94 Laboratory Results Abnormal lab results 11/08/21 11/08/21 11/09/21 Range/Units 16:09 21:35 04:24 WBC (4.8-10.8) K/uL MCHC (32-36) g/dL RDW Std Deviation (36.4-46.3) fL RDW Coeff of Diana (11.5-14.5) % MPV (7.4-10.4) fL APTT (21.0-31.0) Seconds Potassium 3.0 L (3.5-5.1) mmol/L Chloride 96 L (98-107) mmol/L BUN 24 H (7-18) mg/dl BUN/Creatinine Ratio 27.8 H (10-20) Glucose 118 H (70-99) mg/dl POC Glucose 116 H 101 H (70-99) mg/dl Calcium 10.6 H (8.5-10.1) mg/dl Phosphorus 6.2 H D (2.5-4.9) mg/dl Magnesium 2.5 H (1.8-2.4) mg/dl 11/09/21 11/09/21 11/09/21 Range/Units 04:24 04:24 11:15 WBC 11.05 H (4.8-10.8) K/uL MCHC 31.3 L (32-36) g/dL RDW Std Deviation 54.6 H (36.4-46.3) fL RDW Coeff of Diana 16.9 H (11.5-14.5) % MPV 11.4 H (7.4-10.4) fL APTT 119.8 H* (21.0-31.0) Seconds Potassium (3.5-5.1) mmol/L Chloride (98-107) mmol/L BUN (7-18) mg/dl BUN/Creatinine Ratio (10-20) Glucose (70-99) mg/dl POC Glucose 124 H (70-99) mg/dl Calcium (8.5-10.1) mg/dl Phosphorus (2.5-4.9) mg/dl Magnesium (1.8-2.4) mg/dl 11/09/21 Range/Units 12:41 WBC (4.8-10.8) K/uL MCHC (32-36) g/dL RDW Std Deviation (36.4-46.3) fL RDW Coeff of Diana (11.5-14.5) % MPV (7.4-10.4) fL APTT 46.0 H* (21.0-31.0) Seconds Potassium (3.5-5.1) mmol/L Chloride (98-107) mmol/L BUN (7-18) mg/dl BUN/Creatinine Ratio (10-20) Glucose (70-99) mg/dl POC Glucose (70-99) mg/dl Calcium (8.5-10.1) mg/dl Phosphorus (2.5-4.9) mg/dl Magnesium (1.8-2.4) mg/dl
[2021-11-09] MEDS: SPIRONOLACTONE 25 MG TAB PO SCH (16:07)
[2021-11-09] MEDS ORDERED: HEPARIN DRIP~STOP ORDER ONE (20:00)
[2021-11-09] MEDS: DOCUSATE SODIUM 100 MG CAP PO SCH (21:39)
[2021-11-09] MEDS: APIXABAN 2.5 MG TAB PO SCH (21:39)
[2021-11-09] MEDS: risperiDONE 3 MG TABLET PO SCH (21:39)
[2021-11-09] MEDS: SENNA 8.6 MG TAB PO SCH (21:40)
[2021-11-10] MEDS: METOPROLOL TARTRATE 1 MG/ML VIAL IV SCH ×7 (01:44→23:35)
[2021-11-10 04:55] LABS: BUN Creatinine Ratio 32.6 (10-20); Calcium 10.6 mg/dl (8.5-10.1); Creatinine Clr Calc Pharmacy 108.6 ml/min; Est GFR (African American) 102.3 ml/min; Est GFR (Non-African American) 88.3 ml/min; Magnesium 2.4 mg/dl (1.8-2.4); Phosphorus 4.7 mg/dl (2.5-4.9); Potassium 3.5 mmol/L (3.5-5.1)
[2021-11-10 05:52] LABS: Hematocrit (blood only) 45.7 % (37-47); Hemoglobin 14.4 g/dL (12.0-16.0); Mean Corpuscular Hemoglobin 28.2 pg (25-34); Mean Corpuscular Hgb Conc 31.5 g/dL (32-36); Mean Corpuscular Volume 89.6 fL (80-100); Mean Platelet Volume 11.5 fL (7.4-10.4); Platelet Count 334 K/uL (130-400); RDW Coefficient of Variation 16.5 % (11.5-14.5); RDW Standard Deviation 53.9 fL (36.4-46.3); White Blood Count 11.32 K/uL (4.8-10.8)
[2021-11-10] MEDS ORDERED: FUROSEMIDE 40 MG/4 ML VIAL IV ONE (07:00)
[2021-11-10] MEDS: INSULIN ASPART 100 UNITS/ML 3 ML PEN SC SCH ×4 (09:09→21:50)
[2021-11-10] MEDS: SENNA 8.6 MG TAB PO SCH ×2 (09:13→20:21)
[2021-11-10] MEDS: hydroCHLOROthiazide 25 MG TAB PO SCH (09:13)
[2021-11-10] MEDS: DOXEPIN HCL 75 MG CAPSULE PO SCH (09:13)
[2021-11-10] MEDS: buPROPion XL 150 MG TABCR PO SCH (09:13)
[2021-11-10] MEDS: buPROPion XL 300 MG TABCR PO SCH (09:13)
[2021-11-10] MEDS: risperiDONE 0.5 MG TABLET PO SCH (09:14)
[2021-11-10] MEDS: APIXABAN 2.5 MG TAB PO SCH ×2 (09:14→20:21)
[2021-11-10] MEDS: DOCUSATE SODIUM 100 MG CAP PO SCH ×2 (09:14→20:21)
[2021-11-10] MEDS: POTASSIUM CHLORIDE 10 MEQ TABCR PO SCH (09:14)
[2021-11-10] MEDS: hydrOXYzine HCl 25 MG TAB PO SCH ×2 (09:14→20:20)
[2021-11-10] MEDS: BACLOFEN 20 MG TAB PO SCH ×2 (09:14→20:20)
[2021-11-10] MEDS: SPIRONOLACTONE 25 MG TAB PO SCH (09:14)
[2021-11-10] MEDS: oxyCODONE HCL IR 5 MG TAB (IMMEDIATE RELEASE) PO SCH ×2 (09:17→20:20)
--- NOTE | 2021-11-10 10:34 | Surgery Progress Note ---
Date of Service November 10, 2021 Assessment & Plan (1) Blister of foot, right: Plan: I got a call for consult blister on right foot, IMP: right foot blister Plan, I recommend to do drainage blister on right foot, possible remove necrotic skin, D/W benefits, risks and alternatives of the procedure, the risks- infection, bleeding, pt understood, she agrees with the plan, she signed informed consent, I answered all questions, apply betadine on right foot, remove necrotic blister skin, size about 3x4cm, some fluid and hematoma came out, wound culture sent, then apply bacitricin cover with 4x4 gouze, pt tolerated the procedure well, 11/10/2021 10:31AM F/U S/P drainage right foot blister, pt is stable, culture negative, dressing change by wound care nurse once a day, with bacitricin cover 4x4 gouze, sign off today, please call with questions, thanks, Admission and Anticipated Discharge Date Admission Date: October 25, 2021 Subjective Patient seen and examined at the bedside. Patient on RA, sitting up in Bed, NAD, no new acute events overnight per RN. Patient AO x3, markedly improved today, communication improved, denies any pain/increased shortness of breath/cough/chest pain/palpitations/belly pain. Discussion about anticoagulation going forward at bedside---> patient chose to go with [facility] if her insurance supports. 11/10/2021 10: 29 AM F/U S/P drainage right foot blister, pt is stable, no pain on right foot, wound culture- Gram Stain Final 11/09/21-2219 Gram Stain Result No WBCs Seen No Organisms Seen Physical Exam Constitutional: WD/WN, vitals as above Eyes: PERRL, conjunctivae normal, anicteric sclerae Neck: trachea midline, no thyromegaly Respiratory: normal respiratory effort Cardiovascular: RRR, no murmur, no edema Gastrointestinal (Abdomen): normal bowel sounds, soft, nontender, no hepatosplenomegaly Skin: right foot wound is redness, no redness, Neurologic: patellar DTR's 2+ bilat, sensation intact Psychiatric: A+Ox3, euthymic affect Results & Data ([facility]) Vital Signs (Past 12 Hours) Vital Signs Temp Pulse Pulse Resp BP BP Pulse Ox 11/10/21 09:17 129 H 140/87 11/10/21 07:57 37.2 C 110 H 24 140/87 92 11/10/21 03:20 36.6 C 111 H 18 125/82 92 11/10/21 03:18 101 H 122/88 11/10/21 01:44 101 H 112/81 11/10/21 00:20 36.6 C 100 H 24 122/88 94 Laboratory Results Abnormal lab results 11/09/21 11/09/21 11/09/21 Range/Units 11:15 12:41 16:19 WBC (4.8-10.8) K/uL MCHC (32-36) g/dL RDW Std Deviation (36.4-46.3) fL RDW Coeff of Diana (11.5-14.5) % MPV (7.4-10.4) fL APTT 46.0 H* (21.0-31.0) Seconds BUN (7-18) mg/dl BUN/Creatinine Ratio (10-20) Glucose (70-99) mg/dl POC Glucose 124 H 118 H (70-99) mg/dl Calcium (8.5-10.1) mg/dl 11/09/21 11/10/21 11/10/21 Range/Units 20:21 03:51 03:51 WBC 11.32 H (4.8-10.8) K/uL MCHC 31.5 L (32-36) g/dL RDW Std Deviation 53.9 H (36.4-46.3) fL RDW Coeff of Diana 16.5 H (11.5-14.5) % MPV 11.5 H (7.4-10.4) fL APTT (21.0-31.0) Seconds BUN 27 H (7-18) mg/dl BUN/Creatinine Ratio 32.6 H (10-20) Glucose 117 H (70-99) mg/dl POC Glucose 125 H (70-99) mg/dl Calcium 10.6 H (8.5-10.1) mg/dl 11/10/21 Range/Units 07:06 WBC (4.8-10.8) K/uL MCHC (32-36) g/dL RDW Std Deviation (36.4-46.3) fL RDW Coeff of Diana (11.5-14.5) % MPV (7.4-10.4) fL APTT (21.0-31.0) Seconds BUN (7-18) mg/dl BUN/Creatinine Ratio (10-20) Glucose (70-99) mg/dl POC Glucose 117 H (70-99) mg/dl Calcium (8.5-10.1) mg/dl
--- NOTE | 2021-11-10 16:39 | Hospitalist Progress Note ---
Date of Service November 10, 2021 Assessment & Plan (1) Acute respiratory failure with hypoxia: Plan: 41-year-old lady with PMH of cerebral palsy [left side paresis with episodic spasms at baseline], mood disorder, potassium wasting nephropathy as per records, HTN presented to our ED 10/25 with 10 days history of dry cough associated with worsening shortness of breath and flulike symptoms. Patient is not vaccinated against Covid. Patient was initiated on BiPAP for respiratory distress in the ER and received Decadron in the ED. Of note, per patient's patient is able to communicate at baseline and is alert and oriented x3 but at occasions it is difficult to understand what she is saying. She is managed for the following: #. ARF Secondary to severe COVID-19 pneumonia #. ARDS 2/2 COVID pneumonitis #. Right-sided pulmonary emboli Patient not vaccinated against Covid. Was on BIPAP and then HFNC on admission. Needed Intubation. Status post bronchoscopy 10/31 and 11/03. BAL cultures negative. Cytology negative for fungal elements. Status post Decadron and Tocilizumab. Status post 7 days of Rocephin for coagulase-negative staph growing from sputum culture on 10/26. Was intubated 10/25 due to respiratory distress worsening---> extubated 11/06 on high flow nasal cannula---> currently on RA c/w IS, flutter valve when able. 11/07 speech evaluation: FEES showed major aspiration event and desaturation during scope, plan for VFSS tomorrow. She does have bilateral vocal fold movement with complete abduction and epiglottic inversion and did not aspirate applesauce, hence crushed meds in applesauce okay for now. 11/08 VFSS per speech: Patient does have a small Zenker's diverticulum that refluxes material to the base of the PES. They recommended heart healthy diet, easy to chew. Was found to have Right PE on CTA chest 10/25----> heparin drip to be transitioned to eliquis 10 mg BID from 11/09 evening dose (atleast 3 months of AC needed)----> transition to 5 mg BID after 7 day course of 10 mg BID. Change iv diuresis to home meds 11/09 with close monitoring of renal fxn and lytes. Resume other BP/cardiac meds when able. 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 Other chronic medical condition: Morbid obesity, DM Resume home meds when appropriate Morbid obesity HbA1c 6 Glycemic management per protocol DVT prophylaxis Has been on Eliquis Full code 11/07 patient's Justin given phone call, updated on the current status of the patient, discussed her plan of care going forward, patient voiced understanding and was agreeable. Will discuss with patient sometime over the weekend Admission and Anticipated Discharge Date Admission Date: October 25, 2021 Subjective 11/10/2021 The patient was seen and examined in ICU with medical telemetry unit status She remains weak and lethargic but feels that she is at her baseline Denies any significant symptoms except weakness Review of Systems Review of Systems: All systems reviewed and are unremarkable except as noted below Physical Exam Physical Exam: Lying in bed comfortably Constitutional: well developed, well nourished, + ill appearing and + obese Eyes: PERRL, conjunctivae normal, anicteric sclerae ENMT: external ear and nose normal, oropharynx normal Respiratory: no respiratory distress Auscultation: lungs clear to auscultation bilaterally and + diminished lung sounds Cardiovascular: Rate/Rhythm: regular rate, regular rhythm and + tachycardic Heart Sounds: normal S1 and normal S2; no murmur Extremities: + edema (Trace edema bilaterally) Musculoskeletal: No acute arthritis in any joint Neurologic: Alert and awake. Generally weak. Has fine movements involving the left upper extremity and also the mouth Lymphatic: no cervical or axillary lymphadenopathy Results & Data Results & Data ([facility]) Vital Signs (Past 12 Hours) Vital Signs Temp Pulse Pulse Resp BP BP Pulse Ox 11/10/21 15:47 36.6 C 109 H 30 H 124/95 94 11/10/21 12:27 133 H 118/83 11/10/21 11:44 36.8 C 112 H 26 H 118/83 91 11/10/21 09:17 129 H 140/87 11/10/21 07:57 37.2 C 110 H 24 140/87 92 Laboratory Results Short CBC 11/10/21 Range/Units 03:51 WBC 11.32 H (4.8-10.8) K/uL Hgb 14.4 (12.0-16.0) g/dL Hct 45.7 (37-47) % Plt Count 334 (130-400) K/uL BMP 11/10/21 03:51 Sodium 136 Potassium 3.5 D Chloride 99 Carbon Dioxide 30 BUN 27 H Creatinine 0.82 Glucose 117 H Calcium 10.6 H Medications Administered Current Inpatient Medications Acetaminophen (Acetaminophen 325 Mg Tab) 650 mg PO Q4H PRN PRN Reason: Pain or Fever Stop: 11/24/21 04:18 Last Admin: 10/31/21 19:41 Dose: 650 mg Documented by: Apixaban (Apixaban 2.5 Mg Tab) 10 mg PO BID [facility] Stop: 11/16/21 09:01 Last Admin: 11/10/21 09:14 Dose: 10 mg Documented by: Baclofen (Baclofen 20 Mg Tab) 20 mg PO BID [facility] Stop: 12/07/21 08:59 Last Admin: 11/10/21 09:14 Dose: 20 mg Documented by: Bupropion HCl (Bupropion Xl 300 Mg Tabcr) 300 mg PO QAM [facility] Stop: 12/08/21 08:59 Last Admin: 11/10/21 09:13 Dose: 300 mg Documented by: Bupropion HCl (Bupropion Xl 150 Mg Tabcr) 150 mg PO QAM [facility] Stop: 12/08/21 08:59 Last Admin: 11/10/21 09:13 Dose: 150 mg Documented by: Dextrose (Dextrose 50% 50 Ml Syringe) 25 - 50 ml IV UD PRN; Protocol PRN Reason: Hypoglycemia Protocol Stop: 12/08/21 15:14 Docusate Sodium (Docusate Sodium 100 Mg Cap) 100 mg PO BID [facility] Stop: 12/09/21 20:59 Last Admin: 11/10/21 09:14 Dose: 100 mg Documented by: Doxepin HCl (Doxepin Hcl 75 Mg Capsule) 300 mg PO DAILY [facility] Stop: 12/07/21 08:59 Last Admin: 11/10/21 09:13 Dose: 300 mg Documented by: Glucagon (Glucagon For Inj 1 Mg Vial) 1 mg IM UD PRN; Protocol PRN Reason: Hypoglycemia Protocol Stop: 12/08/21 15:14 Glucose (Glucose 40% Gel 15 Gm Tube) 15 - 30 gm PO UD PRN; Protocol PRN Reason: Hypoglycemia Protocol Stop: 12/08/21 15:14 Glucose (Glucose 10 Tabs/Tube) 4 - 8 tabs PO UD PRN; Protocol PRN Reason: Hypoglycemia Protocol Stop: 12/08/21 15:14 Hydrochlorothiazide (Hydrochlorothiazide 25 Mg Tab) 25 mg PO DAILY [facility] Stop: 12/07/21 08:59 Last Admin: 11/10/21 09:13 Dose: 25 mg Documented by: Hydroxyzine HCl (Hydroxyzine Hcl 25 Mg Tab) 50 mg PO BID [facility] Stop: 12/07/21 20:59 Last Admin: 11/10/21 09:14 Dose: 50 mg Documented by: Insulin Aspart (Insulin Aspart 100 Units/Ml 3 Ml Pen) 0 units SC ACHS [facility] Stop: 12/08/21 16:29 Last Admin: 11/10/21 12:26 Dose: Not Given Documented by: Metoprolol Tartrate (Metoprolol Tartrate 1 Mg/Ml Vial) 5 mg IV Q4 [facility] Stop: 12/06/21 15:59 Last Admin: 11/10/21 12:27 Dose: 5 mg Documented by: Miscellaneous (Carbohydrates For Hypoglycemia ) 15 - 30 gm PO UD PRN PRN Reason: Hypoglycemia Treatment Stop: 12/08/21 15:14 Oxycodone HCl (Oxycodone Hcl Ir 5 Mg Tab (Immediate Release)) 15 mg PO Q12 [facility] Stop: 11/21/21 08:59 Last Admin: 11/10/21 09:17 Dose: 15 mg Documented by: Polyethylene Glycol (Polyethylene (Miralax) 17 Gm Pack) 17 gm PO DAILY PRN PRN Reason: CONSTIPATION Stop: 12/03/21 10:23 Potassium Chloride (Potassium Chloride 10 Meq Tabcr) 10 meq PO DAILY [facility] Stop: 12/10/21 08:59 Last Admin: 11/10/21 09:14 Dose: 10 meq Documented by: Risperidone (Risperidone 3 Mg Tablet) 3 mg PO HS [facility] Stop: 12/07/21 20:59 Last Admin: 11/09/21 21:39 Dose: 3 mg Documented by: Risperidone (Risperidone 0.5 Mg Tablet) 0.5 mg PO QAM [facility] Stop: 12/08/21 08:59 Last Admin: 11/10/21 09:14 Dose: 0.5 mg Documented by: Sennosides (Senna 8.6 Mg Tab) 8.6 mg PO BID [facility] Stop: 12/09/21 20:59 Last Admin: 11/10/21 09:13 Dose: 8.6 mg Documented by: Spironolactone (Spironolactone 25 Mg Tab) 50 mg PO DAILY [facility] Stop: 12/09/21 13:59 Last Admin: 11/10/21 09:14 Dose: 50 mg Documented by:
[2021-11-10] MEDS: risperiDONE 3 MG TABLET PO SCH (20:20)
[2021-11-11] MEDS: METOPROLOL TARTRATE 1 MG/ML VIAL IV SCH ×2 (04:17→08:31)
[2021-11-11] MEDS: INSULIN ASPART 100 UNITS/ML 3 ML PEN SC SCH ×3 (08:10→17:11)
[2021-11-11] MEDS: SENNA 8.6 MG TAB PO SCH ×2 (08:31→20:29)
[2021-11-11] MEDS: APIXABAN 2.5 MG TAB PO SCH ×2 (08:31→20:30)
[2021-11-11] MEDS: hydrOXYzine HCl 25 MG TAB PO SCH ×2 (08:31→20:29)
[2021-11-11] MEDS: BACLOFEN 20 MG TAB PO SCH ×2 (08:31→20:28)
[2021-11-11] MEDS: hydroCHLOROthiazide 25 MG TAB PO SCH (08:32)
[2021-11-11] MEDS: DOXEPIN HCL 75 MG CAPSULE PO SCH (08:32)
[2021-11-11] MEDS: SPIRONOLACTONE 25 MG TAB PO SCH (08:32)
[2021-11-11] MEDS: POTASSIUM CHLORIDE 10 MEQ TABCR PO SCH (08:32)
[2021-11-11] MEDS: buPROPion XL 150 MG TABCR PO SCH (08:32)
[2021-11-11] MEDS: buPROPion XL 300 MG TABCR PO SCH (08:32)
[2021-11-11] MEDS: risperiDONE 0.5 MG TABLET PO SCH (08:32)
[2021-11-11] MEDS: DOCUSATE SODIUM 100 MG CAP PO SCH ×2 (08:33→20:31)
[2021-11-11] MEDS: oxyCODONE HCL IR 5 MG TAB (IMMEDIATE RELEASE) PO SCH ×2 (08:37→20:39)
[2021-11-11] MEDS: METOPROLOL TARTRATE 25 MG TAB PO SCH ×2 (11:48→20:30)
--- NOTE | 2021-11-11 14:51 | Hospitalist Progress Note ---
Date of Service November 11, 2021 Assessment & Plan (1) Acute respiratory failure with hypoxia: Plan: 41-year-old lady with PMH of cerebral palsy [left side paresis with episodic spasms at baseline], mood disorder, potassium wasting nephropathy as per records, HTN presented to our ED 10/25 with 10 days history of dry cough associated with worsening shortness of breath and flulike symptoms. Patient is not vaccinated against Covid. Patient was initiated on BiPAP for respiratory distress in the ER and received Decadron in the ED. Of note, per patient's patient is able to communicate at baseline and is alert and oriented x3 but at occasions it is difficult to understand what she is saying. She is managed for the following: #. ARF Secondary to severe COVID-19 pneumonia #. ARDS 2/2 COVID pneumonitis #. Right-sided pulmonary emboli Patient not vaccinated against Covid. Was on BIPAP and then HFNC on admission. Needed Intubation. Status post bronchoscopy 10/31 and 11/03. BAL cultures negative. Cytology negative for fungal elements. Status post Decadron and Tocilizumab. Status post 7 days of Rocephin for coagulase-negative staph growing from sputum culture on 10/26. Was intubated 10/25 due to respiratory distress worsening---> extubated 11/06 on high flow nasal cannula---> currently on RA c/w IS, flutter valve when able. 11/07 speech evaluation: FEES showed major aspiration event and desaturation during scope, plan for VFSS tomorrow. She does have bilateral vocal fold movement with complete abduction and epiglottic inversion and did not aspirate applesauce, hence crushed meds in applesauce okay for now. 11/08 VFSS per speech: Patient does have a small Zenker's diverticulum that refluxes material to the base of the PES. They recommended heart healthy diet, easy to chew. Was found to have Right PE on CTA chest 10/25----> heparin drip to be transitioned to eliquis 10 mg BID from 11/09 evening dose (atleast 3 months of AC needed)----> transition to 5 mg BID after 7 day course of 10 mg BID. Change iv diuresis to home meds 11/09 with close monitoring of renal fxn and lytes. Resume BP/cardiac meds when able. Use as needed lasix to keep on her back tender pulp drier side, may need freq iv lasix to keep her on back tender pulp drier side She has been out of Covid isolation Clinically much better as of today and she feels she is at her baseline Has been getting PT and OT evaluation Awaiting placement Remains tachycardic in the IV metoprolol has been changed to oral #. Other chronic medical condition: Morbid obesity, DM Resume home meds when appropriate Morbid obesity HbA1c 6 Glycemic management per protocol DVT prophylaxis Has been on Eliquis due to right pulmonary emboli Full code 11/07 patient's Justin given phone call, updated on the current status of the patient, discussed her plan of care going forward, patient voiced understanding and was agreeable. Will discuss with patient sometime over the weekend Admission and Anticipated Discharge Date Admission Date: October 25, 2021 Subjective 11/10/2021 The patient was seen and examined in ICU with medical telemetry unit status She remains weak and lethargic but feels that she is at her baseline Denies any significant symptoms except weakness 11/11/2021 The patient was seen and examined in ICU with medical telemetry status She remains stable and little tachycardic at times Denies any symptoms Review of Systems Review of Systems: All systems reviewed and are unremarkable except as noted below Physical Exam Physical Exam: Lying in bed comfortably Constitutional: well developed, well nourished, + ill appearing and + obese Eyes: PERRL, conjunctivae normal, anicteric sclerae ENMT: external ear and nose normal, oropharynx normal Respiratory: no respiratory distress Auscultation: lungs clear to auscultation bilaterally and + diminished lung sounds Cardiovascular: Rate/Rhythm: regular rate, regular rhythm and + tachycardic Heart Sounds: normal S1 and normal S2; no murmur Extremities: + edema (Trace edema bilaterally) Gastrointestinal (Abdomen): Inspection/Auscultation: normal bowel sounds; abdomen not distended Percussion/Palpation: abdomen soft; abdomen nontender Musculoskeletal: No acute arthritis in any joint Neurologic: Alert and awake. Has left-sided weakness with jerking movement involving the left upper extremity and face Lymphatic: no cervical or axillary lymphadenopathy Results & Data Results & Data ([facility]) Vital Signs (Past 12 Hours) Vital Signs Temp Pulse Pulse Resp BP BP BP 11/11/21 08:31 98 H 12/11/21 07:36 117 H 11/11/21 06:40 36.7 C 92 H 18 121/93 11/11/21 04:17 91 H 118/79 11/11/21 04:09 36.9 C 92 H 18 118/79 Pulse Ox 11/11/21 08:31 11/11/21 07:36 11/11/21 06:40 95 11/11/21 04:17 11/11/21 04:09 92 Medications Administered Current Inpatient Medications Acetaminophen (Acetaminophen 325 Mg Tab) 650 mg PO Q4H PRN PRN Reason: Pain or Fever Stop: 11/24/21 04:18 Last Admin: 10/31/21 19:41 Dose: 650 mg Documented by: Apixaban (Apixaban 2.5 Mg Tab) 10 mg PO BID [facility] Stop: 11/16/21 09:01 Last Admin: 11/11/21 08:31 Dose: 10 mg Documented by: Baclofen (Baclofen 20 Mg Tab) 20 mg PO BID [facility] Stop: 12/07/21 08:59 Last Admin: 11/11/21 08:31 Dose: 20 mg Documented by: Bupropion HCl (Bupropion Xl 300 Mg Tabcr) 300 mg PO QAM [facility] Stop: 12/08/21 08:59 Last Admin: 11/11/21 08:32 Dose: 300 mg Documented by: Bupropion HCl (Bupropion Xl 150 Mg Tabcr) 150 mg PO QAM [facility] Stop: 12/08/21 08:59 Last Admin: 11/11/21 08:32 Dose: 150 mg Documented by: Dextrose (Dextrose 50% 50 Ml Syringe) 25 - 50 ml IV UD PRN; Protocol PRN Reason: Hypoglycemia Protocol Stop: 12/08/21 15:14 Docusate Sodium (Docusate Sodium 100 Mg Cap) 100 mg PO BID [facility] Stop: 12/09/21 20:59 Last Admin: 11/11/21 08:33 Dose: 100 mg Documented by: Doxepin HCl (Doxepin Hcl 75 Mg Capsule) 300 mg PO DAILY [facility] Stop: 12/07/21 08:59 Last Admin: 11/11/21 08:32 Dose: 300 mg Documented by: Glucagon (Glucagon For Inj 1 Mg Vial) 1 mg IM UD PRN; Protocol PRN Reason: Hypoglycemia Protocol Stop: 12/08/21 15:14 Glucose (Glucose 40% Gel 15 Gm Tube) 15 - 30 gm PO UD PRN; Protocol PRN Reason: Hypoglycemia Protocol Stop: 12/08/21 15:14 Glucose (Glucose 10 Tabs/Tube) 4 - 8 tabs PO UD PRN; Protocol PRN Reason: Hypoglycemia Protocol Stop: 12/08/21 15:14 Hydrochlorothiazide (Hydrochlorothiazide 25 Mg Tab) 25 mg PO DAILY [facility] Stop: 12/07/21 08:59 Last Admin: 11/11/21 08:32 Dose: 25 mg Documented by: Hydroxyzine HCl (Hydroxyzine Hcl 25 Mg Tab) 50 mg PO BID [facility] Stop: 12/07/21 20:59 Last Admin: 11/11/21 08:31 Dose: 50 mg Documented by: Insulin Aspart (Insulin Aspart 100 Units/Ml 3 Ml Pen) 0 units SC ACHS [facility] Stop: 12/08/21 16:29 Last Admin: 11/11/21 11:49 Dose: Not Given Documented by: Metoprolol Tartrate (Metoprolol Tartrate 25 Mg Tab) 25 mg PO BID [facility] Stop: 12/11/21 10:29 Last Admin: 11/11/21 11:48 Dose: 25 mg Documented by: Miscellaneous (Carbohydrates For Hypoglycemia ) 15 - 30 gm PO UD PRN PRN Reason: Hypoglycemia Treatment Stop: 12/08/21 15:14 Oxycodone HCl (Oxycodone Hcl Ir 5 Mg Tab (Immediate Release)) 15 mg PO Q12 [facility] Stop: 11/21/21 08:59 Last Admin: 11/11/21 08:37 Dose: 15 mg Documented by: Polyethylene Glycol (Polyethylene (Miralax) 17 Gm Pack) 17 gm PO DAILY PRN PRN Reason: CONSTIPATION Stop: 12/03/21 10:23 Potassium Chloride (Potassium Chloride 10 Meq Tabcr) 10 meq PO DAILY [facility] Stop: 12/10/21 08:59 Last Admin: 11/11/21 08:32 Dose: 10 meq Documented by: Risperidone (Risperidone 3 Mg Tablet) 3 mg PO HS [facility] Stop: 12/07/21 20:59 Last Admin: 11/10/21 20:20 Dose: 3 mg Documented by: Risperidone (Risperidone 0.5 Mg Tablet) 0.5 mg PO QAM [facility] Stop: 12/08/21 08:59 Last Admin: 11/11/21 08:32 Dose: 0.5 mg Documented by: Sennosides (Senna 8.6 Mg Tab) 8.6 mg PO BID [facility] Stop: 12/09/21 20:59 Last Admin: 11/11/21 08:31 Dose: 8.6 mg Documented by: Spironolactone (Spironolactone 25 Mg Tab) 50 mg PO DAILY [facility] Stop: 12/09/21 13:59 Last Admin: 11/11/21 08:32 Dose: 50 mg Documented by:
[2021-11-11] MEDS: risperiDONE 3 MG TABLET PO SCH (20:29)
[2021-11-12 05:36] LABS: Hematocrit (blood only) 41.9 % (37-47); Hemoglobin 13.3 g/dL (12.0-16.0); Mean Corpuscular Hemoglobin 28.7 pg (25-34); Mean Corpuscular Hgb Conc 31.7 g/dL (32-36); Mean Corpuscular Volume 90.3 fL (80-100); Mean Platelet Volume 11.4 fL (7.4-10.4); Platelet Count 268 K/uL (130-400); RDW Coefficient of Variation 16.3 % (11.5-14.5); RDW Standard Deviation 52.8 fL (36.4-46.3); Red Blood Count 4.64 M/uL (4.2-5.4); White Blood Count 9.15 K/uL (4.8-10.8)
[2021-11-12 05:55] LABS: BUN Creatinine Ratio 32.3 (10-20); Calcium 10.1 mg/dl (8.5-10.1); Creatinine Clr Calc Pharmacy 136.2 ml/min; Est GFR (African American) 126.9 ml/min; Est GFR (Non-African American) 109.5 ml/min; Potassium 3.6 mmol/L (3.5-5.1)
[2021-11-12 06:01] LABS: Phosphorus 3.8 mg/dl (2.5-4.9)
[2021-11-12 07:01] LABS: Magnesium 2.1 mg/dl (1.8-2.4)
[2021-11-12 07:10] LABS: Basophils # (auto) 0.06 K/uL (0-0.2); Basophils % (auto) 0.7 %; Eosinophils % (auto) 5.5 %; Immature Granulocytes # (auto) 0.03 K/uL (0.00-0.02); Immature Granulocytes % (auto) 0.3 %; Lymphocytes # (auto) 1.83 K/uL (1.2-3.4); Monocytes % (auto) 8.7 %; Neutrophils # (auto) 5.93 K/uL (1.4-6.5); Neutrophils % (auto) 64.8 %
[2021-11-12] MEDS: risperiDONE 0.5 MG TABLET PO SCH (07:53)
[2021-11-12] MEDS: DOXEPIN HCL 75 MG CAPSULE PO SCH (07:53)
[2021-11-12] MEDS: SENNA 8.6 MG TAB PO SCH ×2 (07:53→20:15)
[2021-11-12] MEDS: hydroCHLOROthiazide 25 MG TAB PO SCH (07:53)
[2021-11-12] MEDS: BACLOFEN 20 MG TAB PO SCH ×2 (07:53→20:16)
[2021-11-12] MEDS: SPIRONOLACTONE 25 MG TAB PO SCH (07:53)
[2021-11-12] MEDS: METOPROLOL TARTRATE 25 MG TAB PO SCH ×2 (07:54→20:16)
[2021-11-12] MEDS: hydrOXYzine HCl 25 MG TAB PO SCH ×2 (07:54→20:15)
[2021-11-12] MEDS: APIXABAN 2.5 MG TAB PO SCH ×2 (07:54→20:15)
[2021-11-12] MEDS: buPROPion XL 300 MG TABCR PO SCH (07:54)
[2021-11-12] MEDS: oxyCODONE HCL IR 5 MG TAB (IMMEDIATE RELEASE) PO SCH ×2 (07:54→20:16)
[2021-11-12] MEDS: POTASSIUM CHLORIDE 10 MEQ TABCR PO SCH (07:54)
[2021-11-12] MEDS: DOCUSATE SODIUM 100 MG CAP PO SCH ×2 (07:55→20:14)
[2021-11-12] MEDS: buPROPion XL 150 MG TABCR PO SCH (08:53)
--- NOTE | 2021-11-12 12:19 | Hospitalist Progress Note ---
Date of Service November 12, 2021 Assessment & Plan (1) Acute respiratory failure with hypoxia: Plan: 41-year-old lady with PMH of cerebral palsy [left side paresis with episodic spasms at baseline], mood disorder, potassium wasting nephropathy as per records, HTN presented to our ED 10/25 with 10 days history of dry cough associated with worsening shortness of breath and flulike symptoms. Patient is not vaccinated against Covid. Patient was initiated on BiPAP for respiratory distress in the ER and received Decadron in the ED. Of note, per patient's patient is able to communicate at baseline and is alert and oriented x3 but at occasions it is difficult to understand what she is saying. She is managed for the following: #. ARF Secondary to severe COVID-19 pneumonia #. ARDS 2/2 COVID pneumonitis #. Right-sided pulmonary emboli Patient not vaccinated against Covid. Was on BIPAP and then HFNC on admission. Needed Intubation. Status post bronchoscopy 10/31 and 11/03. BAL cultures negative. Cytology negative for fungal elements. Status post Decadron and Tocilizumab. Status post 7 days of Rocephin for coagulase-negative staph growing from sputum culture on 10/26. Was intubated 10/25 due to respiratory distress worsening---> extubated 11/06 on high flow nasal cannula---> currently on RA c/w IS, flutter valve when able. 11/07 speech evaluation: FEES showed major aspiration event and desaturation during scope, plan for VFSS tomorrow. She does have bilateral vocal fold movement with complete abduction and epiglottic inversion and did not aspirate applesauce, hence crushed meds in applesauce okay for now. 11/08 VFSS per speech: Patient does have a small Zenker's diverticulum that refluxes material to the base of the PES. They recommended heart healthy diet, easy to chew. Was found to have Right PE on CTA chest 10/25----> heparin drip to be transitioned to eliquis 10 mg BID from 11/09 evening dose (atleast 3 months of AC needed)----> transition to 5 mg BID after 7 day course of 10 mg BID. Change iv diuresis to home meds 11/09 with close monitoring of renal fxn and lytes. Resume BP/cardiac meds when able. Use as needed lasix to keep on her raw stock drier tender side, may need freq iv lasix to keep her on raw stock drier tender side She has been out of Covid isolation Clinically much better as of today and she feels she is at her baseline Has been getting PT and OT evaluation Awaiting placement Remains tachycardic in the IV metoprolol has been changed to oral Remains little tachycardic and will continue small dose of [id number] pressure remains on the lower side and will not increase the dose of beta- primo No signs and/or symptoms of infection #. Other chronic medical condition: Morbid obesity, DM Cerebral palsy with left-sided hemiparesis Resume home meds when appropriate Morbid obesity HbA1c 6 Glycemic management per protocol DVT prophylaxis Has been on Eliquis due to right pulmonary emboli Full code 11/07 patient's Justin given phone call, updated on the current status of the patient, discussed her plan of care going forward, patient voiced understanding and was agreeable. Will discuss with patient sometime over the weekend Admission and Anticipated Discharge Date Admission Date: October 25, 2021 Subjective 11/10/2021 The patient was seen and examined in ICU with medical telemetry unit status She remains weak and lethargic but feels that she is at her baseline Denies any significant symptoms except weakness 11/11/2021 The patient was seen and examined in ICU with medical telemetry status She remains stable and little tachycardic at times Denies any symptoms 11/12/2021 The patient was seen and examined in medical telemetry unit She remains stable and he still has some tachycardia but otherwise asymptomatic No fever and no chills Review of Systems Review of Systems: All systems reviewed and are unremarkable except as noted below Physical Exam 2 Physical Exam: Lying in bed comfortably Constitutional: well developed, well nourished, + ill appearing and + obese Eyes: PERRL, conjunctivae normal, anicteric sclerae ENMT: external ear and nose normal, oropharynx normal Respiratory: no respiratory distress Auscultation: lungs clear to auscultation bilaterally and + diminished lung sounds Cardiovascular: Rate/Rhythm: regular rate, regular rhythm and + tachycardic Heart Sounds: normal S1 and normal S2; no murmur Extremities: + edema (Trace edema bilaterally) Gastrointestinal (Abdomen): Inspection/Auscultation: normal bowel sounds; abdomen not distended Percussion/Palpation: abdomen soft; abdomen nontender Musculoskeletal: No acute arthritis in any joint Neurologic: Alert, awake and oriented x3. Has left hemiparesis due to cerebral palsy with abnormal jerking movements involving the left upper limb and of the face Lymphatic: no cervical or axillary lymphadenopathy Results & Data Results & Data ([facility]) Vital Signs (Past 12 Hours) Vital Signs Temp Pulse Pulse Pulse Resp BP Pulse Ox 11/12/21 11:06 36.8 C 107 H 18 110/80 91 11/12/21 07:31 36.6 C 98 H 18 138/81 92 11/12/21 05:52 91 11/12/21 05:15 86 11/12/21 04:59 36.8 C 90 20 125/85 98 11/12/21 03:46 37 C 86 18 121/83 98 Laboratory Results Short CBC 11/12/21 Range/Units 04:34 WBC 9.15 (4.8-10.8) K/uL Hgb 13.3 (12.0-16.0) g/dL Hct 41.9 (37-47) % Plt Count 268 (130-400) K/uL BMP 11/12/21 04:34 Sodium 132 L Potassium 3.6 Chloride 98 Carbon Dioxide 26 BUN 21 H Creatinine 0.65 Glucose 94 Calcium 10.1 Medications Administered Current Inpatient Medications Acetaminophen (Acetaminophen 325 Mg Tab) 650 mg PO Q4H PRN PRN Reason: Pain or Fever Stop: 11/24/21 04:18 Last Admin: 10/31/21 19:41 Dose: 650 mg Documented by: Apixaban (Apixaban 2.5 Mg Tab) 10 mg PO BID [facility] Stop: 11/13/21 12:00 Last Admin: 11/12/21 07:54 Dose: 10 mg Documented by: Apixaban (Apixaban 5 Mg Tablet) 10 mg PO BID [facility] Stop: 11/16/21 09:01 Baclofen (Baclofen 20 Mg Tab) 20 mg PO BID [facility] Stop: 12/07/21 08:59 Last Admin: 11/12/21 07:53 Dose: 20 mg Documented by: Bupropion HCl (Bupropion Xl 300 Mg Tabcr) 300 mg PO QAM [facility] Stop: 12/08/21 08:59 Last Admin: 11/12/21 07:54 Dose: 300 mg Documented by: Bupropion HCl (Bupropion Xl 150 Mg Tabcr) 150 mg PO QAM [facility] Stop: 12/08/21 08:59 Last Admin: 11/12/21 08:53 Dose: 150 mg Documented by: Dextrose (Dextrose 50% 50 Ml Syringe) 25 - 50 ml IV UD PRN; Protocol PRN Reason: Hypoglycemia Protocol Stop: 12/08/21 15:14 Docusate Sodium (Docusate Sodium 100 Mg Cap) 100 mg PO BID [facility] Stop: 12/09/21 20:59 Last Admin: 11/12/21 07:55 Dose: 100 mg Documented by: Doxepin HCl (Doxepin Hcl 75 Mg Capsule) 300 mg PO DAILY [facility] Stop: 12/07/21 08:59 Last Admin: 11/12/21 07:53 Dose: 300 mg Documented by: Glucagon (Glucagon For Inj 1 Mg Vial) 1 mg IM UD PRN; Protocol PRN Reason: Hypoglycemia Protocol Stop: 12/08/21 15:14 Glucose (Glucose 40% Gel 15 Gm Tube) 15 - 30 gm PO UD PRN; Protocol PRN Reason: Hypoglycemia Protocol Stop: 12/08/21 15:14 Glucose (Glucose 10 Tabs/Tube) 4 - 8 tabs PO UD PRN; Protocol PRN Reason: Hypoglycemia Protocol Stop: 12/08/21 15:14 Hydrochlorothiazide (Hydrochlorothiazide 25 Mg Tab) 25 mg PO DAILY [facility] Stop: 12/07/21 08:59 Last Admin: 11/12/21 07:53 Dose: 25 mg Documented by: Hydroxyzine HCl (Hydroxyzine Hcl 25 Mg Tab) 50 mg PO BID [facility] Stop: 12/07/21 20:59 Last Admin: 11/12/21 07:54 Dose: 50 mg Documented by: Metoprolol Tartrate (Metoprolol Tartrate 25 Mg Tab) 25 mg PO BID [facility] Stop: 12/11/21 10:29 Last Admin: 11/12/21 07:54 Dose: 25 mg Documented by: Miscellaneous (Carbohydrates For Hypoglycemia ) 15 - 30 gm PO UD PRN PRN Reason: Hypoglycemia Treatment Stop: 12/08/21 15:14 Oxycodone HCl (Oxycodone Hcl Ir 5 Mg Tab (Immediate Release)) 15 mg PO Q12 [facility] Stop: 11/21/21 08:59 Last Admin: 11/12/21 07:54 Dose: 15 mg Documented by: Polyethylene Glycol (Polyethylene (Miralax) 17 Gm Pack) 17 gm PO DAILY PRN PRN Reason: CONSTIPATION Stop: 12/03/21 10:23 Potassium Chloride (Potassium Chloride 10 Meq Tabcr) 10 meq PO DAILY [facility] Stop: 12/10/21 08:59 Last Admin: 11/12/21 07:54 Dose: 10 meq Documented by: Risperidone (Risperidone 3 Mg Tablet) 3 mg PO HS [facility] Stop: 12/07/21 20:59 Last Admin: 11/11/21 20:29 Dose: 3 mg Documented by: Risperidone (Risperidone 0.5 Mg Tablet) 0.5 mg PO QAM [facility] Stop: 12/08/21 08:59 Last Admin: 11/12/21 07:53 Dose: 0.5 mg Documented by: Sennosides (Senna 8.6 Mg Tab) 8.6 mg PO BID [facility] Stop: 12/09/21 20:59 Last Admin: 11/12/21 07:53 Dose: 8.6 mg Documented by: Spironolactone (Spironolactone 25 Mg Tab) 50 mg PO DAILY [facility] Stop: 12/09/21 13:59 Last Admin: 11/12/21 07:53 Dose: 50 mg Documented by:
[2021-11-12] MEDS: risperiDONE 3 MG TABLET PO SCH (20:18)
[2021-11-13] MEDS: buPROPion XL 300 MG TABCR PO SCH (09:36)
[2021-11-13] MEDS: BACLOFEN 20 MG TAB PO SCH ×2 (09:36→20:36)
[2021-11-13] MEDS: APIXABAN 2.5 MG TAB PO SCH (09:36)
[2021-11-13] MEDS: hydroCHLOROthiazide 25 MG TAB PO SCH (09:37)
[2021-11-13] MEDS: POTASSIUM CHLORIDE 10 MEQ TABCR PO SCH (09:37)
[2021-11-13] MEDS: DOCUSATE SODIUM 100 MG CAP PO SCH ×2 (09:37→20:39)
[2021-11-13] MEDS: risperiDONE 0.5 MG TABLET PO SCH (09:37)
[2021-11-13] MEDS: DOXEPIN HCL 75 MG CAPSULE PO SCH (09:37)
[2021-11-13] MEDS: buPROPion XL 150 MG TABCR PO SCH (09:37)
[2021-11-13] MEDS: SPIRONOLACTONE 25 MG TAB PO SCH (09:37)
[2021-11-13] MEDS: hydrOXYzine HCl 25 MG TAB PO SCH ×2 (09:37→20:39)
[2021-11-13] MEDS: METOPROLOL TARTRATE 25 MG TAB PO SCH ×2 (09:37→20:37)
[2021-11-13] MEDS: SENNA 8.6 MG TAB PO SCH ×2 (09:37→20:37)
[2021-11-13] MEDS: oxyCODONE HCL IR 5 MG TAB (IMMEDIATE RELEASE) PO SCH (11:51)
[2021-11-13] MEDS: MICONAZOLE NITRATE POWDER 43 GM EXT PRN ×2 (15:08→20:40)
--- NOTE | 2021-11-13 15:27 | Hospitalist Progress Note ---
Date of Service November 13, 2021 Assessment & Plan (1) Acute respiratory failure with hypoxia: Plan: 41-year-old lady with PMH of cerebral palsy [left side paresis with episodic spasms at baseline], mood disorder, potassium wasting nephropathy as per records, HTN presented to our ED 10/25 with 10 days history of dry cough associated with worsening shortness of breath and flulike symptoms. Patient is not vaccinated against Covid. Patient was initiated on BiPAP for respiratory distress in the ER and received Decadron in the ED. Of note, per patient's patient is able to communicate at baseline and is alert and oriented x3 but at occasions it is difficult to understand what she is saying. She is managed for the following: #. ARF Secondary to severe COVID-19 pneumonia #. ARDS 2/2 COVID pneumonitis #. Right-sided pulmonary emboli Patient not vaccinated against Covid. Was on BIPAP and then HFNC on admission. Needed Intubation. Status post bronchoscopy 10/31 and 11/03. BAL cultures negative. Cytology negative for fungal elements. Status post Decadron and Tocilizumab. Status post 7 days of Rocephin for coagulase-negative staph growing from sputum culture on 10/26. Was intubated 10/25 due to respiratory distress worsening---> extubated 11/06 on high flow nasal cannula---> currently on RA c/w IS, flutter valve when able. 11/07 speech evaluation: FEES showed major aspiration event and desaturation during scope, plan for VFSS tomorrow. She does have bilateral vocal fold movement with complete abduction and epiglottic inversion and did not aspirate applesauce, hence crushed meds in applesauce okay for now. 11/08 VFSS per speech: Patient does have a small Zenker's diverticulum that refluxes material to the base of the PES. They recommended heart healthy diet, easy to chew. Was found to have Right PE on CTA chest 10/25----> heparin drip to be transitioned to eliquis 10 mg BID from 11/09 evening dose (atleast 3 months of AC needed)----> transition to 5 mg BID after 7 day course of 10 mg BID. Change iv diuresis to home meds 11/09 with close monitoring of renal fxn and lytes. Resume BP/cardiac meds when able. Use as needed lasix to keep on her yolk spray drier side, may need freq iv lasix to keep her on yolk spray drier side She has been out of Covid isolation Clinically much better as of today and she feels she is at her baseline Has been getting PT and OT evaluation Remains tachycardic in the IV metoprolol has been changed to oral Remains little tachycardic and will continue small dose of [id number] pressure remains on the lower side and will not increase the dose of beta- primo No signs and/or symptoms of infection Clinically stable to be discharged Also on oxycodone 15 mg twice daily She denies any more pain and this has been discontinued May cause tachycardia due to withdrawal We will get an EKG #. Other chronic medical condition: Morbid obesity, DM Cerebral palsy with left-sided hemiparesis Resume home meds when appropriate Morbid obesity HbA1c 6 Glycemic management per protocol DVT prophylaxis Has been on Eliquis due to right pulmonary emboli Full code 11/07 patient's Justin given phone call, updated on the current status of the patient, discussed her plan of care going forward, patient voiced understanding and was agreeable. Will discuss with patient sometime over the weekend Admission and Anticipated Discharge Date Admission Date: October 25, 2021 Subjective 11/10/2021 The patient was seen and examined in ICU with medical telemetry unit status She remains weak and lethargic but feels that she is at her baseline Denies any significant symptoms except weakness 11/11/2021 The patient was seen and examined in ICU with medical telemetry status She remains stable and little tachycardic at times Denies any symptoms 11/12/2021 The patient was seen and examined in medical telemetry unit She remains stable and he still has some tachycardia but otherwise asymptomatic No fever and no chills 11/13/2021 The patient was seen and examined in medical telemetry unit She has been stable without any fever and/or chills Her heart rate remains elevated at 115 Review of Systems Review of Systems: All systems reviewed and are unremarkable except as noted below Cardiovascular: Additional Comments: Has tachycardia without any symptoms Physical Exam Physical Exam: Lying in bed comfortably Constitutional: well developed, well nourished, + ill appearing and + obese Eyes: PERRL, conjunctivae normal, anicteric sclerae ENMT: external ear and nose normal, oropharynx normal Respiratory: no respiratory distress Auscultation: lungs clear to auscultation bilaterally and + diminished lung sounds Cardiovascular: Rate/Rhythm: regular rate, regular rhythm and + tachycardic Heart Sounds: normal S1 and normal S2; no murmur Extremities: + edema (Trace edema bilaterally) Gastrointestinal (Abdomen): Inspection/Auscultation: normal bowel sounds; abdomen not distended Percussion/Palpation: abdomen soft; abdomen nontender Musculoskeletal: Denies any acute arthritis in any joint Neurologic: Alert and awake. Has left hemiparesis with abnormal jerky movements involving the left upper extremity and face Lymphatic: no cervical or axillary lymphadenopathy Results & Data Results & Data ([facility]) Vital Signs (Past 12 Hours) Vital Signs Temp Pulse Pulse Resp BP Pulse Ox 11/13/21 15:19 115 H 11/13/21 12:03 36.7 C 125 H 20 103/69 90 11/13/21 08:02 107 H 11/13/21 07:12 36.7 C 103 H 18 111/75 93 11/13/21 04:20 36.8 C 91 H 20 138/78 94 Medications Administered Current Inpatient Medications Acetaminophen (Acetaminophen 325 Mg Tab) 650 mg PO Q4H PRN PRN Reason: Pain or Fever Stop: 11/24/21 04:18 Last Admin: 10/31/21 19:41 Dose: 650 mg Documented by: Apixaban (Apixaban 5 Mg Tablet) 10 mg PO BID [facility] Stop: 11/16/21 09:01 Baclofen (Baclofen 20 Mg Tab) 20 mg PO BID [facility] Stop: 12/07/21 08:59 Last Admin: 11/13/21 09:36 Dose: 20 mg Documented by: Bupropion HCl (Bupropion Xl 300 Mg Tabcr) 300 mg PO QAM [facility] Stop: 12/08/21 08:59 Last Admin: 11/13/21 09:36 Dose: 300 mg Documented by: Bupropion HCl (Bupropion Xl 150 Mg Tabcr) 150 mg PO QAM [facility] Stop: 12/08/21 08:59 Last Admin: 11/13/21 09:37 Dose: 150 mg Documented by: Dextrose (Dextrose 50% 50 Ml Syringe) 25 - 50 ml IV UD PRN; Protocol PRN Reason: Hypoglycemia Protocol Stop: 12/08/21 15:14 Docusate Sodium (Docusate Sodium 100 Mg Cap) 100 mg PO BID [facility] Stop: 12/09/21 20:59 Last Admin: 11/13/21 09:37 Dose: 100 mg Documented by: Doxepin HCl (Doxepin Hcl 75 Mg Capsule) 300 mg PO DAILY [facility] Stop: 12/07/21 08:59 Last Admin: 11/13/21 09:37 Dose: 300 mg Documented by: Glucagon (Glucagon For Inj 1 Mg Vial) 1 mg IM UD PRN; Protocol PRN Reason: Hypoglycemia Protocol Stop: 12/08/21 15:14 Glucose (Glucose 40% Gel 15 Gm Tube) 15 - 30 gm PO UD PRN; Protocol PRN Reason: Hypoglycemia Protocol Stop: 12/08/21 15:14 Glucose (Glucose 10 Tabs/Tube) 4 - 8 tabs PO UD PRN; Protocol PRN Reason: Hypoglycemia Protocol Stop: 12/08/21 15:14 Hydrochlorothiazide (Hydrochlorothiazide 25 Mg Tab) 25 mg PO DAILY [facility] Stop: 12/07/21 08:59 Last Admin: 11/13/21 09:37 Dose: 25 mg Documented by: Hydroxyzine HCl (Hydroxyzine Hcl 25 Mg Tab) 50 mg PO BID [facility] Stop: 12/07/21 20:59 Last Admin: 11/13/21 09:37 Dose: 50 mg Documented by: Metoprolol Tartrate (Metoprolol Tartrate 25 Mg Tab) 25 mg PO BID [facility] Stop: 12/11/21 10:29 Last Admin: 11/13/21 09:37 Dose: 25 mg Documented by: Miconazole Nitrate (Miconazole Nitrate Powder 43 Gm) 1 appln EXT PRN PRN PRN Reason: Affected Skin Folds Stop: 12/13/21 12:29 Last Admin: 11/13/21 15:08 Dose: 1 appln Documented by: Miscellaneous (Carbohydrates For Hypoglycemia ) 15 - 30 gm PO UD PRN PRN Reason: Hypoglycemia Treatment Stop: 12/08/21 15:14 Polyethylene Glycol (Polyethylene (Miralax) 17 Gm Pack) 17 gm PO DAILY PRN PRN Reason: CONSTIPATION Stop: 12/03/21 10:23 Potassium Chloride (Potassium Chloride 10 Meq Tabcr) 10 meq PO DAILY [facility] Stop: 12/10/21 08:59 Last Admin: 11/13/21 09:37 Dose: 10 meq Documented by: Risperidone (Risperidone 3 Mg Tablet) 3 mg PO HS [facility] Stop: 12/07/21 20:59 Last Admin: 11/12/21 20:18 Dose: 3 mg Documented by: Risperidone (Risperidone 0.5 Mg Tablet) 0.5 mg PO QAM [facility] Stop: 12/08/21 08:59 Last Admin: 11/13/21 09:37 Dose: 0.5 mg Documented by: Sennosides (Senna 8.6 Mg Tab) 8.6 mg PO BID [facility] Stop: 12/09/21 20:59 Last Admin: 11/13/21 09:37 Dose: 8.6 mg Documented by: Spironolactone (Spironolactone 25 Mg Tab) 50 mg PO DAILY [facility] Stop: 12/09/21 13:59 Last Admin: 11/13/21 09:37 Dose: 50 mg Documented by:
[2021-11-13] MEDS: APIXABAN 5 MG TABLET PO SCH (20:36)
[2021-11-13] MEDS: risperiDONE 3 MG TABLET PO SCH (20:37)
[2021-11-13] MEDS: BACITRACIN OINT 15 GM TUBE EXT PRN (20:40)
[2021-11-14] MEDS: hydroCHLOROthiazide 25 MG TAB PO SCH (07:52)
[2021-11-14] MEDS: METOPROLOL TARTRATE 25 MG TAB PO SCH ×2 (07:53→20:06)
[2021-11-14] MEDS: SPIRONOLACTONE 25 MG TAB PO SCH (07:53)
[2021-11-14] MEDS: SENNA 8.6 MG TAB PO SCH ×2 (07:53→20:06)
[2021-11-14] MEDS: risperiDONE 0.5 MG TABLET PO SCH (07:54)
[2021-11-14] MEDS: APIXABAN 5 MG TABLET PO SCH ×2 (07:54→20:06)
[2021-11-14] MEDS: buPROPion XL 150 MG TABCR PO SCH (07:54)
[2021-11-14] MEDS: BACLOFEN 20 MG TAB PO SCH ×2 (07:54→20:07)
[2021-11-14] MEDS: buPROPion XL 300 MG TABCR PO SCH (07:55)
[2021-11-14] MEDS: DOCUSATE SODIUM 100 MG CAP PO SCH ×2 (07:58→20:19)
[2021-11-14] MEDS: POTASSIUM CHLORIDE 10 MEQ TABCR PO SCH (07:58)
[2021-11-14] MEDS: hydrOXYzine HCl 25 MG TAB PO SCH ×2 (07:58→20:11)
--- NOTE | 2021-11-14 14:14 | Hospitalist Progress Note ---
Date of Service November 14, 2021 Assessment & Plan (1) Acute respiratory failure with hypoxia: Plan: 41-year-old lady with PMH of cerebral palsy [left side paresis with episodic spasms at baseline], mood disorder, potassium wasting nephropathy as per records, HTN presented to our ED 10/25 with 10 days history of dry cough associated with worsening shortness of breath and flulike symptoms. Patient is not vaccinated against Covid. Patient was initiated on BiPAP for respiratory distress in the ER and received Decadron in the ED. Of note, per patient's patient is able to communicate at baseline and is alert and oriented x3 but at occasions it is difficult to understand what she is saying. She is managed for the following: #. ARF Secondary to severe COVID-19 pneumonia #. ARDS 2/2 COVID pneumonitis #. Right-sided pulmonary emboli Patient not vaccinated against Covid. Was on BIPAP and then HFNC on admission. Needed Intubation. Status post bronchoscopy 10/31 and 11/03. BAL cultures negative. Cytology negative for fungal elements. Status post Decadron and Tocilizumab. Status post 7 days of Rocephin for coagulase-negative staph growing from sputum culture on 10/26. Was intubated 10/25 due to respiratory distress worsening---> extubated 11/06 on high flow nasal cannula---> currently on RA c/w IS, flutter valve when able. 11/07 speech evaluation: FEES showed major aspiration event and desaturation during scope, plan for VFSS tomorrow. She does have bilateral vocal fold movement with complete abduction and epiglottic inversion and did not aspirate applesauce, hence crushed meds in applesauce okay for now. 11/08 VFSS per speech: Patient does have a small Zenker's diverticulum that refluxes material to the base of the PES. They recommended heart healthy diet, easy to chew. Was found to have Right PE on CTA chest 10/25----> heparin drip to be transitioned to eliquis 10 mg BID from 11/09 evening dose (atleast 3 months of AC needed)----> transition to 5 mg BID after 7 day course of 10 mg BID. Change iv diuresis to home meds 11/09 with close monitoring of renal fxn and lytes. Resume BP/cardiac meds when able. Use as needed lasix to keep on her flake drier side, may need freq iv lasix to keep her on flake drier side She has been out of Covid isolation Clinically much better as of today and she feels she is at her baseline Has been getting PT and OT evaluation Remains tachycardic in the IV metoprolol has been changed to oral Remains little tachycardic and will continue small dose of [id number] pressure remains on the lower side and will not increase the dose of beta- primo Remains stable without any acute symptoms Awaiting placement Also on oxycodone 15 mg twice daily She denies any more pain and this has been discontinued May cause tachycardia due to withdrawal We will get an EKG today 11/14/2021 #. Other chronic medical condition: Morbid obesity, DM Cerebral palsy with left-sided hemiparesis Resume home meds when appropriate Morbid obesity HbA1c 6 Glycemic management per protocol DVT prophylaxis Has been on Eliquis due to right pulmonary emboli Full code 11/07 patient's Justin given phone call, updated on the current status of the patient, discussed her plan of care going forward, patient voiced understanding and was agreeable. insurance sales manager has been keeping in touch with her and I will talk to him as well before discharge Admission and Anticipated Discharge Date Admission Date: October 25, 2021 Subjective 11/10/2021 The patient was seen and examined in ICU with medical telemetry unit status She remains weak and lethargic but feels that she is at her baseline Denies any significant symptoms except weakness 11/11/2021 The patient was seen and examined in ICU with medical telemetry status She remains stable and little tachycardic at times Denies any symptoms 11/12/2021 The patient was seen and examined in medical telemetry unit She remains stable and he still has some tachycardia but otherwise asymptomatic No fever and no chills 11/13/2021 The patient was seen and examined in medical telemetry unit She has been stable without any fever and/or chills Her heart rate remains elevated at 115 11/14/2021 The patient was seen and examined in medical telemetry unit She remains stable and denies any significant symptoms She is back to her baseline and has been waiting to be placed Review of Systems Review of Systems: All systems reviewed and are unremarkable except as noted below Cardiovascular: Additional Comments: Has tachycardia without any symptoms Physical Exam Physical Exam: Lying in bed comfortably Constitutional: well developed, well nourished, + ill appearing and + obese Eyes: PERRL, conjunctivae normal, anicteric sclerae ENMT: external ear and nose normal, oropharynx normal Respiratory: no respiratory distress Auscultation: lungs clear to auscultation bilaterally and + diminished lung sounds Cardiovascular: Rate/Rhythm: regular rate, regular rhythm and + tachycardic Heart Sounds: normal S1 and normal S2; no murmur Extremities: + edema (Trace edema bilaterally) Gastrointestinal (Abdomen): Inspection/Auscultation: normal bowel sounds; abdomen not distended Percussion/Palpation: abdomen soft; abdomen nontender Musculoskeletal: No acute arthritis in any joint Neurologic: Alert and awake. Mild dysarthria. Cerebral palsy with left hemiparesis with occasional jerky movements involving the left upper extremity and face/mouth Lymphatic: no cervical or axillary lymphadenopathy Results & Data Results & Data ([facility]) Vital Signs (Past 12 Hours) Vital Signs Temp Pulse Pulse Resp BP BP Pulse Ox 11/14/21 11:21 36.9 C 112 H 18 117/76 90 11/14/21 07:29 36.7 C 118 H 20 126/78 90 11/14/21 07:17 115 H 11/14/21 04:22 36.9 C 67 18 128/75 98 Medications Administered Current Inpatient Medications Acetaminophen (Acetaminophen 325 Mg Tab) 650 mg PO Q4H PRN PRN Reason: Pain or Fever Stop: 11/24/21 04:18 Last Admin: 10/31/21 19:41 Dose: 650 mg Documented by: Apixaban (Apixaban 5 Mg Tablet) 10 mg PO BID [facility] Stop: 11/16/21 09:01 Last Admin: 11/14/21 07:54 Dose: 10 mg Documented by: Bacitracin (Bacitracin Oint 15 Gm Tube) 1 appln EXT DAILY PRN PRN Reason: Right Foot Wound Stop: 12/13/21 17:50 Last Admin: 11/13/21 20:40 Dose: 1 appln Documented by: Baclofen (Baclofen 20 Mg Tab) 20 mg PO BID [facility] Stop: 12/07/21 08:59 Last Admin: 11/14/21 07:54 Dose: 20 mg Documented by: Bupropion HCl (Bupropion Xl 300 Mg Tabcr) 300 mg PO QAM [facility] Stop: 12/08/21 08:59 Last Admin: 11/14/21 07:55 Dose: 300 mg Documented by: Bupropion HCl (Bupropion Xl 150 Mg Tabcr) 150 mg PO QAM [facility] Stop: 12/08/21 08:59 Last Admin: 11/14/21 07:54 Dose: 150 mg Documented by: Dextrose (Dextrose 50% 50 Ml Syringe) 25 - 50 ml IV UD PRN; Protocol PRN Reason: Hypoglycemia Protocol Stop: 12/08/21 15:14 Docusate Sodium (Docusate Sodium 100 Mg Cap) 100 mg PO BID [facility] Stop: 12/09/21 20:59 Last Admin: 11/14/21 07:58 Dose: 100 mg Documented by: Doxepin HCl (Doxepin Hcl 75 Mg Capsule) 300 mg PO DAILY [facility] Stop: 12/07/21 08:59 Last Admin: 11/13/21 09:37 Dose: 300 mg Documented by: Glucagon (Glucagon For Inj 1 Mg Vial) 1 mg IM UD PRN; Protocol PRN Reason: Hypoglycemia Protocol Stop: 12/08/21 15:14 Glucose (Glucose 40% Gel 15 Gm Tube) 15 - 30 gm PO UD PRN; Protocol PRN Reason: Hypoglycemia Protocol Stop: 12/08/21 15:14 Glucose (Glucose 10 Tabs/Tube) 4 - 8 tabs PO UD PRN; Protocol PRN Reason: Hypoglycemia Protocol Stop: 12/08/21 15:14 Hydrochlorothiazide (Hydrochlorothiazide 25 Mg Tab) 25 mg PO DAILY [facility] Stop: 12/07/21 08:59 Last Admin: 11/14/21 07:52 Dose: 25 mg Documented by: Hydroxyzine HCl (Hydroxyzine Hcl 25 Mg Tab) 50 mg PO BID [facility] Stop: 12/07/21 20:59 Last Admin: 11/14/21 07:58 Dose: 50 mg Documented by: Metoprolol Tartrate (Metoprolol Tartrate 25 Mg Tab) 25 mg PO BID [facility] Stop: 12/11/21 10:29 Last Admin: 11/14/21 07:53 Dose: 25 mg Documented by: Miconazole Nitrate (Miconazole Nitrate Powder 43 Gm) 1 appln EXT PRN PRN PRN Reason: Affected Skin Folds Stop: 12/13/21 12:29 Last Admin: 11/13/21 20:40 Dose: 1 appln Documented by: Miscellaneous (Carbohydrates For Hypoglycemia ) 15 - 30 gm PO UD PRN PRN Reason: Hypoglycemia Treatment Stop: 12/08/21 15:14 Polyethylene Glycol (Polyethylene (Miralax) 17 Gm Pack) 17 gm PO DAILY PRN PRN Reason: CONSTIPATION Stop: 12/03/21 10:23 Potassium Chloride (Potassium Chloride 10 Meq Tabcr) 10 meq PO DAILY [facility] Stop: 12/10/21 08:59 Last Admin: 11/14/21 07:58 Dose: 10 meq Documented by: Risperidone (Risperidone 3 Mg Tablet) 3 mg PO HS [facility] Stop: 12/07/21 20:59 Last Admin: 11/13/21 20:37 Dose: 3 mg Documented by: Risperidone (Risperidone 0.5 Mg Tablet) 0.5 mg PO QAM [facility] Stop: 12/08/21 08:59 Last Admin: 11/14/21 07:54 Dose: 0.5 mg Documented by: Sennosides (Senna 8.6 Mg Tab) 8.6 mg PO BID [facility] Stop: 12/09/21 20:59 Last Admin: 11/14/21 07:53 Dose: 8.6 mg Documented by: Spironolactone (Spironolactone 25 Mg Tab) 50 mg PO DAILY [facility] Stop: 12/09/21 13:59 Last Admin: 11/14/21 07:53 Dose: 50 mg Documented by:
[2021-11-14] MEDS ORDERED: Nursing to Pharmacy Communication SCH (15:45)
[2021-11-14] MEDS: DOXEPIN HCL 75 MG CAPSULE PO SCH ×2 (17:00→20:08)
[2021-11-14] MEDS: risperiDONE 3 MG TABLET PO SCH (20:07)
[2021-11-15 08:22] LABS: Basophils # (auto) 0.03 K/uL (0-0.2); Basophils % (auto) 0.3 %; Eosinophils # (auto) 0.62 K/uL (0-0.5); Eosinophils % (auto) 6.1 %; Hematocrit (blood only) 39.4 % (37-47); Hemoglobin 12.4 g/dL (12.0-16.0); Immature Granulocytes # (auto) 0.05 K/uL (0.00-0.02); Immature Granulocytes % (auto) 0.5 %; Lymphocytes # (auto) 1.64 K/uL (1.2-3.4); Lymphocytes % (auto) 16.2 %; Mean Corpuscular Hemoglobin 27.7 pg (25-34); Mean Corpuscular Hgb Conc 31.5 g/dL (32-36); Mean Corpuscular Volume 87.9 fL (80-100); Mean Platelet Volume 11.1 fL (7.4-10.4); Monocytes # (auto) 0.82 K/uL (0.11-0.59); Monocytes % (auto) 8.1 %; Neutrophils # (auto) 6.95 K/uL (1.4-6.5); Neutrophils % (auto) 68.8 %; Platelet Count 252 K/uL (130-400); RDW Coefficient of Variation 16.1 % (11.5-14.5); RDW Standard Deviation 51.9 fL (36.4-46.3); Red Blood Count 4.48 M/uL (4.2-5.4); White Blood Count 10.11 K/uL (4.8-10.8)
[2021-11-15 08:48] LABS: BUN Creatinine Ratio 20.2 (10-20); Calcium 9.7 mg/dl (8.5-10.1); Creatinine Clr Calc Pharmacy 144.5 ml/min; Est GFR (African American) 128.9 ml/min; Est GFR (Non-African American) 111.2 ml/min; Potassium 3.4 mmol/L (3.5-5.1)
[2021-11-15] MEDS: SENNA 8.6 MG TAB PO SCH ×2 (08:49→20:11)
[2021-11-15] MEDS: APIXABAN 5 MG TABLET PO SCH ×2 (08:49→20:10)
[2021-11-15] MEDS: BACLOFEN 20 MG TAB PO SCH ×2 (08:49→20:11)
[2021-11-15] MEDS: SPIRONOLACTONE 25 MG TAB PO SCH (08:50)
[2021-11-15] MEDS: METOPROLOL TARTRATE 25 MG TAB PO SCH ×2 (08:50→20:11)
[2021-11-15] MEDS: buPROPion XL 150 MG TABCR PO SCH (08:50)
[2021-11-15] MEDS: hydroCHLOROthiazide 25 MG TAB PO SCH (08:50)
[2021-11-15] MEDS: buPROPion XL 300 MG TABCR PO SCH (08:50)
[2021-11-15] MEDS: risperiDONE 0.5 MG TABLET PO SCH (08:50)
[2021-11-15] MEDS: DOCUSATE SODIUM 100 MG CAP PO SCH ×2 (08:53→20:12)
[2021-11-15] MEDS: POTASSIUM CHLORIDE 10 MEQ TABCR PO SCH (08:53)
[2021-11-15] MEDS: hydrOXYzine HCl 25 MG TAB PO SCH ×2 (08:53→20:10)
[2021-11-15] MEDS ORDERED: POTASSIUM CHLORIDE CRTAB 20 MEQ TABCR PO STA (14:27)
--- NOTE | 2021-11-15 14:27 | Hospitalist Progress Note ---
Date of Service November 15, 2021 Assessment & Plan (1) Acute respiratory failure with hypoxia: Plan: 41-year-old lady with PMH of cerebral palsy [left side paresis with episodic spasms at baseline], mood disorder, potassium wasting nephropathy as per records, HTN presented to our ED 10/25 with 10 days history of dry cough associated with worsening shortness of breath and flulike symptoms. Patient is not vaccinated against Covid. Patient was initiated on BiPAP for respiratory distress in the ER and received Decadron in the ED. Of note, per patient's patient is able to communicate at baseline and is alert and oriented x3 but at occasions it is difficult to understand what she is saying. She is managed for the following: #. ARF Secondary to severe COVID-19 pneumonia #. ARDS 2/2 COVID pneumonitis #. Right-sided pulmonary emboli Patient not vaccinated against Covid. Was on BIPAP and then HFNC on admission. Needed Intubation. Status post bronchoscopy 10/31 and 11/03. BAL cultures negative. Cytology negative for fungal elements. Status post Decadron and Tocilizumab. Status post 7 days of Rocephin for coagulase-negative staph growing from sputum culture on 10/26. Was intubated 10/25 due to respiratory distress worsening---> extubated 11/06 on high flow nasal cannula---> currently on RA c/w IS, flutter valve when able. 11/07 speech evaluation: FEES showed major aspiration event and desaturation during scope, plan for VFSS tomorrow. She does have bilateral vocal fold movement with complete abduction and epiglottic inversion and did not aspirate applesauce, hence crushed meds in applesauce okay for now. 11/08 VFSS per speech: Patient does have a small Zenker's diverticulum that refluxes material to the base of the PES. They recommended heart healthy diet, easy to chew. Was found to have Right PE on CTA chest 10/25----> heparin drip to be transitioned to eliquis 10 mg BID from 11/09 evening dose (atleast 3 months of AC needed)----> transition to 5 mg BID after 7 day course of 10 mg BID. Change iv diuresis to home meds 11/09 with close monitoring of renal fxn and lytes. Resume BP/cardiac meds when able. 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 Other chronic medical condition: Morbid obesity, DM Cerebral palsy with left-sided hemiparesis Resume home meds when appropriate Morbid obesity HbA1c 6 Glycemic management per protocol DVT prophylaxis Has been on Eliquis due to right pulmonary emboli Full code 11/07 patient's Justin given phone call, updated on the current status of the patient, discussed her plan of care going forward, patient voiced understanding and was agreeable. workforce management manager has been keeping in touch with her and I will talk to him as well before discharge Admission and Anticipated Discharge Date Admission Date: October 25, 2021 Subjective 11/10/2021 The patient was seen and examined in ICU with medical telemetry unit status She remains weak and lethargic but feels that she is at her baseline Denies any significant symptoms except weakness 11/11/2021 The patient was seen and examined in ICU with medical telemetry status She remains stable and little tachycardic at times Denies any symptoms 11/12/2021 The patient was seen and examined in medical telemetry unit She remains stable and he still has some tachycardia but otherwise asymptomatic No fever and no chills 11/13/2021 The patient was seen and examined in medical telemetry unit She has been stable without any fever and/or chills Her heart rate remains elevated at 115 11/14/2021 The patient was seen and examined in medical telemetry unit She remains stable and denies any significant symptoms She is back to her baseline and has been waiting to be placed 11/15/2021 The patient was seen and examined in medical telemetry unit She remains stable and the tachycardia has been coming down Denies any symptoms today Review of Systems Review of Systems: All systems reviewed and are unremarkable except as noted below Cardiovascular: Additional Comments: Has tachycardia without any symptoms Physical Exam Physical Exam: Lying in bed comfortably Constitutional: well developed, well nourished, + ill appearing and + obese Eyes: PERRL, conjunctivae normal, anicteric sclerae ENMT: external ear and nose normal, oropharynx normal Respiratory: no respiratory distress Auscultation: lungs clear to auscultation bilaterally and + diminished lung sounds Cardiovascular: Rate/Rhythm: regular rate, regular rhythm and + tachycardic Heart Sounds: normal S1 and normal S2; no murmur Extremities: + edema (Trace edema bilaterally) Gastrointestinal (Abdomen): Inspection/Auscultation: normal bowel sounds; abdomen not distended Percussion/Palpation: abdomen soft; abdomen nontender Musculoskeletal: No acute arthritis in any joint Neurologic: Alert and awake. Dysarthria secondary to cerebral palsy with left hemiparesis Lymphatic: no cervical or axillary lymphadenopathy Results & Data Results & Data ([facility]) Vital Signs (Past 12 Hours) Vital Signs Temp Pulse Pulse Resp BP BP Pulse Ox 11/15/21 12:08 36.8 C 94 H 20 135/75 90 11/15/21 08:05 36.7 C 100 H 18 125/82 11/15/21 07:24 107 H 11/15/21 04:00 36.3 C L 106 H 18 119/76 91 Laboratory Results Short CBC 11/15/21 Range/Units 07:49 WBC 10.11 (4.8-10.8) K/uL Hgb 12.4 (12.0-16.0) g/dL Hct 39.4 (37-47) % Plt Count 252 (130-400) K/uL BMP 11/15/21 07:49 Sodium 137 Potassium 3.4 L Chloride 103 Carbon Dioxide 27 BUN 12 Creatinine 0.62 Glucose 103 H Calcium 9.7 Medications Administered Current Inpatient Medications Acetaminophen (Acetaminophen 325 Mg Tab) 650 mg PO Q4H PRN PRN Reason: Pain or Fever Stop: 11/24/21 04:18 Last Admin: 10/31/21 19:41 Dose: 650 mg Documented by: Apixaban (Apixaban 5 Mg Tablet) 10 mg PO BID [facility] Stop: 11/16/21 09:01 Last Admin: 11/15/21 08:49 Dose: 10 mg Documented by: Bacitracin (Bacitracin Oint 15 Gm Tube) 1 appln EXT DAILY PRN PRN Reason: Right Foot Wound Stop: 12/13/21 17:50 Last Admin: 11/13/21 20:40 Dose: 1 appln Documented by: Baclofen (Baclofen 20 Mg Tab) 20 mg PO BID [facility] Stop: 12/07/21 08:59 Last Admin: 11/15/21 08:49 Dose: 20 mg Documented by: Bupropion HCl (Bupropion Xl 300 Mg Tabcr) 300 mg PO QAM [facility] Stop: 12/08/21 08:59 Last Admin: 11/15/21 08:50 Dose: 300 mg Documented by: Bupropion HCl (Bupropion Xl 150 Mg Tabcr) 150 mg PO QAM [facility] Stop: 12/08/21 08:59 Last Admin: 11/15/21 08:50 Dose: 150 mg Documented by: Dextrose (Dextrose 50% 50 Ml Syringe) 25 - 50 ml IV UD PRN; Protocol PRN Reason: Hypoglycemia Protocol Stop: 12/08/21 15:14 Docusate Sodium (Docusate Sodium 100 Mg Cap) 100 mg PO BID [facility] Stop: 12/09/21 20:59 Last Admin: 11/15/21 08:53 Dose: 100 mg Documented by: Doxepin HCl (Doxepin Hcl 75 Mg Capsule) 300 mg PO HS [facility] Stop: 12/07/21 08:59 Last Admin: 11/14/21 20:08 Dose: 300 mg Documented by: Glucagon (Glucagon For Inj 1 Mg Vial) 1 mg IM UD PRN; Protocol PRN Reason: Hypoglycemia Protocol Stop: 12/08/21 15:14 Glucose (Glucose 40% Gel 15 Gm Tube) 15 - 30 gm PO UD PRN; Protocol PRN Reason: Hypoglycemia Protocol Stop: 12/08/21 15:14 Glucose (Glucose 10 Tabs/Tube) 4 - 8 tabs PO UD PRN; Protocol PRN Reason: Hypoglycemia Protocol Stop: 12/08/21 15:14 Hydrochlorothiazide (Hydrochlorothiazide 25 Mg Tab) 25 mg PO DAILY [facility] Stop: 12/07/21 08:59 Last Admin: 11/15/21 08:50 Dose: 25 mg Documented by: Hydroxyzine HCl (Hydroxyzine Hcl 25 Mg Tab) 50 mg PO BID [facility] Stop: 12/07/21 20:59 Last Admin: 11/15/21 08:53 Dose: 50 mg Documented by: Metoprolol Tartrate (Metoprolol Tartrate 25 Mg Tab) 25 mg PO BID [facility] Stop: 12/11/21 10:29 Last Admin: 11/15/21 08:50 Dose: 25 mg Documented by: Miconazole Nitrate (Miconazole Nitrate Powder 43 Gm) 1 appln EXT PRN PRN PRN Reason: Affected Skin Folds Stop: 12/13/21 12:29 Last Admin: 11/13/21 20:40 Dose: 1 appln Documented by: Miscellaneous (Carbohydrates For Hypoglycemia ) 15 - 30 gm PO UD PRN PRN Reason: Hypoglycemia Treatment Stop: 12/08/21 15:14 Polyethylene Glycol (Polyethylene (Miralax) 17 Gm Pack) 17 gm PO DAILY PRN PRN Reason: CONSTIPATION Stop: 12/03/21 10:23 Potassium Chloride (Potassium Chloride 10 Meq Tabcr) 10 meq PO DAILY [facility] Stop: 12/10/21 08:59 Last Admin: 11/15/21 08:53 Dose: 10 meq Documented by: Risperidone (Risperidone 3 Mg Tablet) 3 mg PO HS [facility] Stop: 12/07/21 20:59 Last Admin: 11/14/21 20:07 Dose: 3 mg Documented by: Risperidone (Risperidone 0.5 Mg Tablet) 0.5 mg PO QAM [facility] Stop: 12/08/21 08:59 Last Admin: 11/15/21 08:50 Dose: 0.5 mg Documented by: Sennosides (Senna 8.6 Mg Tab) 8.6 mg PO BID [facility] Stop: 12/09/21 20:59 Last Admin: 11/15/21 08:49 Dose: 8.6 mg Documented by: Spironolactone (Spironolactone 25 Mg Tab) 50 mg PO DAILY [facility] Stop: 12/09/21 13:59 Last Admin: 11/15/21 08:50 Dose: 50 mg Documented by:
[2021-11-15] MEDS: risperiDONE 3 MG TABLET PO SCH (20:11)
[2021-11-15] MEDS: DOXEPIN HCL 75 MG CAPSULE PO SCH (20:11)
[2021-11-16] MEDS: APIXABAN 5 MG TABLET PO SCH (08:03)
[2021-11-16] MEDS: METOPROLOL TARTRATE 25 MG TAB PO SCH (08:03)
[2021-11-16] MEDS: BACLOFEN 20 MG TAB PO SCH (08:05)
[2021-11-16] MEDS: buPROPion XL 300 MG TABCR PO SCH (08:06)
[2021-11-16] MEDS: risperiDONE 0.5 MG TABLET PO SCH (08:06)
[2021-11-16] MEDS: SPIRONOLACTONE 25 MG TAB PO SCH (08:06)
[2021-11-16] MEDS: SENNA 8.6 MG TAB PO SCH (08:06)
[2021-11-16] MEDS: buPROPion XL 150 MG TABCR PO SCH (08:06)
[2021-11-16] MEDS: hydroCHLOROthiazide 25 MG TAB PO SCH (08:06)
[2021-11-16] MEDS: DOCUSATE SODIUM 100 MG CAP PO SCH (08:11)
[2021-11-16] MEDS: hydrOXYzine HCl 25 MG TAB PO SCH (08:11)
[2021-11-16] MEDS: POTASSIUM CHLORIDE 10 MEQ TABCR PO SCH (08:11)
[2021-11-16] MEDS: BACITRACIN OINT 15 GM TUBE EXT PRN (10:45)
--- NOTE | 2021-11-16 11:00 | Hospitalist Progress Note ---
Date of Service November 16, 2021 Assessment & Plan (1) Acute respiratory failure with hypoxia: Plan: 41-year-old lady with PMH of cerebral palsy [left side paresis with episodic spasms at baseline], mood disorder, potassium wasting nephropathy as per records, HTN presented to our ED 10/25 with 10 days history of dry cough associated with worsening shortness of breath and flulike symptoms. Patient is not vaccinated against Covid. Patient was initiated on BiPAP for respiratory distress in the ER and received Decadron in the ED. Of note, per patient's patient is able to communicate at baseline and is alert and oriented x3 but at occasions it is difficult to understand what she is saying. She is managed for the following: #. ARF Secondary to severe COVID-19 pneumonia #. ARDS 2/2 COVID pneumonitis #. Right-sided pulmonary emboli Patient not vaccinated against Covid. Was on BIPAP and then HFNC on admission. Needed Intubation. Status post bronchoscopy 10/31 and 11/03. BAL cultures negative. Cytology negative for fungal elements. Status post Decadron and Tocilizumab. Status post 7 days of Rocephin for coagulase-negative staph growing from sputum culture on 10/26. Was intubated 10/25 due to respiratory distress worsening---> extubated 11/06 on high flow nasal cannula---> currently on RA c/w IS, flutter valve when able. 11/07 speech evaluation: FEES showed major aspiration event and desaturation during scope, plan for VFSS tomorrow. She does have bilateral vocal fold movement with complete abduction and epiglottic inversion and did not aspirate applesauce, hence crushed meds in applesauce okay for now. 11/08 VFSS per speech: Patient does have a small Zenker's diverticulum that refluxes material to the base of the PES. They recommended heart healthy diet, easy to chew. Was found to have Right PE on CTA chest 10/25----> heparin drip to be transitioned to eliquis 10 mg BID from 11/09 evening dose (atleast 3 months of AC needed)----> transition to 5 mg BID after 7 day course of 10 mg BID. Change iv diuresis to home meds 11/09 with close monitoring of renal fxn and lytes. Resume BP/cardiac meds when able. Use as needed lasix to keep on her continuous drier helper side, may need freq iv lasix to keep her on continuous drier helper side She has been out of Covid isolation Clinically much better as of today and she feels she is at her baseline Has been getting PT and OT evaluation Remains tachycardic in the IV metoprolol has been changed to oral We will continue current dose of metoprolol for blood pressure and tachycardia Has been stable and can be discharged this afternoon Also on oxycodone 15 mg twice daily She denies any more pain and this has been discontinued May cause tachycardia due to withdrawal Denies any more pain #. Other chronic medical condition: Morbid obesity, DM Cerebral palsy with left-sided hemiparesis Resume home meds when appropriate Morbid obesity HbA1c 6 Glycemic management per protocol DVT prophylaxis Has been on Eliquis due to right pulmonary emboli Full code 11/07 patient's Justin given phone call, updated on the current status of the patient, discussed her plan of care going forward, patient voiced understanding and was agreeable. manager brand has been keeping in touch with her and I will talk to him as well before discharge Discussed with the in detail Admission and Anticipated Discharge Date Admission Date: October 25, 2021 Subjective 11/10/2021 The patient was seen and examined in ICU with medical telemetry unit status She remains weak and lethargic but feels that she is at her baseline Denies any significant symptoms except weakness 11/11/2021 The patient was seen and examined in ICU with medical telemetry status She remains stable and little tachycardic at times Denies any symptoms 11/12/2021 The patient was seen and examined in medical telemetry unit She remains stable and he still has some tachycardia but otherwise asymptomatic No fever and no chills 11/13/2021 The patient was seen and examined in medical telemetry unit She has been stable without any fever and/or chills Her heart rate remains elevated at 115 11/14/2021 The patient was seen and examined in medical telemetry unit She remains stable and denies any significant symptoms She is back to her baseline and has been waiting to be placed 11/15/2021 The patient was seen and examined in medical telemetry unit She remains stable and the tachycardia has been coming down Denies any symptoms today 11/16/2021 The patient was seen and examined in medical telemetry unit She remains stable and does not have any new symptoms Her heart rate remains around 100 without any significant symptoms Review of Systems Review of Systems: All systems reviewed and are unremarkable except as noted below Neurologic: Has cerebral palsy with left hemiparesis and involuntary left upper extremity and face movements Physical Exam Physical Exam: Lying in bed comfortably Constitutional: well developed, well nourished, + ill appearing and + obese Eyes: PERRL, conjunctivae normal, anicteric sclerae ENMT: external ear and nose normal, oropharynx normal Respiratory: no respiratory distress Auscultation: lungs clear to auscultation bilaterally and + diminished lung sounds Cardiovascular: Rate/Rhythm: regular rate, regular rhythm and + tachycardic Heart Sounds: normal S1 and normal S2; no murmur Extremities: + edema (Trace edema bilaterally) Gastrointestinal (Abdomen): Inspection/Auscultation: normal bowel sounds; abdomen not distended Percussion/Palpation: abdomen soft; abdomen nontender Musculoskeletal: No acute arthritis in any joint Neurologic: Alert and awake. Minimally conversive. Cerebral palsy with left hemiparesis Lymphatic: no cervical or axillary lymphadenopathy Results & Data Results & Data ([facility]) Vital Signs (Past 12 Hours) Vital Signs Temp Pulse Pulse Resp BP Pulse Ox 11/16/21 08:00 103 H 11/16/21 07:38 36.9 C 107 H 16 106/65 93 11/16/21 04:00 36.4 C L 102 H 18 130/77 92 11/16/21 00:00 107 H 11/15/21 23:00 36.7 C 102 H 18 144/84 H 90 Medications Administered Current Inpatient Medications Acetaminophen (Acetaminophen 325 Mg Tab) 650 mg PO Q4H PRN PRN Reason: Pain or Fever Stop: 11/24/21 04:18 Last Admin: 10/31/21 19:41 Dose: 650 mg Documented by: Bacitracin (Bacitracin Oint 15 Gm Tube) 1 appln EXT DAILY PRN PRN Reason: Right Foot Wound Stop: 12/13/21 17:50 Last Admin: 11/16/21 10:45 Dose: 1 appln Documented by: Baclofen (Baclofen 20 Mg Tab) 20 mg PO BID [facility] Stop: 12/07/21 08:59 Last Admin: 11/16/21 08:05 Dose: 20 mg Documented by: Bupropion HCl (Bupropion Xl 300 Mg Tabcr) 300 mg PO QAM [facility] Stop: 12/08/21 08:59 Last Admin: 11/16/21 08:06 Dose: 300 mg Documented by: Bupropion HCl (Bupropion Xl 150 Mg Tabcr) 150 mg PO QAM [facility] Stop: 12/08/21 08:59 Last Admin: 11/16/21 08:06 Dose: 150 mg Documented by: Dextrose (Dextrose 50% 50 Ml Syringe) 25 - 50 ml IV UD PRN; Protocol PRN Reason: Hypoglycemia Protocol Stop: 12/08/21 15:14 Docusate Sodium (Docusate Sodium 100 Mg Cap) 100 mg PO BID [facility] Stop: 12/09/21 20:59 Last Admin: 11/16/21 08:11 Dose: 100 mg Documented by: Doxepin HCl (Doxepin Hcl 75 Mg Capsule) 300 mg PO HS [facility] Stop: 12/07/21 08:59 Last Admin: 11/15/21 20:11 Dose: 300 mg Documented by: Glucagon (Glucagon For Inj 1 Mg Vial) 1 mg IM UD PRN; Protocol PRN Reason: Hypoglycemia Protocol Stop: 12/08/21 15:14 Glucose (Glucose 40% Gel 15 Gm Tube) 15 - 30 gm PO UD PRN; Protocol PRN Reason: Hypoglycemia Protocol Stop: 12/08/21 15:14 Glucose (Glucose 10 Tabs/Tube) 4 - 8 tabs PO UD PRN; Protocol PRN Reason: Hypoglycemia Protocol Stop: 12/08/21 15:14 Hydrochlorothiazide (Hydrochlorothiazide 25 Mg Tab) 25 mg PO DAILY [facility] Stop: 12/07/21 08:59 Last Admin: 11/16/21 08:06 Dose: 25 mg Documented by: Hydroxyzine HCl (Hydroxyzine Hcl 25 Mg Tab) 50 mg PO BID [facility] Stop: 12/07/21 20:59 Last Admin: 11/16/21 08:11 Dose: 50 mg Documented by: Metoprolol Tartrate (Metoprolol Tartrate 25 Mg Tab) 25 mg PO BID [facility] Stop: 12/11/21 10:29 Last Admin: 11/16/21 08:03 Dose: 25 mg Documented by: Miconazole Nitrate (Miconazole Nitrate Powder 43 Gm) 1 appln EXT PRN PRN PRN Reason: Affected Skin Folds Stop: 12/13/21 12:29 Last Admin: 11/13/21 20:40 Dose: 1 appln Documented by: Miscellaneous (Carbohydrates For Hypoglycemia ) 15 - 30 gm PO UD PRN PRN Reason: Hypoglycemia Treatment Stop: 12/08/21 15:14 Polyethylene Glycol (Polyethylene (Miralax) 17 Gm Pack) 17 gm PO DAILY PRN PRN Reason: CONSTIPATION Stop: 12/03/21 10:23 Potassium Chloride (Potassium Chloride 10 Meq Tabcr) 10 meq PO DAILY [facility] Stop: 12/10/21 08:59 Last Admin: 11/16/21 08:11 Dose: 10 meq Documented by: Risperidone (Risperidone 3 Mg Tablet) 3 mg PO HS [facility] Stop: 12/07/21 20:59 Last Admin: 11/15/21 20:11 Dose: 3 mg Documented by: Risperidone (Risperidone 0.5 Mg Tablet) 0.5 mg PO QAM [facility] Stop: 12/08/21 08:59 Last Admin: 11/16/21 08:06 Dose: 0.5 mg Documented by: Sennosides (Senna 8.6 Mg Tab) 8.6 mg PO BID [facility] Stop: 12/09/21 20:59 Last Admin: 11/16/21 08:06 Dose: 8.6 mg Documented by: Spironolactone (Spironolactone 25 Mg Tab) 50 mg PO DAILY [facility] Stop: 12/09/21 13:59 Last Admin: 11/16/21 08:06 Dose: 50 mg Documented by:
== END 2021-11-16 16:15 | DRG 207 ==
LOC: ED 19:08 → OBSVTOIN 10-25 01:55 → INTOOBSV 10-25 01:55 → 2E 10-25 01:55 → SUATTDRO 10-25 01:55 → 2E 10-25 03:21 → 1E 10-26 10:12 → 2N 11-12 05:03

== ENCOUNTER 2024-08-24 19:49 | Inpatient (IN) ==
[2024-08-24] MEDS: METOPROLOL TARTRATE 25 MG TAB PO STA (23:14)
[2024-08-24] MEDS: SODIUM CHLORIDE 0.9% 1,000 ML IV SCH (23:15)
[2024-08-24] MEDS: SODIUM CHLORIDE 0.9% 1,000 ML IV ONE (23:55)
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
[2024-08-25] MEDS ORDERED: PROMETHAZINE 6.25 MG/50.25 ML BAG IV PRN (00:01)
[2024-08-25] MEDS: hydrOXYzine HCl 25 MG TAB PO SCH (00:10)
--- NOTE | 2024-08-25 00:25 | Emergency Department Note ---
Impression & Plan CVA, old, hemiparesis, Unable to care for self ED Provider Note CHIEF COMPLAINT: Sent in by Adult Protective Services HISTORY OF PRESENT ILLNESS: This 44-year-old female patient with past medical history of stroke as an infant, cerebral palsy, multifocal pneumonia with ARDS presents to the emergency department at the recommendation of Adult Protective Services. Apparently somebody contacted Adult Protective Services regarding the patient's inability to care for herself. She is primarily cared for by her . She states he does not help her bathe, he feeds her once a day and does not help her with her physical therapy. Patient was asked if she would like to go to a skilled nursing or if she would like to come to the hospital. Case management has been involved. Patient states she has been taking her medications, But not this evening. She denies any recent fevers, chills, chest pain, shortness of breath, vomiting or diarrhea. She did recently have her period. REVIEW OF SYSTEMS: A review of systems was performed with positives and pertinent negatives listed in the history of present illness. 10 systems were reviewed and are otherwise negative. ALLERGIES: see below MEDICATIONS: see below PMH: see below SOCIAL HISTORY: see below DDx: inability to care for self, dehydration, metabolic abnormality, UTI, anemia, viral syndrome among others. PHYSICAL EXAM: Vital signs reviewed. General: Chronically ill-appearing 44-year-old female, in no significant distress. somewhat disheveled. HEENT: No scleral icterus, PERRLA, neck supple. Atraumatic. Cardiovascular: Regular rate and rhythm, no extra sounds. Pulmonary: Clear to auscultation bilaterally, normal work of breathing. Abdomen: Soft, nontender, nondistended, positive bowel sounds. Musculoskeletal: Atraumatic, no peripheral edema. Neurologic: Patient awake alert and oriented x 3, speech is clear. Right sided facial droop, left upper and lower extremity atrophy/contracture. Skin: Warm, dry, no rash EMERGENCY DEPARTMENT COURSE/MDM: This patient was evaluated and appeared to be a no significant distress. IV access was obtained and laboratory work was drawn. The patient was placed on the hand coremaker and noted to be in a normal sinus rhythm. EKG reveals no evidence of acute change. Chest x-ray is clear. Laboratory work is reassuring. Patient was placed on maintenance IV fluids. Blood pressure is noted to be elevated and the patient was given her home dose of metoprolol tartrate. Case management was consulted and given the late hour, social dynamics, and need for assistance with caregiving, the patient will be evaluated by the hospital of service for admission and further case management services. MONITORING: An order for cardiac monitoring was placed and the patient is noted to be in sinus bradycardia at 58 beats per minute. RADIOLOGY: chest x-ray to my interpretation reveals no evidence of focal lung consolidation or failure. EKG: to my interpretation reveals a NSR at 67 bpm, low voltage, QTc 422. normal ST segments, no PVC, no PAC. DISPOSITION: Home Past Med/Surg History Problem List (Updated 08/29/24 @ 10:05 by Martita Marie MD) Unable to care for self (Acute) Disability due to neurological disorder Blister of foot, right ARDS (adult respiratory distress syndrome) Acute respiratory failure with hypoxia (Acute) Multifocal pneumonia (Acute) Pneumonia due to 2019-nCoV (Acute) Acute hypokalemia (Acute) CVA, old, hemiparesis (Acute) Social History Smoking Status: Never smoker Hx Alcohol Use: Yes Alcohol type: beer Hx Substance Use: No Preferred Language: Egyptian Communication Ability: Effective Test Administrator Required: No Beliefs That Will Affect Care: None marital status: Current Living Situation: Spouse and Family Current Living Situation Comment: son and How many Children do You have: 1 Feels Safe at Home: No Is there a partner from a previous relationship who is making you feel unsafe now?: No Any Concerns about Your Family Situation: Yes () Would You Like to Speak to Someone About Your Situation: Yes Safety Concerns: Afraid for Self Assistive Devices: Cane and Glasses Allergies Allergies Allergy/AdvReac Type Severity Reaction Status Date / Time No Known Allergies Allergy Unverified 10/24/21 21:07 Home Meds Home Medications Medication Instructions Recorded Confirmed docusate sodium 100 mg capsule 100 mg PO TID 10/24/21 08/24/24 (Colace) hydroxyzine HCl 50 mg tablet 50 mg PO BID 10/24/21 08/24/24 meclizine 25 mg tablet 25 mg PO TID PRN Dizziness 10/24/21 08/24/24 multivitamin 1 tab PO DAILY 10/24/21 08/24/24 oxybutynin chloride 15 mg 15 mg PO DAILY 10/24/21 08/24/24 tablet,extended release 24 hr potassium chloride 20 mEq 80 meq PO DAILY 10/24/21 08/24/24 tablet,extended release(part/cryst) (Klor-Con M) risperidone 0.5 mg tablet 0.5 mg PO QAM 10/24/21 08/24/24 spironolactone 50 mg tablet 50 mg PO DAILY 10/24/21 08/24/24 Previous Rx's Medication Instructions Recorded hydrochlorothiazide 25 mg tablet 12.5 mg (1/2 x 25 mg) PO DAILY #0 11/16/21 tabs metoprolol tartrate 25 mg tablet 37.5 mg (1.5 x 25 mg) PO BID #90 11/16/21 tabs Results & Data (ED) Vital Signs Vital Signs - 24 hr 08/24/24 20:04 08/24/24 22:06 08/24/24 23:12 Temperature 36.6 C Temperature Source Oral Pulse Rate 84 66 Pulse Rate [Finger] 67 Pulse Rate from SpO2 Sensor Pulse Rhythm Regular Respiratory Rate 20 20 16 Respiratory Effort / Characteristics Non-Labored Spontaneous Non-Labored Spontaneous Respiratory Depth Normal Normal Respiratory Pattern Regular Blood Pressure 156/106 H Blood Pressure [Right Arm] 172/113 H Blood Pressure Mean 122 Blood Pressure Mean [Right Arm] 132 Blood Pressure Position Sitting Pulse Oximetry 98 93 95 Oxygen Delivery Method Room Air Room Air Room Air Sepsis Recent Fever Within 48 Hours No Sepsis New/Unexplained Change in Mental Status N/A Sepsis Action Taken by Nursing No Action Required 08/24/24 23:15 08/24/24 23:18 08/24/24 23:30 Temperature Temperature Source Pulse Rate 74 84 71 Pulse Rate [Finger] Pulse Rate from SpO2 Sensor 67 Pulse Rhythm Respiratory Rate 15 16 Respiratory Effort / Characteristics Respiratory Depth Respiratory Pattern Blood Pressure 153/96 H Blood Pressure [Right Arm] Blood Pressure Mean 115 Blood Pressure Mean [Right Arm] Blood Pressure Position Pulse Oximetry 95 96 Oxygen Delivery Method Room Air Room Air Sepsis Recent Fever Within 48 Hours Sepsis New/Unexplained Change in Mental Status Sepsis Action Taken by Nursing 08/25/24 00:03 Temperature Temperature Source Pulse Rate 58 L Pulse Rate [Finger] Pulse Rate from SpO2 Sensor 59 L Pulse Rhythm Respiratory Rate 22 Respiratory Effort / Characteristics Respiratory Depth Respiratory Pattern Blood Pressure 169/97 H Blood Pressure [Right Arm] Blood Pressure Mean 121 Blood Pressure Mean [Right Arm] Blood Pressure Position Pulse Oximetry 96 Oxygen Delivery Method Room Air Sepsis Recent Fever Within 48 Hours Sepsis New/Unexplained Change in Mental Status Sepsis Action Taken by Skilled Nursing Medications Current Medication List: was personally reviewed by me Laboratory Data Attestation: I reviewed the patient's lab results. 08/27/24 09:03 08/27/24 09:03 Lab Results 08/24/24 Range/Units 22:59 WBC Cancelled RBC Cancelled Hgb Cancelled Hct Cancelled MCV Cancelled MCH Cancelled MCHC Cancelled RDW Std Deviation Cancelled RDW Coeff of Diana Cancelled Plt Count Cancelled MPV Cancelled Immature Gran % (Auto) Cancelled Neut % (Auto) Cancelled Lymph % (Auto) Cancelled [place] % (Auto) Cancelled Eos % (Auto) Cancelled Baso % (Auto) Cancelled Neut # (Auto) Cancelled Lymph # (Auto) Cancelled [place] # (Auto) Cancelled Eos # (Auto) Cancelled Baso # (Auto) Cancelled Immature Gran # (Auto) Cancelled Absolute Nucleated RBC Cancelled Nucleated RBC % (auto) Cancelled Neutrophils % (Manual) Cancelled Band Neutrophils % Cancelled Lymphocytes % (Manual) Cancelled Prolymphocyte % Cancelled Reactive Lymphs % (Man) Cancelled Monocytes % (Manual) Cancelled Eosinophils % (Manual) Cancelled Basophils % (Manual) Cancelled Metamyelocytes % (Man) Cancelled Myelocytes % (Man) Cancelled Promyelocytes % (Man) Cancelled Blast Cells % (Manual) Cancelled Plasma Cell % (Manual) Cancelled Other Cells % Cancelled Nucleated RBC % Cancelled Neutrophils # (Manual) Cancelled Band Neutrophils # Cancelled Total Absolute Neuts Cancelled Lymphocytes # (Manual) Cancelled Prolymphocyte # Cancelled Reactive Lymphs # Cancelled Total Abs Lymphocytes Cancelled Monocytes # (Manual) Cancelled Eosinophils # (Manual) Cancelled Basophils # (Manual) Cancelled Metamyelocytes # (Man) Cancelled Myelocytes # (Manual) Cancelled Promyelocytes # (Man) Cancelled Blast Cells # (Man) Cancelled Plasma Cell # (Manual) Cancelled Other Cells # Cancelled Nucleated RBCs # (Man) Cancelled Hypersegmented Neuts Cancelled Hyposegmented Neuts Cancelled Hypogranular Neuts Cancelled Large Granular Lymphs Cancelled # Lrg Granular Lymphs Cancelled Hairy Cells Cancelled Smudge Cells Cancelled Toxic Granulation Cancelled Toxic Vacuolation Cancelled Dohle Bodies Cancelled Kiley Rods Cancelled Platelet Estimate Cancelled Hypogranular Platelets Cancelled Giant Platelets Cancelled Platelet Satelliting Cancelled RBC Morphology Cancelled Polychromasia Cancelled Hypochromasia Cancelled Poikilocytosis Cancelled Basophilic Stippling Cancelled Anisocytosis Cancelled Microcytosis Cancelled Macrocytosis Cancelled Spherocytes Cancelled Pappenheimer Bodies Cancelled Sickle Cells Cancelled Target Cells Cancelled Tear Drop Cells Cancelled Ovalocytes Cancelled Stomatocytes Cancelled Vela-Wells Bodies Cancelled Echinocytes Cancelled Acanthocytes (Spur) Cancelled Rouleaux Cancelled RBC Agglutinates Cancelled Schistocytes Cancelled Sezary Cell Cancelled Sodium 138 (136-145) mmol/L Potassium 3.4 L (3.5-5.1) mmol/L Chloride 104 (98-107) mmol/L Carbon Dioxide 22 (21-32) mmol/L Anion Gap 12 H (3-11) BUN 18 (6-23) mg/dl Creatinine 0.81 (0.6-1.2) mg/dl Est Cr Clr Drug Dosing 84.4 ml/min Est GFR ( Amer) 101.7 ml/min Est GFR (Non-Af Amer) 87.7 ml/min BUN/Creatinine Ratio 22.2 H (10-20) Glucose 151 H (70-99(Fasting)) mg/dl Calcium 9.7 (8.6-10.3) mg/dl Magnesium 1.9 (1.7-2.4) mg/dl Total Bilirubin 0.7 (0.2-1.0) mg/dl AST 14 (13-39) U/L ALT 9 (7-52) U/L Alkaline Phosphatase 52 (34-104) U/L Total Protein 7.3 (6.0-8.3) gm/dl Albumin 4.3 (3.4-5.0) gm/dl Globulin 3.0 (2.5-4.0) gm/dl Albumin/Globulin Ratio 1.4 (0.9-2) TSH 0.732 (0.300-4.500) uIu/ml Blood Parasites ID Cancelled Administered Medications Acetaminophen (Acetaminophen 325 Mg Tab) 650 mg PO QID PRN PRN Reason: pain/fever Stop: 09/24/24 00:00 Last Admin: 08/29/24 07:33 Dose: 650 mg Documented By: ERNESTINE Docusate Sodium (Docusate Sodium 100 Mg Cap) 100 mg PO TID TRAVIS Stop: 09/24/24 08:59 Last Admin: 08/29/24 07:42 Dose: Not Given Documented By: Admin: 08/28/24 20:07 Dose: Not Given Documented By: Admin: 08/28/24 14:43 Dose: Not Given Documented By: Admin: 08/28/24 07:59 Dose: Not Given Documented By: Admin: 08/27/24 20:10 Dose: 100 mg Documented By: Admin: 08/27/24 13:54 Dose: Not Given Documented By: Admin: 08/27/24 08:31 Dose: Not Given Documented By: Admin: 08/26/24 19:57 Dose: Not Given Documented By: Admin: 08/26/24 13:22 Dose: Not Given Documented By: Admin: 08/26/24 08:46 Dose: Not Given Documented By: Admin: 08/25/24 19:33 Dose: Not Given Documented By: Admin: 08/25/24 13:02 Dose: Not Given Documented By: Admin: 08/25/24 08:31 Dose: 100 mg Documented By: LATHA Enoxaparin Sodium (Enoxaparin Inj 40 Mg/0.4 Ml Syr) 40 mg SQ QAM TRAVIS Stop: 09/24/24 08:59 Last Admin: 08/29/24 07:35 Dose: 40 mg Documented By: Admin: 08/28/24 07:57 Dose: 40 mg Documented By: Admin: 08/27/24 08:35 Dose: 40 mg Documented By: Admin: 08/26/24 08:51 Dose: 40 mg Documented By: Admin: 08/25/24 08:35 Dose: 40 mg Documented By: LATHA Hydroxyzine HCl (Hydroxyzine Hcl 25 Mg Tab) 50 mg PO BID TRAVIS Stop: 09/24/24 00:29 Last Admin: 08/29/24 07:32 Dose: 50 mg Documented By: Admin: 08/28/24 20:13 Dose: 50 mg Documented By: Admin: 08/28/24 12:37 Dose: 50 mg Documented By: Admin: 08/27/24 20:10 Dose: 50 mg Documented By: Admin: 08/27/24 08:34 Dose: Not Given Documented By: Admin: 08/26/24 19:57 Dose: 50 mg Documented By: MNMoises Admin: 08/26/24 08:54 Dose: Not Given Documented By: Admin: 08/25/24 19:41 Dose: 50 mg Documented By: Admin: 08/25/24 08:32 Dose: 50 mg Documented By: Admin: 08/25/24 00:10 Dose: 50 mg Documented By: ALEISHA Lorazepam (Lorazepam 0.5 Mg Tab) 0.25 mg PO HS PRN PRN Reason: insomnia Stop: 09/24/24 04:01 Last Admin: 08/28/24 00:28 Dose: 0.25 mg Documented By: Admin: 08/26/24 20:04 Dose: 0.25 mg Documented By: Admin: 08/25/24 20:23 Dose: 0.25 mg Documented By: Admin: 08/25/24 04:22 Dose: 0.25 mg Documented By: NOHELIA Metoprolol Tartrate (Metoprolol Tartrate 25 Mg Tab) 37.5 mg PO BID TRAVIS Stop: 09/24/24 08:59 Last Admin: 08/29/24 07:42 Dose: 37.5 mg Documented By: Admin: 08/28/24 20:12 Dose: 37.5 mg Documented By: MNMoises Admin: 08/28/24 07:57 Dose: 37.5 mg Documented By: Admin: 08/27/24 20:10 Dose: 37.5 mg Documented By: TKRafaela Admin: 08/27/24 08:32 Dose: 37.5 mg Documented By: Admin: 08/26/24 19:58 Dose: 37.5 mg Documented By: MNMoises Admin: 08/26/24 08:47 Dose: 37.5 mg Documented By: Admin: 08/25/24 19:41 Dose: 37.5 mg Documented By: Admin: 08/25/24 10:26 Dose: 37.5 mg Documented By: LATHA Multivitamins (Multivitamin Tab) 1 tab PO DAILY TRAVIS Stop: 09/24/24 08:59 Last Admin: 08/29/24 07:34 Dose: 1 tab Documented By: RRJocelyne Admin: 08/28/24 07:58 Dose: 1 tab Documented By: Admin: 08/27/24 08:31 Dose: 1 tab Documented By: Admin: 08/26/24 08:48 Dose: 1 tab Documented By: Admin: 08/25/24 08:31 Dose: 1 tab Documented By: LATHA Oxybutynin Chloride (Oxybutynin Chloride Xl 5 Mg Tabcr) 15 mg PO DAILY TRAVIS Stop: 09/24/24 08:59 Last Admin: 08/29/24 07:33 Dose: 15 mg Documented By: Admin: 08/28/24 07:58 Dose: 15 mg Documented By: Admin: 08/27/24 08:32 Dose: 15 mg Documented By: Admin: 08/26/24 08:49 Dose: 15 mg Documented By: Admin: 08/25/24 08:31 Dose: 15 mg Documented By: LATHA Potassium Chloride (Potassium Chloride Crtab 20 Meq Tabcr) 40 meq PO BID TRAVIS Stop: 09/24/24 08:59 Last Admin: 08/29/24 07:33 Dose: 40 meq Documented By: RRJocelyne Admin: 08/28/24 20:13 Dose: 40 meq Documented By: Admin: 08/28/24 08:03 Dose: 40 meq Documented By: Admin: 08/27/24 20:10 Dose: 40 meq Documented By: Admin: 08/27/24 09:28 Dose: 40 meq Documented By: Admin: 08/26/24 20:04 Dose: 40 meq Documented By: Admin: 08/26/24 09:05 Dose: 40 meq Documented By: Admin: 08/25/24 20:18 Dose: 40 meq Documented By: Admin: 08/25/24 08:31 Dose: 40 meq Documented By: LATHA Risperidone (Risperidone 0.5 Mg Tablet) 0.5 mg PO QAM TRAVIS Stop: 09/24/24 08:59 Last Admin: 08/29/24 07:35 Dose: 0.5 mg Documented By: Admin: 08/28/24 07:58 Dose: 0.5 mg Documented By: Admin: 08/27/24 08:33 Dose: 0.5 mg Documented By: Admin: 08/26/24 08:47 Dose: 0.5 mg Documented By: Admin: 08/25/24 08:32 Dose: 0.5 mg Documented By: LATHA Spironolactone (Spironolactone 25 Mg Tab) 50 mg PO DAILY TRAVIS Stop: 09/24/24 08:59 Last Admin: 08/29/24 07:34 Dose: 50 mg Documented By: Admin: 08/28/24 07:58 Dose: 50 mg Documented By: Admin: 08/27/24 08:33 Dose: 50 mg Documented By: Admin: 08/26/24 08:48 Dose: 50 mg Documented By: Admin: 08/25/24 08:31 Dose: 50 mg Documented By: LATHA Discontinued Medications Sodium Chloride (Nss) 1,000 mls @ 125 mls/hr IV .Q8H TRAVIS Stop: 08/25/24 06:44 Last Infusion: 08/24/24 23:35 Dose: Infused Documented By: Admin: 08/24/24 23:15 Dose: 125 mls/hr Documented By: ALEISHA Sodium Chloride (Nss) 1,000 mls @ 60 mls/hr IV .[id number] ONE Stop: 08/25/24 16:10 Last Infusion: 08/25/24 17:11 Dose: Infused Documented By: Admin: 08/24/24 23:55 Dose: 60 mls/hr Documented By: ALEISHA Metoprolol Tartrate (Metoprolol Tartrate 25 Mg Tab) 25 mg PO NOW STA Stop: 08/24/24 22:41 Last Admin: 08/24/24 23:14 Dose: 25 mg Documented By: ALEISHA Potassium Chloride (Potassium Chloride Pwd 20 Meq Pack) 40 meq PO NOW STA Stop: 08/25/24 02:00 Last Admin: 08/25/24 02:29 Dose: 40 meq Documented By: ALEISHA Discharge Plan Visit Data Chief Complaint: Illness Stated Complaint: DOESN'T FEEL SAFE AT HOME ED Provider: Martita Marie Discharge Problem: CVA, old, hemiparesis, Unable to care for self Patient Disposition: Admitted As Inpatient Discharge Instructions Interventions: ED Discharge Assessment Last Done: 08/25/24 01:01
[2024-08-25 00:27] LABS: Basophils # (auto) 0.03 K/uL (0.00-0.20); Basophils % (auto) 0.4 %; Eosinophils # (auto) 0.07 K/uL (0.00-0.50); Eosinophils % (auto) 0.9 %; Hematocrit (blood only) 43.7 % (37.0-47.0); Hemoglobin 14.8 g/dl (12.0-16.0); Immature Granulocytes # (auto) 0.02 K/uL (0.01-0.20); Immature Granulocytes % (auto) 0.2 %; Lymphocytes # (auto) 1.73 K/uL (1.20-3.40); Lymphocytes % (auto) 21.4 %; Mean Corpuscular Hemoglobin 28.8 pg (25.0-34.0); Mean Corpuscular Hgb Conc 33.9 g/dL (32.0-36.0); Mean Corpuscular Volume 85.2 fL (80.0-100.0); Mean Platelet Volume 10.2 fL (9.4-12.4); Monocytes # (auto) 0.46 K/uL (0.11-0.59); Monocytes % (auto) 5.7 %; Neutrophils # (auto) 5.78 K/uL (1.40-6.50); Neutrophils % (auto) 71.4 %; Platelet Count 249 K/uL (130-400); RDW Coefficient of Variation 12.3 % (11.5-14.5); RDW Standard Deviation 38.1 fL (36.4-46.3); Red Blood Count 5.13 M/uL (4.20-5.40); White Blood Count 8.09 K/ul (4.8-10.8)
[2024-08-25 01:01] LABS: Albumin Globulin Ratio 1.4 (0.9-2); Albumin Level 4.3 gm/dl (3.4-5.0); BUN Creatinine Ratio 22.2 (10-20); Bilirubin,Total 0.7 mg/dl (0.2-1.0); Calcium 9.7 mg/dl (8.6-10.3); Creatinine Clr Calc Pharmacy 84.4 ml/min; Est GFR (African American) 101.7 ml/min; Est GFR (Non-African American) 87.7 ml/min; Magnesium 1.9 mg/dl (1.7-2.4); Potassium 3.4 mmol/L (3.5-5.1); Total Protein 7.3 gm/dl (6.0-8.3)
[2024-08-25 02:12] LABS: Thyroid Stimulating Hormone 0.732 uIu/ml (0.300-4.500)
[2024-08-25] MEDS: POTASSIUM CHLORIDE PWD 20 MEQ PACK PO STA (02:29)
[2024-08-25] MEDS: LORazepam 0.5 MG TAB PO PRN (04:22)
[2024-08-25 07:02] LABS: Estimated Average Glucose 103 mg/dl; Hemoglobin A1C 5.2 % (4.5-5.6)
--- NOTE | 2024-08-25 08:18 | XRay Report ---
SINGLE VIEW CHEST CLINICAL HISTORY: Generalized weakness. FINDINGS: An AP, portable, upright chest radiograph is compared to study dated 11/07/2021. Correlation is made with chest CT dated 10/25/2021. The examination is degraded by portable technique and patien t rotation. An electronic device largely obscures the right lower lung. The lead extends into the ne ck. The cardiomediastinal silhouette is top normal for projection. Chronic interstitial thickening is similar to previous. Dependent airspace opacities likely represent atelectasis. No large pleural eff usion or pneumothorax is seen. The skeletal structures are osteopenic. The bony thorax is grossly int act. Arthritic change is seen in the shoulders. IMPRESSION: Dependent airspace opacities likely represent atelectasis. Correlate clinically. ACT 112: Negative or not required by law. Electronically signed by: Marcellus Burgess M.D. 08/25/2024 8:16 AM
[2024-08-25] MEDS: MULTIVITAMIN TAB PO SCH (08:31)
[2024-08-25] MEDS: DOCUSATE SODIUM 100 MG CAP PO SCH (08:31)
[2024-08-25] MEDS: OXYBUTYNIN CHLORIDE XL 5 MG TABCR PO SCH (08:31)
[2024-08-25] MEDS: POTASSIUM CHLORIDE CRTAB 20 MEQ TABCR PO SCH (08:31)
[2024-08-25] MEDS: SPIRONOLACTONE 25 MG TAB PO SCH (08:31)
[2024-08-25] MEDS: risperiDONE 0.5 MG TABLET PO SCH (08:32)
[2024-08-25] MEDS: ENOXAPARIN INJ 40 MG/0.4 ML SYR SQ SCH (08:35)
--- OUTSIDE RECORDS SUMMARY | 2024-08-25 09:34 | External Medical Summary | Summary of Care ---
Author Name Unknown Organization [facility] Address [address] [place] [address] Phone [phone] Care Team Providers Care General Pediatrician Name Role Phone Sonny Lagos MD Primary Care Provider [phone] Reason for Visit * Reason Onset Date Comments [facility]: Screening 08/17/2024 Encounter Details Date Type Department Care Team ([facility] st Contact Info) Description 08/17/2024 Telephone [facility] [address] [address] Michelle Sprague, WAITER AND CASHIER [address] [place] [address] [facility]: Screening Allergies No known active allergiesdocumented as of this encounter (statuses as of 08/17/2024) Medications Medication Sig Dispensed Refills Start Date End Date Status Meclizine HCl 25 MG Oral Tablet (Antivert)Indication s:BPPV (benign paroxysmal positional vertigo), bilateral Take 1 Tab by mouth 3 times a day as needed for Dizziness. 30 Tab 1 09/12/2021 Active Albuterol Sulfate HFA 108 (90 Base) MCG/ACT Inhalation Aerosol Solution Inhale by mouth 2 Puffs every 6 hours as needed for Cough or Wheezing. 18 g 5 02/12/2022 Active Nystatin 050652 UNIT/GM External Powder (Nystop) Apply topically to affected area 3 times a day. Apply to under skin folds 15 g 1 10/28/2023 Active Docusate Sodium 100 MG Oral Capsule (Colace) Take 1 Capsule by mouth in the morning and 1 Capsule at noon and 1 Capsule before bedtime. 90 Capsule 2 03/19/2024 Active Metoprolol Tartrate 25 MG Oral Tablet (Lopressor)Indicatio ns:HTN, goal below 130/80 Take 1 Tablet by mouth in the morning and 1 Tablet before bedtime. 180 Tablet 1 03/23/2024 Active Klor-Con M20 20 MEQ Oral Tablet Extended ReleaseIndications:H TN, goal below 130/80,Potassium wasting nephropathy TAKE 4 TABLETS BY MOUTH EVERY DAY 120 Tablet 05/15/2024 Active oxyBUTYnin Chloride ER 15 MG Oral Tablet Extended Release 24 Hour (Ditropan XL) Take 1 Tablet by mouth in the morning. 90 Tablet 1 06/17/2024 Active Spironolactone 50 MG Oral Tablet (Aldactone)Indicatio ns:Potassium wasting nephropathy Take 1 Tablet by mouth in the morning. 90 Tablet 06/22/2024 Active hydrOXYzine HCl 50 MG Oral TabletIndications:Ge neralized anxiety disorder TAKE 1 TABLET BY MOUTH TWICE A DAY NEEDED 180 Tablet 07/12/2024 Active hydroCHLOROthiazide 25 MG Oral Tablet (Hydrodiuril) TAKE 1 TABLET BY MOUTH EVERY MORNING 90 Tablet 07/16/2024 Active Benzonatate 100 MG Oral Capsule (Tessalon Perles)Indications:V iral URI with cough Take 1 Capsule by mouth 3 times a day as needed for Cough. Do not cut, crush, or chew. 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 Monthly or less 04/21/2021 Q2: How many drinks containi ng alcohol do you have on a typical day when you are drinking? Not asked 04/21/2021 Q3: How often do you have si x or more drinks on one occasion? Not asked 04/21/2021 Personal Safety Answer Date Recorded Do you feel unsafe or have concerns for your saf ety? No 10/18/2023 Do you have concerns for you r family's safety? (Household - for ages 0-17 years) Not on file 10/18/2023 Utilities Answer Date Recorded Do you have trouble paying y our heating, water, or electric bill? No 10/18/2023 Is your family able to pay t he heat, water, or electric bill? (Household - for ages 0-17 years) Not on file 10/18/2023 Does your family have access to good internet? (Household - for ages 0-17 years) Not on file 10/18/2023 Transportation Needs Answer Date Record ed READ ONLY Do you have troubl e getting a ride to medical visits or work? Never True 10/18/2023 Does your family have a hard time getting a ride to doctors visits? (Household - for ages 0-17 years) Not on file 10/18/2023 Has lack of transportation k ept you from medical appointments, meetings, work, or from getting things needed for daily living? Check all that apply. (Adult - for ages 18 years and over) Not on file 10/18/2023 Do you (or your family) have trouble finding or paying for a ride (transportation)? (Household - for ages 0-17 years) Not on file 10/18/2023 Housing Stability Answer Date Recorded Do you currently live in a s helter or have no steady place to sleep at night? (Adult - for ages 18 years and over) Not on file 10/18/2023 READ ONLY Do you think you a re at risk of becoming homeless? No 10/18/2023 Does your family worry about paying for your home or becoming homeless? (Household - for ages 0-17 years) Not on file 1 12/18/2022 Are you homeless or worried that you might be in the future? (Adult - for ages 18 years and over) Not on file Are you (or your family) rea eless or worried that you might be in the future? (Household - for ages 0-17 years) Not on file Food Insecurity Answer Date Recorded Do you need food for this week? No 10/18/2023 Are you able to get enough f ood for your family? (Household - for ages 0-17 years) Not on file 10/18/2023 Does your family need food t his week? (Household - for ages 0-17 years) Not on file 10/18/2023 Do you always have enough fo od for your family? (Household - for ages 0-17 years) Not on file 10/18/2023 Sex and Gender Information Value Date Recorded Sex Assigned at Female 03/30/2024 1:04 PM EDT Gender Identity Female 03/30/2024 1:04 PM EDT Sexual Orientation Straight 03/30/2024 1: 04 PM EDT Job Start Date Occupation Industry Not on file Not on file Not on file documented as of this encounter Miscellaneous Notes * Telephone Encounter - Michelle Sprague LPN - 08/17/2024 12:09 PM EDT Merle Damon was referred as a potential candidate for enrollment for [facility]. A review of this chart was completed and: Merle does not meet criteria for enrollment into [facility]. Referral Source: Monthly Proactive Eligibility List Criteria for Ineligibility: Not Located in Service Area Referring care team was notified via : [facility] Patient is located in service area however does not have the multiple chronic conditions needed forGAH enrollment documented in this encounter Plan of Treatment Upcoming Encounters Date Type Department Care Team (Late st Contact Info) Description 09/03/2024 1:40 PM EDT [facility] [address] [facility] [address] Fatuma Wright PA-C [address] [place] [address] 09/24/2024 3:00 PM EDT Office Visit Neurology [facility] [address] [facility] [place] [address] Antonino Hall MD [address] [place] [address] 10/21/2024 1:40 PM EST Office Visit Neurology [facility] [address] [facility] [place] [address] Antonino Hall MD [address], [place] [id number] 03/10/2025 8:30 AM EDT Office Visit Gynecology/Obstetrics [facility] [address] [place] [address] Nya Randall CRNP [address] [place] [facility] [place] [address] Health Maintenance Due Date Last Done Comments Depression Monitoring 1991 HIV Screening 1994 Hepatitis C Screening 1997 Hepatitis B Vaccine (1 of 3 - 19+ 3-dose series) 1998 HPV/Co-Test 2009 Mammogram 2019 DTap/Tdap Vaccines (2 - Td or Tdap) 10/15/2023 10/15/2013 Cologuard 02/14/2024 Colonoscopy 02/14/2024 Colorectal Cancer Screening 02/14/2024 Fecal Occult Blood Test 02/14/2024 Sigmoidoscopy 02/14/2024 Cervical Cancer Screening 03/07/2024 Pap Smear 03/07/2024 03/07/2021 COVID-19 Vaccine ( season) 2024 Influenza Vaccine (FLU shot) (#1) 2024 09/13/2015, 10/15/2013, 10/30/2012, Additional history exists GFR 10/19/2024 10/19/2023, 10/02, 10/04/2023, Additional history exists Albumin/Creatinine Ratio 10/04/2026 10/04/2023 Diabetes Screening 10/28/2026 10/28/2023, 1 12/19/2022, 10/18/2023, Additional history exists Lipid Panel 10/04/2028 10/04/2023, 08/0 12/2021, 05/07/2022, Additional history exists HPV (Gardasil) Vaccine Aged Out No lo nger eligible based on patient's age to complete this topic MENINGOCOCCAL (MENACTRA/MENVEO) Aged Out No longer eligible based on patient's age to complete this topic Pneumococcal Vaccine: Pediatrics (0 to 5 Years) and At-Risk Patients (6 to 64 Years) Aged Out No longer eligible based on patient's age to complete this topic documented as of this encounter Medical Devices Implanted Type Area [employer] Senior [employer] Device Identifier Shelf Expiration Date Model / Serial / Lot Lead Dbs 1.5mm 42cm - [id number] - [id number] Implanted:Qty: 1 on 10/18/2023 [place] [facility] [place] [employer] : NEUROLOGIC PAIN 07/19/2025 [id number] / [id number] 3 / Description:right brain Cement Hydroset Injectable 5cc - [id number] Implanted:Qty: 1 on 10/18/2023 by Mikal Fern[place] [facility] [place] SHAWN [id number] 06/25/2025 [id number] / / [id number] Accy Dbs Conn Plug - [id number] Implanted:Qty: 1 on 10/28/2023 by Mikal [place] [facility] [place] Chest [employer] : NEUROLOGIC PAIN 06/12/2025 [id number] / / [id number] Neurostimulator Percept Pc - [id number] - [id number] Implanted:Qty: 1 on 10/28/2023 by Mikal Fern[place] [facility] [place]: Chest [employer] : NEUROLOGIC PAIN 09/14/2025 [id number] / [id number] / Ext Dbs 40cm - [id number] - [id number] Implanted:Qty: 1 on 10/28/2023 by Mikal Fernandes MD at [facility] Right: Neck [employer] : NEUROLOGIC PAIN 05/21/2025 [id number] / [id number] 2 / Description:right neck Envelope Tyrx Lg Antibacterial - [id number] Implanted:Qty: 1 on 10/28/2023 by Mikal Fernandes MD at [facility] Right: Chest [employer] 06/19/2024 [id number] / / [id number] documented as of this encounter Advance Directives * Full Code (Latest Code Status on File) Date Activated Date Inactivated Comments 10/28/2023 12:58 PM 10/28/2023 10:31 PM This ord er reflects the patients wishes and were consensually agreed upon. Question Answer Comments Discussion of Advance Directives occurred with: Patient * Full Code Date Activated Date Inactivated Comments 10/18/2023 12:52 PM 10/19/2023 7:28 PM This orde r reflects the patients wishes and were consensually agreed upon. Question Answer Comments Discussion of Advance Direct canelo occurred with: Not Discussed due to patient's condition * Full Code Date Activated Date Inactivated Comments 10/18/2023 6:55 AM 10/18/2023 12:52 PM This orde r reflects the patients wishes and were consensually agreed upon. Question Answer Comments Discussion of Advance Direct canelo occurred with: Not Discussed due to patient's condition Care Teams General Pediatrician Relationship Specialty Start Date End Date Sonny Lagos MD [address] [place] [address] PCP - General Family Medicine 02/22/21 documented as of this encounter
--- OUTSIDE RECORDS SUMMARY | 2024-08-25 09:34 | External Medical Summary | Summary of Care ---
Author Name Unknown Organization [facility] Address [address] [place] [address] Phone [phone] Care Team Providers Care Cds Sales Advisor Name Role Phone Sonny Lagos MD Primary Care Provider [phone] Reason for Referral * Evaluate & Treat - Unlimited Visits (Within 10 days (routine)) - Pending Review Specialty Diagnoses / Procedures Referred By Magali huynh Referred To Contact HOME CARE / Home Care Diagnoses Spastic hemiparesis of left nondominant side as late effect of cerebral infarction (HCC) Hemiballism Antonino Hall MD [address] [place] [address] Referral ID Status Reason Start Date Expiration Date Visits Requested Visits Authorized [id number] Pending Review Specialty Services Required 04/22/[phone] Question Answer Referral Priority Within 10 days (routine) Where should this appointment be scheduled? External Comments Documentation of Tfzk-hp-Ohns Encounter Addendum Patient Name: Merle Damon I certify that this patient is under my care and that I, or a nurse practitioner or physician's paralegal assistant working with me, had a [id number] encounter that meets the physician rmlp-uo-htjr encounter requirements with this patient on: 03/16/24 The encounter with the patient was in whole, or in part, for the following medical condition, which is the primary reason for home health care (List medical condition): Gait dysfunction I certify that, based on my findings, the following services are medically necessary home health services: Physical Therapy To provide the following care/treatments: (All hospitalists not following the patient after discharge should complete this section): PT and OT Primary Care Physician to follow home care plan of care after discharge: Sonny Lagos My clinical findings support the need for the above services because: decreased mobility Further, I certify that my clinical findings support that this patient is homebound (i.e. 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 Physician Signature: Date of Signature: Physician Printed Name: Laura Monteiro LPN Reason for Visit * Reason Onset Date Comments Referral 04/21/2024 Forms Request 04/21/2024 Isabel / Loulou Mccollum Plan of Care Encounter Details Date Type Department Care Team (Late st Contact Info) Description 04/21/2024 [facility] [address] [place] [address] Specified, No [facility] [address] [place] [address] Referral; Forms Request (Isabel Jenkins... Allergies No known active allergiesdocumented as of this encounter (statuses as of 07/27/2024) Medications Medication Sig Dispensed Refills Start Date End Date Status Meclizine HCl 25 MG Oral Tablet (Antivert)Indica tions:BPPV (benign paroxysmal positional vertigo), bilateral Take 1 Tab by mouth 3 times a day as needed for Dizziness. 30 Tab 1 09/12/2021 Active Albuterol Sulfate HFA 108 (90 Base) MCG/ACT Inhalation Aerosol Solution Inhale by mouth 2 Puffs every 6 hours as needed for Cough or Wheezing. 18 g 5 02/12/2022 Active Nystatin 041810 UNIT/GM External Powder (Nystop) Apply topically to affected area 3 times a day. Apply to under skin folds 15 g 1 10/28/2023 Active Docusate Sodium 100 MG Oral Capsule (Colace) Take 1 Capsule by mouth in the morning and 1 Capsule at noon and 1 Capsule before bedtime. 90 Capsule 2 03/19/2024 Active Metoprolol Tartrate 25 MG Oral Tablet (Lopressor)Indic ations:HTN, goal below 130/80 Take 1 Tablet by mouth in the morning and 1 Tablet before bedtime. 180 Tablet 1 03/23/2024 Active hydroCHLOROthiaz leonel 25 MG Oral Tablet (Hydrodiuril) Take 1 Tablet by mouth in the morning. In the morning.. 90 Tablet 1 08/06/2023 05/06/20 24 Discontinued hydrOXYzine HCl 50 MG Oral TabletIndication s:Generalized anxiety disorder 1 tab twice daily as needed 180 Tablet 1 11/27/2023 06/19/20 24 Discontinued Spironolactone 50 MG Oral Tablet (Aldactone)Indic ations:Potassium wasting nephropathy Take 1 Tablet by mouth in the morning. 90 Tablet 1 12/02/2023 06/21/20 24 Discontinued(Ref ill) Klor-Con M20 20 MEQ Oral Tablet Extended ReleaseIndicatio ns:HTN, goal below 130/80,Potassium wasting nephropathy TAKE 4 TABLETS BY MOUTH EVERY DAY 360 Tablet 1 12/10/2023 05/14/20 24 Discontinued(Ref ill) oxyBUTYnin Chloride ER 15 MG Oral Tablet Extended Release 24 Hour (Ditropan XL) TAKE 1 TABLET BY MOUTH EVERY DAY IN THE MORNING 90 Tablet 1 03/19/2024 05/31/20 24 Discontinued(Ref ill) documented as of this encounter (statuses as of 07/27/2024) Active Problems Problem Noted Date Diagnosed Date Hemiballismus 10/18/2023 Cerebral palsy, hemiplegic 02/22/2021 Overview: Left side affected Chronic depressive disorder 02/22/2021 HTN, goal below 130/80 02/22/2021 Obesity, morbid (more than 1 00 lbs over ideal weight or BMI > 40) 02/22/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 Scanned into patients chart. * Telephone Encounter - Keshia Ruiz OSA - 07/13/2024 2:07 PM EDT Loulou Mccollum Plan of Care signed and faxed to [phone] on 07/13/24. Scanned into patients chart. * Telephone Encounter - Keshia Ruiz OSA - 05/15/2024 2:17 PM EDT [facility] Plan of Care signed and faxed to [phone] on 05/15/24. Scanned into patients chart. * Telephone Encounter - Laura Monteiro LPN - 04/21/2024 3:37 PM EDT Patient would like her referral sent to [facility] [phone]. documented in this encounter Plan of Treatment Upcoming Encounters Date Type Department Care Team (Late st Contact Info) Description 09/03/2024 1:40 PM EDT Office Visit [facility] [address] [place] [address] Fatuma Wright PA-C [address] [place] [address] 09/24/2024 3:00 PM EDT Office Visit Neurology [facility] [address] [place] [address] Antonino Hall MD [address], [place] [address] 10/21/2024 1:40 PM EST Office Visit Neurology [facility] [address] [place] [address] Antonino Hall MD [address] [place] [address] 02/12/2025 2:30 PM EDT Office Visit Gynecology/Obstetrics [facility] [address] [place] [address] Tejal Beck PA-C [address] [place] [address] Scheduled Referrals Name Type Priority Associated Diagnoses Orde r Schedule HOME HEALTH REFERRAL OP Referral Within 10 days (routine) Spastic hemiparesis of left nondominant side as late effect of cerebral infarction (HCC) Hemiballism Ordered: 04/22/2024 Health Maintenance Due Date Last Done Comments Depression Monitoring 1991 HIV Screening 1994 Hepatitis C Screening 1997 Hepatitis B Vaccine (1 of 3 - 19+ 3-dose series) 1998 HPV/Co-Test 2009 Mammogram 2019 COVID-19 Vaccine ( - 2022- season) 2023 DTaP,Tdap,and Td Vaccines (2 - Td or Tdap) 10/15/2023 10/15/2013 Cologuard 02/14/2024 Colonoscopy 02/14/2024 Colorectal Cancer Screening 02/14/2024 Fecal Occult Blood Test 02/14/2024 Sigmoidoscopy 02/14/2024 Cervical Cancer Screening 03/07/2024 Pap Smear 03/07/2024 03/07/2021 Influenza Vaccine (FLU shot) (#1) 2024 09/13/2015, [...] this encounter Medical Devices Implanted Type Area Scheduling Representative Device Identifier Shelf Expiration Date Model / Serial / Lot Lead Dbs 1.5mm 42cm - [id number] - [id number] Implanted:Qty: 1 on 10/18/2023 by Miakl Fernandes MD at [place] [facility] [place]: Head [employer] : NEUROLOGIC PAIN 07/19/2025 [id number] / [id number] 3 / Description:right brain Cement Hydroset Injectable 5cc - [id number] Implanted:Qty: 1 on 10/18/2023 by Mikal Fernandes MD at [place] [facility] [place] Right: Head SHAWN [id number] 06/25/2025 [id number] / / [id number] Accy Dbs Conn Plug - [id number] Implanted:Qty: 1 on 10/28/2023 by Mikal Fernandes MD at [place] [facility] [place] Right: Chest [employer] : NEUROLOGIC PAIN 06/12/2025 [id number] / / [id number] Neurostimulator Percept Pc - [id number] - [id number] Implanted:Qty: 1 on 10/28/2023 by Mikal Fernandes MD at [place] [facility] [place] Right: Chest [employer] : NEUROLOGIC PAIN 09/14/2025 [id number] / [id number] / Ext Dbs 40cm - [id number] - [id number] Implanted:Qty: 1 on 10/28/2023 by Mikal Fernandes MD at [place] [facility] [place] Right: Neck [employer] : NEUROLOGIC PAIN 05/21/2025 [id number] / [id number] 2 / Description:right neck Envelope Tyrx Lg Antibacterial - [id number] Implanted:Qty: 1 on 10/28/2023 by Mikal Fernandes MD at [place] [facility] [place] Right: Chest [employer] 06/19/2024 [id number] / / [id number] documented as of this encounter Visit Diagnoses Diagnosis Spastic hemiparesis of left nondominant side as late effect of cerebral infarction (HCC)- Primary Hemiballism Other choreas documented in this encounter Advance Directives * Full Code [...] Discussed due to patient's condition Care Teams Cds Sales Advisor Relationship Specialty Start Date End Date Sonny Lagos MD [address] [facility] [place] [address] PCP - General Family Medicine 02/22/21 documented as of this encounter
--- OUTSIDE RECORDS SUMMARY | 2024-08-25 09:34 | External Medical Summary | Summary of Care ---
Author Name Unknown Organization [facility] Address [address] [place] [address] Phone [phone] Care Team Providers Care Assembler [employer] Spider Name Role Phone Sonny Lagos MD Primary Care Provider [phone] Reason for Visit * Reason Onset Date Comments Referral 06/02/2024 Forms Request 06/02/2024 [facility] Plan of Care Encounter Details Date Type Department Care Team ([facility] st Contact Info) Description 06/02/2024 Telephone Neurology [facility] [place] [address] [place] [address] Specified, Zz No Resource [address] [place] [address] Referral; Forms Request (Veronica / Hang... Allergies No known active allergiesdocumented as of this encounter (statuses as of 08/05/2024) Medications Medication Sig Dispensed Refills Start Date [...] Wheezing. 18 g 5 02/12/2022 Active Nystatin 263802 UNIT/GM External Powder (Nystop) Apply topically to [...] MOUTH EVERY DAY 120 Tablet 05/15/2024 Active hydrOXYzine HCl 50 MG Oral TabletIndication s:Generalized anxiety disorder 1 tab twice daily as needed 180 Tablet 1 11/27/2023 06/19/20 24 Discontinued Spironolactone 50 MG Oral Tablet (Aldactone)Indic ations:Potassium wasting nephropathy Take 1 Tablet by mouth in the morning. 90 Tablet 1 12/02/2023 06/21/20 24 Discontinued(Ref ill) hydroCHLOROthiaz leonel 25 MG Oral Tablet (Hydrodiuril) TAKE 1 TABLET BY MOUTH IN THE MORNING. 90 Tablet 05/06/2024 07/16/20 24 Discontinued oxyBUTYnin Chloride ER 15 MG Oral Tablet Extended Release 24 Hour (Ditropan XL) Take 1 Tablet by mouth in the morning. 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 Scanned into patients chart. * Telephone Encounter - Laura Monteiro LPN - 06/03/2024 11:03 AM EDT Faxed via right fax * Telephone Encounter - Laura Monteiro LPN - 06/02/2024 12:04 PM EDT Made patient aware that I have a order for the brace now. Once signed I will fax it to size changer [phone] documented in this encounter Plan of Treatment Upcoming Encounters Date Type Department Care Team (Late st Contact Info) Description 08/12/2024 12:00 PM EDT Office Visit Gynecology/Obstetrics [facility] [address] [place] [address] Nya Randall CRNP [address] [place] [address] 09/03/2024 1:40 PM EDT Office Visit [facility] [address] [place] [phone] Fatuma Wright PA-C [address] [place] [address] 09/24/2024 3:00 PM EDT Office Visit Neurology [facility] [address] [facility] [place] [address] Antonino Hall MD [address] [place], [place] [id number] 10/21/2024 1:40 PM EST Office Visit Neurology [facility] [address] [facility] [place] [address] Antonino Hall MD [address] [place] [address] Health Maintenance Due Date Last Done Comments [...] this encounter Medical Devices Implanted Type Area Steel Plate Caulker Device Identifier Shelf Expiration Date Model / Serial / Lot Lead Dbs 1.5mm 42cm - [id number] - [id number] Implanted:Qty: 1 on 10/18/2023 by Mikal Fernandes MD at [place] [facility] Right: Head [employer] : NEUROLOGIC PAIN 07/19/2025 [id number] / [id number] 3 / Description:right brain Cement Hydroset Injectable 5cc - [id number] Implanted:Qty: 1 on 10/18/2023 by Mikal Fernandes MD at OR [facility] Right: Head SHAWN [id number] 06/25/2025 [id number] / / [id number] Accy Dbs Conn Plug - [id number] Implanted:Qty: 1 on 10/28/2023 by Mikal Fernandes MD at [place] [facility] Right: Chest [employer] : NEUROLOGIC PAIN 06/12/2025 [id number] / / [id number] Neurostimulator Percept Pc - [id number] - [id number] Implanted:Qty: 1 on 10/28/2023 by Mikal Fernandes MD at OR [facility] Right: Chest [employer] : NEUROLOGIC PAIN 09/14/2025 [id number] / [id number] H / Ext Dbs 40cm - [id number] - [id number] Implanted:Qty: 1 on 10/28/2023 by Mikal Fernandes MD at [place] [facility] Right: Neck [employer] : NEUROLOGIC PAIN 05/21/2025 [id number] / [id number] 2 / Description:right neck Envelope Tyrx Lg Antibacterial - [id number] Implanted:Qty: 1 on 10/28/2023 by Mikal Fernandes MD at [place] [facility] Right: Chest [employer] 06/19/2024 [id number] / / [id number] documented as of this encounter Visit Diagnoses Diagnosis 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
--- OUTSIDE RECORDS SUMMARY | 2024-08-25 09:34 | External Medical Summary | Summary of Care ---
Author Name Unknown Organization [facility] Address [address] [place] [address] Phone [phone] Care Team Providers Care Machine Shop Supervisor Name Role Phone Sonny Lagos MD Primary Care Provider [phone] Encounter Details Date Type Department Care Team (Late st Contact Info) Description 08/12/2024 11:40 AM EDT Telemedicine [facility] [address] [place] [address] [place] CRNP [address] [place] [address] Viral URI with cough* Allergies No known active allergiesdocumented as of this encounter (statuses as of 08/12/2024) Medications Medication Sig Dispensed Refills Start Date [...] Wheezing. 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 I was in a hospital or clinic location. After connecting through televideo,patient was verified with two unique identifiers. Patient (or authorized legal customer support representative) was then informed that this was a Telemedicine visit and being conducted confidentially over secure lines. Methods to assure confidentiality were taken. Patient acknowledged consent and understanding of pr ivacy and security of the Telemedicine visit. The patient agreed to participate. Merle Damon is a 44 year old female who presents for cold symptoms that began 4 days ago. She reports stuffy nose. Loss of smell last 2 days. Did not do a covid test. Had mild cough. Not as productive anymore. She denies fever. Does report some lightheadedness. Clear nasal discharge when blowing nose. PMHx: Patient Active Problem List Diagnosis Date Noted Hemiballismus [G25.5] 10/18/2023 Cerebral palsy, hemiplegic (HCC) [G80.8] 02/22/2021 Left side affected Chronic depressive disorder [F32.A] 02/22/2021 HTN, goal below 130/80 [I10] 02/22/2021 Obesity, morbid (more than 100 lbs over ideal weight or BMI > 40) (HCC) [E66.01] 02/22/2021 Potassium wasting nephropathy [N25.89] 02/22/2021 Past Surgical History: Procedure Laterality Date ANESTHESIA FOR CAT OR MRI SCAN N/A 10/09/2023 ANESTHESIA FOR NON-INVASIVE IMAGING (MRI OR CT) performed by [facility] at [place] [facility] ANESTHESIA, ACHILLES TENDON SURGERY Left CRANIECT-WITH USE;1ST ARRAY Bilateral 10/18/2023 CRANIOTOMY STEREOTACTIC IMPLANT ELECTRODE DBS STAGE 2 performed by Mikal Fernandes MD at [facility] INSERT/REPLACE CRANIAL NEUROSTIM, 2 OR MORE ELECTRODES Left 10/28/2023 INSERT OR REPLACE OF CRANIAL NEUROSTIMULATOR PULSE GENERATOR OR MAINTENANCE ASSOCIATE TWO OR MORE ARRAYS (STAGE 3) performed by Mikal Fernandes MD at [facility] INSERT/REPLACE CRANIAL NEUROSTIM, SINGLE ELECTRODE Left 10/28/2023 INSERT OR REPLACE OF CRANIAL NEUROSTIMULATOR PULSE GENERATOR OR MAINTENANCE ASSOCIATE SINGLE ARRAY (STAGE 3) performed by Mikal Fernandes MD at [place] [facility] MEDICATIONS: Current Outpatient Medications Medication Sig Dispense Refill Meclizine HCl 25 MG Oral Tablet (Antivert) Take 1 Tab by mouth 3 times a day as needed for Dizziness. 30 Tab 1 Albuterol Sulfate HFA 108 (90 Base) MCG/ACT Inhalation Aerosol Solution Inhale by mouth 2 Puffs every 6 hours as needed for Cough or Wheezing. 18 g 5 Nystatin 703150 UNIT/GM External Powder (Nystop) Apply topically to affected area 3 times a day. Apply to under skin folds 15 g 1 Docusate Sodium 100 MG Oral Capsule (Colace) Take 1 Capsule by mouth in the morning and 1 Capsule at noon and 1 Capsule before bedtime. 90 Capsule 2 Metoprolol Tartrate 25 MG Oral Tablet (Lopressor) Take 1 Tablet by mouth in the morning and 1 Tablet before bedtime. 180 Tablet 1 Klor-Con M20 20 MEQ Oral Tablet Extended Release TAKE 4 TABLETS BY MOUTH EVERY DAY 120 Tablet 0 oxyBUTYnin Chloride ER 15 MG Oral Tablet Extended Release 24 Hour (Ditropan XL) Take 1 Tablet by mouth in the morning. 90 Tablet 1 Spironolactone 50 MG Oral Tablet (Aldactone) Take 1 Tablet by mouth in the morning. 90 Tablet 0 hydrOXYzine HCl 50 MG Oral Tablet TAKE 1 TABLET BY MOUTH TWICE A DAY NEEDED 180 Tablet 0 hydroCHLOROthiazide 25 MG Oral Tablet (Hydrodiuril) TAKE 1 TABLET BY MOUTH EVERY MORNING 90 Tablet 0 No current facility-administered medications for this visit. ALLERGIES: Review of patient's allergies indicates: No Known Allergies Social History Socioeconomic History Marital status: Tobacco Use Smoking status: Never Smokeless tobacco: Never Vaping Use Vaping status: Never Used Substance and Sexual Activity Alcohol use: Yes Comment: Occ Drug use: No Social Determinants of Health Food Insecurity: No Food Insecurity (10/18/2023) Food Insecurity Do you need food for this week? (Adult - for ages 18 years and over): No Transportation Needs: No Transportation Needs (10/18/2023) Transportation Needs Do you have trouble getting a ride to medical visits or work? (Adult - for ages 18 years and over):Never True Social Connections Housing Stability: Low Risk (10/18/2023) Housing Stability Do you think you are at risk of becoming homeless? (Adult - for ages 18 years and over): No Family History Problem Relation Name Age of Onset Schizophrenia Brother Diabetes Brother ADD / ADHD Son Autism Son Other (mood disorder) Son Other (mood disorder) Son Family Status Relation Status Bro (Not Specified) Son (Not Specified) Son (Not Specified) Review of Systems: Constitutional ROS: No change in weight, No weakness, No fatigue, and No fevers, sweats, or chills Eye ROS: No recent significant change in vision, No eye pain, redness, discharge, No diplopia, No h/o cataracts, and No h/o glaucoma Ear ROS: No ear pain, No drainage, No tinnitus or vertigo, and No recent change in hearing Nose ROS: No history of frequent colds or sinusitis, No nasal stuffiness, No history of Hay Fever, and No significant epistaxis Cardiovascular ROS: No chest pain, No shortness of breath, No dyspnea on exertion, No orthopnea, Noparoxysmal nocturnal dyspnea, No edema, No palpitations, and No syncope Gastrointestinal ROS: No abdominal pain, No change in bowel habits, No significant heartburn, No significant change in appetite, No nausea, vomiting, diarrhea, or constipation, No hematemesis, No blood in stools or black tarry stools, No abdominal bloating or early satiety, and No dysphagia PHYSICAL EXAM: Objective: TELEMED IMPRESSION/PLAN: Viral URI with cough (Primary) - Recommend rest, fluids, mucinex. Patient advised to follow up if sx worsen - Benzonatate 100 MG Oral Capsule (Tessalsamy Perlelly); Take 1 Capsule by mouth 3 times a day as needed for Cough. Do not cut, crush, or chew. RTC new or worsening sx MIRACLE Hartman documented in this encounter Plan of Treatment Upcoming Encounters Date Type Department Care Team (Late st Contact Info) Description 09/03/2024 1:40 PM EDT Office Visit [facility] [address] [place] [address] Fatuma Wright PA-C [address] [place] [address] 09/24/2024 3:00 PM EDT Office Visit Neurology [address] [place] [address] Antonino Hall MD [address] [place], [place] [id number] 10/21/2024 1:40 PM EST Office Visit Neurology [facility] [address] [facility] [place] [address] Antonino Hall MD [address] [place], [place] [address] 03/10/2025 8:30 AM EDT Office Visit Gynecology/Obstetrics [facility] [address] [place] [address] Nya Randall CRNP [address] [place] [address] Health Maintenance Due Date Last Done Comments [...] this encounter Medical Devices Implanted Type Area Spinning Supervisor Device Identifier Shelf Expiration Date Model / Serial / Lot Lead Dbs 1.5mm 42cm - [id number] - [id number] Implanted:Qty: 1 on 10/18/2023 by Mikal Fernandes MD at [place] [facility] Right: Head [employer] : NEUROLOGIC PAIN 07/19/2025 [id number] / [id number] 3 / Description:right brain Cement Hydroset Injectable 5c - [id number] Implanted:Qty: 1 on 10/18/2023 by Mikal Fernandes MD at [place] [facility] Right: Head SHAWN [id number] 06/25/2025 [id number] / / [id number] Accy Dbs Conn Plug - [id number] Implanted:Qty: 1 on 10/28/2023 by Mikal Fernandes MD at [place] [facility] Right: Chest [employer] : NEUROLOGIC PAIN 06/12/2025 [id number] / / [id number] Neurostimulator Percept Pc - [id number] - [id number] Implanted:Qty: 1 on 10/28/2023 by Mikal Fernandes MD at [place] [facility] Right: Chest [employer] : NEUROLOGIC PAIN 09/14/2025 [id number] / [id number] H / Ext Dbs 40cm - [id number] - [id number] Implanted:Qty: 1 on 10/28/2023 by Mikal Fernandes MD at [place] [facility] Right: Neck [employer] : NEUROLOGIC PAIN 05/21/2025 [id number] / [id number] 2 / Description:right neck Envelope Tyrx Lg Antibacterial - [id number] Implanted:Qty: 1 on 10/28/2023 by Mikal Fernandes MD at [place] [facility] Right: Chest [employer] 06/19/2024 [id number] / / [id number] documented as of this encounter Visit Diagnoses Diagnosis Viral URI with cough- Primary Acute upper respiratory infections of unspecified site documented in this encounter Advance Directives * [...] Discussed due to patient's condition Care Teams Machine Shop Supervisor Relationship Specialty Start Date End Date Sonny Lagos MD [address] [place] [address] PCP - General Family Medicine 02/22/21 documented as of this encounter
--- OUTSIDE RECORDS SUMMARY | 2024-08-25 09:34 | External Medical Summary | Summary of Care ---
Author Name Unknown Organization [facility] Address [address] [place] [address] Phone [phone] Care Team Providers Care Racking Machine Operator Name Role Phone Sonny Lagos MD Primary Care Provider Reason for Visit * Reason Comments eRx-Medication Refill Encounter Details Date Type Department Care Team (Late st Contact Info) Description 07/21/2024 Refill [facility] [address] [place] [phone] Sonny Lagos MD [address] [place] [address] Potassium wasting nephropathy Allergies No known active allergiesdocumented as of this encounter (statuses as of 07/23/2024) Medications Medication Sig Dispensed Refills Start Date [...] Wheezing. 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 documented as of this encounter (statuses as of 07/23/2024) Social History Tobacco Use Types Packs/Day Years [...] encounter Miscellaneous Notes * Telephone Encounter - Hiren Oneal [facility] - 07/23/2024 10:26 AM EDT Refused Prescriptions: Disp Refills Spironolactone 50 MG Oral Tablet (Aldacton*90 Tab*1 Sig: TAKE 1TABLET BY MOUTH EVERY DAY IN THE MORNINGRefused By: [facility] Refusal: Too soon documented in this encounter Plan of Treatment Upcoming Encounters Date Type Department Care Team (Late st Contact Info) Description 09/03/2024 1:40 PM EDT Office Visit [facility] [address] [facility] [place] [phone] Fatuma Wright [facility]C [address] [facility] [id number] 09/24/2024 3:00 PM EDT [facility] [address] [place] [address] Antonino Hall MD [address] [place] [address] 10/21/2024 1:40 PM EST Office Visit Neurology [facility] [address] [place] [address] Antonino Hall MD [address] [place] [address] 02/12/2025 2:30 PM EDT [facility] [address] [place] [address] Tejal Beck PA-C [address] [place] [address] Health Maintenance Due Date Last Done Comments [...] this encounter Medical Devices Implanted Type Area Mortgage Branch Manager Device Identifier Shelf Expiration Date Model / Serial / Lot Lead Dbs 1.5mm 42cm - [id number] - [id number] Implanted:Qty: 1 on 10/18/2023 by Mikal Fern[place]es MD [place] [facility] [place]: Head [employer] : NEUROLOGIC PAIN 07/19/2025 [id number] / [id number] 3 / Description:right brain Cement Hydroset Injectable 5cc - [id number] Implanted:Qty: 1 on 10/18/2023 by Mikal Fernandes MD [place] [facility] Right: Head SHAWN [id number] 06/25/2025 [id number] / / [id number] Accy Dbs Conn Plug - [id number] Implanted:Qty: 1 on 10/28/2023 by Mikal Fernandes MD [place] [facility] Right: Chest [employer] : NEUROLOGIC PAIN 06/12/2025 [id number] / / [id number] Neurostimulator Percept Pc - [id number] - [id number] Implanted:Qty: 1 on 10/28/2023 by Mikal Fernandes MD [place] [facility] Right: Chest [employer] : NEUROLOGIC PAIN 09/14/2025 [id number] / [id number] H / Ext Dbs 40cm - [id number] - [id number] Implanted:Qty: 1 on 10/28/2023 by Mikal Fernandes MD at [place] [facility] Right: Neck [employer] : NEUROLOGIC PAIN 05/21/2025 [id number] / [id number] 2 / Description:right neck Envelope Tyrx Lg Antibacterial - [id number] Implanted:Qty: 1 on 10/28/2023 by Mikal Fernandes MD at [facility] Right: Chest [employer] 06/19/2024 [id number] / / [id number] documented as of this encounter Visit Diagnoses Diagnosis Potassium wasting nephropathy Other specified disorders resulting from impaired renal function documented in this encounter Advance Directives * [...] Discussed due to patient's condition Care Teams Racking Machine Operator Relationship Specialty Start Date End Date Sonny Lagos MD [address] [facility] [place] [address] PCP - General Family Medicine 02/22/21 documented as of this encounter
--- OUTSIDE RECORDS SUMMARY | 2024-08-25 09:34 | External Medical Summary | Summary of Care ---
Author Name Unknown Organization [facility] Address [address] [place] [address] Phone [phone] Care Team Providers Care Infectious Disease Physician Name Role Phone Sonny Lagos MD Primary Care Provider [phone] Reason for Visit * Reason Onset Date Comments Forms Request 08/20/2024 Isabel / Loulou Mccollum Plan of Care Encounter Details Date Type Department Care Team (Late st Contact Info) Description 04/29/2024 Telephone Neurology, [place] [address] [place] [address] Services, [facility] [address] [place] [address] Forms Request (Isabel / Loulou Mccollum Ashwin... Allergies No known active allergiesdocumented as of this encounter (statuses as of 08/20/2024) Medications Medication Sig Dispensed Refills Start Date [...] Wheezing. 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 Placed in providers bin for signature. * Telephone Encounter - Laura Monteiro LPN - 04/30/2024 11:53 AM EDT Referral was faxed to [phone] and patient is aware * Telephone Encounter - Yas Clements OSA - 04/29/2024 2:29 PM EDT Pt called and asked to speak with Laura regarding the home health/ physical therapy referral. Pt can be reached at [phone]. Thank you documented in this encounter Plan of Treatment Upcoming Encounters Date Type Department Care Team (Late st Contact Info) Description 09/03/2024 1:40 PM EDT Office Visit [facility] [place] [address] [place] [address] Fatuma [place] PA-C [address] [place] [address] 09/24/2024 3:00 PM EDT Office Visit Neurology [facility] [address] [facility] [place] [address] Antonino Hall MD [address], [place] [id number] 10/21/2024 1:40 PM EST Office Visit Neurology [facility] [address] [place] [address] Antonino Hall MD [address] [place] [address] 03/10/2025 8:30 AM EDT Office Visit Gynecology/Obstetrics [facility] [address] [place] [address] Nya Randall CRNP [address] [place] [address] Health Maintenance Due Date Last Done Comments [...] this encounter Medical Devices Implanted Type Area Court Administrator Device Identifier Shelf Expiration Date Model / Serial / Lot Lead Dbs 1.5mm 42cm - [id number] - [id number] Implanted:Qty: 1 on 10/18/2023 by Mikal Fernandes MD at [place] [facility] [place] Right: Head [employer] : NEUROLOGIC PAIN 07/19/2025 [id number] / [id number] 3 / Description:right brain Cement Hydroset Injectable 5cc - [id number] Implanted:Qty: 1 on 10/18/2023 by Mikal Fernandes MD at OR [facility] [place] Right: Head SHAWN [id number] 06/25/2025 [id number] / / [id number] Accy Dbs Conn Plug - [id number] Implanted:Qty: 1 on 10/28/2023 by Mikal Fernandes MD at OR [facility] [place] Right: Chest [employer] : NEUROLOGIC PAIN 06/12/2025 [id number] / / [id number] Neurostimulator Percept Pc - [id number] - [id number] Implanted:Qty: 1 on 10/28/2023 by Mikal Fernandes MD at OR [facility] [place] Right: Chest [employer] : NEUROLOGIC PAIN 09/14/2025 [id number] / [id number] H / Ext Dbs 40cm - [id number] - [id number] Implanted:Qty: 1 on 10/28/2023 by Mikal Fernandes MD at OR [facility] [place] Right: Neck [employer] : NEUROLOGIC PAIN 05/21/2025 [id number] / [id number] 2 / Description:right neck Envelope Tyrx Lg Antibacterial - [id number] Implanted:Qty: 1 on 10/28/2023 by Mikal Fernandes MD at OR [facility] [place] Right: Chest [employer] 06/19/2024 [id number] / / [id number] documented as of this encounter Advance Directives [...] Discussed due to patient's condition Care Teams Infectious Disease Physician Relationship Specialty Start Date End Date Sonny Lagos MD [address] [facility] [place] [address] PCP - General Family Medicine 02/22/21 documented as of this encounter
--- OUTSIDE RECORDS SUMMARY | 2024-08-25 09:35 | External Medical Summary | Summary of Care ---
Author Name Unknown Organization [facility] Address [address] [place] [address] Phone [phone] Care Team Providers Care Motorcoach Driver Name Role Phone Kimberly Lagos MD Primary Care Provider Reason for Visit * Reason Comments eRx-Medication Refill Encounter Details Date Type Department Care Team (Late st Contact Info) Description 07/14/2024 Refill [facility] [address] [place] [phone] Kimberly Lagos MD [address] [place] [address] Allergies No known active allergiesdocumented as of this encounter (statuses as of 07/16/2024) Medications Medication Sig Dispensed Refills Start Date End Date Status Meclizine HCl 25 MG Oral Tablet (Antivert)Indicat ions:BPPV (benign paroxysmal positional vertigo), bilateral Take 1 Tab by mouth 3 times a day as needed for Dizziness. 30 Tab 1 09/12/2021 Active Albuterol Sulfate HFA 108 (90 Base) MCG/ACT Inhalation Aerosol Solution Inhale by mouth 2 Puffs every 6 hours as needed for Cough or Wheezing. 18 g 5 02/12/2022 Active Nystatin 247452 UNIT/GM External Powder (Nystop) Apply topically to affected area 3 times a day. Apply to under skin folds 15 g 1 10/28/2023 Active Docusate Sodium 100 MG Oral Capsule (Colace) Take 1 Capsule by mouth in the morning and 1 Capsule at noon and 1 Capsule before bedtime. 90 Capsule 2 03/19/2024 Active Metoprolol Tartrate 25 MG Oral Tablet (Lopressor)Indica tions:HTN, goal below 130/80 Take 1 Tablet by mouth in the morning and 1 Tablet before bedtime. 180 Tablet 1 03/23/2024 Active Klor-Con M20 20 MEQ Oral Tablet Extended ReleaseIndication s:HTN, goal below 130/80,Potassium wasting nephropathy TAKE 4 TABLETS BY MOUTH EVERY DAY 120 Tablet 05/15/2024 Active oxyBUTYnin Chloride ER 15 MG Oral Tablet Extended Release 24 Hour (Ditropan XL) Take 1 Tablet by mouth in the morning. 90 Tablet 1 06/17/2024 Active Spironolactone 50 MG Oral Tablet (Aldactone)Indica tions:Potassium wasting nephropathy Take 1 Tablet by mouth in the morning. 90 Tablet 06/22/2024 Active hydrOXYzine HCl 50 MG Oral TabletIndications :Generalized anxiety disorder TAKE 1 TABLET BY MOUTH TWICE A DAY NEEDED 180 Tablet 07/12/2024 Active hydroCHLOROthiazi de 25 MG Oral Tablet (Hydrodiuril) TAKE 1 TABLET BY MOUTH EVERY MORNING 90 Tablet 07/16/2024 Active hydroCHLOROthiazi de 25 MG Oral Tablet (Hydrodiuril) TAKE 1 TABLET BY MOUTH IN THE MORNING. 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 Zero refills given until upcoming appt. 09/03/2024 Sina Da Silva PharmD Clinical Pharmacist [facility] ([facility]) [phone] 07/16/2024 11:46 AM documented in this encounter Plan of Treatment Upcoming Encounters Date Type Department Care Team (Late st Contact Info) Description 09/03/2024 1:40 PM EDT Office Visit [facility] [place] [address] [place] [address] Fatuma [place] PA-C [address] [place] [address] 09/22/2024 3:30 PM EDT Office Visit Gynecology/Obstetrics [facility] [address] [facility] [place] [address] Bia Oneill CRNP [address] [facility] [place] [address] 10/21/2024 1:40 PM EST Office Visit Neurology [facility] [address] [place] [address] Antonino Hall MD [address] [place] [address] Health Maintenance Due Date Last Done Comments Depression Monitoring 1991 HIV Screening 1994 Hepatitis C Screening 1997 Hepatitis B Vaccine (1 of 3 - 19+ 3-dose series) 1998 HPV/Co-Test 2009 Mammogram 2019 COVID-19 Vaccine ( season) 2023 DTaP,Tdap,and Td Vaccines (2 - [...] this encounter Medical Devices Implanted Type Area Helmet Hat Brim Cutter Device Identifier Shelf Expiration Date Model / Serial / Lot Lead Dbs 1.5mm 42cm - [id number] - [id number] Implanted:Qty: 1 on 10/18/2023 by Mikal Fernandes MD [place] [facility] [place]: Head [employer] : NEUROLOGIC PAIN 07/19/2025 [id number] / [id number] 3 / Description:right brain Cement Hydroset Injectable 5cc - [id number] Implanted:Qty: 1 on 10/18/2023 by Mikal Fernandes MD [place] [facility] [place]: Head SHAWN [id number] 06/25/2025 [id number] / / [id number] Accy Dbs Conn Plug - [id number] Implanted:Qty: 1 on 10/28/2023 by Mikal Fernandes MD [place] [facility] [place] Right: Chest [employer] : NEUROLOGIC PAIN 06/12/2025 [id number] / / [id number] Neurostimulator Percept Pc - [id number] - [id number] Implanted:Qty: 1 on 10/28/2023 by Mikal Fernandes MD [place] [facility] [place] Right: Chest [employer] : NEUROLOGIC PAIN 09/14/2025 [id number] / [id number] H / Ext Dbs 40cm - [id number] - [id number] Implanted:Qty: 1 on 10/28/2023 by Mikal Fernandes MD [place] [facility] [place] Right: Neck [employer] : NEUROLOGIC PAIN 05/21/2025 [id number] / [id number] 2 / Description:right neck Envelope Tyrx Lg Antibacterial - [id number] Implanted:Qty: 1 on 10/28/2023 by Mikal Fernandes MD [place] [facility] [place] Right: Chest [employer] 06/19/2024 [id number] / / [id number] documented as of this encounter Advance Directives [...] Discussed due to patient's condition Care Teams Motorcoach Driver Relationship Specialty Start Date End Date Kimberly Lagos MD [address] [place] [address] PCP - General Family Medicine 02/22/21 documented as of this encounter
--- OUTSIDE RECORDS SUMMARY | 2024-08-25 09:35 | External Medical Summary | Summary of Care ---
Author Name Unknown Organization [facility] Address [address] [place] [address] Phone [phone] Care Team Providers Care Board Member Name Role Phone Sonny Lagos MD Primary Care Provider [phone] Reason for Visit * Reason Onset Date Comments Advice 05/26/2024 Encounter Details Date Type Department Care Team (Late st Contact Info) Description 05/26/2024 Telephone Neurology, [place] [address] [place] [address] Antonino Hall MD [address] [place] [address] Advice Allergies No known active allergiesdocumented as of this encounter (statuses as of 06/01/2024) Medications Medication Sig Dispensed Refills Start Date [...] Wheezing. 18 g 5 02/12/2022 Active Nystatin 548611 UNIT/GM External Powder (Nystop) Apply topically to affected area 3 times a day. Apply to under skin folds 15 g 1 10/28/2023 Active hydrOXYzine HCl 50 MG Oral TabletIndications:Ge neralized anxiety disorder 1 tab twice daily as needed 180 Tablet 1 11/27/2023 Active Spironolactone 50 MG Oral Tablet (Aldactone)Indicatio ns:Potassium wasting nephropathy Take 1 Tablet by mouth in the morning. 90 Tablet 1 12/02/2023 Active Docusate Sodium 100 MG Oral Capsule (Colace) Take 1 Capsule by mouth in the morning and 1 Capsule at noon and 1 Capsule before bedtime. 90 Capsule 2 03/19/2024 Active oxyBUTYnin Chloride ER 15 MG Oral Tablet Extended Release 24 Hour (Ditropan XL) TAKE 1 TABLET BY MOUTH EVERY DAY IN THE MORNING 90 Tablet 1 03/19/2024 Active Metoprolol Tartrate 25 MG Oral Tablet (Lopressor)Indicatio ns:HTN, goal below 130/80 Take 1 Tablet by mouth in the morning and 1 Tablet before bedtime. 180 Tablet 1 03/23/2024 Active hydroCHLOROthiazide 25 MG Oral Tablet (Hydrodiuril) TAKE 1 TABLET BY MOUTH IN THE MORNING. 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 Not asked 04/21/2021 Sex and Gender Information Value Date Recorded Sex Assigned at Female 03/30/2024 1:04 PM EDT Gender Identity Female 03/30/2024 1:04 PM EDT Sexual Orientation Straight 03/30/2024 1: 04 PM EDT Job Start Date Occupation Industry Not on file Not on file Not on file documented as of this encounter Miscellaneous Notes * Telephone Encounter - Laura Monteiro LPN - 06/01/2024 2:07 PM EDT Left message for Dominick at [phone] evaluation for a foot brace * Telephone Encounter - Laura Monteiro LPN - 05/28/2024 10:56 AM EDT Spoke with patient and discussed what type of brace to order Asked if her therapist could call me * Telephone Encounter - Patrica Mclaughlin OSA - 05/26/2024 2:44 PM EDT Neuroscience Phone Call Form- Requested Information from caller: Who is calling patient Provider patient is established with: Dr Hall What is the concern or issue they are having: was calling to speak to Laura about getting a brace for her ankle. Please return pt call How long has the issue been going on: . Any additional details to add: no Phone number for nurse to call back: [phone] Are forms needed? no Medication Refill? no Verify Pharmacy information is correct. Form to be used for established patients only (not new patients) Clinic has 24-48 hours to respond to caller. If caller is calling back before timeframe with any changes in condition/issues reported, update TEand re-route to appropriate pool If caller is calling back before timeframe- update TE- no need to re-route Peds Neurology Pool- Peds Neuro Manager Civil- [id number] (All messages get sent to the [facility]) Neurology Pool Numbers- [place] patients - follow normal process Ops req C Neurology ([place])- [id number] Ops req NE Neurology ([place]- [facility] and [facility] Only)- [id number] Neurosurgery Pool Numbers- [place] patients- follow normal process Ops req Neurosurgery [facility] ([place])- [id number] Ops req Neurosurgery [facility] ([place] Only) [id number] documented in this encounter Plan of Treatment Upcoming Encounters Date Type Department Care Team (Late st Contact Info) Description 06/15/2024 3:40 PM EDT Office Visit Neurology [facility] [address] [facility] [place] [address] Antonino Hall MD [address], [place] [id number] 07/15/2024 10:40 AM EDT Office Visit [place] [address] [place] [address] AprilJustin MD [address] [place], [place] [address] 10/21/2024 1:40 PM EST Office Visit Neurology [facility] [address] [facility] [address] Antonino Hall MD [address] [place] [address] Health Maintenance Due Date Last Done Comments Depression Monitoring 1991 HIV Screening 1994 Hepatitis C Screening 1997 Hepatitis B (1 of 3 - 19+ 3-dose series) 1998 HPV/Co-Test 2009 Mammogram 2019 COVID-19 Vaccine ( - 2022-24 season) 2023 DTaP,Tdap,and Td Vaccines (2 - [...] 10/04/2023, 08/0 12/2021, 05/07/2022, Additional history exists GARDASIL-HPV IMMUNIZATION SERIES Aged Out No longer eligible based on [...] this encounter Medical Devices Implanted Type Area Editorial Cartoonist Device Identifier Shelf Expiration Date Model / Serial / Lot Lead Dbs 1.5mm 42cm - [id number] - [id number] Implanted:Qty: 1 on 10/18/2023 by Mikal Fernandes MD [place] [facility] [place] Right: Head [employer] : NEUROLOGIC PAIN 07/19/2025 [id number] / [id number] 3 / Description:right brain Cement Hydroset Injectable 5cc - [id number] Implanted:Qty: 1 on 10/18/2023 by Mikal Fernandes MD at [place] [facility] [place] Right: Head SHAWN [id number] 06/25/2025 [id number] / / [id number] Accy Dbs Conn Plug - [id number] Implanted:Qty: 1 on 10/28/2023 by Mikal Fernandes MD at [place] [facility] [place] Right: Chest [employer] : NEUROLOGIC PAIN 06/12/2025 [id number] / / [id number] Neurostimulator Percept Pc - [id number] - [id number] Implanted:Qty: 1 on 10/28/2023 by Mikal Fernandes MD at [place] [facility] [place] Right: Chest [employer] : NEUROLOGIC PAIN 09/14/2025 [id number] / [id number] H / Ext Dbs 40cm - [id number] - [id number] Implanted:Qty: 1 on 10/28/2023 by Mikal Fernandes MD at [place] [facility] [place] Right: Neck [employer] : NEUROLOGIC PAIN 05/21/2025 [id number] / [id number] 2 / Description:right neck Envelope Tyrx Lg Antibacterial - [id number] Implanted:Qty: 1 on 10/28/2023 by Mikal Fernandes MD at [place] [facility] [place] Right: Chest [employer] 06/19/2024 [id number] / / [id number] documented as of this encounter Advance Directives [...] Discussed due to patient's condition Care Teams Board Member Relationship Specialty Start Date End Date [facility]os [facility] [address] [facility] [address] PCP - General Family Medicine 02/22/21 documented as of this encounter
--- OUTSIDE RECORDS SUMMARY | 2024-08-25 09:35 | External Medical Summary | Summary of Care ---
Author Name Unknown Organization [facility] Address [address] [place] [address] Phone [phone] Care Team Providers Care Travel Attendants Name Role Phone Kimberly Lagos MD Primary Care Provider [phone] Reason for Visit * Reason Onset Date Comments Medication Refill 06/21/2024 Encounter Details Date Type Department Care Team (Late st Contact Info) Description 06/21/2024 Refill [facility] [address] [place] [phone] Kimberly Lagos MD [address] [place] [address] Potassium wasting nephropathy Allergies No known active allergiesdocumented as of this encounter (statuses as of 06/22/2024) Medications Medication Sig Dispensed Refills Start Date [...] Wheezing. 18 g 5 02/12/2022 Active Nystatin 618454 UNIT/GM External Powder (Nystop) Apply topically to [...] before bedtime. 180 Tablet 1 03/23/2024 Active hydroCHLOROthiazi de 25 MG Oral Tablet [...] the morning. 90 Tablet 1 06/17/2024 Active hydrOXYzine HCl 50 MG Oral TabletIndications :Generalized anxiety disorder TAKE 1 TABLET BY MOUTH TWICE A DAY NEEDED 180 Tablet 06/19/2024 Active Spironolactone 50 MG Oral Tablet (Aldactone)Indica tions:Potassium wasting nephropathy Take 1 Tablet by mouth in the morning. 90 Tablet 06/22/2024 Active Spironolactone 50 MG Oral Tablet (Aldactone)Indica tions:Potassium wasting nephropathy Take 1 Tablet by mouth in the morning. 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 Authorizing Provider: KIMBERLY LAGOS Ordering User: ELOISE ADKINS * Telephone Encounter - Eloise Adkins RPh - 06/22/2024 10:25 AM EDT Approved until OV. Rekha, Eloise Adkins Clinical Pharmacist [facility] ([facility]) [phone] 06/22/2024, 10:25 AM documented in this encounter Plan of Treatment Upcoming Encounters Date Type Department Care Team (Late st Contact Info) Description 07/15/2024 10:40 AM EDT Office Visit [facility] [address] [place] [address] AprilJustin MD [address] [place] [address] 10/21/2024 1:40 PM EST Office Visit Neurology [facility] [address] [place] [address] Antonino Hall MD [address] [place] [address] Health Maintenance Due Date Last Done Comments Depression Monitoring 1991 HIV Screening 1994 Hepatitis C Screening 1997 Hepatitis B Vaccine (1 of 3 - 19+ 3-dose series) 1998 HPV/Co-Test 2009 Mammogram 2019 COVID-19 Vaccine ( - season) 2023 DTaP,Tdap,and Td Vaccines (2 - [...] this encounter Medical Devices Implanted Type Area Hand Knitter Device Identifier Shelf Expiration Date Model / Serial / Lot Lead Dbs 1.5mm 42cm - [id number] - [id number] Implanted:Qty: 1 on 10/18/2023 by Mikal Fernandes MD [place] [facility] [place]: Head [employer] : NEUROLOGIC PAIN 07/19/2025 [id number] / [id number] 3 / Description:right brain Cement Hydroset Injectable 5cc - [id number] Implanted:Qty: 1 on 10/18/2023 by Mikal Fernandes MD [place] [facility] [place]: Head SHAWN [id number] 06/25/2025 [id number] / / [id number] Accy Dbs Conn Plug - [id number] Implanted:Qty: 1 on 10/28/2023 by Mikal Fernandes MD [place] [facility] [place]: Chest [employer] : NEUROLOGIC PAIN 06/12/2025 [id number] / / [id number] Neurostimulator Percept Pc - [id number] - [id number] Implanted:Qty: 1 on 10/28/2023 by Mikal Fernandes MD [place] [facility] [place]: Chest [employer] : NEUROLOGIC PAIN 09/14/2025 [id number] / [id number] H / Ext Dbs 40cm - [id number] - [id number] Implanted:Qty: 1 on 10/28/2023 by Mikal Fernandes MD [place] [facility] [place]: Neck [employer] : NEUROLOGIC PAIN 05/21/2025 [id number] / [id number] 2 / Description:right neck Envelope Tyrx Lg Antibacterial - [id number] Implanted:Qty: 1 on 10/28/2023 by Mikal Fernandes MD at [place] [facility] [place]: Chest [employer] 06/19/2024 [id number] / / [id number] documented as of this encounter Visit Diagnoses [...] Discussed due to patient's condition Care Teams Travel Attendants Relationship Specialty Start Date End Date Kimberly Lagos MD [address] [facility] [place] [address] PCP - General Family Medicine 02/22/21 documented as of this encounter
--- OUTSIDE RECORDS SUMMARY | 2024-08-25 09:35 | External Medical Summary | Summary of Care ---
Author Name Unknown Organization [facility] Address [address] [place] [address] Phone [phone] Care Team Providers Care Cripple Chaser Name Role Phone Sonny Lagos MD Primary Care Provider [phone] Reason for Visit * Reason Onset Date Comments Referral 06/02/2024 Encounter Details Date Type Department Care Team ([facility] st Contact Info) Description 06/02/2024 Telephone Neurology [facility] [place] [address] [place] [address] Specified, Zz No Resource [address] [place] [address] Referral Allergies No known active allergiesdocumented as of this encounter (statuses as of 06/03/2024) Medications Medication Sig Dispensed Refills Start Date [...] Wheezing. 18 g 5 02/12/2022 Active Nystatin 915887 UNIT/GM External Powder (Nystop) Apply topically to [...] in the morning. 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 documented as of this encounter (statuses as of 06/03/2024) Social History Tobacco Use Types Packs/Day Years [...] Once signed I will fax it to tanvi [phone] documented in this encounter Plan of Treatment Upcoming Encounters Date Type Department Care Team (Late st Contact Info) Description 06/15/2024 3:40 PM EDT Office Visit Neurology [address] [place] [address] Antonino Hall MD [address] [place] [address] 07/15/2024 10:40 AM EDT Office Visit [facility] [address] [place] [phone] Justin Chavez MD [address] [place] [address] 10/21/2024 1:40 PM EST Office Visit Neurology [facility] [address] [facility] [place] [address] Antonino Hall MD [address] [place] [address] Health Maintenance Due Date Last Done Comments [...] this encounter Medical Devices Implanted Type Area Hospital Staff Pharmacist Device Identifier Shelf Expiration Date Model / Serial / Lot Lead Dbs 1.5mm 42cm - [id number] - [id number] Implanted:Qty: 1 on 10/18/2023 by Mikal Fernandes MD at [place] [facility] Right: Head [employer] : NEUROLOGIC PAIN 07/19/2025 [id number] / [id number] 3 / Description:right brain Cement Hydroset Injectable 5cc - [id number] Implanted:Qty: 1 on 10/18/2023 by Mikal Fernandes MD at OR [facility] Right: Head SHAWN [id number] 06/25/2025 [id number] / / [id number] Accy Dbs Conn Plug - [id number] Implanted:Qty: 1 on 10/28/2023 by Mikal Fernandes MD at OR [facility] Right: Chest [employer] : NEUROLOGIC PAIN 06/12/2025 [id number] / / [id number] Neurostimulator Percept Pc - [id number] - [id number] Implanted:Qty: 1 on 10/28/2023 by Mikal Fernandes MD at OR [facility] Right: Chest [employer] : NEUROLOGIC PAIN 09/14/2025 [id number] / [id number] H / Ext Dbs 40cm - [id number] - [id number] Implanted:Qty: 1 on 10/28/2023 by Mikal Fernandes MD at OR [facility] Right: Neck [employer] : NEUROLOGIC PAIN 05/21/2025 [id number] / [id number] 2 / Description:right neck Envelope Tyrx Lg Antibacterial - [id number] Implanted:Qty: 1 on 10/28/2023 by Mikal Fernandes MD at OR [facility] Right: Chest [employer] 06/19/2024 [id number] / / [id number] documented as of this encounter Visit Diagnoses [...] Discussed due to patient's condition Care Teams Cripple Chaser Relationship Specialty Start Date End Date Sonny Lagos MD [address] [facility] [place] [address] PCP - General Family Medicine 02/22/21 documented as of this encounter
--- OUTSIDE RECORDS SUMMARY | 2024-08-25 09:35 | External Medical Summary | Summary of Care ---
Author Name Unknown Organization [facility] Address [address] [place] [address] Phone [phone] Care Team Providers Care Hat Braider Name Role Phone Kimberly Lagos MD Primary Care Provider [phone] Reason for Visit * Reason Onset Date Comments Medication Refill 06/16/2024 Encounter Details Date Type Department Care Team (Late st Contact Info) Description 06/16/2024 Refill [facility] [address] [place] [phone] Kimberly Lagos MD [address] [place], [place] [phone] Allergies No known active allergiesdocumented as of this encounter (statuses as of 06/17/2024) Medications Medication Sig Dispensed Refills Start Date [...] Wheezing. 18 g 5 02/12/2022 Active Nystatin 371145 UNIT/GM External Powder (Nystop) Apply topically to affected area 3 times a day. Apply to under skin folds 15 g 1 10/28/2023 Active hydrOXYzine HCl 50 MG Oral TabletIndications :Generalized anxiety disorder 1 tab twice daily as needed 180 Tablet 1 11/27/2023 Active Spironolactone 50 MG Oral Tablet (Aldactone)Indica [...] the morning. 90 Tablet 1 06/17/2024 Active oxyBUTYnin Chloride ER 15 MG Oral Tablet Extended Release 24 Hour (Ditropan XL) Take 1 Tablet by mouth in the morning. 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 Authorizing Provider: KIMBERLY LAGOS * Telephone Encounter - Lesa Zazueta LPN - 06/17/2024 11:51 AM EDTPending Prescriptions: Disp Refills oxyBUTYnin Chloride ER 15 MG Oral Tablet E*90 Tab*1 Sig: Take 1 Tablet by mouth in the morning. * Telephone Encounter - Almas Wiley - 06/16/2024 8:00 PM EDTPending Prescriptions: Disp Refills oxyBUTYnin Chloride ER 15 MG Oral Tablet E*90 Tab*1 Sig: Take 1Tablet by mouth in the morning. documented in this encounter Plan of Treatment Upcoming Encounters Date Type Department Care Team (Late st Contact Info) Description 07/15/2024 10:40 AM EDT Office Visit [facility] [address] [place] [phone] AprilJustin MD [address] [place] [address] 10/21/2024 1:40 PM EST Office Visit Neurology [facility] [address] [place] [address] Antonino Hall MD [address] [place], [place] [phone] Health Maintenance Due Date Last Done Comments [...] this encounter Medical Devices Implanted Type Area Packaging Engineer Device Identifier Shelf Expiration Date Model / Serial / Lot Lead Dbs 1.5mm 42cm - [id number] - [id number] Implanted:Qty: 1 on 10/18/2023 by iMkal Fernandes MD at [place] [facility] Right: Head [employer] : NEUROLOGIC PAIN 07/19/2025 [id number] / [id number] 3 / Description:right brain Cement Hydroset Injectable 5cc - [id number] Implanted:Qty: 1 on 10/18/2023 by Mikal Fernandes MD at OR [facility] Right: Head SHAWN [id number] 06/25/2025 [id number] / / [id number] Accy Dbs Conn Plug - [id number] Implanted:Qty: 1 on 10/28/2023 by Mikal Fernandes MD at [place] [facility] Right: Chest [employer] : NEUROLOGIC PAIN 06/12/2025 [id number] / / [id number] Neurostimulator Percept Pc - [id number] - [id number] Implanted:Qty: 1 on 10/28/2023 by Mikal Fernandes MD at [place] [facility] Right: Chest [employer] : NEUROLOGIC PAIN 09/14/2025 [id number] / [id number] H / Ext Dbs 40cm - [id number] - [id number] Implanted:Qty: 1 on 10/28/2023 by Mikal Fernandes MD at [place] [facility] Right: Neck [employer] : NEUROLOGIC PAIN 05/21/2025 [id number] / [id number] 2 / Description:right neck Envelope Tyrx Lg Antibacterial - [id number] Implanted:Qty: 1 on 10/28/2023 by Mikal Fernandes MD at [place] [facility] Right: Chest [employer] 06/19/2024 [id number] / / [id number] documented as of this encounter Advance Directives [...] Discussed due to patient's condition Care Teams Hat Braider Relationship Specialty Start Date End Date Kimberly Lagos MD [address] [facility] [place] [address] PCP - General Family Medicine 02/22/21 documented as of this encounter
--- OUTSIDE RECORDS SUMMARY | 2024-08-25 09:35 | External Medical Summary | Summary of Care ---
Author Name Unknown Organization [facility] Address [address] [place] [address] Phone [phone] Care Team Providers Care Senior Systems Architect Name Role Phone Kimberly Lagos MD Primary Care Provider [phone] Reason for Visit * Reason Comments eRx-Medication Refill Encounter Details Date Type Department Care Team (Late st Contact Info) Description 06/18/2024 Refill [facility] [address] [place] [phone] Kimberly Lagos MD [address] [place] [address] Generalized anxiety disorder Allergies No known active allergiesdocumented as of this encounter (statuses as of 06/19/2024) Medications Medication Sig Dispensed Refills Start Date [...] Wheezing. 18 g 5 02/12/2022 Active Nystatin 592448 UNIT/GM External Powder (Nystop) Apply topically to affected area 3 times a day. Apply to under skin folds 15 g 1 10/28/2023 Active Spironolactone 50 MG Oral Tablet (Aldactone)Indica [...] A DAY NEEDED 180 Tablet 06/19/2024 Active hydrOXYzine HCl 50 MG Oral TabletIndications :Generalized anxiety disorder 1 tab twice daily as needed 180 Tablet 1 11/27/2023 Discontinued documented as of this encounter (statuses as of 06/19/2024) Active Problems Problem Noted Date Diagnosed Date Hemiballismus 10/18/2023 Cerebral palsy, hemiplegic 02/22/2021 Overview: Left side affected Chronic depressive disorder 02/22/2021 HTN, goal below 130/80 02/22/2021 Obesity, morbid (more than 1 00 lbs over ideal weight or BMI > 40) 02/22/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 documented as of this encounter (statuses as of 06/19/2024) Social History Tobacco Use Types Packs/Day Years [...] 18 years and over) Not on file 11/17/202 3 Are you (or your family) rea [...] Telephone Encounter - Kimberly Lagos MD - 06/19/2024 2:07 PM EDTSigned Prescriptions: Disp Refills hydrOXYzine HCl 50 MG Oral Tablet 180 Ta*0 Sig: TAKE 1 TABLET BY MOUTH TWICE A DAY NEEDED Authorizing Provider: KIMBERLY LAGOS * Telephone Encounter - Emma Ferris [facility] - 06/19/2024 11:18 AM EDT Pending Prescriptions: Disp Refills hydrOXYzine HCl 50 MG Oral Tablet 180 Ta*0 Sig: TAKE 1 TABLET BY MOUTH TWICE A DAY NEEDED * Telephone Encounter - Emma Ferris RPh - 06/19/2024 11:17 AM EDT [facility] is currently not authorized to approve refills for the pended medication(s) per refill protocol. Please approve if appropriate. Thank you, Emma Ferris, PharmD, PANTERA Clinical Pharmacist [facility] 06/19/24 11:18 AM [phone] documented in this encounter Plan of Treatment Upcoming Encounters Date Type Department Care Team (Late st Contact Info) Description 07/15/2024 10:40 AM EDT Office Visit [facility] [address] [place] [address] AprilJustin MD [address] [place] [address] 10/21/2024 1:40 PM EST Office Visit Neurology [facility] [address] [place] [address] Antonino Hall MD [address] [place] [address] Health Maintenance Due Date Last [...] this encounter Medical Devices Implanted Type Area Concessionist Device Identifier Shelf Expiration Date Model / Serial / Lot Lead Dbs 1.5mm 42cm - [id number] - [id number] Implanted:Qty: 1 on 10/18/2023 by Mikal Fernandes MD at [place] [facility] Right: Head [employer] : NEUROLOGIC PAIN 07/19/2025 [id number] / [id number] 3 / Description:right brain Cement Hydroset Injectable 5cc - [id number] Implanted:Qty: 1 on 10/18/2023 by Mikal Fernandes MD at [place] [facility] Right: Head SHAWN [id number] 06/25/2025 [id number] / / [id number] Accy Dbs Conn Plug - [id number] Implanted:Qty: 1 on 10/28/2023 by Mikal Fernandes MD at [place] [facility] Right: Chest [employer] : NEUROLOGIC PAIN 06/12/2025 [id number] / / [id number] Neurostimulator Percept Pc - [id number] - [id number] Implanted:Qty: 1 on 10/28/2023 by Mikal Fernandes MD at [place] [facility] Right: Chest [employer] : NEUROLOGIC PAIN 09/14/2025 [id number] / [id number] H / Ext Dbs 40cm - [id number] - [id number] Implanted:Qty: 1 on 10/28/2023 by Mikal Fernandes MD at [place] [facility] Right: Neck [employer] : NEUROLOGIC PAIN 05/21/2025 [id number] / [id number] 2 / Description:right neck Envelope Tyrx Lg Antibacterial - [id number] Implanted:Qty: 1 on 10/28/2023 by Mikal Fernandes MD at [place] [facility] Right: Chest [employer] 06/19/2024 [id number] / / [id number] documented as of this encounter Visit Diagnoses Diagnosis Generalized anxiety disorder documented in this encounter Advance Directives * [...] Discussed due to patient's condition Care Teams Senior Systems Architect Relationship Specialty Start Date End Date Kimberly Lagos MD [address] [facility] [place] [address] PCP - General Family Medicine 02/22/21 documented as of this encounter
--- OUTSIDE RECORDS SUMMARY | 2024-08-25 09:35 | External Medical Summary | Summary of Care ---
Author Name Unknown Organization [facility] Address [address] [place] [address] Phone [phone] Care Team Providers Care Cooker Soda Name Role Phone Kimberly Lagos MD Primary Care Provider Reason for Visit * Reason Onset Date Comments Medication Refill 05/31/2024 Encounter Details Date Type Department Care Team (Late st Contact Info) Description 05/31/2024 Refill [facility] [address] [place] [phone] Kimberly Lagos MD [address] [place], [place] [phone] Allergies No known active allergiesdocumented as of [...] Wheezing. 18 g 5 02/12/2022 Active Nystatin 108740 UNIT/GM External Powder (Nystop) Apply topically to [...] the morning. 90 Tablet 1 06/01/2024 Active oxyBUTYnin Chloride ER 15 MG Oral Tablet Extended Release 24 Hour (Ditropan XL) TAKE 1 TABLET BY MOUTH EVERY DAY IN THE MORNING 90 Tablet 1 03/19/2024 05/31/2024 Discontinue d(Refill) documented as of this encounter [...] Telephone Encounter - Kimberly Lagos MD - 06/01/2024 5:02 PM EDTSigned Prescriptions: Disp Refills oxyBUTYnin Chloride ER 15 MG Oral Tablet E*90 Tab*1 Sig: Take 1 Tablet by mouth in the morning. Authorizing Provider: KIMBERLY LAGOS * Telephone Encounter - Arpita Saini LPN - 06/01/2024 3:28 PM EDTPending Prescriptions: Disp Refills oxyBUTYnin Chloride ER 15 MG Oral Tablet E*90 Tab*1 * Telephone Encounter - Almas Wiley - 05/31/2024 9:11 PM EDTPending Prescriptions: Disp Refills oxyBUTYnin Chloride ER 15 MG Oral Tablet E*90 Tab*1 documented in this encounter Plan of Treatment Upcoming Encounters Date Type Department Care Team (Late st Contact Info) Description 06/15/2024 3:40 PM EDT Office Visit Neurology [facility] [address] [place] [address] Antonino Hall MD [address] [place], [place] [address] 07/15/2024 10:40 AM EDT Office Visit [facility] [address] [place] [address] AprilJustin MD [address] [place] [address] 10/21/2024 1:40 PM EST Office Visit Neurology [facility] [address] [place] [address] Antonino Hall MD [address] [place] [address] Health Maintenance Due Date Last [...] this encounter Medical Devices Implanted Type Area Strainer Cleaner Device Identifier Shelf Expiration Date Model / Serial / Lot Lead Dbs 1.5mm 42cm - [id number] - [id number] Implanted:Qty: 1 on 10/18/2023 by Mikal Fernandes MD at OR [facility] Right: Head [employer] : NEUROLOGIC PAIN 07/19/2025 [id number] / [id number] 3 / Description:right brain Cement Hydroset Injectable 5cc - [id number] Implanted:Qty: 1 on 10/18/2023 by Mikal Fernandes MD at OR [facility] Right: Head SHAWN [id number] 06/25/2025 [id number] / / [id number] Accy Dbs Conn Plug - [id number] Implanted:Qty: 1 on 10/28/2023 by Mikal Fernandes MD at OR [facility] Right: Chest [employer] : NEUROLOGIC PAIN 06/12/2025 [id number] / / [id number] Neurostimulator Percept Pc - [id number] - [id number] Implanted:Qty: 1 on 10/28/2023 by Mikal Fernandes MD at OR [facility] Right: Chest [employer] : NEUROLOGIC PAIN 09/14/2025 [id number] / [id number] H / Ext Dbs 40cm - [id number] - [id number] Implanted:Qty: 1 on 10/28/2023 by Mikal Fernandes MD at [place] [facility] Right: Neck [employer] : NEUROLOGIC PAIN 05/21/2025 [id number] / [id number] 2 / Description:right neck Envelope Tyrx Lg Antibacterial - [id number] Implanted:Qty: 1 on 10/28/2023 by Mikal Fernandes MD at [place] [facility] Right: Chest [employer] 06/19/2024 [id number] / / [id number] documented as of this encounter Advance Directives [...] Discussed due to patient's condition Care Teams Cooker Soda Relationship Specialty Start Date End Date Kimberly Lagos MD [address] [place] [facility] [place] [address] PCP - General Family Medicine 02/22/21 documented as of this encounter
--- OUTSIDE RECORDS SUMMARY | 2024-08-25 09:35 | External Medical Summary | Summary of Care ---
Author Name Unknown Organization [facility] Address [address] [place] [address] Phone [phone] Care Team Providers Care Donor Services Technician Name Role Phone Sonny Lagos MD Primary Care Provider [phone] Reason for Visit * Reason Onset Date Comments Referral 06/02/2024 Encounter Details Date Type Department Care Team ([facility] st Contact Info) Description 06/02/2024 Telephone Neurology [facility] [place] [address] [place] [address] Specified, Zz No Resource [address] [place] [address] Referral Allergies No known active allergiesdocumented as of this encounter (statuses as of 06/02/2024) Medications Medication Sig Dispensed Refills Start Date [...] Wheezing. 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 documented as of this encounter (statuses as of 06/02/2024) Social History Tobacco Use Types Packs/Day Years [...] signed I will fax it to tanvi [phone] documented in this encounter Plan of Treatment Upcoming Encounters Date Type Department Care Team (Late st Contact Info) Description 06/15/2024 3:40 PM EDT Office Visit Neurology [facility] [address] [facility] [place] [address] Antonino Hall MD [address] [place] [address] 07/15/2024 10:40 AM EDT Office Visit [place] [address] [place] [address] AprilJustin MD [address] [place] [address] 10/21/2024 1:40 PM EST Office Visit Neurology [facility] [address] [place] [address] Antonino Hall MD [address] [place] [address] Health Maintenance Due Date Last [...] this encounter Medical Devices Implanted Type Area Granite Chip Terrazzo Finisher Device Identifier Shelf Expiration Date Model / Serial / Lot Lead Dbs 1.5mm 42cm - [id number] - [id number] Implanted:Qty: 1 on 10/18/2023 by Mikal Fernandes MD at [place] [facility] Right: Head [employer] : NEUROLOGIC PAIN 07/19/2025 [id number] / [id number] 3 / Description:right brain Cement Hydroset Injectable 5c - [id number] Implanted:Qty: 1 on 10/18/2023 by Mikal Fernandes MD at OR [facility] Right: Head SHAWN [id number] 06/25/2025 [id number] / / [id number] Accy Dbs Conn Plug - [id number] Implanted:Qty: 1 on 10/28/2023 by Mikal Fernandes MD at OR [facility] Right: Chest [employer] : NEUROLOGIC PAIN 06/12/2025 [id number] / / [id number] Neurostimulator Percept Pc - [id number] - [id number] Implanted:Qty: 1 on 10/28/2023 by Mikal Fernandes MD at OR [facility] Right: Chest [employer] : NEUROLOGIC PAIN 09/14/2025 [id number] / [id number] H / Ext Dbs 40cm - [id number] - [id number] Implanted:Qty: 1 on 10/28/2023 by Mikal Fernandes MD at OR [facility] Right: Neck [employer] : NEUROLOGIC PAIN 05/21/2025 [id number] / [id number] 2 / Description:right neck Envelope Tyrx Lg Antibacterial - [id number] Implanted:Qty: 1 on 10/28/2023 by Mikal Fernandes MD at [place] [facility] Right: Chest [employer] 06/19/2024 [id number] / / [id number] documented as of this encounter Visit Diagnoses [...] Discussed due to patient's condition Care Teams Donor Services Technician Relationship Specialty Start Date End Date Sonny Lagos MD [address] [place] [address] PCP - General Family Medicine 02/22/21 documented as of this encounter
--- OUTSIDE RECORDS SUMMARY | 2024-08-25 09:35 | External Medical Summary | Summary of Care ---
Author Name Unknown Organization [facility] Address [address] [place] [address] Phone [phone] Care Team Providers Care Inward Toll Operator Name Role Phone Sonny Lagos MD Primary Care Provider [phone] Encounter Details Date Type Department Care Team (Late st Contact Info) Description 06/01/2024 Population Health External Data Unspecified Department Allergies No known active allergiesdocumented as of [...] Wheezing. 18 g 5 02/12/2022 Active Nystatin 383681 UNIT/GM External Powder (Nystop) Apply topically to [...] on file documented as of this encounter Plan of Treatment Upcoming Encounters Date Type Department Care Team (Late st Contact Info) Description 06/15/2024 3:40 PM EDT Office Visit Neurology [facility] [address] [facility] [place] [address] Antonino Hall MD [address] [place], [place] [id number] 07/15/2024 10:40 AM EDT Office Visit [facility] [address] [place] [address] AprilJustin MD [address] [place] [address] 10/21/2024 1:40 PM EST Office Visit Neurology [facility] [address] [facility] [place] [address] Antonino Hall MD [address] [place] [address] Health Maintenance Due Date Last Done Comments [...] Smear 03/07/2024 03/07/2021 Influenza Vaccine (FLU shot) (Season Ended) 2024 09/13/2015, 10/15/2013, 10/30/2012, Additional history exists [...] this encounter Medical Devices Implanted Type Area Claims Adjuster Supervisor Device Identifier Shelf Expiration Date Model / Serial / Lot Lead Dbs 1.5mm 42cm - [id number] - [id number] Implanted:Qty: 1 on 10/18/2023 by Mikal Fernandes MD at OR [facility] [place] Right: Head [employer]TR[employer] : NEUROLOGIC PAIN 07/19/2025 [id number] / [id number] 3 / Description:right brain Cement Hydroset Injectable 5cc - [id number] Implanted:Qty: 1 on 10/18/2023 by Mikal Feranndes MD at OR [facility] [place] Right: Head SHAWN [id number] 06/25/2025 [id number] / / [id number] Accy Dbs Conn Plug - [id number] Implanted:Qty: 1 on 10/28/2023 by Mikal Fernandes MD at OR [facility] [place] Right: Chest [employer] : NEUROLOGIC PAIN 06/12/2025 [id number] / / [id number] Neurostimulator Percept Pc - [id number] - [id number] Implanted:Qty: 1 on 10/28/2023 by Mikal Fernandes MD at OR [facility] [place] Right: Chest [employer] : NEUROLOGIC PAIN 09/14/2025 [id number] / [id number] H / Ext Dbs 40cm - [id number] - [id number] Implanted:Qty: 1 on 10/28/2023 by Mikal Fernandes MD at OR [facility] [place] Right: Neck [employer] : NEUROLOGIC PAIN 05/21/2025 [id number] / [id number] 2 / Description:right neck Envelope Tyrx Lg Antibacterial - [id number] Implanted:Qty: 1 on 10/28/2023 by Mikal Fernandes MD at OR [facility] [place] Right: Chest [employer] 06/19/2024 [id number] / / [id number] documented as of this encounter Advance Directives [...] Discussed due to patient's condition Care Teams Inward Toll Operator Relationship Specialty Start Date End Date Sonny Lagos MD [address] [place] [address] PCP - General Family Medicine 02/22/21 documented as of this encounter
--- OUTSIDE RECORDS SUMMARY | 2024-08-25 09:35 | External Medical Summary | Summary of Care ---
Author Name Unknown Organization [facility] Address [address] [place] [address] Phone [phone] Care Team Providers Care Gold Frame Assembler Name Role Phone Sonny Lagos MD Primary Care Provider [phone] Reason for Referral * Evaluate & Treat - Unlimited Visits (Within 10 days (routine)) - Pending Review Specialty Diagnoses / Procedures Referred By Magali huynh Referred To Contact HOME CARE / Home Care Diagnoses Spastic hemiparesis of left nondominant side as late effect of cerebral infarction (HCC) Hemiballism Antonino Hall MD [address] [place] [address] Referral ID Status Reason Start Date Expiration Date Visits Requested Visits Authorized [id number] Pending Review Specialty Services Required 04/22/[phone] Question Answer Referral Priority Within 10 days (routine) Where should this appointment be scheduled? 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 Physician Signature: Date of Signature: Physician Printed Name: Laura Monteiro LPN Reason for Visit * Reason Onset Date Comments Referral 04/21/2024 Forms Request 04/21/2024 Isabel / Loulou Mccollum Plan of Care Encounter Details Date Type Department Care Team (Late st Contact Info) Description 04/21/2024 [facility] [address] [place] [address] Specified, No [facility] [address] [place] [address] Referral; Forms Request (Isabel Jenkins... Allergies No known active allergiesdocumented as of this encounter (statuses as of 07/13/2024) Medications Medication Sig Dispensed Refills Start Date [...] Wheezing. 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 Scanned into patients chart. * Telephone Encounter - Keshia Ruiz OSA - 05/15/2024 2:17 PM EDT Loulou Mccollum Plan of Care signed and faxed to [phone] on 05/15/24. Scanned into patients chart. * Telephone Encounter - Laura Monteiro LPN - 04/21/2024 3:37 PM EDT Patient would like her referral sent to [facility] [phone]. documented in this encounter Plan of Treatment Upcoming Encounters Date Type Department Care Team (Late st Contact Info) Description 07/15/2024 10:40 AM EDT Office Visit [facility] [address] [place] [address] AprilJustin MD [address] [place] [address] 10/21/2024 1:40 PM EST Office Visit Neurology [facility] [address] [place] [address] Antonino Hall MD [address] [place] [address] Scheduled Referrals Name Type Priority Associated Diagnoses [...] this encounter Medical Devices Implanted Type Area Lithographic Proofer Apprentice Device Identifier Shelf Expiration Date Model / Serial / Lot Lead Dbs 1.5mm 42cm - [id number] - [id number] Implanted:Qty: 1 on 10/18/2023 by Mikal Fernandes MD at OR [facility] [place] Right: Head [employer] : NEUROLOGIC PAIN 07/19/2025 [id number] / [id number] 3 / Description:right brain Cement Hydroset Injectable 5cc - [id number] Implanted:Qty: 1 on 10/18/2023 by Mikal Fernandes MD at OR [facility] [place] Right: Head SHAWN [id number] 06/25/2025 [id number] / / [id number] Accy Dbs Conn Plug - [id number] Implanted:Qty: 1 on 10/28/2023 by Mikal Fernandes MD at OR [facility] [place] Right: Chest [employer] : NEUROLOGIC PAIN 06/12/2025 [id number] / / [id number] Neurostimulator Percept Pc - [id number] - [id number] Implanted:Qty: 1 on 10/28/2023 by iMkal Fernandes MD at OR [facility] [place] Right: Chest [employer] : NEUROLOGIC PAIN 09/14/2025 [id number] / [id number] H / Ext Dbs 40cm - [id number] - [id number] Implanted:Qty: 1 on 10/28/2023 by Mikal Fernandes MD at OR [facility] [place] Right: Neck [employer] : NEUROLOGIC PAIN 05/21/2025 [id number] / [id number] 2 / Description:right neck Envelope Tyrx Lg Antibacterial - [id number] Implanted:Qty: 1 on 10/28/2023 by Mikal Fernandes MD at OR [facility] [place] Right: Chest [employer] 06/19/2024 [id number] / / [id number] documented as of this encounter Visit Diagnoses [...] Discussed due to patient's condition Care Teams Gold Frame Assembler Relationship Specialty Start Date End Date Sonny Lagos MD [address] [facility] [place] [address] PCP - General Family Medicine 02/22/21 documented as of this encounter
--- OUTSIDE RECORDS SUMMARY | 2024-08-25 09:35 | External Medical Summary | Summary of Care ---
Author Name Unknown Organization [facility] Address [address] [place] [address] Phone [phone] Care Team Providers Care Winter Intern Name Role Phone Sonny Lagos MD Primary Care Provider [phone] Reason for Visit * Precert (Within 10 days (routine)) - Authorized Specialty Diagnoses / Procedures Referred By Contac t Referred To Contact Neurology Diagnoses Clonic hemifacial spasm, left Hemiplegia and hemiparesis following cerebral infarction affecting left non-dominant side (HCC) Procedures AK INJECTION,ONABOTULINUMTOXIN A Antonino Hall MD [address] [place] [address] Antonino Hall MD [address] [place] [address] Referral ID Status Reason Start Date Expiration Date V isits Requested Visits Authorized [id number] Authorized Precert 03/18/2024 03/18/2025 4 4 Encounter Details Date Type Department Care Team (Late st Contact Info) Description 06/15/2024 3:40 PM EDT Office Visit Neurology [facility] [place] [address] [place] [address] Antonino Hall MD [address] [place] [address] Spastic hemiparesis of left nondominant side as late effect of cerebral infarction (HCC)*; Hemifacial spasm of left side of face Allergies No known active allergiesdocumented as of this encounter (statuses as of 06/15/2024) Medications Medication Sig Dispensed Refills Start Date [...] Wheezing. 18 g 5 02/12/2022 Active Nystatin 658429 UNIT/GM External Powder (Nystop) Apply topically to [...] the morning. 90 Tablet 1 06/01/2024 Active Hospital, Clinic, or Other Facility Administered Medication Ordered Dose Route Frequency Start Date End Date Status botulinum toxin type a (Botox) inj 250 UnitsIndications:Spastic hemiparesis of left nondominant side as late effect of cerebral infarction (HCC),Hemifacial spasm of left side of face 250 Units IM ONCE 06/15/2024 Ended documented as of this encounter (statuses as of 06/15/2024) Active Problems Problem Noted Date Diagnosed Date Hemiballismus 10/18/2023 Cerebral palsy, hemiplegic 02/22/2021 Overview: Left side affected Chronic depressive disorder 02/22/2021 HTN, goal below 130/80 02/22/2021 Obesity, morbid (more than 1 00 lbs over ideal weight or BMI > 40) 02/22/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 Hall. 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 Oral baclofen doses were not sufficient in controlling her spasticity. More recently she has developed left hemifacial spasm. Left spastic/dystonic hemiparesis. Left elbow flexion tendency, Left wrist flexion tendency Left finger flexion tendency including thumb with some opposition. Left leg with foot outward rotation. The patient understands that she is receiving Botox for left sided spastic hemiparesis (ICD-10: G81.12) and left hemifacial spasm. This is an elective procedure. Benefits from Botox include decreasedmuscle spasms and subsequent improvement of neurologic function. Risks are due to possible spread from the area of injection and can result in asthenia, generalized muscle weakness, diplopia, ptosis,dysphagia, dysphonia, dysarthria, urinary incontinence, and breathing difficulties. Complications due to needle puncture such injury to greater blood vessel with subsequent hemorrhage has also been reported. Antiplatelets were held before this procedure. The patient understands the indications, risks, and benefits of Botox and has decided to proceed with therapy. The patient was given opportunityto ask any related questions. Informed consent was also obtained on paper. Procedure record: 12 mL of preservative free 0.9% saline is used to dilute 300 units of Botox. A 27-gauge, bki-fgq-d-half inch injectable EMG needle is chosen for intramuscular injection. Injection areas are cleaned with alcohol before administration. The chemodenervation procedure is performed with EMG guidance to identify the individual limb muscles. After confirmation of the needle position with EMG the plunger of the syringe is retracted each time to confirm that the needle is not placed inside a blood vessel. The following muscles were injected on the left: left biceps, brachialis, brachioradialis with 25 units each, left flexor carpi ulnaris and radialis with 25 units each, left flexor digitorum superficialis with 50 units, left flexor pollicis longus and left opponens with 12.5 units each) and 50 units to left face with orbicularis oculi (25 units), left frontalis with 5 units, left zygomatic with 5 units, left buccalis with 5 units, left risorius with 5 units, left depressor anguli kate with 5 units. 50 units were wasted. The patient has tolerated the procedure very well. There was no significant local hemorrhage or discomfort. She was told to call us for any possible side effects. She will see us again in 3 months for his next Botox session. DBS was turned back on. Antonino Hall MD Department of Neurology [facility]. documented in this encounter Plan of Treatment Upcoming Encounters Date Type Department Care Team (Late st Contact Info) Description 07/15/2024 10:40 AM EDT Office Visit [facility] [address] [place] [address] April, Justin Ren MD [address] [place] [address] 10/21/2024 1:40 PM EST Office Visit Neurology [facility] [address] [place] [address] Antonino Hall MD [address] [place], [place] [address] Health Maintenance Due Date Last Done Comments [...] this encounter Medical Devices Implanted Type Area Master Electrician Device Identifier Shelf Expiration Date Model / Serial / Lot Lead Dbs 1.5mm 42cm - [id number] - [id number] Implanted:Qty: 1 on 10/18/2023 by Mikal Fernandes MD at OR [facility] [place] Right: Head [employer] : NEUROLOGIC PAIN 07/19/2025 [id number] / [id number] 3 / Description:right brain Cement Hydroset Injectable 5cc - [id number] Implanted:Qty: 1 on 10/18/2023 by Mikal Fernandes MD at OR [facility] [place] Right: Head SHAWN [id number] 06/25/2025 [id number] / / [id number] Accy Dbs Conn Plug - [id number] Implanted:Qty: 1 on 10/28/2023 by Mikal Fernandes MD at OR [facility] [place] Right: Chest [employer] : NEUROLOGIC PAIN 06/12/2025 [id number] / / [id number] Neurostimulator Percept Pc - [id number] - [id number] Implanted:Qty: 1 on 10/28/2023 by Mikal Fernandes MD at OR [facility] [place] Right: Chest [employer] : NEUROLOGIC PAIN 09/14/2025 [id number] / [id number] H / Ext Dbs 40cm - [id number] - [id number] Implanted:Qty: 1 on 10/28/2023 by Mikal Fernandes MD at OR [facility] [place] Right: Neck [employer] : NEUROLOGIC PAIN 05/21/2025 [id number] / [id number] 2 / Description:right neck Envelope Tyrx Lg Antibacterial - [id number] Implanted:Qty: 1 on 10/28/2023 by Mikal Fernandes MD at OR [facility] [place] Right: Chest [employer] 06/19/2024 [id number] / / [id number] documented as of this encounter Visit Diagnoses Diagnosis Spastic hemiparesis of left nondominant side as late effect of cerebral infarction (HCC)- Primary Hemifacial spasm of left side of face documented in this encounter Administered Medications Inactive Administered Medications - up to 3 most recent administrations Medication Order MAR Action Action Date Dose Rate Site botulinum toxin type a (Botox) inj 250 Units 250 Units, Intramuscular, ONCE, On 06/15/24 at 1700, For 1 dose, Prior to injection, reconstitute botox vial with PF sodium chloride 0.9% to desired concentration. Given 06/15/2024 4:31 PM EDT 250 Units Other-Specify documented in this encounter Advance Directives * [...] Discussed due to patient's condition Care Teams Winter Intern Relationship Specialty Start Date End Date Sonny Lagos MD [address] [place] [address] PCP - General Family Medicine 02/22/21 documented as of this encounter
--- OUTSIDE RECORDS SUMMARY | 2024-08-25 09:35 | External Medical Summary | Summary of Care ---
Author Name Unknown Organization [facility] Address [address] [place] [address] Phone [phone] Care Team Providers Care Stove Mechanic Name Role Phone Kimberly Lagos MD Primary Care Provider Reason for Visit * Reason Comments eRx-Medication Refill Encounter Details Date Type Department Care Team (Late st Contact Info) Description 05/04/2024 Refill [facility] [address] [place] [phone] Kimberly Lagos MD [address] [place] [address] Encounter for long-term (current) use of medications* Allergies No known active allergiesdocumented as of this encounter (statuses as of 06/10/2024) Medications Medication Sig Dispensed Refills Start Date [...] Wheezing. 18 g 5 02/12/2022 Active Nystatin 633736 UNIT/GM External Powder (Nystop) Apply topically to affected area 3 times a day. Apply to under skin folds 15 g 1 10/28/2023 Active hydrOXYzine HCl 50 MG Oral TabletIndication s:Generalized anxiety disorder 1 tab twice daily as needed 180 Tablet 1 11/27/2023 Active Spironolactone 50 MG Oral Tablet (Aldactone)Indic ations:Potassium [...] IN THE MORNING. 90 Tablet 05/06/2024 Active hydroCHLOROthiaz leonel 25 MG Oral Tablet (Hydrodiuril) Take 1 Tablet by mouth in the morning. In the morning.. 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 Call Placed by [facility]. Thank you, Patrica Gutierrez [facility] II [facility] 06/10/2024,12:41 PM * Telephone Encounter - Lilia Wiley - 05/12/2024 5:17 PM EDT Received message from [facility] regarding patient needing appointment. Patient was notified. Successfully contacted patient and provided [facility] message. * Telephone Encounter - Rod Townsend [facility] - 05/06/2024 8:31 AM EDTSigned Prescriptions: Disp Refills hydroCHLOROthiazide 25 MG Oral Tablet (Hyd*90 Tab*0 Sig: TAKE 1 TABLET BY MOUTH IN THE MORNING. Authorizing Provider: KIMBERLY LAGOS Ordering User: ROD TOWNSEND * Telephone Encounter - Rod Townsend RPh - 05/06/2024 8:30 AM EDT Provided 90 days supply with 0 refill. Per refill protocol patient should have routine labs on filewithin past year. Reviewed AMP report, Care Gaps/Health Maintenance, medications list, and for any routine labs typically ordered for this patient. Lab orders placed. Please contact patient to schedule office visit with PRIMARY CARE and advise of labs ordered for blood draw.. Fasting is not required. Advise to obtain labs before requesting the next refill. Last Visit: 01/18/2022 (in office), 12/05/2022 (telemedicine) Next Visit: Visit date not found Thank you, Rod Townsend, PharmD Clinical Pharmacist [facility] 05/06/24 8:32 AM [phone] documented in this encounter Plan of Treatment Upcoming Encounters Date Type Department Care Team (Late st Contact Info) Description 06/15/2024 3:40 PM EDT Office Visit Neurology [facility] [place] [address] [place] [address] Antonino Hall MD [address] [facility] [id number] 07/15/2024 10:40 AM EDT Office Visit [address] [place] [address] AprilJustin MD [address] [place] [address] 10/21/2024 1:40 PM EST Office Visit Neurology [facility] [place] [address] [place] [address] Antonino Hall MD [address] [place] [address] Scheduled Orders Name Type Priority Associated Diagnoses Orde r Schedule BASIC METABOLIC PANEL Lab Routine Encounter for long-term (current) use of medications Expected: 05/06/2024 (Approximate), Expires: 05/07/2025 Health Maintenance Due Date Last Done Comments Depression Monitoring 1991 HIV Screening 1994 Hepatitis C Screening 1997 Hepatitis B Vaccine (1 of 3 - 19+ 3-dose series) 1998 HPV/Co-Test 2009 Mammogram 2019 COVID-19 Vaccine (1 - 2022- season) 2023 DTaP,Tdap,and Td Vaccines [...] this encounter Medical Devices Implanted Type Area Chassis Wirer Device Identifier Shelf Expiration Date Model / Serial / Lot Lead Dbs 1.5mm 42cm - [id number] - [id number] Implanted:Qty: 1 on 10/18/2023 by Mikal Fernandes MD [place] [facility] [place]: Head [employer] : NEUROLOGIC PAIN 07/19/2025 [id number] / [id number] 3 / Description:right brain Cement Hydroset Injectable 5cc - [id number] Implanted:Qty: 1 on 10/18/2023 by Mikal Fernandes MD [place] [facility] Right: Head SHAWN [id number] 06/25/2025 [id number] / / [id number] Accy Dbs Conn Plug - [id number] Implanted:Qty: 1 on 10/28/2023 by Mikal Fernandes MD [place] [facility] Right: Chest [employer] : NEUROLOGIC PAIN 06/12/2025 [id number] / / [id number] Neurostimulator Percept Pc - [id number] - [id number] Implanted:Qty: 1 on 10/28/2023 by Mikal Fernandes MD [place] [facility] Right: Chest [employer] : NEUROLOGIC PAIN 09/14/2025 [id number] / [id number] / Ext Dbs 40cm - [id number] - [id number] Implanted:Qty: 1 on 10/28/2023 by Mikal Fernandes MD at [place] [facility] Right: Neck [employer] : NEUROLOGIC PAIN 05/21/2025 [id number] / [id number] 2 / Description:right neck Envelope Tyrx Lg Antibacterial - [id number] Implanted:Qty: 1 on 10/28/2023 by Mikal Fernandes MD at [place] [facility] Right: Chest [employer] 06/19/2024 [id number] / / [id number] documented as of this encounter Visit Diagnoses Diagnosis Encounter for long-term (current) use of medications- Primary Encounter for long-term (current) use of other medications documented in this encounter Advance Directives * [...] Discussed due to patient's condition Care Teams Stove Mechanic Relationship Specialty Start Date End Date Kimberly Lagos MD [address] [place] [address] PCP - General Family Medicine 02/22/21 documented as of this encounter
--- OUTSIDE RECORDS SUMMARY | 2024-08-25 09:35 | External Medical Summary | Summary of Care ---
Author Name Unknown Organization [facility] Address [address] [place] [address] Phone [phone] Care Team Providers Care Production Zone Leader Name Role Phone Kimberly Lagos MD Primary Care Provider [phone] Reason for Visit * Reason Onset Date Comments Medication Refill 07/11/2024 Encounter Details Date Type Department Care Team (Late st Contact Info) Description 07/11/2024 Refill [facility] [address] [place] [phone] Kimberly Lagos MD [address] [place] [address] Generalized anxiety disorder Allergies No known active allergiesdocumented as of this encounter (statuses as of 07/12/2024) Medications Medication Sig Dispensed Refills Start Date [...] Wheezing. 18 g 5 02/12/2022 Active Nystatin 640833 UNIT/GM External Powder (Nystop) Apply topically to [...] A DAY NEEDED 180 Tablet 07/12/2024 Active hydrOXYzine HCl 50 MG Oral TabletIndications :Generalized anxiety disorder TAKE 1 TABLET BY MOUTH TWICE A DAY NEEDED 180 Tablet 06/19/2024 07/11/2024 Discontinue d(Refill) documented as of this encounter (statuses as of 07/12/2024) Active Problems Problem Noted Date Diagnosed Date Hemiballismus 10/18/2023 Cerebral palsy, hemiplegic 02/22/2021 Overview: Left side affected Chronic depressive disorder 02/22/2021 HTN, goal below 130/80 02/22/2021 Obesity, morbid (more than 1 00 lbs over ideal weight or BMI > 40) 02/22/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 - 07/11/2024 7:16 PM EDT Pending Prescriptions: Disp Refills hydrOXYzine HCl 50 MG Oral Tablet 180 Ta*0 Sig: TAKE 1 TABLET BY MOUTH TWICE A DAY NEEDED * Telephone Encounter - Yoon Prakash RPh - 07/11/2024 7:16 PM EDT [facility] is currently not authorized to approve refills for the pended medication(s) per refill protocol. Please approve if appropriate. Thank you, Yoon Prakash, PharmD Clinical Pharmacist [facility]) 07/11/24 7:16 PM [phone] documented in this encounter Plan of Treatment Upcoming Encounters Date Type Department Care Team (Late st Contact Info) Description 07/15/2024 10:40 AM EDT Office Visit [facility] [address] [place] [address] AprilJustin MD [address] [place] [address] 10/21/2024 1:40 PM EST Office Visit Neurology [facility] [address] [place] [address] Antonino Hall MD [address] [place] [address] Health Maintenance Due Date Last Done Comments Depression Monitoring 1991 HIV Screening 1994 Hepatitis C Screening 1997 Hepatitis B Vaccine (1 of 3 - 19+ 3-dose series) 1998 HPV/Co-Test 2009 Mammogram 2019 COVID-19 Vaccine (1 - 2022-24 season) 2023 DTaP,Tdap,and Td Vaccines [...] this encounter Medical Devices Implanted Type Area Snuff Grinder And Screener Device Identifier Shelf Expiration Date Model / Serial / Lot Lead Dbs 1.5mm 42cm - [id number] - [id number] Implanted:Qty: 1 on 10/18/2023 by Mikal Fernandes MD at [place] [facility] Right: Head [employer] : NEUROLOGIC PAIN 07/19/2025 [id number] / [id number] 3 / Description:right brain Cement Hydroset Injectable 5cc - [id number] Implanted:Qty: 1 on 10/18/2023 by Mikal Fernandes MD at [place] [facility] Right: Head SHAWN [id number] 06/25/2025 [id number] / / [id number] Accy Dbs Conn Plug - [id number] Implanted:Qty: 1 on 10/28/2023 by Mikal Fernandes MD at [place] [facility] Right: Chest [employer] : NEUROLOGIC PAIN 06/12/2025 [id number] / / [id number] Neurostimulator Percept Pc - [id number] - [id number] Implanted:Qty: 1 on 10/28/2023 by Mikal Fernandes MD at [place] [facility] Right: Chest [employer] : NEUROLOGIC PAIN 09/14/2025 [id number] / [id number] H / Ext Dbs 40cm - [id number] - [id number] Implanted:Qty: 1 on 10/28/2023 by Mikal Fernandes MD at [place] [facility] Right: Neck [employer] : NEUROLOGIC PAIN 05/21/2025 [id number] / [id number] 2 / Description:right neck Envelope Tyrx Lg Antibacterial - [id number] Implanted:Qty: 1 on 10/28/2023 by Mikal Fernandes MD at OR [facility] Right: Chest [employer] 06/19/2024 [id number] / / [id number] documented as of this encounter Visit Diagnoses [...] Discussed due to patient's condition Care Teams Production Zone Leader Relationship Specialty Start Date End Date Kimberly Lagos MD [address] [facility] [place] [address] PCP - General Family Medicine 02/22/21 documented as of this encounter
--- OUTSIDE RECORDS SUMMARY | 2024-08-25 09:36 | External Medical Summary | Summary of Care ---
Author Name Unknown Organization [facility] Address [address] [place] [address] Phone [phone] Care Team Providers Care Patient Care Name Role Phone Sonny Lagos MD Primary Care Provider [phone] Reason for Visit * Reason Onset Date Comments [facility]: Screening 05/19/2024 Encounter Details Date Type Department Care Team ([facility] st Contact Info) Description 05/19/2024 Telephone [facility], [facility] [address] [place] [address] [facility], Nurse [facility] [address] [facility] [place] [id number] [facility]: Screening Allergies No known active allergiesdocumented as of this encounter (statuses as of 05/19/2024) Medications Medication Sig Dispensed Refills Start Date [...] Wheezing. 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 A review of this chart was completed and: Merle does not meet criteria for enrollment into [facility]. Referral Source: Monthly Proactive Eligibility List Criteria for Ineligibility: Not Located in Service Area Referring care team was notified via : [email or web address] communication Patient does reside in service area however does not have multiple chronic conditions required for [employer] Enrollment documented in this encounter Plan of Treatment Upcoming Encounters Date Type Department Care Team (Late st Contact Info) Description 06/15/2024 3:40 PM EDT Office Visit Neurology [address] [place] [address] Antonino Hall MD [address] [place] [address] 10/21/2024 1:40 PM EST Office Visit Neurology [facility] [address] [facility] [place] [address] Antonino Hall MD [address] [place], [place] [id number] Health Maintenance Due Date Last Done Comments Depression Monitoring 1991 HIV Screening 1994 Hepatitis C Screening 1997 Hepatitis B (1 of 3 - 19+ 3-dose series) 1998 HPV/Co-Test 2009 Mammogram 2019 COVID-19 Vaccine (1 - season) 2023 DTaP,Tdap,and Td Vaccines (2 [...] this encounter Medical Devices Implanted Type Area Switchboard Troubleshooter Device Identifier Shelf Expiration Date Model / Serial / Lot Lead Dbs 1.5mm 42cm - [id number] - [id number] Implanted:Qty: 1 on 10/18/2023 by Mikal Fernandes MD at [place] [facility] [place]: Head [employer] : NEUROLOGIC PAIN 07/19/2025 [id number] / [id number] 3 / Description:right brain Cement Hydroset Injectable 5cc - [id number] Implanted:Qty: 1 on 10/18/2023 by Mikal Fernandes MD at [place] [facility] Right: Head SHAWN [id number] 06/25/2025 [id number] / / [id number] Accy Dbs Conn Plug - [id number] Implanted:Qty: 1 on 10/28/2023 by Mikal Fernandes MD at [place] [facility] Right: Chest [employer] : NEUROLOGIC PAIN 06/12/2025 [id number] / / [id number] Neurostimulator Percept Pc - [id number] - [id number] Implanted:Qty: 1 on 10/28/2023 by Mikal Fernandes MD at [place] [facility] Right: Chest [employer] : NEUROLOGIC PAIN 09/14/2025 [id number] / [id number] H / Ext Dbs 40cm - [id number] - [id number] Implanted:Qty: 1 on 10/28/2023 by Mikal Fernandes MD at [place] [facility] Right: Neck [employer] : NEUROLOGIC PAIN 05/21/2025 [id number] / [id number] 2 / Description:right neck Envelope Tyrx Lg Antibacterial - [id number] Implanted:Qty: 1 on 10/28/2023 by Mikal Fernandes MD at [place] [facility] Right: Chest [employer] 06/19/2024 [id number] / / [id number] documented as of this encounter Advance Directives [...] Discussed due to patient's condition Care Teams Patient Care Relationship Specialty Start Date End Date Sonny Lagos MD [address] [address] PCP - General Family Medicine 02/22/21 documented as of this encounter
--- OUTSIDE RECORDS SUMMARY | 2024-08-25 09:36 | External Medical Summary | Summary of Care ---
Author Name Unknown Organization [facility] Address [address] [place] [address] Phone [phone] Care Team Providers Care Metalizer Field Operation Name Role Phone Sonny Lagos MD Primary Care Provider [phone] Encounter Details Date Type Department Care Team (Late st Contact Info) Description 05/09/2024 Orders Only PATIENT PORTAL DO NOT DELETE THIS DEPT USED BY [place] [id number] Allergies No known active allergiesdocumented as of this encounter (statuses as of 05/09/2024) Medications Medication Sig Dispensed Refills Start Date [...] Wheezing. 18 g 5 02/12/2022 Active Nystatin 753838 UNIT/GM External Powder (Nystop) Apply topically to [...] the morning. 90 Tablet 1 12/02/2023 Active Klor-Con M20 20 MEQ Oral Tablet Extended ReleaseIndications:H TN, goal below 130/80,Potassium wasting nephropathy TAKE 4 TABLETS BY MOUTH EVERY DAY 360 Tablet 1 12/10/2023 Active Docusate Sodium 100 MG Oral Capsule [...] IN THE MORNING. 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 documented as of this encounter (statuses as of 05/09/2024) Social History Tobacco Use Types Packs/Day Years [...] 06/15/2024 3:40 PM EDT Office Visit Neurology [facility] [address] [place] [address] Antonino Hall MD [address] [place] [address] 10/21/2024 1:40 PM EST Office Visit Neurology [facility] [address] [place] [address] Antonino Hall MD [address] [place] [address] Health Maintenance Due Date Last Done Comments HIV Screening 1994 Hepatitis C Screening 1997 [...] this encounter Medical Devices Implanted Type Area Gis Developer Device Identifier Shelf Expiration Date Model / Serial / Lot Lead Dbs 1.5mm 42cm - [id number] - [id number] Implanted:Qty: 1 on 10/18/2023 [place] Mikal [place] [facility] [place] Head [employer] : NEUROLOGIC PAIN 07/19/2025 [id number] / [id number] 3 / Description:right brain Cement Hydroset Injectable 5cc - [id number] Implanted:Qty: 1 on 10/18/2023 by Mikal Fernandes [place] [facility] [place]: Head SHAWN [id number] 06/25/2025 [id number] / / [id number] Accy Dbs Conn Plug - [id number] Implanted:Qty: 1 on 10/28/2023 by Mikal Fern[place] [facility] [place]: Chest [employer] : NEUROLOGIC PAIN 06/12/2025 [id number] / / [id number] Neurostimulator Percept Pc - [id number] - [id number] Implanted:Qty: 1 on 10/28/2023 by Mikal Fernandes MD [place] [facility] [place]: Chest [employer] : NEUROLOGIC PAIN 09/14/2025 [id number] / [id number] H / Ext Dbs 40cm - [id number] - [id number] Implanted:Qty: 1 on 10/28/2023 by Mikal Fernandes MD [place] [facility] [place]: Neck [employer] : NEUROLOGIC PAIN 05/21/2025 [id number] / [id number] 2 / Description:right neck Envelope Tyrx Lg Antibacterial - [id number] Implanted:Qty: 1 on 10/28/2023 by Mikal Fernandes MD at [facility] Right: Chest [employer] 06/19/2024 [id number] / / [id number] documented as of this encounter Advance Directives [...] Discussed due to patient's condition Care Teams Metalizer Field Operation Relationship Specialty Start Date End Date Sonny Lagos MD [address] [place] [address] PCP - General Family Medicine 02/22/21 documented as of this encounter
--- OUTSIDE RECORDS SUMMARY | 2024-08-25 09:36 | External Medical Summary | Summary of Care ---
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 Physician Signature: Date of Signature: Physician Printed Name: Laura Monteiro LPN Reason for Visit * Reason Onset Date Comments Referral 04/21/2024 Encounter Details Date Type Department Care Team (Late st Contact Info) Description [facility] [address] [place] [address] Specified, Mino No [facility] [address] [place] [address] Referral Allergies No known active allergiesdocumented as of this encounter (statuses as of 04/22/2024) Medications Medication Sig Dispensed Refills Start Date [...] or Wheezing. 18 g 5 02/12/2022 Active hydroCHLOROthiazide 25 MG Oral Tablet (Hydrodiuril) Take 1 Tablet by mouth in the morning. In the morning.. 90 Tablet 1 08/06/2023 Active Nystatin 199466 UNIT/GM External Powder (Nystop) Apply topically to [...] before bedtime. 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 documented in this encounter Plan of Treatment Upcoming Encounters Date Type Department Care Team (Late st Contact Info) Description 06/15/2024 3:40 PM EDT Office Visit Neurology [address] [place] [address] Antonino Hall MD [address] [place] [address] 10/21/2024 1:40 PM EST Office Visit Neurology [facility] [address] [place] [address] Antonino Hall MD [address] [place] [address] Scheduled Referrals Name Type Priority [...] this encounter Medical Devices Implanted Type Area Electric Cutter Operator Device Identifier Shelf Expiration Date Model / Serial / Lot Lead Dbs 1.5mm 42cm - [id number] - [id number] Implanted:Qty: 1 on 10/18/2023 by Mikal Fernandes MD at [facility] Right: Head [employer] : NEUROLOGIC PAIN 07/19/2025 [id number] / [id number] 3 / Description:right brain Cement Hydroset Injectable 5c - [id number] Implanted:Qty: 1 on 10/18/2023 by Mikal Fernandes MD at [place] [facility] Right: Head SHAWN [id number] 06/25/2025 [id number] / / [id number] Accy Dbs Conn Plug - [id number] Implanted:Qty: 1 on 10/28/2023 by Mikal Fernandes MD at OR [facility] Right: Chest [employer] : NEUROLOGIC PAIN 06/12/2025 [id number] / / [id number] Neurostimulator Percept Pc - [id number] - [id number] Implanted:Qty: 1 on 10/28/2023 by Mikal Fernandes MD at OR [facility] Right: Chest [employer] : NEUROLOGIC PAIN 09/14/2025 [id number] / [id number] H / Ext Dbs 40cm - [id number] - [id number] Implanted:Qty: 1 on 10/28/2023 by Mikal Fernandes MD at OR [facility] Right: Neck [employer] : NEUROLOGIC PAIN 05/21/2025 [id number] / [id number] 2 / Description:right neck Envelope Tyrx Lg Antibacterial - [id number] Implanted:Qty: 1 on 10/28/2023 by Mikal Fernandes MD at OR [facility] Right: Chest [employer] 06/19/2024 [id number] / / [id number] documented as of this encounter Visit Diagnoses [...] Discussed due to patient's condition Care Teams Slate Mixer Relationship Specialty Start Date End Date Sonny Lagos MD [address] [address] PCP - General Family Medicine 02/22/21 documented as of this encounter
--- OUTSIDE RECORDS SUMMARY | 2024-08-25 09:36 | External Medical Summary | Summary of Care ---
Author Name Unknown Organization [facility] Address [address] [place] [address] Phone [phone] Care Team Providers Care Radio Time Salesperson Name Role Phone Sonny Lagos MD Primary Care Provider [phone] Reason for Visit * Reason Onset Date Comments Advice 05/26/2024 Encounter Details Date Type Department Care Team (Late st Contact Info) Description 05/26/2024 Telephone Neurology, [place] [address] [place] [address] Antonino Hall MD [address] [place] [address] Advice Allergies No known active allergiesdocumented as of this encounter (statuses as of 05/28/2024) Medications Medication Sig Dispensed Refills Start Date [...] Wheezing. 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 no Medication Refill? no [...] no need to re-route Peds Neurology Pool- [facility] Neuro Parts Technician- [id number] (All messages get sent to the [facility]) Neurology Pool Numbers- [place] patients - follow normal process Ops req [facility] [place]rology ([place])- [id number] Ops req [place] Neurology ([place] and [facility] clinics Only)- [id number] Neurosurgery Pool Numbers- [place] patients- follow normal process Ops req Neurosurgery [facility] ([place])- [id number] Ops req Neurosurgery [facility] ([place] Only) [id number] documented in this encounter Plan of Treatment Upcoming Encounters Date Type Department Care Team (Late st Contact Info) Description 06/15/2024 3:40 PM EDT Office Visit Neurology [facility] [address] [place] [address] Antonino Hall MD [address] [place] [address] 10/21/2024 1:40 PM EST Office Visit Neurology [facility] [address] [place] [address] Antonino Hall MD [address] [place] [address] Health Maintenance Due Date Last [...] this encounter Medical Devices Implanted Type Area Insurance Executive Device Identifier Shelf Expiration Date Model / Serial / Lot Lead Dbs 1.5mm 42cm - [id number] - [id number] Implanted:Qty: 1 on 10/18/2023 by Mikal Fernandes MD [place] [facility] [place]: Head [employer] : NEUROLOGIC PAIN 07/19/2025 [id number] / [id number] 3 / Description:right brain Cement Hydroset Injectable 5cc - [id number] Implanted:Qty: 1 on 10/18/2023 by Mikal Fernandes MD at [place] [facility] [place]: Head SHAWN [id number] 06/25/2025 [id number] / / [id number] Accy Dbs Conn Plug - [id number] Implanted:Qty: 1 on 10/28/2023 by Mikal Fernandes MD [place] [facility] [place]: Chest [employer] : NEUROLOGIC PAIN 06/12/2025 [id number] / / [id number] Neurostimulator Percept Pc - [id number] - [id number] Implanted:Qty: 1 on 10/28/2023 by Mikal Fernandes MD at [place] [facility] Right: Chest [employer] : NEUROLOGIC PAIN 09/14/2025 [id number] / [id number] H / Ext Dbs 40cm - [id number] - [id number] Implanted:Qty: 1 on 10/28/2023 by Mikal Fernandes MD at [place] [facility] Right: Neck [employer] : NEUROLOGIC PAIN 05/21/2025 [id number] / [id number] 2 / Description:right neck Envelope Tyrx Lg Antibacterial - [id number] Implanted:Qty: 1 on 10/28/2023 by Mikal Fernandes MD at [place] [facility] Right: Chest [employer] 06/19/2024 [id number] / / [id number] documented as of this encounter Advance Directives [...] Discussed due to patient's condition Care Teams Radio Time Salesperson Relationship Specialty Start Date End Date Sonny Lagos MD [address] [place] [address] PCP - General Family Medicine 02/22/21 documented as of this encounter
--- OUTSIDE RECORDS SUMMARY | 2024-08-25 09:36 | External Medical Summary | Summary of Care ---
Author Name Unknown Organization [facility] Address [address] [place] [address] Phone [phone] Care Team Providers Care Aircraft Engine Mechanic Overhaul Name Role Phone Sonny Lagos MD Primary Care Provider [phone] Reason for Visit * Reason Onset Date Comments Other 04/29/2024 Encounter Details Date Type Department Care Team ([facility] st Contact Info) Description 04/29/2024 Telephone Neurology, [place] [address] [place] [address] Services, [facility] [address] [place] [address] Other Allergies No known active allergiesdocumented as of this encounter (statuses as of 04/30/2024) Medications Medication Sig Dispensed Refills Start Date [...] morning.. 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 Pt can be reached at [phone]. Thank you documented in this encounter Plan of Treatment Upcoming Encounters Date Type Department Care Team (Late st Contact Info) Description 06/15/2024 3:40 PM EDT Office Visit Neurology [address] [place] [address] Antonino Hall MD [address] [place] [address] 10/21/2024 1:40 PM EST Office Visit Neurology [facility] [address] [facility] [place] [address] Antonino Hall MD [address], [place] [id number] Health Maintenance Due Date Last Done Comments [...] this encounter Medical Devices Implanted Type Area Casing Finisher And Stuffer Device Identifier Shelf Expiration Date Model / Serial / Lot Lead Dbs 1.5mm 42cm - [id number] - [id number] Implanted:Qty: 1 on 10/18/2023 by [place]al [place] [facility] [employer] : NEUROLOGIC PAIN 07/19/2025 [id number] / [id number] 3 / Description:right brain Cement Hydroset Injectable 5c - [id number] Implanted:Qty: 1 on 10/18/2023 by Mikal Fernandes MD [place] [facility] [place]: Head SHAWN [id number] 06/25/2025 [id number] / / [id number] Accy Dbs Conn Plug - [id number] Implanted:Qty: 1 on 10/28/2023 by Mikal Fernandes MD [place] [facility] [place]: Chest [employer] : NEUROLOGIC PAIN 06/12/2025 [id number] / / [id number] Neurostimulator Percept Pc - [id number] - [id number] Implanted:Qty: 1 on 10/28/2023 by Mikal Fernandes MD [place] [facility] [place]: Chest [employer] : NEUROLOGIC PAIN 09/14/2025 [id number] / [id number] H / Ext Dbs 40cm - [id number] - [id number] Implanted:Qty: 1 on 10/28/2023 by Mikal Fernandes MD [place] [facility] [place]: Neck [employer] : NEUROLOGIC PAIN 05/21/2025 [id number] / [id number] 2 / Description:right neck Envelope Tyrx Lg Antibacterial - [id number] Implanted:Qty: 1 on 10/28/2023 by Mikal Fernandes MD [place] [facility] [place]: Chest [employer] 06/19/2024 [id number] / / [id number] documented as of this encounter Advance Directives [...] Discussed due to patient's condition Care Teams Aircraft Engine Mechanic Overhaul Relationship Specialty Start Date End Date Sonny Lagos MD [address] [place] [address] PCP - General Family Medicine 02/22/21 documented as of this encounter
--- OUTSIDE RECORDS SUMMARY | 2024-08-25 09:36 | External Medical Summary | Summary of Care ---
Author Name Unknown Organization [facility] Address [address] [place] [address] Phone [phone] Care Team Providers Care Research Affiliate Name Role Phone Kimberly Lagos MD Primary Care Provider [phone] Reason for Visit * Reason Comments eRx-Medication Refill Encounter Details Date Type Department Care Team (Late st Contact Info) Description 05/04/2024 Refill [facility] [address] [place] [phone] Kimberly Lagos MD [address] [place] [address] Encounter for long-term (current) use of medications* Allergies No known active allergiesdocumented as of this encounter (statuses as of 05/12/2024) Medications Medication Sig Dispensed Refills Start Date [...] Wheezing. 18 g 5 02/12/2022 Active Nystatin 051228 UNIT/GM External Powder (Nystop) Apply topically to [...] IN THE MORNING. 90 Tablet 05/06/2024 Active hydroCHLOROthiazi de 25 MG Oral Tablet (Hydrodiuril) Take 1 Tablet by mouth in the morning. In the morning.. 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 Patient was notified. Successfully contacted patient and provided [facility] message. * Telephone Encounter - Rod Townsend RP - 05/06/2024 8:31 AM EDTSigned Prescriptions: Disp [...] Visit: Visit date not found Thank you, Alexandra KillianD Clinical Pharmacist [facility] ([facility]) 05/06/24 8:32 AM [phone] documented in this encounter Plan of Treatment Upcoming Encounters Date Type Department Care Team (Late st Contact Info) Description 06/15/2024 3:40 PM EDT Office Visit Neurology [facility] [address] [facility] [place] [address] Antonino Hall MD [address] [place], [place] [phone] 10/21/2024 1:40 PM EST Office Visit Neurology [facility] [address] [place] [address] Antonino Hall MD [address] [place] [address] Scheduled Orders Name Type Priority [...] this encounter Medical Devices Implanted Type Area Heel Top Lift Splitter Device Identifier Shelf Expiration Date Model / Serial / Lot Lead Dbs 1.5mm 42cm - [id number] - [id number] Implanted:Qty: 1 on 10/18/2023 by Mikal Fernandes MD at [place] [facility] [place] Right: Head [employer] : NEUROLOGIC PAIN 07/19/2025 [id number] / [id number] 3 / Description:right brain Cement Hydroset Injectable 5cc - [id number] Implanted:Qty: 1 on 10/18/2023 by Mikal Fernandes MD at OR [facility] [place] Right: Head SHAWN [id number] 06/25/2025 [id number] / / [id number] Accy Dbs Conn Plug - [id number] Implanted:Qty: 1 on 10/28/2023 by Mikal Fernandes MD at [place] [facility] [place] Right: Chest [employer] : NEUROLOGIC PAIN 06/12/2025 [id number] / / [id number] Neurostimulator Percept Pc - [id number] - [id number] Implanted:Qty: 1 on 10/28/2023 by Mikal Fernandes MD at [place] [facility] [place] Right: Chest [employer] : NEUROLOGIC PAIN 09/14/2025 [id number] / [id number] H / Ext Dbs 40cm - [id number] - [id number] Implanted:Qty: 1 on 10/28/2023 by Mikal Fernandes MD at [place] [facility] [place] Right: Neck [employer] : NEUROLOGIC PAIN 05/21/2025 [id number] / [id number] 2 / Description:right neck Envelope Tyrx Lg Antibacterial - [id number] Implanted:Qty: 1 on 10/28/2023 by Mikal Fernandes MD at [place] [facility] [place] Right: Chest [employer] 06/19/2024 [id number] / / [id number] documented as of this encounter Visit Diagnoses [...] Discussed due to patient's condition Care Teams Research Affiliate Relationship Specialty Start Date End Date Kimberly Lagos MD [address] [place] [address] PCP - General Family Medicine 02/22/21 documented as of this encounter
--- OUTSIDE RECORDS SUMMARY | 2024-08-25 09:36 | External Medical Summary | Summary of Care ---
Author Name Unknown Organization [facility] Address [address] [place] [address] Phone [phone] Care Team Providers Care Money Market Dealer Name Role Phone Kimberly Lagos MD Primary Care Provider [phone] Reason for Visit * Reason Onset Date Comments Medication Refill 05/14/2024 Encounter Details Date Type Department Care Team (Late st Contact Info) Description 05/14/2024 Refill [facility] [address] [place] [phone] Kimberly Lagos MD [address] [place] [address] HTN, goal below 130/80; Potassium wasting nephropathy Allergies No known active allergiesdocumented as of this encounter (statuses as of 05/16/2024) Medications Medication Sig Dispensed Refills Start Date [...] Wheezing. 18 g 5 02/12/2022 Active Nystatin 972373 UNIT/GM External Powder (Nystop) Apply topically to [...] MOUTH EVERY DAY 120 Tablet 05/15/2024 Active Klor-Con M20 20 MEQ Oral Tablet Extended ReleaseIndication s:HTN, goal below 130/80,Potassium wasting nephropathy TAKE 4 TABLETS BY MOUTH EVERY DAY 360 Tablet 1 12/10/2023 05/14/2024 Discontinue d(Refill) documented as of this encounter (statuses as of 05/16/2024) Active Problems Problem Noted Date Diagnosed Date Hemiballismus 10/18/2023 Cerebral palsy, hemiplegic 02/22/2021 Overview: Left side affected Chronic depressive disorder 02/22/2021 HTN, goal below 130/80 02/22/2021 Obesity, morbid (more than 1 00 lbs over ideal weight or BMI > 40) 02/22/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 Call Placed, Pt was agreeable to set up office visit. Patient scheduled for 05/25/2024 pt will do labs that day as she can not get transportation . Thank you for your assistance Kimberly Pickard Real Estate Loan Officer II [facility] ([facility]) 05/16/2024,2:43 PM * Telephone Encounter - Fiona Valdez RP - 05/15/2024 8:56 AM EDTSigned Prescriptions: Disp Refills Klor-Con M20 20 MEQ Oral Tablet Extended R*120 Ta*0 Sig: TAKE 4 TABLETS BY MOUTH EVERY DAY Authorizing Provider: KIMBERLY LAGOS Ordering User: FIONA VALDEZ * Telephone Encounter - Fiona Valdez RPh - 05/15/2024 8:53 AM EDT 2ND ATTEMPT Provided 30 days supply with 0 refill. Per refill protocol patient should have BMP on file within past year. Reviewed AMP report, Care Gaps/Health [...] Visit: Visit date not found Thank you, Fiona Valdez, PharmD Clinical Pharmacist [facility]) [phone] 05/15/2024, 8:54 AM documented in this encounter Plan of Treatment Upcoming Encounters Date Type Department Care Team (Late st Contact Info) Description 05/25/2024 10:50 AM EDT Office Visit [facility] [address] [place] [address] Patrica Alberto DO [address] [place] [address] 06/15/2024 3:40 PM EDT Office Visit Neurology [address] [place] [address] Antonino Hall MD [address], [place] [address] 10/21/2024 1:40 PM EST Office Visit Neurology [facility] [address] [place] [address] Antonino Hall MD [address], [place] [phone] Health Maintenance Due Date Last Done Comments [...] this encounter Medical Devices Implanted Type Area Manager Leadership Development Device Identifier Shelf Expiration Date Model / Serial / Lot Lead Dbs 1.5mm 42cm - [id number] - [id number] Implanted:Qty: 1 on 10/18/2023 by Mikal Fernandes MD at [place] [facility] [place] Right: Head [employer] : NEUROLOGIC PAIN 07/19/2025 [id number] / [id number] 3 / Description:right brain Cement Hydroset Injectable 5cc - [id number] Implanted:Qty: 1 on 10/18/2023 by Mikal Fernandes MD at [place] [facility] [place] Right: Head SHAWN [id number] 06/25/2025 [id number] / / [id number] Accy Dbs Conn Plug - [id number] Implanted:Qty: 1 on 10/28/2023 by Mikal Fernandes MD at [place] [facility] [place] Right: Chest [employer] : NEUROLOGIC PAIN 06/12/2025 [id number] / / [id number] Neurostimulator Percept Pc - [id number] - [id number] Implanted:Qty: 1 on 10/28/2023 by Mikal Fernandes MD at [place] [facility] [place] Right: Chest [employer] : NEUROLOGIC PAIN 09/14/2025 [id number] / [id number] H / Ext Dbs 40cm - [id number] - [id number] Implanted:Qty: 1 on 10/28/2023 by Mikal Fernandes MD at [place] [facility] [place] Right: Neck [employer] : NEUROLOGIC PAIN 05/21/2025 [id number] / [id number] 2 / Description:right neck Envelope Tyrx Lg Antibacterial - [id number] Implanted:Qty: 1 on 10/28/2023 by Mikal Fernandes MD at [place] [facility] [place] Right: Chest [employer] 06/19/2024 [id number] / / [id number] documented as of this encounter Visit Diagnoses Diagnosis HTN, goal below 130/80 Unspecified essential hypertension Potassium wasting nephropathy Other specified disorders resulting [...] Discussed due to patient's condition Care Teams Money Market Dealer Relationship Specialty Start Date End Date Kimberly Lagos MD [address] [id number] PCP - General Family Medicine 02/22/21 documented as of this encounter
--- OUTSIDE RECORDS SUMMARY | 2024-08-25 09:36 | External Medical Summary | Summary of Care ---
Author Name Unknown Organization [facility] Address [address] [place] [address] Phone [phone] Care Team Providers Care Label Pinker Name Role Phone Sonny Lagos MD Primary Care Provider [phone] Reason for Visit * Reason Onset Date Comments Advice 04/07/2024 Encounter Details Date Type Department Care Team ([facility] st Contact Info) Description 04/07/2024 Telephone Neurology, [place] [address] [place] [address] Services, [facility] [address] [place] [address] Advice Allergies No known active allergiesdocumented as of this encounter (statuses as of 04/08/2024) Medications Medication Sig Dispensed Refills Start Date [...] morning.. 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 How long issue has been going on: Additional details: Call back number: [phone] Pharmacy (if applicable): documented in this encounter Plan of Treatment Upcoming Encounters Date Type Department Care Team (Late st Contact Info) Description 06/15/2024 3:40 PM EDT Office Visit Neurology [address] [place] [address] Antonino Hall MD [address] [place] [address] 10/21/2024 1:40 PM EST Office Visit Neurology [facility] [address] [place] [address] Antonino Hall MD [address] [place], [place] [address] Health Maintenance Due Date Last Done Comments [...] this encounter Medical Devices Implanted Type Area Color Printer Operator Device Identifier Shelf Expiration Date Model / Serial / Lot Lead Dbs 1.5mm 42cm - [id number] - [id number] Implanted:Qty: 1 on 10/18/2023 by Mikal Fernandes MD [place] [facility] [place]: Head [employer] : NEUROLOGIC PAIN 07/19/2025 [id number] / [id number] 3 / Description:right brain Cement Hydroset Injectable 5c - [id number] Implanted:Qty: 1 on 10/18/2023 by Mikal Fernandes MD [place] [facility] [place] Right: Head SHAWN [id number] 06/25/2025 [id number] / / [id number] Accy Dbs Conn Plug - [id number] Implanted:Qty: 1 on 10/28/2023 by Mikal Fernandes MD [place] [facility] [place]: Chest [employer] : NEUROLOGIC PAIN 06/12/2025 [id number] / / [id number] Neurostimulator Percept Pc - [id number] - [id number] Implanted:Qty: 1 on 10/28/2023 by Mikal Fernandes MD at [place] [facility] [place] Right: Chest [employer] : NEUROLOGIC PAIN 09/14/2025 [id number] / [id number] H / Ext Dbs 40cm - [id number] - [id number] Implanted:Qty: 1 on 10/28/2023 by Mikal Fernandes MD at [place] [facility] [place] Right: Neck [employer] : NEUROLOGIC PAIN 05/21/2025 [id number] / [id number] 2 / Description:right neck Envelope Tyrx Lg Antibacterial - [id number] Implanted:Qty: 1 on 10/28/2023 by Mikal Fernandes MD at [place] [facility] [place] Right: Chest [employer] 06/19/2024 [id number] / / [id number] documented as of this encounter Advance Directives Latest Code Status on File Code Status Date Activated Date Inactivated Comments Full Code 10/28/2023 12:58 PM 10/28/2023 10:31 PM T his order reflects the patients wishes and were consensually agreed upon. Question Answer Comments Discussion of Advance Directives occurred with: Patient Code Status History Code Status Date Activated Date Inactivated Comments Full Code 10/18/2023 12:52 PM 10/19/2023 7:28 PM Th is order reflects the patients wishes and were consensually agreed upon. Question Answer Comments Discussion of Advance Directives occurred with: Not Discussed due to patient's condition Full Code 10/18/2023 6:55 AM 10/18/2023 12:52 PM Th is order reflects the patients wishes and were consensually agreed upon. Question Answer Comments Discussion of Advance Directives occurred with: Not Discussed due to patient's condition Care Teams Label Pinker Relationship Specialty Start Date End Date Sonyn Lagos MD [address] [place] [address] PCP - General Family Medicine 02/22/21 documented as of this encounter
--- OUTSIDE RECORDS SUMMARY | 2024-08-25 09:36 | External Medical Summary | Summary of Care ---
Author Name Unknown Organization [facility] Address [address] [place] [address] Phone [phone] Care Team Providers Care Tumbler Drier Operator Name Role Phone Sonny Lagos MD Primary Care Provider [phone] Reason for Referral * Evaluate & Treat - Unlimited Visits (Within 10 days (routine)) - Pending Review Specialty Diagnoses / Procedures Referred By Magali huynh Referred To Contact HOME CARE / Home Care Diagnoses Spastic hemiparesis of left nondominant side as late effect of cerebral infarction (HCC) Hemiballism Antonino Hall MD [address] [place] [address] Referral ID Status Reason Start Date Expiration Date Visits Requested Visits Authorized [id number] Pending Review Specialty Services Required 04/22/2024 999 999 Question Answer Referral Priority Within 10 days (routine) Where should this appointment be scheduled? 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 Physician Signature: Date of Signature: Physician Printed Name: Laura Monteiro LPN Reason for Visit * Reason Onset Date Comments Referral 04/21/2024 Forms Request 04/21/2024 Isabel / Loulou Mccollum Plan of Care Encounter Details Date Type Department Care Team (Late st Contact Info) Description 04/21/2024 [place]phone [place] [address] [place] [address] Specified, No [facility] [address] [place] [address] Referral; Forms Request (Isabel Jenkins... Allergies No known active allergiesdocumented as of this encounter (statuses as of 05/15/2024) Medications Medication Sig Dispensed Refills Start Date [...] Wheezing. 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 Scanned into patients chart. * Telephone Encounter - Laura Monteiro LPN - 04/21/2024 3:37 PM EDT Patient would like her referral sent to [facility] [phone]. documented in this encounter Plan of Treatment Upcoming Encounters Date Type Department Care Team (Late st Contact Info) Description 06/15/2024 3:40 PM EDT Office Visit Neurology [facility] [place] [address] [place] [address] Antonino Hall MD [address] [place] [address] 10/21/2024 1:40 PM EST Office Visit Neurology [facility] [place] [address] [place] [address] Antonino Hall MD [address] [facility] [address] [id number] Scheduled Referrals Name Type Priority Associated Diagnoses [...] this encounter Medical Devices Implanted Type Area Accounts Payable Bookkeeper Device Identifier Shelf Expiration Date Model / Serial / Lot Lead Dbs 1.5mm 42cm - [id number] - [id number] Implanted:Qty: 1 on 10/18/2023 by Mikal Fernandes MD [place] [facility] [place]: Head [employer] : NEUROLOGIC PAIN 07/19/2025 [id number] / [id number] 3 / Description:right brain Cement Hydroset Injectable 5cc - [id number] Implanted:Qty: 1 on 10/18/2023 by Mikal Fernandes MD [place] [facility] [place] Right: Head SHAWN [id number] 06/25/2025 [id number] / / [id number] Accy Dbs Conn Plug - [id number] Implanted:Qty: 1 on 10/28/2023 by Mikal Fernandes MD [place] [facility] [place]: Chest [employer] : NEUROLOGIC PAIN 06/12/2025 [id number] / / [id number] Neurostimulator Percept Pc - [id number] - [id number] Implanted:Qty: 1 on 10/28/2023 by Mikal Fernandes MD [place] [facility] [place]: Chest [employer] : NEUROLOGIC PAIN 09/14/2025 [id number] / [id number] H / Ext Dbs 40cm - [id number] - [id number] Implanted:Qty: 1 on 10/28/2023 by Mikal Fernandes MD at [place] [facility] [place] Right: Neck [employer] : NEUROLOGIC PAIN 05/21/2025 [id number] / [id number] 2 / Description:right neck Envelope Tyrx Lg Antibacterial - [id number] Implanted:Qty: 1 on 10/28/2023 by Mikal Fernandes MD at [place] [facility] [place] Right: Chest [employer] 06/19/2024 [id number] / / [id number] documented as of this encounter Visit Diagnoses [...] Discussed due to patient's condition Care Teams Tumbler Drier Operator Relationship Specialty Start Date End Date Sonny Lagos MD [address] [facility] [place] [address] PCP - General Family Medicine 02/22/21 documented as of this encounter
--- OUTSIDE RECORDS SUMMARY | 2024-08-25 09:36 | External Medical Summary | Summary of Care ---
Author Name Unknown Organization [facility] Address [address] [place] [address] Phone [phone] Care Team Providers Care Sales Order Administrator Name Role Phone Sonny Lagos MD Primary Care Provider [phone] Reason for Visit * Reason Onset Date Comments Advice 04/07/2024 Encounter Details Date Type Department Care Team ([facility] st Contact Info) Description 04/07/2024 Telephone Neurology, [place] [address] [place] [address] Services, [facility] [address] [place] [address] Advice Allergies No known active allergiesdocumented as of this encounter (statuses as of 04/09/2024) Medications Medication Sig Dispensed Refills Start Date [...] morning.. 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 documented as of this encounter (statuses as of 04/09/2024) Social History Tobacco Use Types Packs/Day Years [...] Telephone Encounter - Laura Monteiro LPN - 04/09/2024 8:06 AM EDT Spoke with patient and gave her several home health agencies that she could call to have her appointment set up * Telephone Encounter - Laura Monteiro LPN [...] going on: Additional details: Call back number: [phone] Pharmacy (if applicable): documented in this encounter Plan of Treatment Upcoming Encounters Date Type Department Care Team (Late st Contact Info) Description 06/15/2024 3:40 PM EDT Office Visit Neurology [facility] [address] [place] [address] Antonino Hall MD [address] [place] [address] 10/21/2024 1:40 PM EST Office Visit Neurology [facility] [place] [address] [place] [address] Antonino Hall MD [address] [facility] [place], [place] [address] Health Maintenance Due Date Last Done Comments [...] this encounter Medical Devices Implanted Type Area Data Processing Specialist Device Identifier Shelf Expiration Date Model / Serial / Lot Lead Dbs 1.5mm 42cm - [id number] - [id number] Implanted:Qty: 1 on 10/18/2023 [place]al [place] [facility] [place] [employer] : NEUROLOGIC PAIN 07/19/2025 [id number] / [id number] 3 / Description:right brain Cement Hydroset Injectable 5cc - [id number] Implanted:Qty: 1 on 10/18/2023 by Mikal Fernandes MD [place] [facility] [place] Head SHAWN [id number] 06/25/2025 [id number] / / [id number] Accy Dbs Conn Plug - [id number] Implanted:Qty: 1 on 10/28/2023 by Mikal Fernand[place] [facility] [place] Chest [employer] : NEUROLOGIC PAIN 06/12/2025 [id number] / / [id number] Neurostimulator Percept Pc - [id number] - [id number] Implanted:Qty: 1 on 10/28/2023 by Mikal Fernandes [place] [facility] [place] Chest [employer] : NEUROLOGIC PAIN 09/14/2025 [id number] / [id number] H / Ext Dbs 40cm - [id number] - [id number] Implanted:Qty: 1 on 10/28/2023 by Mikal Fernandes [place] [facility] [place] Neck [employer] : NEUROLOGIC PAIN 05/21/2025 [id number] / [id number] 2 / Description:right neck Envelope Tyrx Lg Antibacterial - [id number] Implanted:Qty: 1 on 10/28/2023 by Mikal Fernandes MD [place] [facility] [place] Chest [employer] 06/19/2024 [id number] / / [id number] documented as of this encounter Advance Directives [...] Discussed due to patient's condition Care Teams Sales Order Administrator Relationship Specialty Start Date End Date Sonny Lagos MD [address] [facility] [place] [id number] PCP - General Family Medicine 02/22/21 documented as of this encounter
--- OUTSIDE RECORDS SUMMARY | 2024-08-25 09:36 | External Medical Summary | Summary of Care ---
Author Name Unknown Organization [facility] Address [address] [place] [address] Phone [phone] Care Team Providers Care Food And Beverage Cashier Name Role Phone Sonny Lagos MD Primary Care Provider [phone] Reason for Visit * Reason Onset Date Comments Advice 03/30/2024 Encounter Details Date Type Department Care Team ([facility] st Contact Info) Description 03/30/2024 Telephone Neurology, [place] [address] [place] [address] Services, [facility] [address] [place] [address] Advice Allergies No known active allergiesdocumented as of this encounter (statuses as of 03/31/2024) Medications Medication Sig Dispensed Refills Start Date [...] morning.. 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 documented as of this encounter (statuses as of 03/31/2024) Social History Tobacco Use Types Packs/Day Years [...] encounter Miscellaneous Notes * Telephone Encounter - Cat Silva OSA - 03/30/2024 3:20 PM EDT Neuroscience Phone Call Form- Clinic has 24-48 hours to respond to caller If caller is calling back before that timeframe- There is no need to send another message to the pool, update current [facility] Neurology Pool- All messages go through the [facility] Neuro Computational Mathematician- [id number] Neurology Pool Numbers- [place] and [place] patients - follow normal process Ops req [facility] Neurology ([place])- [id number] Ops req NE Neurology ([place] and [facility] Only)- [id number] Neurosurgery Pool Numbers- [place] patients- follow normal process Ops req Neurosurgery [facility] ([place])- [id number] Ops req Neurosurgery [facility] ([place] Only) [id number] Requested Information from caller: Who is calling patient Provider patient is established with: Dr. Hall What is the concern or issue they are having: Pt calling asking when her botox appts will start How long has the issue been going on: 03/30/24 Any additional details to add: no Pts phone number for nurse to call back: [phone] If forms need to be faxed- Please provide fax number: n/a Please make sure you verify pharmacy for anything medication related. Form to be used for established patients only (not new patients) documented in this encounter Plan of Treatment Upcoming Encounters Date Type Department Care Team (Late st Contact Info) Description 06/15/2024 3:40 PM EDT Office Visit Neurology [facility] [place] [address] [place] [address] Antonino Hall MD [address] [place] [address] 10/21/2024 1:40 PM EST Office Visit Neurology [facility] [place] [address] [place] [place] [address] Antonino Hall MD [address] [place] [address] Health Maintenance Due Date Last Done Comments [...] this encounter Medical Devices Implanted Type Area Collision Repair Technician Device Identifier Shelf Expiration Date Model / Serial / Lot Lead Dbs 1.5mm 42cm - [id number] - [id number] Implanted:Qty: 1 on 10/18/2023 by Mikal Fernandes MD at [place] [facility] Right: Head [employer] : NEUROLOGIC PAIN 07/19/2025 [id number] / [id number] 3 / Description:right brain Cement Hydroset Injectable 5cc - [id number] Implanted:Qty: 1 on 10/18/2023 by Mikal Fernandes MD at [place] [facility] Right: Head SHAWN [id number] 06/25/2025 [id number] / / [id number] Accy Dbs Conn Plug - [id number] Implanted:Qty: 1 on 10/28/2023 by Mikal Fernandes MD at [place] [facility] Right: Chest [employer] : NEUROLOGIC PAIN 06/12/2025 [id number] / / [id number] Neurostimulator Percept Pc - [id number] - [id number] Implanted:Qty: 1 on 10/28/2023 by Mikal Fernandes MD at OR [facility] Right: Chest [employer] : NEUROLOGIC PAIN 09/14/2025 [id number] / [id number] H / Ext Dbs 40cm - [id number] - [id number] Implanted:Qty: 1 on 10/28/2023 by Mikal Fernandes MD at [place] [facility] Right: Neck [employer] : NEUROLOGIC PAIN 05/21/2025 [id number] / [id number] 2 / Description:right neck Envelope Tyrx Lg Antibacterial - [id number] Implanted:Qty: 1 on 10/28/2023 by Mikal Fernandes MD at [place] [facility] Right: Chest [employer] 06/19/2024 [id number] / / [id number] documented as of this encounter Advance Directives [...] Discussed due to patient's condition Care Teams Food And Beverage Cashier Relationship Specialty Start Date End Date Sonny Lagos MD [address] [facility] [place] [address] PCP - General Family Medicine 02/22/21 documented as of this encounter
--- OUTSIDE RECORDS SUMMARY | 2024-08-25 09:36 | External Medical Summary | Summary of Care ---
Author Name Unknown Organization [facility] Address [address] [place] [address] Phone [phone] Care Team Providers Care Dye Padder Operator Name Role Phone Sonny Lagos MD Primary Care Provider [phone] Reason for Visit * Reason Comments eRx-Medication Refill Encounter Details Date Type Department Care Team (Late st Contact Info) Description 04/21/2024 Refill Neurology [facility] [address] [place] [address] Antonino Hall MD [address] [place] [address] Allergies No known active allergiesdocumented as of this encounter (statuses as of 04/23/2024) Medications Medication Sig Dispensed Refills Start Date [...] morning.. 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 documented as of this encounter (statuses as of 04/23/2024) Social History Tobacco Use Types Packs/Day Years [...] encounter Miscellaneous Notes * Telephone Encounter - Marbella Ibarra [facility] - 04/23/2024 11:08 AM EDTRefused Prescriptions: Disp Refills Trihexyphenidyl HCl 2 MG Oral Tablet (Ana*90 Tab*5 Sig: TAKE 1 TAB BY MOUTH ONCE DAILY FOR 1ST DAY THEN 1 TAB TWICE DAILY FOR 2ND DAY THEN 3 TIMES DAILY Refused By: MARBELLA IBARRA Reason for Refusal: Refill Not Appropriate Reason for Refusal Comment: d/c by provider on 03/19/24 Electronically signed by Marbella Ibarra [facility] at 04/23/2024 11:08 AM EDT * Telephone Encounter - Interface, E-Rx S[facility] Inbound - 04/23/2024 10:18 AM EDT Pending Prescriptions: Disp Refills Trihexyphenidyl HCl 2 MG Oral Tablet [Phar*90 Tab*5 Sig: TAKE 1TAB BY MOUTH ONCE DAILY FOR 1ST DAY THEN 1 TAB TWICE DAILY FOR 2ND DAY THEN 3 TIMES DAILY documented in this encounter Plan of Treatment Upcoming Encounters Date Type Department Care Team (Late st Contact Info) Description 06/15/2024 3:40 PM EDT Office Visit Neurology [facility] [address] [facility] [address] Antonino Hall MD [address] [place] [address] 10/21/2024 1:40 PM EST Office Visit Neurology [facility] [address] [place] [address] Antonino Hall MD [address] [place] [address] Health Maintenance Due Date Last [...] this encounter Medical Devices Implanted Type Area Gmat Tutor Device Identifier Shelf Expiration Date Model / Serial / Lot Lead Dbs 1.5mm 42cm - [id number] - [id number] Implanted:Qty: 1 on 10/18/2023 by Mikal Fernandes MD [place] [facility] [place] Right: Head [employer] : NEUROLOGIC PAIN 07/19/2025 [id number] / [id number] 3 / Description:right brain Cement Hydroset Injectable 5cc - [id number] Implanted:Qty: 1 on 10/18/2023 by Mikal Fernandes MD at [place] [facility] Right: Head SHAWN [id number] 06/25/2025 [id number] / / [id number] Accy Dbs Conn Plug - [id number] Implanted:Qty: 1 on 10/28/2023 by Mikal Fernandes MD at [place] [facility] [place] Right: Chest [employer] : NEUROLOGIC PAIN 06/12/2025 [id number] / / [id number] Neurostimulator Percept Pc - [id number] - [id number] Implanted:Qty: 1 on 10/28/2023 by Mikal Fernandes MD at [place] [facility] Right: Chest [employer] : NEUROLOGIC PAIN 09/14/2025 [id number] / [id number] H / Ext Dbs 40cm - [id number] - [id number] Implanted:Qty: 1 on 10/28/2023 by Mikal Fernandes MD at [place] [facility] Right: Neck [employer] : NEUROLOGIC PAIN 05/21/2025 [id number] / [id number] 2 / Description:right neck Envelope Tyrx Lg Antibacterial - [id number] Implanted:Qty: 1 on 10/28/2023 by Mikal Fernandes MD at [place] [facility] Right: Chest [employer] 06/19/2024 [id number] / / [id number] documented as of this encounter Advance Directives [...] Discussed due to patient's condition Care Teams Dye Padder Operator Relationship Specialty Start Date End Date Sonny Lagos MD [address] [place] [address] PCP - General Family Medicine 02/22/21 documented as of this encounter
--- OUTSIDE RECORDS SUMMARY | 2024-08-25 09:36 | External Medical Summary | Summary of Care ---
Author Name Unknown Organization [facility] Address [address] [place] [address] Phone [phone] Care Team Providers Care Mercantile Reporter Name Role Phone Sonny Lagos MD Primary Care Provider [phone] Encounter Details Date Type Department Care Team (Late st Contact Info) Description 05/07/2024 Population Health External Data Unspecified Department Allergies No known active allergiesdocumented as of this encounter (statuses as of 05/07/2024) Medications Medication Sig Dispensed Refills Start Date [...] Wheezing. 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 [address] [place] [address] Antonino Hall MD [address] [place] [address] 10/21/2024 1:40 PM EST Office Visit Neurology [facility] [address] [place] [address] Antonino Hall MD [address] [place] [address] Health Maintenance Due Date Last [...] this encounter Medical Devices Implanted Type Area Retail Interior Designer Device Identifier Shelf Expiration Date Model / Serial / Lot Lead Dbs 1.5mm 42cm - [id number] - [id number] Implanted:Qty: 1 on 10/18/2023 by Mikal Fernandes MD [place] [facility] Right: Head [employer] : NEUROLOGIC PAIN 07/19/2025 [id number] / [id number] 3 / Description:right brain Cement Hydroset Injectable 5cc - [id number] Implanted:Qty: 1 on 10/18/2023 by Mikal Fernandes MD at [place] [facility] Right: Head SHAWN [id number] 06/25/2025 [id number] / / [id number] Accy Dbs Conn Plug - [id number] Implanted:Qty: 1 on 10/28/2023 by Mikal Fernandes MD at [place] [facility] [place] Right: Chest [employer] : NEUROLOGIC PAIN 06/12/2025 [id number] / / [id number] Neurostimulator Percept Pc - [id number] - [id number] Implanted:Qty: 1 on 10/28/2023 by Mikal Fernandes MD at [place] [facility] Right: Chest [employer] : NEUROLOGIC PAIN 09/14/2025 [id number] / [id number] H / Ext Dbs 40cm - [id number] - [id number] Implanted:Qty: 1 on 10/28/2023 by Mikal Fernandes MD at [place] [facility] [place] Right: Neck [employer] : NEUROLOGIC PAIN 05/21/2025 [id number] / [id number] 2 / Description:right neck Envelope Tyrx Lg Antibacterial - [id number] Implanted:Qty: 1 on 10/28/2023 by Mikal Fernandes MD at [place] [facility] Right: Chest [employer] 06/19/2024 [id number] / / [id number] documented as of this encounter Advance Directives [...] Discussed due to patient's condition Care Teams Mercantile Reporter Relationship Specialty Start Date End Date Snony Lagos MD [address] [facility] [place] [address] PCP - General Family Medicine 02/22/21 documented as of this encounter
--- OUTSIDE RECORDS SUMMARY | 2024-08-25 09:36 | External Medical Summary | Summary of Care ---
Author Name Unknown Organization [facility] Address [address] [place] [address] Phone [phone] Care Team Providers Care Mirror Inspector Name Role Phone Sonny Lagos MD Primary Care Provider [phone] Reason for Visit * Reason Onset Date Comments Advice 03/30/2024 Encounter Details Date Type Department Care Team ([facility] st Contact Info) Description 03/30/2024 Telephone Neurology, [place] [address] [place] [address] Services, [facility] [address] [place] [address] Advice Allergies No known active allergiesdocumented as [...] morning.. 90 Tablet 1 08/06/2023 Active Nystatin 648199 UNIT/GM External Powder (Nystop) Apply topically to [...] another message to the pool, update current [facility] Neurology Pool- All messages go through the [facility] Neuro Conductor Pullman- [id number] Neurology Pool Numbers- [place] and [place] patients - follow normal process Ops req [facility] Neurology ([place])- [id number] Ops req NE Neurology ([place] [place])- [id number] Neurosurgery Pool Numbers- [place] patients- follow normal process Ops req Neurosurgery [facility] ([place])- [id number] Ops req Neurosurgery [facility] ([place] Only) [id number] Requested Information from caller: Who is calling patient Provider patient is established with: Dr. Hall What is the concern or issue they are having: Pt calling asking when her botox appts will start How long has the issue been going on: 03/30/24 Any additional details to add: no Pts phone number for nurse to call back: [phone] If forms need to be faxed- Please provide fax number: n/a Please make sure you verify pharmacy for anything medication related. Form to be used for established patients only (not new patients) documented in this encounter Plan of Treatment Upcoming Encounters Date Type Department Care Team (Late st Contact Info) Description 06/15/2024 3:40 PM EDT Office Visit Neurology [facility] [place] [address] [place] [facility] [place] [address] Antonino Hall MD [address] [place] [address] 10/21/2024 1:40 PM EST Office Visit Neurology [facility] [place] [address] [place] [address] Antonino Hall MD [address] [place] [address] Health Maintenance Due Date Last Done Comments [...] this encounter Medical Devices Implanted Type Area Security Alarm Technician Device Identifier Shelf Expiration Date Model / Serial / Lot Lead Dbs 1.5mm 42cm - [id number] - [id number] Implanted:Qty: 1 on 10/18/2023 by Mikal Fernandes MD [place] [facility] Right: Head [employer] : NEUROLOGIC PAIN 07/19/2025 [id number] / [id number] 3 / Description:right brain Cement Hydroset Injectable 5cc - [id number] Implanted:Qty: 1 on 10/18/2023 by Mikal Fernandes MD [place] [facility] Right: Head SHAWN [id number] 06/25/2025 [id number] / / [id number] Accy Dbs Conn Plug - [id number] Implanted:Qty: 1 on 10/28/2023 by Mikal Fernandes MD [place] [facility] Right: Chest [employer] : NEUROLOGIC PAIN 06/12/2025 [id number] / / [id number] Neurostimulator Percept Pc - [id number] - [id number] Implanted:Qty: 1 on 10/28/2023 by Mikal Fernandes MD at [place] [facility] Right: Chest [employer] : NEUROLOGIC PAIN 09/14/2025 [id number] / [id number] H / Ext Dbs 40cm - [id number] - [id number] Implanted:Qty: 1 on 10/28/2023 by Mikal Fernandes MD at [place] [facility] Right: Neck [employer] : NEUROLOGIC PAIN 05/21/2025 [id number] / [id number] 2 / Description:right neck Envelope Tyrx Lg Antibacterial - [id number] Implanted:Qty: 1 on 10/28/2023 by Mikal Fernandes MD at [place] [facility] Right: Chest [employer] 06/19/2024 [id number] / / [id number] documented as of this encounter Advance Directives [...] Discussed due to patient's condition Care Teams Mirror Inspector Relationship Specialty Start Date End Date Sonny Lagos MD [address] [facility] [place] [address] PCP - General Family Medicine 02/22/21 documented as of this encounter
--- OUTSIDE RECORDS SUMMARY | 2024-08-25 09:37 | External Medical Summary | Summary of Care ---
Author Name Unknown Organization [facility] Address [address] [place] [address] Phone [phone] Care Team Providers Care Gas Scrubber Operator Name Role Phone Sonny Lagos MD Primary Care Provider [phone] Reason for Referral * Evaluate & Treat - Unlimited Visits (Within 10 days (routine)) - Pending Review Specialty Diagnoses / Procedures Referred By Magali huynh Referred To Contact HOME CARE / Home Care Diagnoses Spastic hemiparesis of left nondominant side as late effect of cerebral infarction (HCC) Antonino Latham MD [address] [place] [address] Referral ID Status Reason Start Date Expiration Date Visits Requested Visits Authorized [id number] Pending Review Specialty Services Required 03/16/[phone] Question Answer Referral Priority Within 10 days (routine) Where should this appointment be scheduled? [facility] Comments Documentation of Ofuu-rd-[id number] Encounter Addendum Patient Name: Merle Damon I certify that this patient is under my care and that I, or a nurse practitioner or physician's group fitness assistant department head working with me, had a [id number]-[id number] encounter that meets the physician hvfw-ev-vsoo encounter requirements with this patient on: March 16, 2024 The encounter with the patient was in [...] patient after discharge should complete this section): needs strength training for left sided hemiparesis and needs a MAFO. Primary Care Physician to follow home care plan of care after discharge: Sonny Wheeler My clinical findings support the need for the above services because: Because patient is not able to travel far. Further, I certify that my clinical findings support that this patient is homebound (i.e. Absences from home require considerable and taxing effort and are for medical reasons or scientology services or infrequently or of short duration when for other reason) because: Physician Signature: ____Antonino Latham MD Date of Signature: 03/16/2024 Physician Printed Name: Antonino Latham MD Reason for Visit * Reason Comments Return Neuro Encounter Details Date Type Department Care Team (Late st Contact Info) Description 03/16/2024 1:40 PM EDT Office Visit Neurology [facility] [place] [address] [facility] [place] [address] Antonino Latham MD [address] [place] [address] Hemiballism*; Hemifacial spasm of left side of face; Spastic hemiparesis of left nondominant side as late effect of cerebral infarction (HCC); Encounter for fitting and adjustment of deep brain stimulator; Cerebral palsy, hemiplegic (HCC) Allergies No known active allergiesdocumented as of this encounter (statuses as of 03/16/2024) Medications Medication Sig Dispensed Refills Start Date End Date Status Docusate Sodium 100 MG Oral Capsule (Colace) TAKE 1 CAPSULE BY MOUTH THREE TIMES A DAY 90 Cap 5 09/03/2021 Active Meclizine HCl 25 MG Oral Tablet (Antivert)Indication [...] the morning.. 90 Tablet 1 08/06/2023 Active oxyBUTYnin Chloride ER 15 MG Oral Tablet Extended Release 24 Hour (Ditropan XL) TAKE 1 TABLET BY MOUTH EVERY DAY IN THE MORNING 90 Tablet 1 09/09/2023 Active Metoprolol Tartrate 25 MG Oral Tablet (Lopressor)Indicatio ns:HTN, goal below 130/80 TAKE 1 TABLET BY MOUTH IN THE MORNING AND 1 TAB BY MOUTH AT BEDTIME 180 Tablet 1 10/15/2023 Active Nystatin 113364 UNIT/GM External Powder (Nystop) Apply topically to [...] EVERY DAY 360 Tablet 1 12/10/2023 Active documented as of this encounter (statuses as of 03/16/2024) Active Problems Problem Noted Date Diagnosed Date Hemiballismus 10/18/2023 Cerebral palsy, hemiplegic 02/22/2021 Overview: Left side affected Chronic depressive disorder 02/22/2021 HTN, goal below 130/80 02/22/2021 Obesity, morbid (more than 1 00 lbs over ideal weight or BMI > 40) 02/22/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 documented as of this encounter (statuses as of 03/16/2024) Social History Tobacco Use Types Packs/Day Years [...] Information Value Date Recorded Sex Assigned at Not on file Gender Identity Not on file Sexual Orientation Not on file Job Start Date Occupation Industry Not on file Not on file Not on file documented as of this encounter Last Filed Vital Signs Vital Sign Reading Time Taken Comments Blood Pressure 108/70 03/16/2024 1:43 PM EDT Pulse 45 03/16/2024 1:43 PM EDT Temperature 37.3 C (99.1 F) 03/16/2024 1:43 PM ED T Respiratory Rate - - Oxygen Saturation 98% 03/16/2024 1:43 PM EDT Inhaled Oxygen Concentration - - Weight 73 kg (161 lb) 03/16/2024 1:43 PM EDT Height - - Body Mass Index 27.64 10/18/2023 6:50 AM EST documented in this encounter Progress Notes * Antonino Latham MD - 03/16/2024 1:47 PM EDT 03/16/2024 1:47 PM Merle Damon 44 year old female Ref: ANTONINO LATHAM[[id number]] [address] [place] [address] (office) [phone] (fax) Here for follow-up on deep brain stimulator programming. CC: Chief Complaint Patient presents with Return Neuro HPI: The patient was last seen just over 3 months ago for her first programming session of the right GPi DBS implantation back in October to address medically refractory left-sided josé miguel balance. The monopolar survey identified electrode contact 9 as the one with the highest therapeutic window.She almost had no involuntary movements and was able to stand for longer. The setting is monopolar with case positive. Pulse width of 110 microseconds and frequency of 130 hertz. She has patient programming limits to regulate the output current from 2.0 to 3.5. She feels back to baseline with her left-sided weakness. We had refer to physical therapy and occupational therapy which was just recently started. She was also referred to occupational therapy for left AFO splint. The ballistic movements have improved a lot by 90-95%. Brief jerks only when she sits for a long times. The right face a bit twisting, lip goes up and down, has constant wink. Left side is having unchanged dystonia/spasticity, especially distal with finger flexion including the thumb but it adducts into the palm. Also with left hemifacial spasms which is new. Mood has been more stable. PAST MEDICAL HISTORY: Patient Active Problem List Diagnosis Date Noted Hemiballismus [G25.5] 10/18/2023 Cerebral palsy, hemiplegic (HCC) [G80.8] 02/22/2021 Left side affected Chronic depressive disorder [F32.A] 02/22/2021 HTN, goal below 130/80 [I10] 02/22/2021 Obesity, morbid (more than 100 lbs over ideal weight or BMI > 40) (HCC) [E66.01] 02/22/2021 Potassium wasting nephropathy [N25.89] 02/22/2021 MEDICATIONS: Current Outpatient Medications Medication Sig Dispense Refill Docusate Sodium 100 MG Oral Capsule (Colace) TAKE 1 CAPSULE BY MOUTH THREE TIMES A DAY 90 Cap 5 Meclizine HCl 25 MG Oral Tablet (Antivert) Take 1 Tab by mouth 3 times a day as needed for Dizziness. 30 Tab 1 Albuterol Sulfate HFA 108 (90 Base) MCG/ACT Inhalation Aerosol Solution Inhale by mouth 2 Puffs every 6 hours as needed for Cough or Wheezing. 18 g 5 hydroCHLOROthiazide 25 MG Oral Tablet (Hydrodiuril) Take 1 Tablet by mouth in the morning. In the morning.. 90 Tablet 1 oxyBUTYnin Chloride ER 15 MG Oral Tablet Extended Release 24 Hour (Ditropan XL) TAKE 1 TABLET BY MOUTH EVERY DAY IN THE MORNING 90 Tablet 1 Metoprolol Tartrate 25 MG Oral Tablet (Lopressor) TAKE 1 TABLET BY MOUTH IN THE MORNING AND 1 TAB BY MOUTH AT BEDTIME 180 Tablet 1 Nystatin 721896 UNIT/GM External Powder (Nystop) Apply topically to affected area 3 times a day. Apply to under skin folds 15 g 1 hydrOXYzine HCl 50 MG Oral Tablet 1 tab twice daily as needed 180 Tablet 1 Spironolactone 50 MG Oral Tablet (Aldactone) Take 1 Tablet by mouth in the morning. 90 Tablet 1 Klor-Con M20 20 MEQ Oral Tablet Extended Release TAKE 4 TABLETS BY MOUTH EVERY DAY 360 Tablet 1 No current facility-administered medications for this visit. ALLERGIES: Review of patient's allergies indicates: No Known Allergies Social History Socioeconomic History Marital status: Spouse name: Not on file Number of children: Not on file Years of education: Not on file Highest education level: Not on file Occupational History Not on file Tobacco Use Smoking status: Never Smokeless tobacco: Never Vaping Use Vaping Use: Never used Substance and Sexual Activity Alcohol use: Yes Comment: Occ Drug use: No Sexual activity: Not on file Other Topics Concern Not on file Social History Narrative Not on file Social Determinants of Health Financial Resource Strain: Not on file Food Insecurity: Not on file Transportation Needs: Not on file Physical Activity: Not on file Stress: Not on file Social Connections: Not on file Intimate Partner Violence: Not on file Housing Stability: Not on file Occupation: HIV risk factors: None FAMILY HISTORY Family History Problem Relation Age of Onset Schizophrenia Brother Diabetes Brother ADD / ADHD Son Autism Son Other (mood disorder) Son Other (mood disorder) Son Family Status Relation Status Bro (Not Specified) Son (Not Specified) Son (Not Specified) REVIEW OF SYSTEMS: The patient denies new cardiac, lung, kidney, liver, skin, thyroid, bladder, or digestive problems.The patient also denies acute changes in hearing or vision. Otherwise, all other systems are negative or as noted above. BP 108/70 (BP Site: Right Arm, BP Position: Sitting, BP Cuff Size: Regular) | Pulse 45 | Temp 37.3 C (99.1 F) (Tympanic) | Wt 73 kg (161 lb) | SpO2 98% | BMI 27.64 kg/m | BSA 1.82 m The patient is a 44 year old female who is well developed and appears to be their stated age. NEUROLOGIC EXAMINATION: Mental status: Intact higher integrative functions. Orientated to person, place, and time. Recent and remote memory functions are intact. Attention, concentration, language, and fund of knowledge arenormal. Judgment and insight are intact. Mood and affect are normal. Left spastic/dystonic hemiparesis. Left elbow flexion tendency, Left wrist flexion tendency Left finger flexion tendency including thumb with some opposition. Left leg with foot outward rotation. Date EI C 8 9 10 11 V PW Hz Ohm mA Benefit/Side effect 12/04/2023 R + - 90 130 3.2 tingling 4.1 twitches + - 5.5 No problems + - 3.9 Foot twitches + - 5.5 No problems + - 110 130 4.5 4.4 Hand twitching Much less ballistic movements with standing up Final + - 110 130 2.5 Almost no involuntary movements, can stand for longer. pt limits 2.0-3.5 03/16/24 + - 130 160 2.5 Group C Pt limits 2.3-2.8 I have put her device into bipolar setting in effort to reduce facial twitching. She had no other side effects during today's programming session. Total programming time 35 minutes. IMPRESSION: The patients left sided josé miguel-ballistic movements have improved significantly by over 90%. At issuesis a new developed of hemifacial spasm. She has other fairly stable left spastic dystonic hemiparesis. She should benefit from chemodenervation with botulinum toxin to help treat the left blepharospasm and left upper limb spasticity/dystonia. RECOMMENDATIONS: I will have her continue on the new DBS settings for the next 3 months. I am planning to inject 200units of Onabotulinum toxin A into left upper limb muscles (left biceps, brachialis, brachioradialis with 25 units each, [...] units, left depressor anguli kate with 5 units). I have provided a significant and separately identifiable visit with today's procedure because of dose planning for chemodenervation with botulinum toxin and counseling in regards to risks and benefits with botulinum neurotoxin. I spent approximately 25 minutes with this patient greater than half the time was spent reviewing diagnosis, physical exam, and treatment. Thank-you for letting me participate in the care of this patient. Antonino Latham MD Neurology [address] [address] Please send copy to requesting physician, Sonny Lagos MD documented in this encounter Nursing Notes * Alyson Perez LPN - 03/16/2024 1:43 PM EDT Chief Complaint Patient presents with Return Neuro documented in this encounter Plan of Treatment Upcoming Encounters Date Type Department Care Team (Late st Contact Info) Description 10/21/2024 1:40 PM EST Office Visit Neurology [facility] [address] [facility] [place] [address] Antonino Latham MD [address] [place] [address] Scheduled Referrals Name Type Priority Associated Diagnoses Orde r Schedule HOME HEALTH REFERRAL OP Referral Within 10 days (routine) Spastic hemiparesis of left nondominant side as late effect of cerebral infarction (HCC) Ordered: 03/16/2024 Health Maintenance Due Date Last Done Comments [...] this encounter Medical Devices Implanted Type Area Advertising Representative Device Identifier Shelf Expiration Date Model / Serial / Lot Lead Dbs 1.5mm 42cm - [id number] - [id number] Implanted:Qty: 1 on 10/18/2023 [place]al Fern[place] [facility] [place] [employer] : NEUROLOGIC PAIN 07/19/2025 [id number] / [id number] / Description:right brain Cement Hydroset Injectable 5cc - [id number] Implanted:Qty: 1 on 10/18/2023 by Mikal Fernandes MD [place] [facility] [place]: Head SHAWN [id number] 06/25/2025 [id number] / / [id number] Accy Dbs Conn Plug - [id number] Implanted:Qty: 1 on 10/28/2023 by Mikal Fernandes MD [place] [facility] [place]: Chest [employer] : NEUROLOGIC PAIN 06/12/2025 [id number] / / [id number] Neurostimulator Percept Pc - [id number] - [id number] Implanted:Qty: 1 on 10/28/2023 by Mikal Fernandes MD [place] [facility] [place]: Chest [employer] : NEUROLOGIC PAIN 09/14/2025 [id number] / [id number] H / Ext Dbs 40cm - [id number] - [id number] Implanted:Qty: 1 on 10/28/2023 by Mikal Fernandes MD [place] [facility] [place]: Neck [employer] : NEUROLOGIC PAIN 05/21/2025 [id number] / [id number] 2 / Description:right neck Envelope Tyrx Lg Antibacterial - [id number] Implanted:Qty: 1 on 10/28/2023 by Mikal Fernandes MD [place] [facility] [place]: Chest [employer] 06/19/2024 [id number] / / [id number] documented as of this encounter Visit Diagnoses Diagnosis Hemiballism- Primary Other choreas Hemifacial spasm of left side of face Spastic hemiparesis of left nondominant side as late effect of cerebral infarction (HCC) Encounter for fitting and adjustment of deep brain stimulator Cerebral palsy, hemiplegic (HCC) Congenital hemiplegia documented in this encounter Advance Directives Latest Code Status [...] Discussed due to patient's condition Care Teams Gas Scrubber Operator Relationship Specialty Start Date End Date Sonny Lagos MD [address] [place] [address] PCP - General Family Medicine 02/22/21 documented as of this encounter"
--- OUTSIDE RECORDS SUMMARY | 2024-08-25 09:37 | External Medical Summary | Summary of Care ---
Author Name Unknown Organization [facility] Address [address] [place] [address] Phone [phone] Care Team Providers Care Microgrinder Operator Name Role Phone Sonny Lagos MD Primary Care Provider [phone] Reason for Visit * Reason Onset Date Comments Pre Cert/Prior Auth 03/17/2024 Botox [facility] DELFINA Encounter Details Date Type Department Care Team ([facility] st Contact Info) Description 03/17/2024 Telephone Neurology, [place] [address] [place] [address] Specified, Zz No Resource [address] [place] [address] Pre Cert/Prior Auth (Botox [facility] 03/18 DELFINA) Allergies No known active allergiesdocumented as of this encounter (statuses as of 03/18/2024) Medications Medication Sig Dispensed Refills Start Date [...] BEDTIME 180 Tablet 1 10/15/2023 Active Nystatin 568276 UNIT/GM External Powder (Nystop) Apply topically to [...] as of this encounter (statuses as of 03/18/2024) Active Problems Problem Noted Date Diagnosed Date Hemiballismus 10/18/2023 Cerebral palsy, hemiplegic 02/22/2021 Overview: Left side affected Chronic depressive disorder 02/22/2021 HTN, goal below 130/80 02/22/2021 Obesity, morbid (more than 1 00 lbs over ideal weight or BMI > 40) 02/22/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 Hall left hemifacial spasm and left spastic hemiparesis - I am planning to inject 200 units of Onabotulinum toxin A into left upper [...] units, left depressor anguli kate with 5 units) Therefore, I am asking a total of 250 units of Botox to address patient's left sided upper limb spasticity and left hemifacial spasm. documented in this encounter Plan of Treatment Upcoming Encounters Date Type Department Care Team (Late st Contact Info) Description 10/21/2024 1:40 PM EST Office Visit Neurology [facility] [place] [address] [facility] [place] [address] Antonino Hall MD [address] [place] [address] Health Maintenance Due Date Last Done Comments [...] this encounter Medical Devices Implanted Type Area Worldwide Chief Creative Officer Device Identifier Shelf Expiration Date Model / Serial / Lot Lead Dbs 1.5mm 42cm - [id number] - [id number] Implanted:Qty: 1 on 10/18/2023 by Mikal Fernandes MD at [place] [facility] [place] Right: Head [employer] : NEUROLOGIC PAIN 07/19/2025 [id number] / [id number] 3 / Description:right brain Cement Hydroset Injectable 5cc - [id number] Implanted:Qty: 1 on 10/18/2023 by Mikal Fernandes MD at OR [facility] [place] Right: Head SHAWN [id number] 06/25/2025 [id number] / / [id number] Accy Dbs Conn Plug - [id number] Implanted:Qty: 1 on 10/28/2023 by Mikal Fernandes MD at OR [facility] [place] Right: Chest [employer] : NEUROLOGIC PAIN 06/12/2025 [id number] / / [id number] Neurostimulator Percept Pc - [id number] - [id number] Implanted:Qty: 1 on 10/28/2023 by Mikal Fernandes MD at OR [facility] [place] Right: Chest [employer] : NEUROLOGIC PAIN 09/14/2025 [id number] / [id number] H / Ext Dbs 40cm - [id number] - [id number] Implanted:Qty: 1 on 10/28/2023 by Mikal Fernandes MD at OR [facility] [place] Right: Neck [employer] : NEUROLOGIC PAIN 05/21/2025 [id number] / [id number] 2 / Description:right neck Envelope Tyrx Lg Antibacterial - [id number] Implanted:Qty: 1 on 10/28/2023 by Mikal Fernandes MD at OR [facility] [place] Right: Chest [employer] 06/19/2024 [id number] / / [id number] documented as of this encounter Advance Directives [...] Discussed due to patient's condition Care Teams Microgrinder Operator Relationship Specialty Start Date End Date Sonny Lagos MD [address] [place] [address] PCP - General Family Medicine 02/22/21 documented as of this encounter
--- OUTSIDE RECORDS SUMMARY | 2024-08-25 09:37 | External Medical Summary | Summary of Care ---
Author Name Unknown Organization [facility] Address [address] [place] [address] Phone [phone] Care Team Providers Care Anvil Seating Press Operator Name Role Phone Sonny Lagos MD Primary Care Provider [phone] Reason for Visit * Reason Onset Date Comments Referral 02/27/2024 Encounter Details Date Type Department Care Team ([facility] st Contact Info) Description 02/27/2024 Telephone Access Center, [facility] [address] [facility] *DO NOT REMOVE THIS DEPARTMENT* [place], [place] [id number] Antonino Latham MD [address], [place] [id number] Referral Allergies No known active allergiesdocumented as of this encounter (statuses as of 02/27/2024) Medications Medication Sig Dispensed Refills Start Date [...] BEDTIME 180 Tablet 1 10/15/2023 Active Nystatin 784780 UNIT/GM External Powder (Nystop) Apply topically to [...] as of this encounter (statuses as of 02/27/2024) Active Problems Problem Noted Date Diagnosed Date Hemiballismus 10/18/2023 Cerebral palsy, hemiplegic 02/22/2021 Overview: Left side affected Chronic depressive disorder 02/22/2021 HTN, goal below 130/80 02/22/2021 Obesity, morbid (more than 1 00 lbs over ideal weight or BMI > 40) 02/22/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 How long has the issue been going on: Any additional details to add: no Pts phone number for nurse to call back: [phone] documented in this encounter Plan of Treatment Upcoming Encounters Date Type Department Care Team (Late st Contact Info) Description 03/16/2024 1:40 PM EDT Office Visit Neurology [facility] [address] [place] [address] Antonino Latham MD [address] [place] [address] Health Maintenance Due Date Last Done Comments Depression Screening 1991 HIV Screening 1994 Hepatitis C Screening 1997 Hepatitis B (1 of 3 - 19+ 3-dose series) 1998 HPV/Co-Test 2009 Mammogram 2019 COVID-19 Vaccine (2022- season) 2023 Influenza Vaccine (FLU shot) (#1) 2023 09/13/2015, 10/15/2013, 10/30/2012, Additional history exists DTaP,Tdap,and Td Vaccines (2 - Td or Tdap) 10/15/2023 10/15/2013 Cologuard 02/14/2024 Colonoscopy 02/14/2024 Colorectal Cancer Screening 02/14/2024 Fecal Occult Blood Test 02/14/2024 Sigmoidoscopy 02/14/2024 Cervical Cancer Screening 03/07/2024 Pap Smear 03/07/2024 03/07/2021 GFR 10/19/2024 10/19/2023, 10/02, 10/04/2023, Additional history [...] this encounter Medical Devices Implanted Type Area Christmas Tree Farmer Device Identifier Shelf Expiration Date Model / Serial / Lot Lead Dbs 1.5mm 42cm - [id number] - [id number] Implanted:Qty: 1 on 10/18/2023 by Mikal Fernandes MD at [place] [facility] [place] Right: Head [employer] : NEUROLOGIC PAIN 07/19/2025 [id number] / [id number] 3 / Description:right brain Cement Hydroset Injectable 5cc - [id number] Implanted:Qty: 1 on 10/18/2023 by Mikal Fernandes MD at [place] [facility] [place] Right: Head SHAWN [id number] 06/25/2025 [id number] / / [id number] Accy Dbs Conn Plug - [id number] Implanted:Qty: 1 on 10/28/2023 by Mikal Fernandes MD at [place] [facility] [place] Right: Chest [employer] : NEUROLOGIC PAIN 06/12/2025 [id number] / / [id number] Neurostimulator Percept Pc - [id number] - [id number] Implanted:Qty: 1 on 10/28/2023 by Mikal Fernandes MD at [place] [facility] [place] Right: Chest [employer] : NEUROLOGIC PAIN 09/14/2025 [id number] / [id number] / Ext Dbs 40cm - [id number] - [id number] Implanted:Qty: 1 on 10/28/2023 by Mikal Fernandes MD at [place] [facility] [place] Right: Neck [employer] : NEUROLOGIC PAIN 05/21/2025 [id number] / [id number] 2 / Description:right neck Envelope Tyrx Lg Antibacterial - [id number] Implanted:Qty: 1 on 10/28/2023 by Mikal Fernandes MD at [place] [facility] [place] Right: Chest [employer] 06/19/2024 [id number] / / [id number] documented as of this encounter Advance Directives [...] Discussed due to patient's condition Care Teams Anvil Seating Press Operator Relationship Specialty Start Date End Date [facility]os [facility] [address] [facility] [address] PCP - General Family Medicine 02/22/21 documented as of this encounter
--- OUTSIDE RECORDS SUMMARY | 2024-08-25 09:37 | External Medical Summary | Summary of Care ---
Author Name Unknown Organization [facility] Address [address] [place] [address] Phone [phone] Care Team Providers Care Audio Visual Engineer Name Role Phone Sonny Lagos MD Primary Care Provider [phone] Reason for Visit * Reason Onset Date Comments Medication Refill 03/11/2024 Encounter Details Date Type Department Care Team (Late st Contact Info) Description 03/11/2024 Refill [facility] [address] [place] [id number] Sonny Lagos MD [address] [place] [address] Potassium wasting nephropathy Allergies No known active allergiesdocumented as of this encounter (statuses as of 03/12/2024) Medications Medication Sig Dispensed Refills Start Date [...] BEDTIME 180 Tablet 1 10/15/2023 Active Nystatin 324261 UNIT/GM External Powder (Nystop) Apply topically to [...] as of this encounter (statuses as of 03/12/2024) Active Problems Problem Noted Date Diagnosed Date Hemiballismus 10/18/2023 Cerebral palsy, hemiplegic 02/22/2021 Overview: Left side affected Chronic depressive disorder 02/22/2021 HTN, goal below 130/80 02/22/2021 Obesity, morbid (more than 1 00 lbs over ideal weight or BMI > 40) 02/22/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 documented as of this encounter (statuses as of 03/12/2024) Social History Tobacco Use Types Packs/Day Years [...] 03/16/2024 1:40 PM EDT Office Visit Neurology [facility] [place] [address] [place] [address] Antonino Hall MD [address] [place] [address] Health Maintenance Due Date Last [...] this encounter Medical Devices Implanted Type Area Pile Trimmer Device Identifier Shelf Expiration Date Model / Serial / Lot Lead Dbs 1.5mm 42cm - [id number] - [id number] Implanted:Qty: 1 on 10/18/2023 by Mikal Fernandes [place] [facility] [place] Head [employer] : NEUROLOGIC PAIN 07/19/2025 [id number] / [id number] 3 / Description:right brain Cement Hydroset Injectable 5cc - [id number] Implanted:Qty: 1 on 10/18/2023 by Mikal Fernandes MD [place] [facility] [place]: Head SHAWN [id number] 06/25/2025 [id number] / / [id number] Accy Dbs Conn Plug - [id number] Implanted:Qty: 1 on 10/28/2023 by Mikal Fernandes MD [place] [facility] [place]: Chest [employer] : NEUROLOGIC PAIN 06/12/2025 [id number] / / [id number] Neurostimulator Percept Pc - [id number] - [id number] Implanted:Qty: 1 on 10/28/2023 by Mikal Fernandes MD [place] [facility] [place]: Chest [employer] : NEUROLOGIC PAIN 09/14/2025 [id number] / [id number] H / Ext Dbs 40cm - [id number] - [id number] Implanted:Qty: 1 on 10/28/2023 by Mikal Fernandes MD [place] [facility] [place] Right: Neck [employer] : NEUROLOGIC PAIN 05/21/2025 [id number] / [id number] 2 / Description:right neck Envelope Tyrx Lg Antibacterial - [id number] Implanted:Qty: 1 on 10/28/2023 by Mikal Fernandes MD at [place] [facility] [place] Right: Chest [employer] 06/19/2024 [id number] / / [id number] documented as of this encounter Visit Diagnoses Diagnosis Potassium wasting nephropathy Other specified disorders resulting from impaired renal function documented in this encounter Advance Directives Latest [...] Discussed due to patient's condition Care Teams Audio Visual Engineer Relationship Specialty Start Date End Date Sonny Lagos MD [address] [place] [address] PCP - General Family Medicine 02/22/21 documented as of this encounter
--- OUTSIDE RECORDS SUMMARY | 2024-08-25 09:37 | External Medical Summary | Summary of Care ---
Author Name Unknown Organization [facility] Address [address] [place] [address] Phone [phone] Care Team Providers Care Distributed Generation Project Manager Name Role Phone Sonny Lagos MD Primary Care Provider Reason for Visit * Reason Onset Date Comments Pre Cert/Prior Auth 03/17/2024 Botox [facility]A Encounter Details Date Type Department Care Team ([facility] st Contact Info) Description 03/17/2024 Telephone Neurology, [place] [address] [place] [address] Specified, Zz No Resource [address] [place] [address] Pre Cert/Prior Auth (Botox GHP [...] BEDTIME 180 Tablet 1 10/15/2023 Active Nystatin 946345 UNIT/GM External Powder (Nystop) Apply topically to [...] 9:24 AM EDT AUTH IN PROCESS WITH [facility] * Telephone Encounter - Laura Monteiro LPN - 03/17/2024 11:09 AM EDT Please prior auth for botox [place] Dr. Hall left hemifacial spasm and left [...] 10/21/2024 1:40 PM EST Office Visit Neurology [facility] [place] [address] [facility] [place] [address] Antonino Hall MD [address] [place] [address] Health Maintenance Due Date Last Done Comments [...] encounter Medical Devices Implanted Type Area Air Brake Operator Device Identifier Shelf Expiration Date Model / Serial / Lot Lead Dbs 1.5mm 42cm - [id number] - [id number] Implanted:Qty: 1 on 10/18/2023 by Mikal Fernandes MD at [place] [facility] [place] Right: Head [employer] : NEUROLOGIC PAIN 07/19/2025 [id number] / [id number] 3 / Description:right brain Cement Hydroset Injectable 5cc - [id number] Implanted:Qty: 1 on 10/18/2023 by Mikal Fernandes MD at OR [facility] [place] Right: Head SHAWN [id number] 06/25/2025 [id number] / / [id number] Accy Dbs Conn Plug - [id number] Implanted:Qty: 1 on 10/28/2023 by Mikal Fernandes MD at [place] [facility] [place] Right: Chest [employer] : NEUROLOGIC PAIN 06/12/2025 [id number] / / [id number] Neurostimulator Percept Pc - [id number] - [id number] Implanted:Qty: 1 on 10/28/2023 by Mikal Fernandes MD at [place] [facility] [place] Right: Chest [employer] : NEUROLOGIC PAIN 09/14/2025 [id number] / [id number] H / Ext Dbs 40cm - [id number] - [id number] Implanted:Qty: 1 on 10/28/2023 by Mikal Fernandes MD at OR [facility] [place] Right: Neck [employer] : NEUROLOGIC PAIN 05/21/2025 [id number] / [id number] 2 / Description:right neck Envelope Tyrx Lg Antibacterial - [id number] Implanted:Qty: 1 on 10/28/2023 by Mikal Fernandes MD at OR [facility] [place] Right: Chest [employer] 06/19/2024 [id number] / / [id number] documented as of this encounter Advance Directives [...] Discussed due to patient's condition Care Teams Distributed Generation Project Manager Relationship Specialty Start Date End Date Sonny Lagos MD [address] [place] [address] PCP - General Family Medicine 02/22/21 documented as of this encounter
--- OUTSIDE RECORDS SUMMARY | 2024-08-25 09:37 | External Medical Summary | Summary of Care ---
Author Name Unknown Organization [facility] Address [address] [place] [address] Phone [phone] Care Team Providers Care Outside Installer Apprentice Name Role Phone Sonny Lagos MD Primary Care Provider [phone] Reason for Visit * Reason Onset Date Comments Medication Refill 03/19/2024 Encounter Details Date Type Department Care Team (Late st Contact Info) Description 03/19/2024 Refill Neurology [facility] [address] [place], [place] [phone] Antonino Latham MD [address] [place] [address] Allergies No known active allergiesdocumented as of this encounter (statuses as of 03/19/2024) Medications Medication Sig Dispensed Refills Start Date End Date Status Docusate Sodium 100 MG Oral Capsule (Colace) TAKE 1 CAPSULE BY MOUTH THREE TIMES A DAY 90 Cap 5 09/03/2021 Active Meclizine HCl 25 MG Oral Tablet (Antivert)Indicat ions:BPPV (benign paroxysmal positional vertigo), bilateral Take 1 Tab by mouth 3 times a day as needed for Dizziness. 30 Tab 1 09/12/2021 Active Albuterol Sulfate HFA 108 (90 Base) MCG/ACT Inhalation Aerosol Solution Inhale by mouth 2 Puffs every 6 hours as needed for Cough or Wheezing. 18 g 5 02/12/2022 Active hydroCHLOROthiazi de 25 MG Oral Tablet (Hydrodiuril) Take 1 Tablet by mouth in the morning. In the morning.. 90 Tablet 1 08/06/2023 Active oxyBUTYnin Chloride ER 15 MG Oral Tablet Extended Release 24 Hour (Ditropan XL) TAKE 1 TABLET BY MOUTH EVERY DAY IN THE MORNING 90 Tablet 1 09/09/2023 Active Metoprolol Tartrate 25 MG Oral Tablet (Lopressor)Indica tions:HTN, goal below 130/80 TAKE 1 TABLET BY MOUTH IN THE MORNING AND 1 TAB BY MOUTH AT BEDTIME 180 Tablet 1 10/15/2023 Active Nystatin 156930 UNIT/GM External Powder (Nystop) Apply topically to [...] EVERY DAY 360 Tablet 1 12/10/2023 Active Trihexyphenidyl HCl 2 MG Oral Tablet (Artane) TAKE 1 TAB BY MOUTH ONCE DAILY FOR 1ST DAY THEN 1 TAB TWICE DAILY FOR 2ND DAY THEN 3 TIMES DAILY 0 12/13/2023 03/19/2024 Discontinue d(Medicatio n List Clean Up) documented as of this encounter (statuses as of 03/19/2024) Active Problems Problem Noted Date Diagnosed Date Hemiballismus 10/18/2023 Cerebral palsy, hemiplegic 02/22/2021 Overview: Left side affected Chronic depressive disorder 02/22/2021 HTN, goal below 130/80 02/22/2021 Obesity, morbid (more than 1 00 lbs over ideal weight or BMI > 40) 02/22/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 documented as of this encounter (statuses as of 03/19/2024) Social History Tobacco Use Types Packs/Day Years [...] encounter Miscellaneous Notes * Telephone Encounter - Antonino Latham MD - 03/19/2024 8:19 AM EDTSigned Prescriptions: Disp Refills Trihexyphenidyl HCl 2 MG Oral Tablet (Ana* Sig: TAKE 1 TAB BY MOUTH ONCE DAILY FOR 1ST DAY THEN 1 TAB TWICE DAILY FOR 2ND DAY THEN 3 TIMES DAILY Authorizing Provider: HISTORY PER PATIENT Ordering User: KIP FISCHER Refused Prescriptions: Disp Refills Trihexyphenidyl HCl 2 MG Oral Tablet (Ana* Sig: TAKE 1 TAB BY MOUTH ONCE DAILY FOR 1ST DAY THEN 1 TAB TWICE DAILY FOR 2ND DAY THEN 3 TIMES DAILY Refused By: ANTONINO LATHAM Reason for Refusal: Refill Not Appropriate * Telephone Encounter - Antonino Latham MD - 03/19/2024 8:19 AM EDT Patient is no longer taking Trihexyphenidyl. Will take the med out of her drug list. documented in this encounter Plan of Treatment Upcoming Encounters Date Type Department Care Team (Late st Contact Info) Description 10/21/2024 1:40 PM EST Office Visit Neurology [facility] [place] [address] [place] [address] Antonino Latham MD [address] [place] [address] Health Maintenance Due Date Last Done Comments [...] this encounter Medical Devices Implanted Type Area Corporate Quality Engineer Device Identifier Shelf Expiration Date Model / Serial / Lot Lead Dbs 1.5mm 42cm - [id number] - [id number] Implanted:Qty: 1 on 10/18/2023 by Mikal Fernandes MD at [place] [facility] [place] Right: Head [employer] : NEUROLOGIC PAIN 07/19/2025 [id number] / [id number] 3 / Description:right brain Cement Hydroset Injectable 5cc - [id number] Implanted:Qty: 1 on 10/18/2023 by Mikal Fernandes MD at OR [facility] [place] Right: Head SHAWN [id number] 06/25/2025 [id number] / / [id number] Accy Dbs Conn Plug - [id number] Implanted:Qty: 1 on 10/28/2023 by Mikal Fernandes MD at OR [facility] [place] Right: Chest [employer] : NEUROLOGIC PAIN 06/12/2025 [id number] / / [id number] Neurostimulator Percept Pc - [id number] - [id number] Implanted:Qty: 1 on 10/28/2023 by Mikal Fernandes MD at OR [facility] [place] Right: Chest [employer] : NEUROLOGIC PAIN 09/14/2025 [id number] / [id number] H / Ext Dbs 40cm - [id number] - [id number] Implanted:Qty: 1 on 10/28/2023 by Mikal Fernandes MD at OR [facility] [place] Right: Neck [employer] : NEUROLOGIC PAIN 05/21/2025 [id number] / [id number] 2 / Description:right neck Envelope Tyrx Lg Antibacterial - [id number] Implanted:Qty: 1 on 10/28/2023 by Mikal Fernandes MD at OR [facility] [place] Right: Chest [employer] 06/19/2024 [id number] / / [id number] documented as of this encounter Advance Directives [...] Discussed due to patient's condition Care Teams Outside Installer Apprentice Relationship Specialty Start Date End Date Sonny Lagos MD [address] [facility] [place] [id number] PCP - General Family Medicine 02/22/21 documented as of this encounter
--- OUTSIDE RECORDS SUMMARY | 2024-08-25 09:37 | External Medical Summary | Summary of Care ---
Author Name Unknown Organization [facility] Address [address] [place] [address] Phone [phone] Care Team Providers Care Prospecting Observer Name Role Phone Sonny Lagos MD Primary Care Provider [phone] Reason for Visit * Reason Onset Date Comments Advice 03/30/2024 Encounter Details Date Type Department Care Team ([facility] st Contact Info) Description 03/30/2024 Telephone Neurology, [place] [address] [place] [address] Services, [facility] [address] [place] [address] Advice Allergies No known active allergiesdocumented as [...] morning.. 90 Tablet 1 08/06/2023 Active Nystatin 722340 UNIT/GM External Powder (Nystop) Apply topically to [...] another message to the pool, update current [facility] Neurology Pool- All messages go through the [facility] Neuro Real Estate Analyst- [id number] Neurology Pool Numbers- [place] and [place] patients - follow normal process Ops req [facility] [place] ([place])- [id number] Ops req [place] Neurology ([place]- [facility] and [facility] clinics Only)- [id number] Neurosurgery Pool Numbers- [place] patients- follow normal process Ops req Neurosurgery [facility] ([place])- [id number] Ops req Neurosurgery [facility] ([place] Only) [id number] Requested Information from caller: Who is calling patient Provider patient is established with: Dr. Hall What is the concern or issue they are having: Pt calling asking when her botox appts will start How long has the issue been going on: 03/30/24 Any additional details to add: no Pts phone number for nurse to call back: [phone] If forms need to be faxed- Please provide fax number: n/a Please make sure you verify pharmacy for anything medication related. Form to be used for established patients only (not new patients) documented in this encounter Plan of Treatment Upcoming Encounters Date Type Department Care Team (Late st Contact Info) Description 06/15/2024 3:40 PM EDT Office Visit Neurology [facility] [place] [address] [place] [facility] [place] [address] Antonino Hall MD [address] [place] [address] 10/21/2024 1:40 PM EST Office Visit Neurology [facility] [place] [address] [place] [address] Antonino Hall MD [address] [place] [address] Health Maintenance Due Date Last Done Comments [...] this encounter Medical Devices Implanted Type Area Potato Sorter Device Identifier Shelf Expiration Date Model / Serial / Lot Lead Dbs 1.5mm 42cm - [id number] - [id number] Implanted:Qty: 1 on 10/18/2023 by Mikal Fernandes MD [place] [facility] [place] Head [employer] : NEUROLOGIC PAIN 07/19/2025 [id number] / [id number] 3 / Description:right brain Cement Hydroset Injectable 5cc - [id number] Implanted:Qty: 1 on 10/18/2023 by Mikal Fernandes MD [place] [facility] [place]: Head SHAWN [id number] 06/25/2025 [id number] / / [id number] Accy Dbs Conn Plug - [id number] Implanted:Qty: 1 on 10/28/2023 by Mikal Fernandes MD [place] [facility] [place]: Chest [employer] : NEUROLOGIC PAIN 06/12/2025 [id number] / / [id number] Neurostimulator Percept Pc - [id number] - [id number] Implanted:Qty: 1 on 10/28/2023 by Mikal Fernandes MD [place] [facility] [place]: Chest [employer] : NEUROLOGIC PAIN 09/14/2025 [id number] / [id number] H / Ext Dbs 40cm - [id number] - [id number] Implanted:Qty: 1 on 10/28/2023 by Mikal Fernandes MD [place] [facility] [place]: Neck [employer] : NEUROLOGIC PAIN 05/21/2025 [id number] / [id number] 2 / Description:right neck Envelope Tyrx Lg Antibacterial - [id number] Implanted:Qty: 1 on 10/28/2023 by Mikal Fernandes MD [place] [facility] [place]: Chest [employer] 06/19/2024 [id number] / / [id number] documented as of this encounter Advance Directives [...] Discussed due to patient's condition Care Teams Prospecting Observer Relationship Specialty Start Date End Date Sonny Lagos MD [address] [facility] [address] PCP - General Family Medicine 02/22/21 documented as of this encounter
--- OUTSIDE RECORDS SUMMARY | 2024-08-25 09:37 | External Medical Summary | Summary of Care ---
Author Name Unknown Organization [facility] Address [address] [place] [address] Phone [phone] Care Team Providers Care Marketing Administrative Assistant Name Role Phone Sonny Lagos MD Primary Care Provider [phone] Reason for Visit * Reason Onset Date Comments Referral 02/27/2024 Encounter Details Date Type Department Care Team ([facility] st Contact Info) Description 02/27/2024 Telephone Access Center, [facility] [address] [facility] *DO NOT REMOVE THIS DEPARTMENT* [place], [place] [phone] Antonino Latham MD [address], [place] [id number] Referral Allergies No known active allergiesdocumented as [...] BEDTIME 180 Tablet 1 10/15/2023 Active Nystatin 024830 UNIT/GM External Powder (Nystop) Apply topically to [...] Telephone Encounter - Laura Monteiro LPN - 02/27/2024 2:30 PM EDT Spoke with patient and discussed that yes we could write for home PT but that she needs to be seen first due to insurance She verbalized understanding and has a upcoming appointment with Dr. Latham * Telephone Encounter - Bree Miguel OSA [...] phone number for nurse to call back: [phone] documented in this encounter Plan of Treatment Upcoming Encounters Date Type Department Care Team (Late st Contact Info) Description 03/16/2024 1:40 PM EDT Office Visit [facility] [place] [address] [place] [address] Antonino Latham MD [address] [place] [address] Health Maintenance Due Date Last Done Comments Depression Screening 1991 HIV Screening 1994 Hepatitis C Screening 1997 Hepatitis B (1 of 3 - 19+ 3-dose series) 1998 HPV/Co-Test 2009 Mammogram 2019 COVID-19 Vaccine (2022-24 season) 2023 Influenza Vaccine (FLU shot) (#1) [...] this encounter Medical Devices Implanted Type Area Tapper Hand Device Identifier Shelf Expiration Date Model / Serial / Lot Lead Dbs 1.5mm 42cm - [id number] - [id number] Implanted:Qty: 1 on 10/18/2023 by Mikal Fernandes MD at [place] [facility] [place] Right: Head [employer] : NEUROLOGIC PAIN 07/19/2025 [id number] / [id number] 3 / Description:right brain Cement Hydroset Injectable 5cc - [id number] Implanted:Qty: 1 on 10/18/2023 by Mikal Fernandes MD at OR [facility] [place] Right: Head SHAWN [id number] 06/25/2025 [id number] / / [id number] Accy Dbs Conn Plug - [id number] Implanted:Qty: 1 on 10/28/2023 by Mikal Fernandes MD at OR [facility] [place] Right: Chest [employer] : NEUROLOGIC PAIN 06/12/2025 [id number] / / [id number] Neurostimulator Percept Pc - [id number] - [id number] Implanted:Qty: 1 on 10/28/2023 by Mikal Fernandes MD at OR [facility] [place] Right: Chest [employer] : NEUROLOGIC PAIN 09/14/2025 [id number] / [id number] H / Ext Dbs 40cm - [id number] - [id number] Implanted:Qty: 1 on 10/28/2023 by Mikal Fernandes MD at OR [facility] [place] Right: Neck [employer] : NEUROLOGIC PAIN 05/21/2025 [id number] / [id number] 2 / Description:right neck Envelope Tyrx Lg Antibacterial - [id number] Implanted:Qty: 1 on 10/28/2023 by Mikal Fernandes MD at OR [facility] [place] Right: Chest [employer] 06/19/2024 [id number] / / [id number] documented as of this encounter Advance Directives [...] Discussed due to patient's condition Care Teams Marketing Administrative Assistant Relationship Specialty Start Date End Date Sonny Lagos MD [address] [place] [address] PCP - General Family Medicine 02/22/21 documented as of this encounter
--- OUTSIDE RECORDS SUMMARY | 2024-08-25 09:37 | External Medical Summary | Summary of Care ---
Author Name Unknown Organization [facility] Address [address] [place] [address] Phone [phone] Care Team Providers Care Yarn Rewinder Name Role Phone Sonny Lagos MD Primary Care Provider [phone] Reason for Visit * Reason Onset Date Comments Pre Cert/Prior Auth 03/17/2024 Botox [facility]HP Encounter Details Date Type Department Care Team (Late st Contact Info) Description 03/17/2024 Telephone Neurology, [place] [address] [place] [address] Specified, Zz No Resource [address] [place] [address] Pre Cert/Prior Auth (Botox GHP 03/17) Allergies No known active allergiesdocumented as of this encounter (statuses as of 03/17/2024) Medications Medication Sig Dispensed Refills Start Date [...] BEDTIME 180 Tablet 1 10/15/2023 Active Nystatin 287772 UNIT/GM External Powder (Nystop) Apply topically to [...] as of this encounter (statuses as of 03/17/2024) Active Problems Problem Noted Date Diagnosed Date Hemiballismus 10/18/2023 Cerebral palsy, hemiplegic 02/22/2021 Overview: Left side affected Chronic depressive disorder 02/22/2021 HTN, goal below 130/80 02/22/2021 Obesity, morbid (more than 1 00 lbs over ideal weight or BMI > 40) 02/22/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 Hall left hemifacial spasm and left [...] PM EST Office Visit Neurology [facility] [place] [address] [facility] [place] [address] Antonino Hall MD [address] [place] [address] Health Maintenance Due Date Last Done Comments HIV Screening 1994 Hepatitis C Screening 1997 Hepatitis B (1 of 3 - 19+ 3-dose series) 1998 HPV/Co-Test 2009 Mammogram 2019 COVID-19 Vaccine (2022-24 season) 2023 DTaP,Tdap,and Td Vaccines (2 - [...] this encounter Medical Devices Implanted Type Area Production Troubleshooter Device Identifier Shelf Expiration Date Model / Serial / Lot Lead Dbs 1.5mm 42cm - [id number] - [id number] Implanted:Qty: 1 on 10/18/2023 by Mikal Fernandes [place] [facility] [place]: Head [employer] : NEUROLOGIC PAIN 07/19/2025 [id number] / [id number] 3 / Description:right brain Cement Hydroset Injectable 5cc - [id number] Implanted:Qty: 1 on 10/18/2023 by Mikal Fernandes MD [place] [facility] [place]: Head SHAWN [id number] 06/25/2025 [id number] / / [id number] Accy Dbs Conn Plug - [id number] Implanted:Qty: 1 on 10/28/2023 by Mikal Fernandes MD [place] [facility] [place]: Chest [employer] : NEUROLOGIC PAIN 06/12/2025 [id number] / / [id number] Neurostimulator Percept Pc - [id number] - [id number] Implanted:Qty: 1 on 10/28/2023 by Mikal Fernandes MD [place] [facility] [place]: Chest [employer] : NEUROLOGIC PAIN 09/14/2025 [id number] / [id number] H / Ext Dbs 40cm - [id number] - [id number] Implanted:Qty: 1 on 10/28/2023 by Mikal Fernandes MD at [place] [facility] [place] Right: Neck [employer] : NEUROLOGIC PAIN 05/21/2025 [id number] / [id number] 2 / Description:right neck Envelope Tyrx Lg Antibacterial - [id number] Implanted:Qty: 1 on 10/28/2023 by Mikal Fernandes MD at [place] [facility] [place] Right: Chest [employer] 06/19/2024 [id number] / / [id number] documented as of this encounter Advance Directives [...] Discussed due to patient's condition Care Teams Yarn Rewinder Relationship Specialty Start Date End Date Sonny Lagos MD [address] [place] [address] PCP - General Family Medicine 02/22/21 documented as of this encounter
--- OUTSIDE RECORDS SUMMARY | 2024-08-25 09:37 | External Medical Summary | Summary of Care ---
Author Name Unknown Organization [facility] Address [address] [place] [address] Phone [phone] Care Team Providers Care Drafter Construction Name Role Phone Kimberly Lagos MD Primary Care Provider [phone] Reason for Visit * Reason Onset Date Comments Medication Refill 03/16/2024 Encounter Details Date Type Department Care Team (Late st Contact Info) Description 03/16/2024 Refill [facility] [address] [place] [phone] Kimberly Lagos MD [address], [place] [phone] Allergies No known active allergiesdocumented as of [...] or Wheezing. 18 g 5 02/12/2022 Active hydroCHLOROthiaz leonel 25 MG Oral Tablet (Hydrodiuril) Take 1 Tablet by mouth in the morning. In the morning.. 90 Tablet 1 08/06/2023 Active Metoprolol Tartrate 25 MG Oral Tablet (Lopressor)Indic ations:HTN, goal below 130/80 TAKE 1 TABLET BY MOUTH IN THE MORNING AND 1 TAB BY MOUTH AT BEDTIME 180 Tablet 1 10/15/2023 Active Nystatin 205041 UNIT/GM External Powder (Nystop) Apply topically to [...] before bedtime. 90 Capsule 2 03/19/2024 Active Docusate Sodium 100 MG Oral Capsule (Colace) TAKE 1 CAPSULE BY MOUTH THREE TIMES A DAY 90 Cap 5 09/03/2021 03/16/20 24 Discontinued(Ref ill) oxyBUTYnin Chloride ER 15 MG Oral Tablet Extended Release 24 Hour (Ditropan XL) TAKE 1 TABLET BY MOUTH EVERY DAY IN THE MORNING 90 Tablet 1 09/09/2023 03/19/20 24 Discontinued documented as of this encounter (statuses [...] Telephone Encounter - Kimberly Lagos MD - 03/19/2024 2:15 PM EDTSigned Prescriptions: Disp Refills Docusate Sodium 100 MG Oral Capsule (Colac*90 Cap*2 Sig: Take 1 Capsule by mouth in the morning and 1 Capsule at noon and 1 Capsule before bedtime. Authorizing Provider: KIMBERLY LAGOS * Telephone Encounter - Patrica Gutierrez x ray equipment servicer - 03/19/2024 12:40 PM EDT Pending Prescriptions: Disp Refills Docusate Sodium 100 MG Oral Capsule (Colac*90 Cap*2 Sig: Take 1 Capsule by mouth in the morning and 1 Capsule at noon and 1 Capsule before bedtime. * Telephone Encounter - Patrica Gutierrez x ray equipment servicer - 03/19/2024 12:40 PM EDT Received message from [facility] regarding patient needing appointment. Call Placed, Unable to reach pt, as there was no answer and no VM available to leave message. Sent the patient a [employer] message to advise. Thank you, Patrica Gutierrez [facility] Speech And Language Clinician II [facility] ([facility]) (formerly Telepharmacy) 03/19/2024,12:40 PM * Telephone Encounter - Nyasia Antunez [facility] - 03/18/2024 9:32 AM EDTPending Prescriptions: Disp Refills Docusate Sodium 100 MG Oral Capsule (Colac*90 Cap*2 Sig: Take 1 Capsule by mouth in the morning and 1 Capsule at noon and 1 Capsule before bedtime. * Telephone Encounter - Nyasia Antunez [facility] - 03/18/2024 9:32 AM EDT Please contact patient so that an appointment can be scheduled with her PRIMARY CARE provider before this refill can be authorized. After contacting patient, please forward request to Kimberly Lagos MD. Last Visit: 01/18/2022 (in office), 12/05/2022 (telemedicine) Next Visit: Visit date not found Thanks, Nyasia Antunez PharmD Clinical Pharmacist [facility] ([facility]) (Formerly Telepharmacy) [phone] 03/18/2024 9:32 AM * Telephone Encounter - Nyasia Antunez [facility] - 03/18/2024 9:31 AM EDT Did you pend patient's preferred pharmacy and medication before forwarding?yes Pharmacy: [id number] Pending Prescriptions: Disp Refills Docusate Sodium 100 MG Oral Capsule (Cola*90 Cap*2 Sig: Take 1 Capsule by mouth in the morning and 1 Capsule at noon and 1 Capsule before bedtime. Last Visit: 01/18/2022 (in office), 12/05/2022 (telemedicine) Next Visit: Visit date not found If no future appointments scheduled, and last appointment is greater than a year ago, please schedule patient for a follow-up appointment Last date the medication was ordered: 09/03/21 Is this request for a controlled substance?No Urine Drug Screen:No results found for this or any previous visit. Patient Phone Numbers Labs: Lab Results Component Value Date/Time CREAT 0.8 10/19/2023 06:28 AM CREAT 0.9 07/29/2020 01:18 PM POTASSIUM 3.4 (L) 10/19/2023 06:28 AM POTASSIUM 3.8 07/29/2020 01:18 PM TSH 1.24 02/11/2020 11:37 AM LDLCALC 159 (H) 10/04/2023 11:48 AM LDLCALC 145 (H) 02/11/2020 11:37 AM ALT 13 02/11/2020 11:37 AM documented in this encounter Plan of Treatment Upcoming Encounters Date Type Department Care Team (Late st Contact Info) Description 10/21/2024 1:40 PM EST Office Visit Neurology [facility] [place] [address] [place] [address] Antonino Hall MD [address] [place], [place] [phone] Health Maintenance Due Date Last Done Comments [...] this encounter Medical Devices Implanted Type Area Sales Development Representative Device Identifier Shelf Expiration Date Model / Serial / Lot Lead Dbs 1.5mm 42cm - [id number] - [id number] Implanted:Qty: 1 on 10/18/2023 [place]al [place] [facility] [place] [employer] : NEUROLOGIC PAIN 07/19/2025 [id number] / [id number] 3 / Description:right brain Cement Hydroset Injectable 5cc - [id number] Implanted:Qty: 1 on 10/18/2023 by Mikal Fernandes MD [place] [facility] [facility] [place] Head SHAWN [id number] 06/25/2025 [id number] / / [id number] Accy Dbs Conn Plug - [id number] Implanted:Qty: 1 on 10/28/2023 by Mikal Fernandes [place] [facility] [facility] [place]: Chest [employer] : NEUROLOGIC PAIN 06/12/2025 [id number] / / [id number] Neurostimulator Percept Pc - [id number] - [id number] Implanted:Qty: 1 on 10/28/2023 by Mikal Fernandes MD [place] [facility] [place]: Chest [employer] : NEUROLOGIC PAIN 09/14/2025 [id number] / [id number] / Ext Dbs 40cm - [id number] - [id number] Implanted:Qty: 1 on 10/28/2023 by Mikal Fernandes MD [place] [facility] [facility] [place]: Neck [employer] : NEUROLOGIC PAIN 05/21/2025 [id number] / [id number] 2 / Description:right neck Envelope Tyrx Lg Antibacterial - [id number] Implanted:Qty: 1 on 10/28/2023 by Mikal Fernandes MD [place] [facility] [place]: Chest [employer] 06/19/2024 [id number] / / [id number] documented as of this encounter Advance Directives [...] Discussed due to patient's condition Care Teams Drafter Construction Relationship Specialty Start Date End Date Kimberly Lagos MD [address] [place] [address] PCP - General Family Medicine 02/22/21 documented as of this encounter
--- OUTSIDE RECORDS SUMMARY | 2024-08-25 09:37 | External Medical Summary | Summary of Care ---
Author Name Unknown Organization [facility] Address [address] [place] [address] Phone [phone] Care Team Providers Care Epic Kaleidoscope Analyst Name Role Phone Kimberly Lagos MD Primary Care Provider [phone] Reason for Visit * Reason Comments eRx-Medication Refill Encounter Details Date Type Department Care Team ([facility] st Contact Info) Description 03/18/2024 Refill [facility] [address] [place] [phone] Kimberly Lagos MD [address] [place], [place] [phone] Allergies No known active allergiesdocumented as of [...] BEDTIME 180 Tablet 1 10/15/2023 Active Nystatin 109711 UNIT/GM External Powder (Nystop) Apply topically to [...] THE MORNING 90 Tablet 1 03/19/2024 Active oxyBUTYnin Chloride ER 15 MG Oral Tablet Extended Release 24 Hour (Ditropan XL) TAKE 1 TABLET BY MOUTH EVERY DAY IN THE MORNING 90 Tablet 1 09/09/2023 4 Discontinued documented as of this encounter [...] Encounter - Kimberly Lagos MD - 03/19/2024 2:19 PM EDTSigned Prescriptions: Disp Refills oxyBUTYnin Chloride ER 15 MG Oral Tablet E*90 Tab*1 Sig: TAKE 1 TABLET BY MOUTH EVERY DAY IN THE MORNING Authorizing Provider: KIMBERLY LAGOS * Telephone Encounter - Lesa Zazueta LPN - 03/19/2024 8:13 AM EDTPending Prescriptions: Disp Refills oxyBUTYnin Chloride ER 15 MG Oral Tablet E*90 Tab*1 Sig: TAKE 1 TABLET BY MOUTH EVERY DAY IN THE MORNING * Telephone Encounter - Almas Wiley - 03/19/2024 4:39 AM EDTPending Prescriptions: Disp Refills oxyBUTYnin Chloride ER 15 MG Oral Tablet E*90 Tab*1 Sig: TAKE 1TABLET BY MOUTH EVERY DAY IN THE MORNING documented in this encounter Plan of Treatment Upcoming Encounters Date Type Department Care Team (Late st Contact Info) Description 10/21/2024 1:40 PM EST Office Visit Neurology [facility] [place] [address] [place] [address] Antonino Hall MD [address] [place] [address] Health Maintenance Due Date Last [...] this encounter Medical Devices Implanted Type Area Pot Fisher Device Identifier Shelf Expiration Date Model / Serial / Lot Lead Dbs 1.5mm 42cm - [id number] - [id number] Implanted:Qty: 1 on 10/18/2023 [place]al [place] [facility] [place] [employer] : NEUROLOGIC PAIN 07/19/2025 [id number] / [id number] 3 / Description:right brain Cement Hydroset Injectable 5cc - [id number] Implanted:Qty: 1 on 10/18/2023 by Mikal Fern[place] [facility] [place] SHAWN [id number] 06/25/2025 [id number] / / [id number] Accy Dbs Conn Plug - [id number] Implanted:Qty: 1 on 10/28/2023 by Mikal Fern[place] [facility] [place] Chest [employer] : NEUROLOGIC PAIN 06/12/2025 [id number] / / [id number] Neurostimulator Percept Pc - [id number] - [id number] Implanted:Qty: 1 on 10/28/2023 by Mikal Fern[place] [facility] [place] Chest [employer] : NEUROLOGIC PAIN 09/14/2025 [id number] / [id number] / Ext Dbs 40cm - [id number] - [id number] Implanted:Qty: 1 on 10/28/2023 by Mikal Fern[place] [facility] [place]: Neck [employer] : NEUROLOGIC PAIN 05/21/2025 [id number] / [id number] 2 / Description:right neck Envelope Tyrx Lg Antibacterial - [id number] Implanted:Qty: 1 on 10/28/2023 by Mikal Fern[place] [facility] [place] Chest [employer] 06/19/2024 [id number] / / [id number] documented as of this encounter Advance Directives [...] Discussed due to patient's condition Care Teams Epic Kaleidoscope Analyst Relationship Specialty Start Date End Date Kimberly Lagos MD [address] [facility] [place] [address] PCP - General Family Medicine 02/22/21 documented as of this encounter
--- OUTSIDE RECORDS SUMMARY | 2024-08-25 09:37 | External Medical Summary | Summary of Care ---
Author Name Unknown Organization [facility] Address [address] [place] [address] Phone [phone] Care Team Providers Care Filer Finish Name Role Phone Sonny Lagos MD Primary Care Provider [phone] Reason for Visit * Reason Onset Date Comments Pre Cert/Prior Auth 03/17/2024 Botox GHP Encounter Details Date Type Department Care Team ([facility] st Contact Info) Description 03/17/2024 Telephone Neurology, [place] [address] [place] [address] Specified, Zz No Resource [address] [place] [address] Pre Cert/Prior Auth (Botox GHP ) Allergies No known active allergiesdocumented as of [...] BEDTIME 180 Tablet 1 10/15/2023 Active Nystatin 646429 UNIT/GM External Powder (Nystop) Apply topically to [...] AM EDT Please prior auth for botox [place] Dr. Hall left hemifacial spasm and left [...] PM EST Office Visit Neurology [facility] [place] [address] [facility] [place] [address] Antonino Hall MD [address] [place] [address] Health Maintenance Due Date Last [...] this encounter Medical Devices Implanted Type Area Anode Crew Supervisor Device Identifier Shelf Expiration Date Model / Serial / Lot Lead Dbs 1.5mm 42cm - [id number] - [id number] Implanted:Qty: 1 on 10/18/2023 by Mikal Fernandes MD at [place] [facility] [place] Right: Head [employer] : NEUROLOGIC PAIN 07/19/2025 [id number] / [id number] 3 / Description:right brain Cement Hydroset Injectable 5cc - [id number] Implanted:Qty: 1 on 10/18/2023 by Mikal Fernandes MD at [place] [facility] [place] Right: Head SHAWN [id number] 06/25/2025 [id number] / / [id number] Accy Dbs Conn Plug - [id number] Implanted:Qty: 1 on 10/28/2023 by Mikal Fernandes MD at [place] [facility] [place] Right: Chest [employer] : NEUROLOGIC PAIN 06/12/2025 [id number] / / [id number] Neurostimulator Percept Pc - [id number] - [id number] Implanted:Qty: 1 on 10/28/2023 by Mikal Fernandes MD at [place] [facility] [place] Right: Chest [employer] : NEUROLOGIC PAIN 09/14/2025 [id number] / [id number] H / Ext Dbs 40cm - [id number] - [id number] Implanted:Qty: 1 on 10/28/2023 by Mikal Fernandes MD at [place] [facility] [place] Right: Neck [employer] : NEUROLOGIC PAIN 05/21/2025 [id number] / [id number] 2 / Description:right neck Envelope Tyrx Lg Antibacterial - [id number] Implanted:Qty: 1 on 10/28/2023 by Mikal Fernandes MD at [place] [facility] [place] Right: Chest [employer] 06/19/2024 [id number] / / [id number] documented as of this encounter Advance Directives [...] Discussed due to patient's condition Care Teams Filer Finish Relationship Specialty Start Date End Date Sonny Lagos MD [address] [place] [address] PCP - General Family Medicine 02/22/21 documented as of this encounter
--- OUTSIDE RECORDS SUMMARY | 2024-08-25 09:37 | External Medical Summary | Summary of Care ---
Author Name Unknown Organization [facility] Address [address] [place] [address] Phone [phone] Care Team Providers Care Wildlife Science Professor Name Role Phone Kimberly Lagos MD Primary Care Provider [phone] Reason for Visit * Reason Onset Date Comments Medication Refill 03/20/2024 Encounter Details Date Type Department Care Team (Late st Contact Info) Description 03/20/2024 Refill [facility] [place] [address] [place] [phone] Kimberly Lagos MD [address], [place] [phone] HTN, goal below 130/80 Allergies No known active allergiesdocumented as of this encounter (statuses as of 03/23/2024) Medications Medication Sig Dispensed Refills Start Date [...] morning.. 90 Tablet 1 08/06/2023 Active Nystatin 463909 UNIT/GM External Powder (Nystop) Apply topically to [...] before bedtime. 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 documented as of this encounter (statuses as of 03/23/2024) Social History Tobacco Use Types Packs/Day Years [...] encounter Miscellaneous Notes * Telephone Encounter - Garland Burkett [facility] - 03/23/2024 8:24 AM EDTSigned Prescriptions: Disp Refills Metoprolol Tartrate 25 MG Oral Tablet (Lop*180 Ta*1 Sig: Take 1 Tablet by mouth in the morning and 1 Tablet before bedtime.Authorizing Provider: KIMBERLY LAGOS User: GARLAND MILLER * Telephone Encounter - Garland Burkett [facility] - 03/23/2024 8:19 AM EDT Pending Prescriptions: Disp Refills Metoprolol Tartrate 25 MG Oral Tablet (Lo*180 Ta*1 Last Visit: 01/18/2022 (in office), 12/05/2022 (telemedicine) Next Visit: Visit date not found If no future appointments scheduled, and last appointment is greater than a year ago, please schedule patient for a follow-up appointment Last date the medication was ordered: 10/15/23 Pharmacy: [id number] [address] [facility] Is this request for a controlled substance? No Urine Drug Screen:No results found for this or any previous visit. Patient Phone Numbers [place] [phone] Labs: Lab Results Component Value Date/Time CREAT [...] 1:40 PM EST Office Visit Neurology [facility] [address] [place] [address] Antonino Hall MD [address] [place] [address] Health Maintenance Due Date Last [...] this encounter Medical Devices Implanted Type Area Financial Agent Device Identifier Shelf Expiration Date Model / Serial / Lot Lead Dbs 1.5mm 42cm - [id number] - [id number] Implanted:Qty: 1 on 10/18/2023 by Mikal Fernandes MD at [place] [facility] [place] Right: Head [employer] : NEUROLOGIC PAIN 07/19/2025 [id number] / [id number] 3 / Description:right brain Cement Hydroset Injectable 5cc - [id number] Implanted:Qty: 1 on 10/18/2023 by Mikal Fernandes MD at [place] [facility] [place] Right: Head SHAWN [id number] 06/25/2025 [id number] / / [id number] Accy Dbs Conn Plug - [id number] Implanted:Qty: 1 on 10/28/2023 by Mikal Fernandes MD at [place] [facility] [place] Right: Chest [employer] : NEUROLOGIC PAIN 06/12/2025 [id number] / / [id number] Neurostimulator Percept Pc - [id number] - [id number] Implanted:Qty: 1 on 10/28/2023 by Mikal Fernandes MD at [place] [facility] [place] Right: Chest [employer] : NEUROLOGIC PAIN 09/14/2025 [id number] / [id number] / Ext Dbs 40cm - [id number] - [id number] Implanted:Qty: 1 on 10/28/2023 by Mikal Fernandes MD at [place] [facility] [place] Right: Neck [employer] : NEUROLOGIC PAIN 05/21/2025 [id number] / [id number] 2 / Description:right neck Envelope Tyrx Lg Antibacterial - [id number] Implanted:Qty: 1 on 10/28/2023 by Mikal Fernandes MD at [facility] Right: Chest [employer] 06/19/2024 [id number] / / [id number] documented as of this encounter Visit Diagnoses Diagnosis HTN, goal below 130/80 Unspecified essential hypertension documented in this encounter Advance Directives Latest [...] Code 10/18/2023 6:55 AM 10/18/2023 12:52 PM T his order reflects the patients wishes and were consensually agreed upon. Question Answer Comments Discussion of Advance Directives occurred with: Not Discussed due to patient's condition Care Teams Wildlife Science Professor Relationship Specialty Start Date End Date Kimberly Lagos MD [address] [place] [address] PCP - General Family Medicine 02/22/21 documented as of this encounter
[2024-08-25] MEDS: METOPROLOL TARTRATE 25 MG TAB PO SCH (10:26)
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
[2024-08-25 16:52] LABS: Appearance Urine Clear (Clear); Bacteria Urine Automated None Seen (None Seen); Bilirubin Urine Negative (Negative); Blood Urine 3+ (Negative); Cast Urine Automated 0-2 /lpf (0-2); Color Urine Yellow; Epithelial Cell Urine Auto 0-2 /hpf (0-2); Glucose Urine UA Negative (Negative); Ketones Urine Negative (Negative); Leukocyte Esterase Urine Negative (Negative); Nitrite Urine Negative (Negative); Protein Urine Negative (Negative); Urobilinogen Urine Negative (Negative); WBC Urine Automated 0-5 /hpf (0-5); pH Urine 6.5 (4.5-7.5)
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
--- NOTE | 2024-08-27 06:02 | Electrocardiogram Report ---
Test Reason : Blood Pressure : */* mmHG Vent. Rate : 67 BPM Atrial Rate : 67 BPM P-R Int : 146 ms QRS Dur : 86 ms QT Int : 400 ms P-R-T Axes : -4 70 34 degrees QTcB Int : 422 ms Poor data quality, interpretation may be adversely affected Normal sinus rhythm Low voltage QRS Cannot rule out Anterior infarct , age undetermined Nonspecific T wave abnormality Abnormal ECG When compared with ECG of 24-Oct-2021 19:17, Minimal criteria for Anterior infarct are now Present T wave inversion now evident in Anterior leads Confirmed by Chemo Barone ([id number] on 08/27/2024 6:01:47 AM Referred By: REFERRED SELF Confirmed By: Chemo Barone
[2024-08-27 09:37] LABS: Basophils # (auto) 0.04 K/uL (0.00-0.20); Basophils % (auto) 0.8 %; Eosinophils # (auto) 0.22 K/uL (0.00-0.50); Eosinophils % (auto) 4.4 %; Hematocrit (blood only) 40.1 % (37.0-47.0); Hemoglobin 13.4 g/dl (12.0-16.0); Immature Granulocytes # (auto) 0.01 K/uL (0.01-0.20); Immature Granulocytes % (auto) 0.2 %; Lymphocytes # (auto) 1.99 K/uL (1.20-3.40); Lymphocytes % (auto) 39.6 %; Mean Corpuscular Hemoglobin 28.5 pg (25.0-34.0); Mean Corpuscular Hgb Conc 33.4 g/dL (32.0-36.0); Mean Corpuscular Volume 85.3 fL (80.0-100.0); Mean Platelet Volume 10.3 fL (9.4-12.4); Monocytes # (auto) 0.23 K/uL (0.11-0.59); Monocytes % (auto) 4.6 %; Neutrophils # (auto) 2.54 K/uL (1.40-6.50); Neutrophils % (auto) 50.4 %; Platelet Count 220 K/uL (130-400); RDW Standard Deviation 40.3 fL (36.4-46.3); White Blood Count 5.03 K/ul (4.8-10.8)
[2024-08-27 09:59] LABS: Calcium 8.8 mg/dl (8.6-10.3); Potassium 3.5 mmol/L (3.5-5.1)
[2024-08-27 10:05] LABS: BUN Creatinine Ratio 24.1 (10-20); Creatinine Clr Calc Pharmacy 117.9 ml/min; Est GFR (Non-African American) 111.3 ml/min
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
[2024-08-29] MEDS: ACETAMINOPHEN 325 MG TAB PO PRN (07:33)
[2024-08-29] MEDS: NAPROXEN 250 MG TAB PO PRN (13:56)
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
[2024-08-30] MEDS: SELENIUM SULFIDE 2.5% LOTION 120 ML BTL EXT SCH (14:49)
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
[2024-09-01 23:42] VITALS: RESP 16
[2024-09-02 07:33] VITALS: BP 119/76; PULSE 65; TEMP 99.1; O2SAT 99
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
== END 2024-09-02 15:08 | DRG 923 ==
LOC: ED 19:49 → EDINP 23:59 → SUATTDRO 23:59 → 3E 08-25 01:01